=== PATIENT | female | born 1960 | race Caucasian/White ===

== ENCOUNTER 2020-01-25 16:28 | Outpatient (CLI) | payer BC, SELFPAY ==
--- NOTE | 2020-01-25 | XR_ITS ---
WS: [id number] LEFT ANKLE: 3 VIEW(S) TECHNIQUE: AP, oblique(s) and lateral. HISTORY: ACUTE LEFT ANKLE PAIN COMPARISON: None available. Normal anatomic alignment with no fracture or dislocation. Diffuse osteopenia. Hypertrophic osteophytes from the distal fibula. Mild narrowing of the ankle join t. No soft tissue abnormality. XR/XR ankle LT min 3V* 53800 IMPRESSION: 1. Osteopenia with mild degenerative changes at the ankle joint. 2. No fracture.
== END 2020-01-25 16:29 | disposition home or self-care (01) ==
LOC: RADOUTREAD 01-27 11:19
PROVIDERS: Family Provider Family Medicine; Visit Provider Nurse Practitioner Family
DX: Z01.89 Encounter for other specified special examinations (principal)

== ENCOUNTER 2020-02-04 14:01 | Outpatient (CLI) | payer BC, SELFPAY ==
--- NOTE | 2020-02-04 14:16 | CT_ITS ---
WS: [id number] CT CHEST TECHNIQUE: Noncontrast CT of the chest with coronal and sagittal reformatted images. CLINICAL INFORMATION: PULMONARY NODULE COMPARISON: CTA chest January 19, 2019 DLP: 602.[address] scans at [facility] use at least one of these dose optimization techniques: automat ed exposure control; mA and/or kV adjustment per patient size (includes targeted exams where dose is matched to clinical indication); or iterative reconstruction. FINDINGS: Moderate chronic emphysematous changes. No acute pulmonary infiltrates. No focal pneumonia. No consol idation or pleural fluid. A few calcified granulomas. Again seen are centrilobular nodularity and tree-in-bud configuration more prominent in the upper lob es. This is not significantly changed since the prior examination. A few tiny calcified granulomas. N o new pulmonary opacities. Hazy groundglass opacities in right lower lobe likely inflammatory. Slight atelectasis in the lingula. Aortic calcification. Coronary calcification. No mediastinal or hilar lymphadenopathy. Adrenal glands are normal. Chronic left rib fractures with callus formation. Chronic compression with anterior wedging at T8. Sl ight retropulsion of the posterior superior cortex. Loss of approximately 40% vertebral body height c entrally. This is new since 2019 but has a chronic appearance. CT/CT chest wo con 36090 IMPRESSION: 1. Moderate chronic emphysematous changes. No acute pulmonary infiltrates. 2. Again seen are tree-in-bud nodularity more prominent in the upper lobes not significantly changed since 2019. This can be seen with respiratory bronchioli tis, hypersensitivity pneumonitis, and MAC 3. A few calcified granulomas are unchanged. 4. No mediastinal or hilar lymphadenopathy. 5. Compression fracture involving the T8 vertebral body with anterior wedging and loss of approximately 40% vertebral body height centrally. This is new sinc e 2019 but has a chronic appearance.
== END 2020-02-04 14:02 | disposition home or self-care (01) ==
LOC: RADWPI 14:04
PROVIDERS: Family Provider Family Medicine; PCP Family Medicine; Visit Provider Family Medicine
DX: J43.9 Emphysema, unspecified (principal); J84.10 Pulmonary fibrosis, unspecified; R91.1 Solitary pulmonary nodule; M48.54XA Collapsed vertebra, not elsewhere classified, thoracic region, initial encounter for fracture
CPT/HCPCS: 71250

== ENCOUNTER 2020-02-05 13:07 | Emergency (ER) | payer BC, SELFPAY ==
[2020-02-05 13:09] VITALS: BP 143/75; PULSE 88; RESP 16; TEMP 36.6; O2SAT 97; BMI 27.0
--- NOTE | 2020-02-05 13:21 | ED_ITS ---
Entered by Haley Waller, acting as scribe for Anne Marie Pabon MD HPI - Back Pain/Injury General: Chief Complaint: Back Pain/Injury Stated Complaint: BACK PAIN Time Seen by Provider: 02/05/20 13:20 Source: patient, RN notes reviewed and old records reviewed Mode of arrival: ambulatory Limitations: no limitations History of Present Illness: HPI Narrative: 59 yo female presents to ED with complaints of back pain. She said the pain began yesterday and she had difficulty getting up this morning. She said the pain is in her lower back. She states Monday morning (about 0400) she was changing her spouses bed and she injured her back with pushing/pulling on the sheets over the top of the bed. She has tried Aleve and Icy Hot patches with no relief. She said a little over a week ago, she had a sudden sharp pain in her L ankle that began on the inside of her ankle and radiated across the front of her ankle. MD elicited complaint: back pain and back injury (lower) Severity: severe Quality: sharp Location: lumbar spine Radiation: none Exacerbating factors: movement Relieving factors: none Context: turning/twisting and other (pushing/pulling) Associated symptoms: Reports no associated symptoms; Deny abdominal pain, chills, change in bowel habits, fever(s), nausea or vomiting Treatments prior to arrival: heat therapy and NSAIDS Work related injury: No Review of Systems General: Reports: 10 or more systems reviewed and unremarkable except in HPI and below Const: Denies: fever or chills Eyes: Denies: change in vision ENMT: Denies: throat pain Card: Denies: chest pain Resp: Denies: shortness of breath GI: Denies: abdominal pain, nausea, vomiting or change in bowel habits : Denies: difficulty urinating Musc: Reports: back pain Skin/Breast: Denies: rash Neuro: Denies: headache Psych: Denies: hopelessness or suicidal ideation Endo: Denies: excessive urination Ming/Lymph: Denies: easy bruising or easy bleeding All/Imm: Denies: hives PFSH ED PFSH: Social History Smoking and tobacco status: current every day smoker Physical Exam Const: COMMON NORMALS: no apparent distress, oriented x3, alert and well nourished Eye: COMMON NORMALS: EOMs intact bilaterally and conjunctivae normal CONJUNCTIVA: Yes conjunctivae normal Neck/C-Spine: COMMON NORMALS: full ROM CERVICAL SPINE: Yes cervical ROM normal Resp: COMMON NORMALS: normal respiratory effort, no retractions, no use of accessory muscles and clear to auscultation bilaterally EFFORT & INSPECTION: Yes able to speak in complete sentences AUSCULTATION: clear to auscultation bilaterally Cardio: COMMON NORMALS: regular rate and regular rhythm RATE: regular rate RHYTHM: regular rhythm Back/Pelvis: LUMBAR SPINE/LOWER BACK: Yes normal to inspection (no step-offs, no rash, no palpable spasm) and Yes pain with ROM OTHER: Normal range of motion Extremity: GENERAL: Yes normal exam except as noted Neuro: COMMON NORMALS: oriented x3 and CN's II-XII intact bilaterally SENSORIUM/ORIENTATION: Yes alert SPEECH: speech normal Psych: COMMON NORMALS: mental status grossly normal Skin: COMMON NORMALS: no rashes or lesions noted GENERAL SKIN EXAM: no rashes or lesions noted Course Vital Signs: Vital signs: Vital Signs Temperature 98 F 02/05/20 13:09 Pulse Rate 72 02/05/20 14:56 Respiratory Rate 16 02/05/20 14:56 Blood Pressure 133/87 02/05/20 14:56 Pulse Oximetry 97 02/05/20 14:56 MDM - Back Pain/Injury MDM Narrative: Medical decision making narrative: 59-year-old female with low back pain that is bilateral and paraspinal. Pain developed after she was pulling to try to move Ray who is on hospice. She does not have any symptoms or signs of cauda equina. No change in bowel or bladder no dysuria. She knew she had a compression fracture of T8 and this is not in the area where she hurts. This is an old fracture on a CT that was performed for a pulmonary nodule that I reviewed from yesterday as an outpatient. 1412 pain slightly improved with meds here Discharge Plan Discharge Patient Disposition: Home, Self-Care Condition: Stable Prescriptions: New Valium 5 mg tablet 5 mg PO BID PRN (Reason: spasm) Qty: 7 RF: 0 [place] 5-325 mg tablet 1 tab PO BID PRN (Reason: pain) Qty: 7 RF: 0 Referrals: Sid Harris MD [Primary Care Provider] - Patient Instructions: Low Back Strain (ED) Activity Restrictions/Additional Instructions: call your doctor for follow up. If you feel that you have any emergent problems or need to be seen in the ER then return to the ER where we will re evaluate you to ensure you do not have any life or limb threatening conditions. Discharge Date/Time: 02/05/20 14:57 Coding Level of Care Code ED Title Clerk for Chg Fwd Exam Comprehensive The documentation recorded by the Sridhar choudhury Valerie R, accurately reflects the service I personally performed and the decisions made by me, Anne Marie Pabon MD Feb 05, 2020 13:07
[2020-02-05 13:37] VITALS: O2SAT 97
[2020-02-05] MEDS: HYDROcodone-acetaminophen 5-325 mg Tablet 1 TAB PO (13:41)
[2020-02-05] MEDS: diazePAM 5 mg Tablet PO (13:42)
[2020-02-05 14:56] VITALS: BP 133/87; PULSE 72; RESP 16; O2SAT 97
== END 2020-02-05 14:57 | disposition home or self-care (01) ==
PROVIDERS: Emergency Provider Emergency Medicine; Family Provider Family Medicine; PCP Family Medicine
DX: S39.92XA Unspecified injury of lower back, initial encounter (principal); M54.5 Low back pain; F17.200 Nicotine dependence, unspecified, uncomplicated; X50.0XXA Overexertion from strenuous movement or load, initial encounter
CPT/HCPCS: 12345; 99281; 99283

== ENCOUNTER 2020-02-07 12:14 | Outpatient (CLI) | payer BC, SELFPAY ==
--- NOTE | 2020-02-07 | XR_ITS ---
WS: [id number] XR lumbar spine min 4V 00099 REASON FOR EXAM: BACK PAIN ACUTE FINDINGS: Scoliosis convex to the left side. Compression deformity T12 vertebra. Increased lordosis in the lumbar spine. Lamina pedicles spinous processes normal. XR/XR lumbar spine min 4V 95955 IMPRESSION: Compression fracture T12.
== END 2020-02-07 12:15 | disposition home or self-care (01) ==
LOC: RADOUTREAD 02-10 11:09
PROVIDERS: Family Provider Family Medicine; PCP Family Medicine; Visit Provider Family Medicine
DX: Z01.89 Encounter for other specified special examinations (principal)

== ENCOUNTER 2020-05-28 09:16 | Inpatient (IN) | payer BC, SELFPAY ==
[2020-05-28] VITALS (7 sets, daily range): BP systolic 144–169; BP diastolic 73–86; PULSE 69–111; RESP 16–20; TEMP 36.8–37.9; O2SAT 93–97; BMI 24.2
--- NOTE | 2020-05-28 09:30 | XRR_ITS ---
PROCEDURE INFORMATION: Exam: XR Chest, 1 View Exam date and time: 05/28/2020 9:47 AM Age: 60 years old Clinical indication: Dyspnea and other: Dizziness, weakness; Patient HX: C/O shortness of breath/weakness in legs x 1 week. Dizziness; Additional info: Chest pain TECHNIQUE: Imaging protocol: XR of the chest Views: 1 view. COMPARISON: CR XR chest 2V* [id number] 02/24/2020 10:37 AM FINDINGS: Lungs: No pneumonia or pulmonary edema. Calcified bilateral pulmonary granulomas present. Minimal scarring in the left lung base. Pleural space: No pleural effusion or pneumothorax. Heart/Mediastinum: The cardiac silhouette is not enlarged. The mediastinal contours are normal. Bones/joints: The previously demonstrated compression injuries in the thoracic spine are not well visualized on this frontal portable chest radiograph. XR/XR chest 1V portable [id number] IMPRESSION: No acute abnormality.
--- NOTE | 2020-05-28 09:57 | ECG_ITS ---
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 Measurements Intervals [place] Rate: 65 P: 65 ME: 138 QRS: -6 QRSD: 93 T: 48 QT: 437 QTc: 457 Interpretive Statements SINUS RHYTHM Compared to ECG 07/29/2019 16:10:25 Sinus tachycardia no longer present T-wave abnormality no longer present Electronically Signed On 05-28-2020 20:48:29 CDT by Anay Orellana M.D. [email or web address], [id number] f
--- NOTE | 2020-05-28 09:58 | W.ED.GENADLT ---
HPI - General Adult General: Chief complaint: Shortness of Breath/Dyspnea Stated complaint: SOB/DIZZY/WEAKNESS Time Seen by Provider: 05/28/20 09:28 Source: patient Mode of arrival: ambulatory Limitations: no limitations History of Present Illness: HPI narrative: Patient is a 60-year-old female with a history of HTN, hyperlipidemia, and COPD here for complaints of generalized weakness more so to her bilateral lower extremities, some slight dizziness, and shortness of breath. Symptoms have been present over the past week. She is also complaining of some pain across to her back and chest pain. She reports a productive cough although states that is not completely abnormal for her given her COPD. She states she had a fever of 101.6 yesterday. Patient does not seem to be in any acute distress during my examination. Her vitals upon triage are completely stable. She is an every day smoker. Patient does not require oxygen for her COPD. PCP is Dr. Sid Harris. Associated symptoms: Reports chest pain and dyspnea; Deny confusion, headache(s), nausea, rash, palpitations, syncope or vomiting Review of Systems Const: Reports: fever(s); Denies: chills, body aches, change in appetite, change in weight or fatigue Eyes: Denies: change in vision, blurry vision, photophobia, floaters or seeing flashes Card: Reports: chest pain and lightheadedness; Denies: palpitations, irregular heart rhythm, edema, swelling of feet/ankles, syncope, pre-syncope, dyspnea on exertion, orthopnea or leg pain with exertion Resp: Reports: dyspnea, productive cough and chest congestion; Denies: wheezing or hemoptysis GI: Denies: abdominal pain, nausea, vomiting or diarrhea : Denies: flank pain, difficulty voiding, dysuria, urinary frequency, urinary urgency or urinary hesitancy Musc: Reports: back pain (across mid back); Denies: neck pain, extremity pain, extremity swelling or joint pain Skin/Breast: Denies: rash Neuro: Reports: weakness in extremities and dizziness; Denies: headache(s), numbness in extremities, sensory changes, confusion or Slurred speech present PFS ED PFSH: Social History Smoking and tobacco status: current every day smoker Physical Exam Const: COMMON NORMALS: no acute distress, average body habitus, patient oriented x3, no limitations, healthy appearing, alert and well nourished ORIENTATION/CONSCIOUSNESS: Yes oriented to person, Yes oriented to place and Yes oriented to time HENMT: COMMON NORMALS: normocephalic, atraumatic, hearing grossly normal bilaterally, EAC's normal and TM's normal bilaterally HEAD & SCALP: normal to inspection, normocephalic and atraumatic FACE & SINUS: normal facial exam and sinuses nontender EXTERNAL AUDITORY CANAL: EAC's normal TYMPANIC MEMBRANE: TM's normal bilaterally Eye: COMMON NORMALS: Equal, round and reactive pupils present, EOMs intact bilaterally, conjunctivae normal and no scleral icterus GENERAL EYE: appearance normal, both eyes and all related structures CONJUNCTIVA: Yes conjunctivae normal PUPIL: Yes Equal, round and reactive pupils present Neck/C-Spine: COMMON NORMALS: full ROM, no lymphadenopathy and no meningeal signs Chest: COMMONS NORMALS: normal inspection of the chest OTHER: mild tenderness with palpation of L chest Resp: COMMON NORMALS: normal respiratory effort and clear to auscultation bilaterally AUSCULTATION: clear to auscultation bilaterally Cardio: COMMON NORMALS: regular rate and regular rhythm RATE: regular rate RHYTHM: regular rhythm GI: COMMON NORMALS: Normal to inspection, nondistended, normoactive bowel sounds present, Soft to palpation, non-tender, No hepatosplenomegaly present and no masses PALPATION: Yes Soft to palpation and Yes No hepatosplenomegaly present Extremity: COMMON NORMALS: normal to inspection, full ROM, capillary refill normal, no joint enlargement, no clubbing, cyanosis or edema, no calf tenderness and no pedal edema GENERAL: Yes normal exam except as noted Neuro: [place] COMA SCALE: document GCS findings [place] coma scale eye opening: Spontaneous [place] coma scale verbal response: Orientated [place] coma scale motor response: Obey commands [place] coma scale total score: 15 COMMON NORMALS: patient oriented x3, CN's II-XII intact bilaterally, moves all extremities, no focal motor deficits and no sensory deficits noted SENSORIUM/ORIENTATION: Yes alert, Yes oriented to person, Yes oriented to place and Yes oriented to time MENINGEAL SIGNS: Yes no meningeal signs Skin: COMMON NORMALS: no rashes or lesions noted GENERAL SKIN EXAM: no rashes or lesions noted Course Consultations: Consultation #1: Dr. Olmstead spoke to Dr. Mcguire for hospital admission. He was fine with placing patient on Zosyn for her UTI and recommended NS at 75 mL/hr. Vital Signs: Vital signs: Vital Signs Temperature 98.3 F 05/28/20 09:26 Pulse Rate 111 H 05/28/20 13:25 Respiratory Rate 16 05/28/20 13:25 Blood Pressure 144/76 05/28/20 13:25 Pulse Oximetry 93 05/28/20 13:25 MDM - General Adult MDM Narrative: Medical decision making narrative: pt is septic from UTI and has a sodium of 115, potassium of 2.8, and cloride of 70; she will need to come into hospital for IV abx and electrolyte correction; spoke to Dr. Olmstead who will speak to hospitalist and place admit orders Lab Data: Labs: Lab Results 05/28/20 05/28/20 05/28/20 Range/Units 09:57 09:57 09:57 WBC 9.5 (4.0-10.0) 10^3/ uL RBC 4.45 (4.1-5.3) 10^6/u L Hgb 12.8 (11.5-15.3) g/dL Hct 35.8 L (37.0-47.0) % MCV 80.4 L (81-99) fL MCH 28.8 (28.0-34.0) pg MCHC 35.8 (30.0-36.0) g/dL RDW 12.4 (12.1-15.1) % Plt Count 142 (130-400) 10^3/c mm MPV 9.8 (7.4-10.4) fL Neut % (Auto) 79.0 % Lymph % (Auto) 10.4 % [place] % (Auto) 8.0 % Eos % (Auto) 1.9 % Baso % (Auto) 0.1 % Neut # (Auto) 7.5 (1.8-7.7) 10^3/u L Lymph # (Auto) 1.0 (0.8-4.8) 10^3/u L [place] # (Auto) 0.8 (0.2-0.9) 10^3/u L Eos # (Auto) 0.2 (0.0-0.8) 10^3/u L Baso # (Auto) 0.0 (0.0-0.1) 10^3/u L Nucleated RBC % (a uto) 0 % Nucleated RBCs # 0.0 /100WBC Sodium 115 L* (136-145) mmol/L Potassium 2.8 L* (3.5-5.1) mmol/L Chloride 70 L (98-107) mmol/L Carbon Dioxide 26 (22-29) mmol/L Anion Gap 21.8 H (5-19) BUN 4 L (8-23) mg/dL Creatinine 0.5 (0.5-0.9) mg/dL GFR Calculation 125.4 (90-130) mL/min Glucose 115 (65-115) mg/dL Calculated Osmolal ity 237 L (285-295) mOsm/k g Lactate 3.9 H (0.5-2.2) mmol/L Calcium 8.5 (8.5-10.5) mg/dL Magnesium (1.7-2.3) mg/dL Total Bilirubin 0.8 (0.15-1.2) mg/dL AST 38 H (0-32) U/L ALT 26 (0-33) U/L Alkaline Phosphata se 164 H (35-105) IU/L Troponin T Baselin e (0-10) ng/L Troponin T 120 Min [place] (0-10) ng/L Delta Troponin T (0-10) ABS# Total Protein 6.3 L (6.6-8.7) g/dL Albumin 3.9 (3.5-5.2) g/dL Globulin 2.4 (1.3-4.6) g/dL Urine Color (Yellow) Urine Appearance (CLEAR) Urine pH (5-7) Ur Specific Gravit y (1.005-1.030) Urine Protein (Negative) Urine Glucose (UA) (Normal) Urine Ketones (Negative) Urine Blood (Negative) Urine Nitrate (Negative) Urine Bilirubin (NEGATIVE) Urine Urobilinogen (Negative) mg/dL Ur Leukocyte Deyanira ase (Negative) Urine RBC (0-2) /hpf Urine WBC (0-5) /hpf Ur Squamous Epith Cells (0-5) Amorphous Sediment Urine Bacteria (NONE) 05/28/20 05/28/20 05/28/20 Range/Units 09:57 09:57 11:45 WBC (4.0-10.0) 10^3/ uL RBC (4.1-5.3) 10^6/u L Hgb (11.5-15.3) g/dL Hct (37.0-47.0) % MCV (81-99) fL MCH (28.0-34.0) pg MCHC (30.0-36.0) g/dL RDW (12.1-15.1) % Plt Count (130-400) 10^3/c mm MPV (7.4-10.4) fL Neut % (Auto) % Lymph % (Auto) % [place] % (Auto) % Eos % (Auto) % Baso % (Auto) % Neut # (Auto) (1.8-7.7) 10^3/u L Lymph # (Auto) (0.8-4.8) 10^3/u L [place] # (Auto) (0.2-0.9) 10^3/u L Eos # (Auto) (0.0-0.8) 10^3/u L Baso # (Auto) (0.0-0.1) 10^3/u L Nucleated RBC % (a uto) % Nucleated RBCs # /100WBC Sodium (136-145) mmol/L Potassium (3.5-5.1) mmol/L Chloride (98-107) mmol/L Carbon Dioxide (22-29) mmol/L Anion Gap (5-19) BUN (8-23) mg/dL Creatinine (0.5-0.9) mg/dL GFR Calculation (90-130) mL/min Glucose (65-115) mg/dL Calculated Osmolal ity (285-295) mOsm/k g Lactate (0.5-2.2) mmol/L Calcium (8.5-10.5) mg/dL Magnesium 1.6 L (1.7-2.3) mg/dL Total Bilirubin (0.15-1.2) mg/dL AST (0-32) U/L ALT (0-33) U/L Alkaline Phosphata se (35-105) IU/L Troponin T Baselin e 12 H (0-10) ng/L Troponin T 120 Min [place] (0-10) ng/L Delta Troponin T (0-10) ABS# Total Protein (6.6-8.7) g/dL Albumin (3.5-5.2) g/dL Globulin (1.3-4.6) g/dL Urine Color Yellow (Yellow) Urine Appearance Cloudy (CLEAR) Urine pH 5 (5-7) Ur Specific Gravit y 1.015 (1.005-1.030) Urine Protein Neg (Negative) Urine Glucose (UA) Norm (Normal) Urine Ketones Negative (Negative) Urine Blood 2+ H (Negative) Urine Nitrate Negative (Negative) Urine Bilirubin Neg (NEGATIVE) Urine Urobilinogen Norm (Negative) mg/dL Ur Leukocyte Deyanira ase 2+ H (Negative) Urine RBC 15-25 H (0-2) /hpf Urine WBC 80-100 H (0-5) /hpf Ur Squamous Epith Cells 55-80 H (0-5) Amorphous Sediment Not Reportable Urine Bacteria 4+ H (NONE) 05/28/20 Range/Units 12:10 WBC (4.0-10.0) 10^3/ uL RBC (4.1-5.3) 10^6/u L Hgb (11.5-15.3) g/dL Hct (37.0-47.0) % MCV (81-99) fL MCH (28.0-34.0) pg MCHC (30.0-36.0) g/dL RDW (12.1-15.1) % Plt Count (130-400) 10^3/c mm MPV (7.4-10.4) fL Neut % (Auto) % Lymph % (Auto) % [place] % (Auto) % Eos % (Auto) % Baso % (Auto) % Neut # (Auto) (1.8-7.7) 10^3/u L Lymph # (Auto) (0.8-4.8) 10^3/u L [place] # (Auto) (0.2-0.9) 10^3/u L Eos # (Auto) (0.0-0.8) 10^3/u L Baso # (Auto) (0.0-0.1) 10^3/u L Nucleated RBC % (a uto) % Nucleated RBCs # /100WBC Sodium (136-145) mmol/L Potassium (3.5-5.1) mmol/L Chloride (98-107) mmol/L Carbon Dioxide (22-29) mmol/L Anion Gap (5-19) BUN (8-23) mg/dL Creatinine (0.5-0.9) mg/dL GFR Calculation (90-130) mL/min Glucose (65-115) mg/dL Calculated Osmolal ity (285-295) mOsm/k g Lactate (0.5-2.2) mmol/L Calcium (8.5-10.5) mg/dL Magnesium (1.7-2.3) mg/dL Total Bilirubin (0.15-1.2) mg/dL AST (0-32) U/L ALT (0-33) U/L Alkaline Phosphata se (35-105) IU/L Troponin T Baselin e (0-10) ng/L Troponin T 120 Min [place] 13.22 H (0-10) ng/L Delta Troponin T 1.22 (0-10) ABS# Total Protein (6.6-8.7) g/dL Albumin (3.5-5.2) g/dL Globulin (1.3-4.6) g/dL Urine Color (Yellow) Urine Appearance (CLEAR) Urine pH (5-7) Ur Specific Gravit y (1.005-1.030) Urine Protein (Negative) Urine Glucose (UA) (Normal) Urine Ketones (Negative) Urine Blood (Negative) Urine Nitrate (Negative) Urine Bilirubin (NEGATIVE) Urine Urobilinogen (Negative) mg/dL Ur Leukocyte Deyanira ase (Negative) Urine RBC (0-2) /hpf Urine WBC (0-5) /hpf Ur Squamous Epith Cells (0-5) Amorphous Sediment Urine Bacteria (NONE) Imaging Data^: CXR: Radiologist's impression: [address] [address] XRay Report Signed Patient: Serene Alcaraz Unit #: [id number] : 1960 Age/Sex: 60 / F ADM Date: 05/28/20 Loc: ER Room/Bed: Attending Dr: Ordering Provider/Ordering MD: Joanne John Date of Service: 05/28/20 Procedure(s): XR chest 1V portable [id number] Accession Number(s): [id number] Report Number: [id number] PROCEDURE INFORMATION: Exam: XR Chest, 1 View Exam date and time: 05/28/2020 9:47 AM Age: 60 years old Clinical indication: Dyspnea and other: Dizziness, weakness; Patient HX: C/O shortness of breath/weakness in legs x 1 week. Dizziness; Additional info: Chest pain TECHNIQUE: Imaging protocol: XR of the chest Views: 1 view. COMPARISON: CR XR chest 2V* [id number] 02/24/2020 10:37 AM FINDINGS: Lungs: No pneumonia or pulmonary edema. Calcified bilateral pulmonary granulomas present. Minimal scarring in the left lung base. Pleural space: No pleural effusion or pneumothorax. Heart/Mediastinum: The cardiac silhouette is not enlarged. The mediastinal contours are normal. Bones/joints: The previously demonstrated compression injuries in the thoracic spine are not well visualized on this frontal portable chest radiograph. XR/XR chest 1V portable [id number] IMPRESSION: No acute abnormality. Dictated By: Ector Montana Signed By: Ector Montana Signed Date/Time: 05/28/20 104 DD/ 1048 Discharge Plan Discharge Patient Disposition: Admitted As Inpatient Admit Provider: Maksim Mcguire Clinical Impression: Acute hyponatremia, Acute hypokalemia, Acute cystitis with hematuria Sepsis Qualifiers: Sepsis type: sepsis due to unspecified organism Sepsis acute organ dysfunction status: without acute organ dysfunction Qualified Code(s): A41.9 - Sepsis, unspecified organism Condition: Stable Referrals: Sid Harris MD [Primary Care Provider] - Coding Level of Care Code ED Mash Grinder for [facility] Fwd Exam Comprehensive
[2020-05-28 10:08] LABS: Basophils % 0.1 %; Eosinophils # 0.2 10^3/uL (0.0-0.8); Eosinophils % 1.9 %; Hematocrit 35.8 % (37.0-47.0); Hemoglobin 12.8 g/dL (11.5-15.3); Lymphocytes % 10.4 %; Mean Corpuscular HGB Conc 35.8 g/dL (30.0-36.0); Mean Corpuscular Hemoglobin 28.8 pg (28.0-34.0); Mean Corpuscular Volume 80.4 fL (81-99); Mean Platelet Volume 9.8 fL (7.4-10.4); Monocytes # 0.8 10^3/uL (0.2-0.9); Neutrophils # 7.5 10^3/uL (1.8-7.7); Nucleated Red Blood Cells % 0 %; Platelet Count 142 10^3/cmm (130-400); Red Blood Count 4.45 10^6/uL (4.1-5.3); Red Cell Distribution Width 12.4 % (12.1-15.1); White Blood Count 9.5 10^3/uL (4.0-10.0)
[2020-05-28 10:23] LABS: Lactate (Lactic Acid level) 3.9 mmol/L (0.5-2.2)
[2020-05-28 10:26] LABS: Troponin(5th) Baseline 12 ng/L (0-10)
[2020-05-28 10:34] LABS: Alanine Aminotransferase 26 U/L (0-33); Albumin Level 3.9 g/dL (3.5-5.2); Alkaline Phosphatase 164 IU/L (35-105); Anion Gap 21.8 (5-19); Aspartate Amino Transferase 38 U/L (0-32); Blood Urea Nitrogen 4 mg/dL (8-23); Calcium 8.5 mg/dL (8.5-10.5); Carbon Dioxide 26 mmol/L (22-29); Chloride 70 mmol/L (98-107); Globulin 2.4 g/dL (1.3-4.6); Glomerular Filtration Rate 125.4 mL/min (90-130); Glucose 115 mg/dL (65-115); Osmolality Calculated 237 mOsm/kg (285-295); Total Bilirubin 0.8 mg/dL (0.15-1.2); Total Protein 6.3 g/dL (6.6-8.7)
[2020-05-28 10:52] LABS: Potassium 2.8 mmol/L (3.5-5.1); Sodium 115 mmol/L (136-145)
[2020-05-28 11:47] LABS: Magnesium 1.6 mg/dL (1.7-2.3)
--- NOTE | 2020-05-28 11:57 | ECG_ITS ---
[facility] Test Date: 2020-05-28 Pat Name: Serene Alcaraz Department: Room: Gender: Female Scientific Associate: : 1960 Requested By: Joanne John Order Number: [id number] Aj MD: Anay Orellana M.D. Measurements Intervals [place] Rate: 68 P: 64 MO: 149 QRS: 29 QRSD: 82 T: 43 QT: 427 QTc: 455 Interpretive Statements SINUS RHYTHM POSSIBLE LEFT ATRIAL ENLARGEMENT [-0.1mV P WAVE IN V1/V2] Compared to ECG 07/29/2019 16:10:25 Sinus tachycardia no longer present T-wave abnormality no longer present Electronically Signed On 05-28-2020 20:55:54 CDT by Anay Orellana M.D. [email or web address]/[id number]
[2020-05-28 12:00] LABS: Add Urine Microscopic? YES; Bilirubin Urine Neg (NEGATIVE); Blood Urine 2+ (Negative); Glucose Urine UA Norm (Normal); Ketones Urine Negative (Negative); Leukocyte Esterase Urine 2+ (Negative); Nitrate Urine Negative (Negative); Protein Urine Neg (Negative); Specific Gravity, Urine 1.015 (1.005-1.030); Urine Appearance Cloudy (CLEAR); Urine Color Yellow (Yellow); Urobilinogen Urine Norm (Negative); pH Urine 5 (5-7)
--- NOTE | 2020-05-28 12:10 | PC.NURSE ---
EKG done at 1200 and shown to ER doctor
[2020-05-28 12:17] LABS: RBC Urine 15-25 /hpf (0-2)
[2020-05-28 12:18] LABS: Add Urine Culture? No; Bacteria Urine 4+; Squamous Epithelial Cell Urine 55-80 (0-5); WBC Urine 80-100 /hpf (0-5)
[2020-05-28] MEDS: potassium chloride premix 40 MEQ/100 ML PREMIX 25 MEQ IV (12:20)
[2020-05-28] MEDS: sodium chloride 0.9% 1,000 ML 500 ML IV (12:21)
--- NOTE | 2020-05-28 12:24 | CTR_ITS ---
PROCEDURE INFORMATION: Exam: CT Chest Without Contrast Exam date and time: 05/28/2020 12:46 PM Age: 60 years old Clinical indication: Shortness of breath; Dyspnea TECHNIQUE: Imaging protocol: Computed tomography of the chest without contrast. Radiation optimization: All CT scans at this facility use at least one of these dose optimization techniques: automated exposure control; mA and/or kV adjustment per patient size (includes targeted exams where dose is matched to clinical indication); or iterative reconstruction. COMPARISON: 1. CT CHEST 02/04/2020 2:22 PM 2. XR CHEST 05/28/2020 9:36 AM RADIATION DOSE METRICS: Total DLP (mGy-cm): 292.85 FINDINGS: Lungs: Bilateral calcified pulmonary granulomas. Stable bilateral ?tree in bud appearance redemonstrated. Partially calcified stable right apical pleural parenchymal scarring. Stable 6 mm noncalcified nodular opacity in the posterior segment right upper lobe. New scattered bilateral subpleural ground-glass opacities which could be due to an inflammatory or infectious process. Pleural space: No pleural effusion or pneumothorax. Heart: The heart is not enlarged. No pericardial effusion. There is coronary artery disease. Aorta: The thoracic aorta is atherosclerotic. No thoracic aortic aneurysm or dissection. Great vessels off aortic arch: There is a left aortic arch with an aberrant right subclavian artery. Lymph nodes: Calcified mediastinal and hilar lymph nodes present from prior granulomatous disease. Pancreas: Multiple calcifications in the pancreas compatible with chronic calcific pancreatitis. Bones/joints: Prior bilateral rib fractures. Stable T8 vertebral body compression injury. Interval compression injury of the superior T12 vertebral body, though not appearing acute. Soft tissues: No acute soft tissue abnormality. CT/CT chest [facility] [id number] IMPRESSION: New bilateral subpleural ground-glass opacities which may be due to an inflammatory or infectious process. Radiation Dose CTDIVOL = (mGy): DLP = 292.85 (mGy-cm)
[2020-05-28 12:42] LABS: Troponin 5 2HR 13.22 ng/L (0-10); Troponin 5 2HR Delta 1.22 ABS# (0-10)
[2020-05-28] MEDS: piperacillin-tazobactam 3.375 GM in sodium chloride 0.9% (plus) 50 ML IV (13:50)
--- NOTE | 2020-05-28 15:07 | P.HP_ITS ---
Providers/Chief Complaint Admitting Physician: Maksim Mcguire MD Primary Care Provider: Sid Harris MD Chief Complaint: SOB/DIZZY/WEAKNESS History of Present Illness Serene Alcaraz is a 60 year old female with past medical history of hypertension, OPD, arrhythmia, depression, history of alcoholism with pancreatitis, chronic smoker who presented to the ER today decreased oral intake for last 1 week appreciated with nausea and few episodes of vomiting. Vomitus contains of food particle. She states she has been having some dizziness, headache for last 2 to 3 days. Denies of having any seizure-like activity. Patient has been having on and off dysuria symptoms. Also complains of having occasional diarrhea for last 1 to 2 days with last episode yesterday night. She states she does not have any flulike symptoms does not think has any fever, states her cough and expector ation seems to be at baseline. States she is not more short of breath than usual. Denies having any COVID-19 exposure. Blood work in the ER showed a hemoglobin of 12.8, white count of 9.5 without any left shift, sodium of 115, potassium of 2.8, chloride of 70, creatinine of 0.5, lactate of 3.9, magnesium of 1.6, alkaline phosphatase of 164, baseline troponin of 12 with a delta of 1.3 in 2 hours, urine studies suggestive of positive for leuk esterase, white count 8200 in the urine with 4+ bacteria. Review of Systems Const: Reports: fatigue; Denies: fever(s), chills, body aches, change in appetite, malaise, night sweats, diaphoresis, change in sleep pattern, daytime sleepiness or snoring Eyes: Denies: change in vision, blurry vision, photophobia, eye discomfort or eye discharge ENMT: Denies: throat pain, enlarged tonsils, hoarseness, mouth pain, oral sores, dry mouth, tinnitus, nasal congestion or post nasal drip Card: Denies: chest pain, palpitations, irregular heart rhythm, edema, swellin g of feet/ankles, lightheadedness, syncope, pre-syncope, dyspnea on exertion, orthopnea, leg pain with exertion or acrocyanosis Resp: Reports: dyspnea and productive cough; Denies: non-productive cough, wheezing, stridor, pain on inspiration, change in phlegm color, hemoptysis or chest congestion GI: Denies: abdominal pain, nausea, vomiting, hematemesis, coffee ground emesis, dysphagia, heartburn, diarrhea, constipation, bloating, GI cramping, change in bowel habits, pain on defecation, hematochezia or melena : Denies: flank pain, dysuria, urinary frequency, urinary urgency, urinary hesitancy, nocturia or hematuria Musc: Denies: neck pain, back pain, extremity pain, joint pain, joint swelling, joint redness, joint stiffness or limited range of motion Neuro: Reports: headache(s), weakness in extremities and dizziness; Denies: numbness in extremities, sensory changes, lack of coordination, difficulty walking, frequent falls, vertigo, confusion, Slurred speech present, difficulty communicating thoughts or seizure-like activity Psych: Denies: anxiety, depression, mood swings, panic attacks, hopelessness o r irritability Endo: Denies: polyuria, polydipsia, tired all the time, cold intolerance, excessive sweating, flushing or heat intolerance Ming/Lymph: Denies: easy bruising or easy bleeding All/Imm: Denies: tongue swelling, facial swelling or acute wheezing Medications/Allergies Home Medications Medication Instructions Recorded Confirmed Last Taken Type amlodipine 5 mg PO BID 05/28/20 05/28/20 05/28/20 History aspirin 81 mg PO DAILY 05/28/20 05/28/20 05/27/20 History atorvastatin 80 mg PO DAILY 05/28/20 05/28/20 05/27/20 History labetalol 100 mg PO BID 05/28/20 05/28/20 05/28/20 History Allergies Allergy/AdvReac Type Severity Reaction Status Date / Time No Known Allergies Allergy Verified 02/05/20 13:15 PFSH Acute PFSH: Medical History COPD (chronic obstructive pulmonary disease) Hypertension Osteoporosis Surgical History H/O: hysterectomy Social History (Updated 05/28/20 @ 15:12 by Maksim Mcguire MD) Smoking and tobacco status: current every day smoker Alcohol intake: former Lives independently: Yes Household members: family Vitals/I&O/Wt Last Vital Signs Temp 98.3 F 05/28/20 09:26 Pulse 70 05/28/20 14:47 Resp 20 H 05/28/20 14:47 BP 162/80 05/28/20 14:47 Pulse Ox 97 05/28/20 14:47 05/28/20 05/28/20 05/28/20 06:59 14:59 22:59 Intake Total 50 / 50 Balance 50 / 50 Weight last 48 hrs Weight 54.431 kg Physical Exam Narrative: EXAM NARRATIVE: General: No acute distress, AO x3, drowsy, maintaining airway, dehydrated HEENT: PERRLA, pupils bilaterally equal and reactive Chest: Normal vesicular breath sounds, no added sounds, equal good air entry bilaterally CVS: S1-S2 regular, no murmurs, no tachycardia, no gallops, no rubs Abdomen: Soft, nontender, no organomegaly, bowel sounds present Neuro: No focal deficits, no facial deformity, AO x3, power 3 /5 in all limbs Data : 05/28/20 09:57 05/28/20 09:57 Micro: Microbiology 05/28/20 13:08 Blood Culture - Preliminary Blood SPECIMEN COLLECTED 05/28/20 09:57 Blood Culture - Preliminary Blood SPECIMEN COLLECTED A&P Assessment and plan (1) Acute hyponatremia: Status: Acute (2) Acute cystitis with hematuria: Status: Acute (3) Sepsis: Status: Acute Qualifiers: Sepsis acute organ dysfunction status: without acute organ dysfunction Sepsis type: sepsis due to unspecified organism Qualified Code(s): A41.9 - Sepsis, unspecified organism (4) Acute hypokalemia: Status: Acute (5) Hypertension: Status: Acute (6) COPD (chronic obstructive pulmonary disease): Status: Acute Additional A&P Information Acute hyponatremia: Baseline sodium seems to be around 1 36-1 37. Currently 115. Most likely because of decreased oral intake. Urine lites, plasma and urine osmolality stat Normal saline at 75 cc/h. Check BMP every 4 hours to avoid overcorrection. Target correction of 8 to 12 mEq in the next 24 hours. Sepsis secondary to most likely UTI. Sepsis confirmed by positive lactate, tachycardia on admission. Continue with normal sensitivities per hour. Last urine culture on 2014 shows an E. coli which was resistant to ceftriaxone but was sensitive to levofloxacin. GFR- 125. Start on levoflox 750 mg PO QD Acute hypokalemia: Given 40 mg in the ER. We will give 40 mg oral more. Rechecking BMP every 4 hour replete accordingly. Hypertension: Continue home dose of amlodipine, labetalol. Continue home dose of aspirin and atorvastatin. COPD: CT chest done consistent with emphysema. Questionable groundglass bilateral subpleural opacity. Patient is afebrile, no white count, saturating fine on room air. DuoNebs, budesonide twice daily. Saturation to be kept over 92%. Will supplement oxygen accordingly. Check lipid panel, HbA1c, TSH, iron panel. Full code. Regular diet. Attestations Medical Necessity Statement*: More than 2 midnights for acute hyponatremia, sepsis Time Spent in Patient Care: Greater than 35 minutes (>than 50% of time spent in counselling and/or direct pt care on unit) . 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
--- NOTE | 2020-05-28 15:57 | ECG_ITS ---
[facility] Test Date: 2020-05-28 Pat Name: Serene Alcaraz Department: Room: 273 Gender: Female Greensman: : 1960 Requested By: Joanne John Order Number: [id number] Aj MD: Anay Orellana M.D. Measurements Intervals [place] Rate: 68 P: 72 MI: 141 QRS: 37 QRSD: 81 T: 56 QT: 416 QTc: 445 Interpretive Statements SINUS RHYTHM Compared to ECG 05/28/2020 12:10:29 No significant changes Electronically Signed On 05-28-2020 20:53:36 CDT by Anay Orellana M.D. [email or web address]
[2020-05-28 16:20] LABS: D Dimer 1.34 ug/mIFEU (0-0.59)
[2020-05-28 16:55] LABS: NT Pro B Type Natriuretic Pept 242 pg/mL (0-125); Procalcitonin 0.04 ng/mL (0-0.5)
[2020-05-28 17:05] LABS: Anion Gap 19.2 (5-19); Blood Urea Nitrogen 3 mg/dL (8-23); Calcium 8.7 mg/dL (8.5-10.5); Carbon Dioxide 29 mmol/L (22-29); Chloride 74 mmol/L (98-107); Glomerular Filtration Rate 125.4 mL/min (90-130); Glucose 95 mg/dL (65-115); Osmolality Calculated 243 mOsm/kg (285-295); Potassium 3.2 mmol/L (3.5-5.1); Thyroid Stimulating Hormone 2.66 uIU/mL (0.27-4.20)
[2020-05-28 17:08] LABS: Sodium 119 mmol/L (136-145)
--- NOTE | 2020-05-28 17:11 | PC.NURSE ---
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
[2020-05-28 17:17] LABS: Iron 43 ug/dL (37-145); Percent Saturation 21.2 % (20-50); Total Iron Binding Capacity 202 mcg/dl; Unsaturated Iron Binding 159 ug/dL (112-347)
[2020-05-28 19:21] LABS: Anion Gap 16.5 (5-19); Blood Urea Nitrogen 3 mg/dL (8-23); Calcium 9.1 mg/dL (8.5-10.5); Carbon Dioxide 28 mmol/L (22-29); Chloride 78 mmol/L (98-107); Glomerular Filtration Rate 101.6 mL/min (90-130); Glucose 111 mg/dL (65-115); Osmolality Calculated 244 mOsm/kg (285-295); Potassium 3.5 mmol/L (3.5-5.1)
[2020-05-28 19:22] LABS: Lactic Sepsis W/Reflex 1.9 mmol/L (0.5-2.2)
[2020-05-28 19:25] LABS: Sodium 119 mmol/L (136-145)
[2020-05-28] MEDS: labetalol 200 mg Tablet 100 MG PO (20:13)
[2020-05-28] MEDS: amlodipine 5 mg Tablet PO (20:13)
[2020-05-28] MEDS: potassium chloride ER 10 mEq Tablet 40 MEQ PO (20:14)
[2020-05-28] MEDS: acetaminophen 325 mg Tablet 650 MG PO (20:15)
[2020-05-28] MEDS: enoxaparin 40 mg/0.4 mL Syringe SUBCUT (20:17)
[2020-05-28] MEDS: ipratropium-albuterol 3 mL Neb INHALATION (21:17)
[2020-05-28] MEDS: budesonide 0.5 mg/2 mL Neb INHALATION (21:17)
[2020-05-28 23:50] LABS: Troponin 5 6HR 14.98 ng/L (0-10); Troponin 5 6HR Delta 2.98 ng/L (0-12)
[2020-05-28 23:57] LABS: Blood Urea Nitrogen 3 mg/dL (8-23); Calcium 8.9 mg/dL (8.5-10.5); Carbon Dioxide 27 mmol/L (22-29); Chloride 85 mmol/L (98-107); Glomerular Filtration Rate 125.4 mL/min (90-130); Glucose 105 mg/dL (65-115); Osmolality Calculated 254 mOsm/kg (285-295); Sodium 124 mmol/L (136-145)
[2020-05-29] VITALS (11 sets, daily range): BP systolic 118–143; BP diastolic 62–81; PULSE 58–79; RESP 16–24; TEMP 36.5–37.2; O2SAT 92–96
[2020-05-29] MEDS: ipratropium-albuterol 3 mL Neb INHALATION ×3 (02:22→21:31)
[2020-05-29 04:58] LABS: Potassium, Radom Urine 18 mmol/L; Urine Random Chloride 23 mmol/L; Urine Random Sodium 43 mmol/L
[2020-05-29 05:14] LABS: Amphetamines Screen Urine Negative (Negative); Barbiturates Screen Urine Negative (Negative); Benzodiazepines Screen Urine Negative (Negative); Cocaine Screen Urine Negative (Negative); Opiate Screen Urine Negative (Negative); PCP Screen Urine Negative (Negative); THC Screen Urine Negative (Negative)
[2020-05-29] MEDS: sodium chloride 0.9% 1,000 ML 75 ML IV ×2 (05:16→17:08)
[2020-05-29 05:44] LABS: Basophils % 0.1 %; Hematocrit 33.7 % (37.0-47.0); Hemoglobin 11.8 g/dL (11.5-15.3); Lymphocytes # 0.9 10^3/uL (0.8-4.8); Lymphocytes % 13.7 %; Mean Corpuscular Hemoglobin 28.9 pg (28.0-34.0); Mean Corpuscular Volume 82.4 fL (81-99); Mean Platelet Volume 10.4 fL (7.4-10.4); Monocytes # 0.7 10^3/uL (0.2-0.9); Monocytes % 10.8 %; Neutrophils # 5.2 10^3/uL (1.8-7.7); Neutrophils % 75.1 %; Nucleated Red Blood Cells % 0 %; Platelet Count 131 10^3/cmm (130-400); Red Blood Count 4.09 10^6/uL (4.1-5.3); Red Cell Distribution Width 12.8 % (12.1-15.1); White Blood Count 6.9 10^3/uL (4.0-10.0)
[2020-05-29] MEDS: levoFLOXacin 750 mg Tablet PO (05:48)
[2020-05-29 06:03] LABS: Alanine Aminotransferase 27 U/L (0-33); Albumin Level 3.4 g/dL (3.5-5.2); Alkaline Phosphatase 177 IU/L (35-105); Anion Gap 14.9 (5-19); Aspartate Amino Transferase 53 U/L (0-32); Blood Urea Nitrogen 4 mg/dL (8-23); Calcium 8.3 mg/dL (8.5-10.5); Carbon Dioxide 27 mmol/L (22-29); Chloride 91 mmol/L (98-107); Globulin 2.6 g/dL (1.3-4.6); Glomerular Filtration Rate 125.4 mL/min (90-130); Glucose 109 mg/dL (65-115); Osmolality Calculated 264 mOsm/kg (285-295); Potassium 3.9 mmol/L (3.5-5.1); Sodium 129 mmol/L (136-145); Total Bilirubin 0.9 mg/dL (0.15-1.2)
[2020-05-29 06:07] LABS: Estmated Average Glucose 111; Hemoglobin A1C 5.5 % (4.0-6.0)
[2020-05-29 06:11] LABS: Chol HDL Ratio 1.39 mg/dL (0.0-4.40); Cholesterol 117 mg/dL (0-200); HDL Cholesterol 84 mg/dL (60-100); LDL Cholesterol Calculated 25 mg/dL (50-129); Triglycerides 39 mg/dL (0-150); VLDL Cholestrol Calculation 8 mg/dL (0-30)
[2020-05-29] MEDS: labetalol 200 mg Tablet 100 MG PO ×2 (08:32→17:08)
[2020-05-29] MEDS: atorvastatin 40 mg Tablet 80 MG PO (08:33)
[2020-05-29] MEDS: amlodipine 5 mg Tablet PO ×2 (08:33→17:08)
[2020-05-29] MEDS: aspirin 81 mg Chew Tablet PO (08:33)
--- NOTE | 2020-05-29 10:14 | PC.CHAP ---
Pastoral Care Encounter/Spiritual Assessment Type of Contact [] Declined route cdl driver visit [] Patient/Family/Request visit [] Outpatient visit [] Follow-up visit [] Physician referral [] Code/Alert [x] Routine visit [] Staff referral [] Actively dying [x] Patient sleeping [] Family support [] [] Out of room [] Palliative care [] [] Receiving care in room [] Pre-surgical visit [] Trauma [] Long length of stay [] ICU visit [] Other: Relational/Emotional Strength [] Patient feels connected with others/family/visitors/staff [] Distress [] Loneliness/isolation [] Abandonment Spirituality of Patient [] Person of [place] [] Attends Buddhist of their [place] [] Believes in Prayer [] Reads Bible or Worship materials [] There are Spiritual issues to be addressed [employer] Interventions [] Prayer [] Active listening [] Non-anxious presence [] Spiritual/emotional support [] Crisis/trauma care [] Spiritual counseling [] Bereavement support [] Provided bereavement packet [] Provided Bible/devotional materials [] Provided toy/stuffed animal, coloring book to patient or family member [] Provided Communion [] Anointing/[place] [] Salvation [x] Completed spiritual assessment [] Other: Impact on Illness or Injury [] Angry [] Fearful [] Anxious [] Often cries [] Exhaustion [] Unable to work [] Unable to attend latter day [] Unable to walk/stand [] Unable to read [] Unable to drive [] Unable to eat/drink [] Unable to sleep [] Unable to be with family [] Patient intubated [] Other: Summary Patient resting... i prayed outside room with permission. Time spent with patient
[2020-05-29] MEDS: alum-mag-hydroxide-sime 30 mL UDC PO (11:58)
[2020-05-29] MEDS: budesonide 0.5 mg/2 mL Neb INHALATION ×2 (14:41→21:31)
--- NOTE | 2020-05-29 15:44 | PM.PN ---
Subjective Subjective: Interval history: No acute events overnight. Labs noted. Today morning patient is stating she is feeling little better but feeling very weak. She has had 3 episodes of diarrhea since last night. Denies of any abdominal pain. States her dizziness, headache has improved quite a lot. Patient has remained afebrile, vitals have remained stable. Vitals/I&O/Wt Last Vital Signs Temp 98.3 F 05/29/20 12:00 Pulse 59 L 05/29/20 14:48 Resp 16 05/29/20 14:44 BP 118/62 05/29/20 12:00 Pulse Ox 94 05/29/20 14:44 05/29/20 05/29/20 05/29/20 06:59 14:59 22:59 Intake Total 620 / 1070 300 / 300 Output Total 650 / 1550 400 / 400 Balance -30 / -480 -100 / -100 Weight last 48 hrs Weight 67.755 kg Weight 54.431 kg Physical Exam Narrative: EXAM NARRATIVE: General: No acute distress, AO x3, mildly dehydrated HEENT: PERRLA, pupils bilaterally equal and reactive Chest: Normal vesicular breath sounds, occasional rhonchi present, equal good air entry bilaterally CVS: S1-S2 regular, no murmurs, no tachycardia, no gallops, no rubs Abdomen: Soft, nontender, no organomegaly, bowel sounds present Neuro: No focal deficits, no facial deformity, AO x3, power 3 /5 in all limbs Data : 05/29/20 05:00 05/29/20 05:00 Micro: Microbiology 05/28/20 13:08 Blood Culture - Preliminary Blood NEGATIVE TO DATE 05/29/20 05:50 MRSA Culture - Final Nose 05/28/20 09:57 Blood Culture - Preliminary Blood NEGATIVE TO DATE 05/29/20 04:00 Legionella Urinary Antigen - Final Urine Kidney A&P Assessment and plan (1) Acute hyponatremia: Status: Acute (2) Acute cystitis with hematuria: Status: Acute (3) Sepsis: Status: Acute Qualifiers: Sepsis acute organ dysfunction status: without acute organ dysfunction Sepsis type: sepsis due to unspecified organism Qualified Code(s): A41.9 - Sepsis, unspecified organism (4) Acute hypokalemia: Status: Acute (5) Hypertension: Status: Acute (6) COPD (chronic obstructive pulmonary disease): Status: Acute Additional A&P Information Acute hyponatremia: Baseline sodium seems to be around 1 30-1 32. Currently 129. Most likely because of decreased oral intake. Urine studies appreciated. Sodium improving appropriately. Continue normal saline 50 cc/h. For now we will check BMP every 12 hourly. Sepsis secondary to most likely UTI. Sepsis confirmed by positive lactate, tachycardia on admission. Continue with normal sensitivities per hour. Last urine culture on 2014 shows an E. coli which was resistant to ceftriaxone but was sensitive to levofloxacin. GFR- 125. Start on levoflox 750 mg PO QD. Patient has remained afebrile. Will continue levofloxacin for now. Will change antibiotics as per the culture results if needed. Acute hypokalemia: Resolved. Diarrhea: Check stool studies. For now we will continue IV hydration. Hold off on any further Imodium before C. difficile is back. Hypertension: Continue home dose of amlodipine, labetalol. Continue home dose of aspirin and atorvastatin. COPD: CT chest done consistent with emphysema. Questionable groundglass bilateral subpleural opacity. Patient is afebrile, no white count, saturating fine on room air. DuoNebs, budesonide twice daily. Saturation to be kept over 92%. Will supplement oxygen accordingly. Results of iron panel, HbA1c, TSH, lipid panel appreciated. All within normal limits. Full code. Regular diet. 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
[2020-05-29 17:50] LABS: Anion Gap 15.5 (5-19); Blood Urea Nitrogen 9 mg/dL (8-23); Calcium 8.4 mg/dL (8.5-10.5); Carbon Dioxide 22 mmol/L (22-29); Chloride 91 mmol/L (98-107); Glomerular Filtration Rate 101.6 mL/min (90-130); Glucose 109 mg/dL (65-115); Osmolality Calculated 257 mOsm/kg (285-295); Potassium 3.5 mmol/L (3.5-5.1); Sodium 125 mmol/L (136-145)
--- NOTE | 2020-05-29 18:53 | CTR_ITS ---
PROCEDURE INFORMATION: Exam: CT Abdomen And Pelvis Without Contrast Exam date and time: 05/29/2020 6:57 PM Age: 60 years old Clinical indication: Nausea and vomiting; Prior surgery; Surgery date: 6+ months; Surgery type: Hyst; Patient HX: N/v/d; Additional info: Diarrhea, n/v TECHNIQUE: Imaging protocol: Computed tomography of the abdomen and pelvis without contrast. Radiation optimization: All CT scans at this facility use at least one of these dose optimization techniques: automated exposure control; mA and/or kV adjustment per patient size (includes targeted exams where dose is matched to clinical indication); or iterative reconstruction. COMPARISON: US gall bladder [id number] 06/24/2014 6:29 AM RADIATION DOSE METRICS: Total DLP (mGy-cm): 531.19 FINDINGS: Lungs: There is subpleural atelectasis of the dependent portions of the lungs. Calcified granulomas are noted in the lungs. Pleural space: There is trace left pleural effusion versus pleural thickening. Liver: Unremarkable.No mass. Gallbladder and bile ducts: Normal. No calcified stones. No ductal dilation. Pancreas: There are calcifications in the pancreas compatible with probable sequela of chronic pancreatitis. Spleen: Normal. No splenomegaly. Adrenals: There is mild bilateral adrenal thickening compatible with mild hyperplasia. Kidneys and ureters: There is no evidence of hydronephrosis. There is no evidence of renal calcifications. Stomach and bowel: There is no evidence of intestinal perforation or obstruction. There is no evidence of colitis/diverticulitis. Appendix: The appendix is not definitively identified. However, there is no CT evidence of a right lower quadrant inflammatory process. Intraperitoneal space: Unremarkable. No free air. No significant fluid collection. Vasculature: The aorta demonstrates moderate atherosclerotic calcification. There are numerous benign phleboliths in the pelvis. Lymph nodes: Unremarkable.No enlarged lymph nodes. Bladder: There is mild nonspecific bladder wall thickening. This may be related to incomplete distention. Reproductive: There has been a hysterectomy. Bones/joints: There is a chronic appearing anterior wedging fracture of T12. No acute bony abnormality. Soft tissues: Unremarkable. CT/CT abdomen pelvis wo con [id number] IMPRESSION: No acute abnormality. No bowel thickening or inflammatory changes. No hydronephrosis or obstructing calculi. Chronic findings are noted as above. Radiation Dose CTDIVOL = (mGy): DLP = 531.19 (mGy-cm)
[2020-05-29] MEDS: enoxaparin 40 mg/0.4 mL Syringe SUBCUT (20:52)
[2020-05-29] MEDS: acetaminophen 325 mg Tablet 650 MG PO (21:09)
[2020-05-30] VITALS: BP 128/72; PULSE 67; PULSE 68; RESP 16; TEMP 36.8; O2SAT 96
[2020-05-30 04:00] VITALS: BP 126/72; PULSE 68; RESP 17; TEMP 36.6; O2SAT 98
[2020-05-30] MEDS: levoFLOXacin 750 mg Tablet PO (06:01)
[2020-05-30 06:47] LABS: Basophils % 0.2 %; Eosinophils # 0.1 10^3/uL (0.0-0.8); Eosinophils % 1.2 %; Hematocrit 31.8 % (37.0-47.0); Hemoglobin 10.6 g/dL (11.5-15.3); Lymphocytes # 1.3 10^3/uL (0.8-4.8); Lymphocytes % 26.8 %; Mean Corpuscular HGB Conc 33.3 g/dL (30.0-36.0); Mean Corpuscular Hemoglobin 28.3 pg (28.0-34.0); Mean Platelet Volume 10.3 fL (7.4-10.4); Monocytes # 0.5 10^3/uL (0.2-0.9); Monocytes % 10.9 %; Neutrophils # 2.9 10^3/uL (1.8-7.7); Neutrophils % 60.5 %; Nucleated Red Blood Cells % 0 %; Platelet Count 141 10^3/cmm (130-400); Red Blood Count 3.74 10^6/uL (4.1-5.3); Red Cell Distribution Width 13.4 % (12.1-15.1); White Blood Count 4.9 10^3/uL (4.0-10.0)
[2020-05-30 07:04] LABS: Alanine Aminotransferase 21 U/L (0-33); Albumin Level 3.1 g/dL (3.5-5.2); Alkaline Phosphatase 148 IU/L (35-105); Anion Gap 14.1 (5-19); Aspartate Amino Transferase 29 U/L (0-32); Blood Urea Nitrogen 6 mg/dL (8-23); Calcium 8.5 mg/dL (8.5-10.5); Carbon Dioxide 22 mmol/L (22-29); Chloride 96 mmol/L (98-107); Globulin 2.6 g/dL (1.3-4.6); Glomerular Filtration Rate 125.4 mL/min (90-130); Glucose 115 mg/dL (65-115); Osmolality Calculated 265 mOsm/kg (285-295); Potassium 3.1 mmol/L (3.5-5.1); Sodium 129 mmol/L (136-145); Total Bilirubin 0.5 mg/dL (0.15-1.2); Total Protein 5.7 g/dL (6.6-8.7)
[2020-05-30 07:57] VITALS: BP 134/70; PULSE 62; RESP 18; TEMP 36.5; O2SAT 95
[2020-05-30] MEDS: atorvastatin 40 mg Tablet 80 MG PO (08:27)
[2020-05-30] MEDS: amlodipine 5 mg Tablet PO (08:27)
[2020-05-30] MEDS: labetalol 200 mg Tablet 100 MG PO (08:27)
[2020-05-30] MEDS: aspirin 81 mg Chew Tablet PO (08:27)
[2020-05-30 11:52] VITALS: BP 134/70; PULSE 62; RESP 18; TEMP 36.5
[2020-05-30 12:00] VITALS: BP 123/64; PULSE 66; RESP 18; TEMP 36.8; O2SAT 92
--- NOTE | 2020-05-30 13:38 | P.DS_ITS ---
Discharge Providers Date of Admission: 05/28/20 12:26 Date of Discharge: May 30, 2020 Attending Provider at Admission: Maksim Mcguire MD Attending Provider at Discharge: Maksim Mcguire MD Primary Care Provider: Sid Harris MD Diagnoses at Discharge Discharge Diagnosis (1) Acute hyponatremia: Status: Acute (2) Acute cystitis with hematuria: Status: Acute (3) Sepsis: Status: Acute Qualifiers: Sepsis acute organ dysfunction status: without acute organ dysfunction Sepsis type: sepsis due to unspecified organism Qualified Code(s): A41.9 - Sepsis, unspecified organism (4) Acute hypokalemia: Status: Acute (5) Hypertension: Status: Acute (6) COPD (chronic obstructive pulmonary disease): Status: Acute (7) Chronic pancreatitis: Status: Acute Reason for Visit Reason for Visit: SOB/DIZZY/WEAKNESS Hospital Course Discharge Summary: Serene Alcaraz is a 60 year old female with past medical history of hypertension, OPD, arrhythmia, depression, history of alcoholism with pancreatitis, chronic smoker who presented to the ER today decreased oral intake for last 1 week appreciated with nausea and few episodes of vomiting. Vomitus contains of food particle. She states she has been having some dizziness, headache for last 2 to 3 days. Denies of having any seizure-like activity. Patient has been having on and off dysuria symptoms. Also complains of having occasional diarrhea for last 1 to 2 days with last episode yesterday night. She states she does not have any flulike symptoms does not think has any fever, states her cough and expectoration seems to be at baseline. States she is not more short of breath than usual. Denies having any COVID-19 exposure. Blood work in the ER showed a hemoglobin of 12.8, white count of 9.5 without any left shift, sodium of 115, potassium of 2.8, chloride of 70, creatinine of 0.5, lactate of 3.9, magnesium of 1.6, alkaline phosphatase of 164, baseline troponin of 12 with a delta of 1.3 in 2 hours, urine studies suggestive of positive for leuk esterase, white count 8200 in the urine with 4+ bacteria. She was admitted to the floor with acute hyponatremia for which she was treated with IV fluids. Sodium levels came up appropriately. Hyponatremia is most likely because of decreased oral intake along with nausea and vomiting. Urine studies were positive for possible UTI for which she was started on levofloxacin and her dysuria improved. Urine cultures for now have remained negative. She supposed to finish levofloxacin course of 5 days. For diarrhea stool studies were done which was negative for C. difficile. CT abdomen was done which is consistent with calcification consistent with chronic pancreatitis. It is most likely the cause of her chronic diarrhea. Zenpep was added to her medication list. Patient is been discharged hemodynamically stable condition with advised to take Zenpep 2 tablets 30 minutes before each meal. She is also advised to take Gatorade 1 bottle every 2 to 3 days to maintain her sodium levels. She is advised to follow-up with her primary care provider within next 7 to 10 days with a CMP. Physical Exam Narrative: EXAM NARRATIVE: General: No acute distress, AO x3, mildly dehydrated HEENT: PERRLA, pupils bilaterally equal and reactive Chest: Normal vesicular breath sounds, occasional rhonchi present, equal good air entry bilaterally CVS: S1-S2 regular, no murmurs, no tachycardia, no gallops, no rubs Abdomen: Soft, nontender, no organomegaly, bowel sounds present Neuro: No focal deficits, no facial deformity, AO x3, power 3 /5 in all limbs Discharge Data Data Completed and Pending: Completed Studies During Hospitalization Category Date Time Status CT abdomen pelvis wo con [id number] Rout ine Cat Scan 05/29/20 18:[address] chest wo con 7 [id number] Urgent Cat Scan 05/28/20 12:24 Completed XR chest 1V honey ble [id number] Urgent Exams 05/28/20 09:30 Completed Pending at discharge Category Date Time Status Blood Culture Sta t Lab 05/28/20 13:08 Results Osmolality Serum Urgent Lab 05/28/20 12:05 Received Osmolality Urine Urgent Lab 05/28/20 14:00 Received Rota Virus AG Sto ol Routine Lab 05/29/20 14:40 Received Urine Culture Sta t Lab 05/29/20 04:00 Results Labs from last 24 hours 05/30/20 05/30/20 05/29/20 04:40 04:40 17:30 WBC 4.9 RBC 3.74 L Hgb 10.6 L Hct 31.8 L MCV 85.0 MCH 28.3 MCHC 33.3 RDW 13.4 Plt Count 141 MPV 10.3 Neut % (Auto) 60.5 Lymph % (Auto) 26.8 [place] % (Auto) 10.9 Eos % (Auto) 1.2 Baso % (Auto) 0.2 Neut # (Auto) 2.9 Lymph # (Auto) 1.3 [place] # (Auto) 0.5 Eos # (Auto) 0.1 Baso # (Auto) 0.0 Nucleated RBC % (a uto) 0 Nucleated RBCs # 0.0 Sodium 129 L 125 L Potassium 3.1 L 3.5 Chloride 96 L 91 L Carbon Dioxide 22 22 Anion Gap 14.1 15.5 BUN 6 L 9 Creatinine 0.5 0.6 GFR Calculation 125.4 101.6 Glucose 115 109 Calculated Osmolal ity 265 L 257 L Calcium 8.5 8.4 L Total Bilirubin 0.5 AST 29 ALT 21 Alkaline Phosphata se 148 H Total Protein 5.7 L Albumin 3.1 L Globulin 2.6 Addt'l Data from Hospital Stay: CT abdomen pelvis/ FINDINGS: Lungs: There is subpleural atelectasis of the dependent portions of the lungs. Calcified granulomas are noted in the lungs. Pleural space: There is trace left pleural effusion versus pleural thickening. Liver: Unremarkable.No mass. Gallbladder and bile ducts: Normal. No calcified stones. No ductal dilation. Pancreas: There are calcifications in the pancreas compatible with probable sequela of chronic pancreatitis. Spleen: Normal. No splenomegaly. Adrenals: There is mild bilateral adrenal thickening compatible with mild hyperplasia. Kidneys and ureters: There is no evidence of hydronephrosis. There is no evidence of renal calcifications. Stomach and bowel: There is no evidence of intestinal perforation or obstruction. There is no evidence of colitis/diverticulitis. Appendix: The appendix is not definitively identified. However, there is no CT evidence of a right lower quadrant inflammatory process. Intraperitoneal space: Unremarkable. No free air. No significant fluid collection. Vasculature: The aorta demonstrates moderate atherosclerotic calcification. There are numerous benign phleboliths in the pelvis. Lymph nodes: Unremarkable.No enlarged lymph nodes. Bladder: There is mild nonspecific bladder wall thickening. This may be related to incomplete distention. Reproductive: There has been a hysterectomy. Bones/joints: There is a chronic appearing anterior wedging fracture of T12. No acute bony abnormality. Soft tissues: Unremarkable. CT/CT abdomen pelvis wo con [id number] IMPRESSION: No acute abnormality. No bowel thickening or inflammatory changes. No hydronephrosis or obstructing calculi. Chronic findings are noted as above. Vitals: Last Vital Signs Temp 98.2 F 05/30/20 12:00 Pulse 66 05/30/20 12:00 Resp 18 05/30/20 12:00 BP 123/64 05/30/20 12:00 Pulse Ox 92 05/30/20 12:00 Discharge Plan Discharge Patient Disposition: Home, Self-Care Condition: Stable Prescriptions: New levofloxacin 750 mg Tablet 750 mg PO DAILY@0600 Qty: 2 RF: 0 Zenpep 5,000-17,000- 24,000 unit Capsule,Delayed Release(Dr/Ec) 2 ea PO TIDWM Qty: 90 RF: 0 loperamide [Imodium A-D] 2 mg capsule 2 mg PO DAILY PRN (Reason: loose stool) Qty: 10 RF: 0 Continued atorvastatin 80 mg Tablet 80 mg PO DAILY RF: 0 amlodipine 5 mg Tablet 5 mg PO BID RF: 0 aspirin 81 mg Tablet,Chewable 81 mg PO DAILY RF: 0 labetalol 100 mg Tablet 100 mg PO BID RF: 0 Discharge Orders: Discharge Order (Routine); Ordered 05/30/20 Ordered By: Maksim Mcguire Referrals: Sid Harris MD [Primary Care Provider] - 7-10 days Discharge Diet: Low Fat Discharge Activity: Resume usual activity Activity Restrictions/Additional Instructions: As discussed you can have a bottle of Gatorade every 2 to 3 days. Zenpep has been added as a new medication to be taken 30 minutes before meals for chronic diarrhea because of chronic pancreatitis. Follow-up primary care provider within 7 to 10 days with a CMP. Discharge Attestations Time Spent in Discharge Care*: greater than 30 min Specific Discharge Activities: Specific discharge activities: educating patient, discussing with pcp/other providers, discussing with correctional counselor/case manager/social workers/dc planners, documenting/other paperwork and evaluating patient/reviewing data Status at Discharge: Cognitive status at discharge: cognitively intact , Behavioral status at discharge: cooperative , Functional status at discharge: independent ambulation Overall status at discharge: patient is back to baseline Quality Metrics Clinical Quality Measures During this hospital stay, did patient experience: None Coding Level of Care Code Acute Prescription Eyeglass Maker for [facility] Diagnoses Acute hyponatremia E87.1 Acute cystitis with hematuria N30.01 Sepsis A41.9 Sepsis acute organ dysfunction status: without acute organ dysfunction Sepsis type: sepsis due to unspecified organism Acute hypokalemia E87.6 Hypertension I10 COPD (chronic obstructive pulmonary disease) J44.9 Chronic pancreatitis K86.1
[2020-05-30 14:18] VITALS: BP 123/64; PULSE 66; RESP 18; TEMP 36.8; O2SAT 92
[2020-06-01 12:07] LABS: Osmolality Urine 155 mOsm/kg (50-1200)
--- NOTE | 2020-06-01 15:26 | PC.RESP ---
Smoking Cessation and Pulmonary Rehab information with a schedule of classes sent to patient.
== END 2020-05-30 14:43 | disposition home or self-care (01) | DRG 872 ==
LOC: ER 12:33 → MEDSURG 13:26
PROVIDERS: Physician Assistant; Admitting Provider Student in an Organized Health Care Education/Training Program; Family Provider Family Medicine; PCP Family Medicine; Visit Provider Student in an Organized Health Care Education/Training Program
DX: A41.9 Sepsis, unspecified organism (principal); E87.1 Hypo-osmolality and hyponatremia; N30.01 Acute cystitis with hematuria; K86.1 Other chronic pancreatitis; E87.6 Hypokalemia; I10 Essential (primary) hypertension; J44.9 Chronic obstructive pulmonary disease, unspecified; F32.9 Major depressive disorder, single episode, unspecified; F17.210 Nicotine dependence, cigarettes, uncomplicated; F10.21 Alcohol dependence, in remission; Z79.82 Long term (current) use of aspirin; R19.7 Diarrhea, unspecified; M81.0 Age-related osteoporosis without current pathological fracture
CPT/HCPCS: 12345; 36415; 71045; 71250; 74176; 80048; 80053; 80061; 80306; 81001; 81003; 82436; 83036; 83540; 83550; 83605; 83630; 83735; 83880; 83930; 83935; 84133; 84145; 84300; 84443; 84484; 85025; 85378; 87040; 87086; 87425; 87449; 87493; 87506; 87641; 93005; 94640; 96372; 99283; J1650; J2543; J3480; J7030; J7626

== ENCOUNTER 2020-07-27 08:44 | Emergency (ER) | payer BC, SELFPAY ==
[2020-07-27 08:46] VITALS: BP 142/75; PULSE 88; RESP 20; TEMP 36.9; O2SAT 96; BMI 23.8
--- NOTE | 2020-07-27 09:02 | XRR_ITS ---
PROCEDURE INFORMATION: Exam: XR Chest, 1 View Exam date and time: 07/27/2020 9:25 AM Age: 60 years old Clinical indication: Patient HX: Back pain, dizzy, nausea TECHNIQUE: Imaging protocol: XR of the chest Views: 1 view. COMPARISON: [facility] [id number] 05/28/2020 12:44 PM FINDINGS: Lungs: Small calcified granuloma left lung. Lungs are well aerated without a focal area of consolidation. Pleural space: Unremarkable. No pleural effusion. No pneumothorax. Heart/Mediastinum: Unremarkable. No cardiomegaly. Bones/joints: Unremarkable. XR/XR chest 1V portable [id number] IMPRESSION: Lungs are well aerated without a focal area of consolidation.
--- NOTE | 2020-07-27 09:02 | ECG_ITS ---
[facility] Test Date: 2020-07-27 Pat Name: Serene Alcaraz Department: Room: Gender: Female Research And Development Director: : 1960 Requested By: Jonn Rodriguez Order Number: [id number] Jean Marie MD: Jorje Zendejas M.D. Measurements Intervals [place] Rate: 75 P: 37 CT: 146 QRS: -12 QRSD: 80 T: 19 QT: 372 QTc: 418 Interpretive Statements SINUS RHYTHM MODERATE VOLTAGE CRITERIA FOR LVH, CONSIDER NORMAL VARIANT [MEETS CRITERIA IN ONE OF: R(aVL), S(V1), R(V5), R(V5/V6)+S(V1)] Compared to ECG 05/28/2020 16:36:41 No significant changes Electronically Signed On 07-27-2020 23:32:41 CDT by Jorje Zendejas M.D. [id number]
--- NOTE | 2020-07-27 09:25 | W.ED.DIZZY ---
HPI - Dizziness General: Chief Complaint: Dizziness Stated Complaint: BODY ACHES Time Seen by Provider: 07/27/20 09:02 History of Present Illness: HPI Narrative: She presents here with a history of dizziness the last few days. She said she had a migraine that lasted 4 days last week. Says she has had a sore throat also. Said the dizziness seems going on the whole time not taking fluids well says she just feels sick has a history of hypo-natremia also. elicited complaint: dizziness Onset (ago): day(s) Timing: gradual onset Severity: moderate Description: sense of movement Associated symptoms: Reports other (Sore throat); Denies chest pain, chills, headache(s), nausea, nasal congestion or vomiting Review of Systems Const: Denies: fever(s), chills or body aches Eyes: Denies: change in vision or blurry vision ENMT: Reports: throat pain; Denies: nasal congestion Card: Denies: chest pain or dyspnea on exertion Resp: Denies: dyspnea, productive cough or non-productive cough GI: Denies: abdominal pain, nausea or vomiting : Reports: urinary frequency and oliguria Musc: Denies: extremity pain Skin/Breast: Denies: rash Neuro: Reports: dizziness; Denies: headache(s) Psych: Denies: anxiety or depression Ming/Lymph: Denies: easy bruising PFSH ED PFSH: Medical History (Updated 05/30/20 @ 13:44 by Maksim Mcguire MD) Chronic pancreatitis COPD (chronic obstructive pulmonary disease) Hypertension Osteoporosis Surgical History H/O: hysterectomy Social History (Updated 05/28/20 @ 15:12 by Maksim Mcguire MD) Smoking and tobacco status: current every day smoker Alcohol intake: former Lives independently: Yes Household members: family Physical Exam Const: COMMON NORMALS: no acute distress, average body habitus and patient oriented x3 HENMT: COMMON NORMALS: normocephalic HEAD & SCALP: normal to inspection and normocephalic FACE & SINUS: normal facial exam Eye: COMMON NORMALS: conjunctivae normal GENERAL EYE: appearance normal, both eyes and all related structures CONJUNCTIVA: Yes conjunctivae normal Neck/C-Spine: COMMON NORMALS: no JVD Chest: COMMONS NORMALS: normal inspection of the chest Resp: COMMON NORMALS: normal respiratory effort and clear to auscultation bilaterally AUSCULTATION: clear to auscultation bilaterally Cardio: COMMON NORMALS: no JVD, regular rate and regular rhythm RATE: regular rate RHYTHM: regular rhythm GI: COMMON NORMALS: Normal to inspection, nondistended, normoactive bowel sounds present Extremity: COMMON NORMALS: normal to inspection and full ROM Neuro: COMMON NORMALS: patient oriented x3 Course Vital Signs: Vital signs: Vital Signs Temperature 98.4 F 07/27/20 08:46 Pulse Rate 88 07/27/20 08:46 Respiratory Rate 20 H 07/27/20 08:46 Blood Pressure 142/75 07/27/20 08:46 Pulse Oximetry 96 07/27/20 08:46 MDM - Dizziness Lab Data: Labs: Lab Results 07/27/20 Range/Units 09:08 Urine Color Yellow (Yellow) Urine Appearance Cloudy (CLEAR) Urine pH 7 (5-7) Ur Specific Gravit y 1.005 (1.005-1.030) Urine Protein 1+ H (Negative) Urine Glucose (UA) Norm (Normal) Urine Ketones Negative (Negative) Urine Blood 3+ H (Negative) Urine Nitrate Positive H (Negative) Urine Bilirubin Neg (NEGATIVE) Urine Urobilinogen Norm (Negative) mg/dL Ur Leukocyte Deyanira ase 2+ H (Negative) Amorphous Sediment Not Reportable Discharge Plan Discharge Prescriptions: No Action atorvastatin 80 mg Tablet 80 mg PO DAILY RF: 0 amlodipine 5 mg Tablet 5 mg PO BID RF: 0 aspirin 81 mg Tablet,Chewable 81 mg PO DAILY RF: 0 labetalol 100 mg Tablet 100 mg PO BID RF: 0 levofloxacin 750 mg Tablet 750 mg PO DAILY@0600 Qty: 2 RF: 0 Zenpep 5,000-17,000- 24,000 unit Capsule,Delayed Release(Dr/Ec) 2 ea PO TIDWM Qty: 90 RF: 0 Imodium A-D 2 mg capsule 2 mg PO DAILY PRN (Reason: loose stool) Qty: 10 RF: 0 Coding Level of Care Code ED Nurses Supervisor for g Fwd Exam Comprehensive
[2020-07-27 09:43] LABS: Add Urine Microscopic? YES; Bilirubin Urine Neg (NEGATIVE); Blood Urine 3+ (Negative); Glucose Urine UA Norm (Normal); Ketones Urine Negative (Negative); Leukocyte Esterase Urine 2+ (Negative); Nitrate Urine Positive (Negative); Protein Urine 1+ (Negative); Specific Gravity, Urine 1.005 (1.005-1.030); Urine Appearance Cloudy (CLEAR); Urine Color Yellow (Yellow); Urobilinogen Urine Norm (Negative); pH Urine 7 (5-7)
[2020-07-27 09:47] LABS: Bacteria Urine 3+; RBC Urine 15-25 /hpf (0-2); Squamous Epithelial Cell Urine 0-4 (0-5); WBC Urine TOO NUMEROUS TO CNT /hpf (0-5)
[2020-07-27 09:48] LABS: Add Urine Culture? Yes; Transitional Epi Cells Urine 0-4 /hpf
[2020-07-27 10:04] LABS: Basophils % 0.2 %; Eosinophils % 0.2 %; Hematocrit 36.2 % (37.0-47.0); Hemoglobin 12.7 g/dL (11.5-15.3); Lymphocytes % 8.7 %; Mean Corpuscular HGB Conc 35.1 g/dL (30.0-36.0); Mean Corpuscular Hemoglobin 29.4 pg (28.0-34.0); Mean Corpuscular Volume 83.8 fL (81-99); Mean Platelet Volume 9.5 fL (7.4-10.4); Monocytes # 0.4 10^3/uL (0.2-0.9); Monocytes % 3.7 %; Neutrophils % 86.4 %; Nucleated Red Blood Cells % 0 %; Platelet Count 145 10^3/cmm (130-400); Red Blood Count 4.32 10^6/uL (4.1-5.3); Red Cell Distribution Width 13.1 % (12.1-15.1); White Blood Count 11.8 10^3/uL (4.0-10.0)
[2020-07-27] MEDS: meclizine 25 mg tablet PO (10:14)
[2020-07-27] MEDS: sodium chloride 0.9% 1,000 ML 999 ML IV (10:14)
[2020-07-27] MEDS: cefTRIAXone 1,000 MG in sodium chloride 0.9% (plus) 50 ML 100 MG IV (10:14)
[2020-07-27] MEDS: ondansetron 2 mg/ML SDV 2 mL 4 MG IVP (10:14)
[2020-07-27 10:18] VITALS: BP 125/67; PULSE 75; RESP 20; O2SAT 95
[2020-07-27 10:21] LABS: Lactate (Lactic Acid level) 1.2 mmol/L (0.5-2.2)
[2020-07-27 10:22] LABS: Alanine Aminotransferase 22 U/L (0-33); Albumin Level 3.9 g/dL (3.5-5.2); Alkaline Phosphatase 120 IU/L (35-105); Anion Gap 16.1 (5-19); Aspartate Amino Transferase 21 U/L (0-32); Blood Urea Nitrogen 6 mg/dL (8-23); Calcium 8.5 mg/dL (8.5-10.5); Carbon Dioxide 22 mmol/L (22-29); Chloride 88 mmol/L (98-107); Globulin 2.7 g/dL (1.3-4.6); Glomerular Filtration Rate 125.4 mL/min (90-130); Glucose 133 mg/dL (65-115); Osmolality Calculated 254 mOsm/kg (285-295); Potassium 3.1 mmol/L (3.5-5.1); Sodium 123 mmol/L (136-145); Total Bilirubin 1.2 mg/dL (0.15-1.2); Total Protein 6.6 g/dL (6.6-8.7)
[2020-07-27] MEDS: potassium chloride ER 10 mEq Tablet 40 MEQ PO (10:32)
[2020-07-27 11:33] VITALS: BP 145/98; PULSE 88; RESP 18; O2SAT 98
== END 2020-07-27 11:39 | disposition home or self-care (01) ==
PROVIDERS: Emergency Provider Nurse Practitioner Family; PCP Family Medicine
DX: R42 Dizziness and giddiness (principal); Z79.82 Long term (current) use of aspirin; J44.9 Chronic obstructive pulmonary disease, unspecified; I10 Essential (primary) hypertension; F17.210 Nicotine dependence, cigarettes, uncomplicated
CPT/HCPCS: 12345; 36415; 71045; 80053; 81001; 83605; 85025; 87077; 87086; 87186; 93005; 96365; 96375; 99283; 99284; J0696; J2405; J7030; J8597

== ENCOUNTER 2020-09-10 11:01 | Emergency (ER) | payer SELFPAY ==
[2020-09-10 11:06] VITALS: BP 157/76; PULSE 85; RESP 16; TEMP 36.9; O2SAT 98; BMI 23.8
--- NOTE | 2020-09-10 11:20 | XR_ITS ---
WS: [id number] Portable AP upright chest, 09/10/2020 Clinical Data: weakness Comparison: Portable chest, 07/27/2020. Findings: No nodules, masses or effusions are seen. The heart is normal. The pulmonary vascularity is not increased. No pneumonia or pneumothorax is seen. The aortic arch and descending aorta are minima lly tortuous XR/XR chest 1V portable [id number] Impression: Atherosclerosis.
--- NOTE | 2020-09-10 11:21 | ECG_ITS ---
[facility] Test Date: 2020-09-10 Pat Name: Serene Alcaraz Department: Room: Gender: Female Electronics Test Engineer: : 1960 Requested By: Jonn Rodriguez Order Number: [id number] Jean Marie MD: Angel Alegre M.D. Measurements Intervals [place] Rate: 76 P: 68 [place]: 149 QRS: 9 QRSD: 77 T: 45 QT: 398 QTc: 450 Interpretive Statements SINUS RHYTHM LOW QRS VOLTAGE IN PRECORDIAL LEADS [QRS DEFLECTION < 1.0 mV IN CHEST LEADS] Compared to ECG 07/27/2020 09:29:35 Low QRS voltage now present Electronically Signed On 09-10-2020 18:39:06 CDT by Angel Alegre M.D. [id number]
--- NOTE | 2020-09-10 11:24 | ED_ITS ---
HPI - General Adult General: Chief complaint: General Medical Stated complaint: throwing up, unable to eat Time Seen by Provider: 09/10/20 11:20 History of Present Illness: HPI narrative: Patient with a history of nausea and vomiting intermittent over the last couple weeks. History UTIs. Patient denies fever diarrhea. Has chronic shortness of breath is a heavy smoker. MD complaint: Nausea and vomiting intermittent Onset (ago): week(s) (2) Severity: moderate Relieving factors: none Associated symptoms: Reports no associated symptoms, nausea and vomiting; Deny chest pain, dyspnea, headache(s) or rash Treatments prior to arrival: none Review of Systems Const: Denies: fever(s), chills or body aches Eyes: Denies: change in vision or blurry vision ENMT: Denies: throat pain or nasal congestion Card: Denies: chest pain or dyspnea on exertion Resp: Denies: dyspnea, productive cough or non-productive cough GI: Reports: nausea and vomiting; Denies: abdominal pain Musc: Denies: extremity pain Skin/Breast: Denies: rash Neuro: Denies: headache(s) Psych: Denies: anxiety or depression Ming/Lymph: Denies: easy bruising PFSH ED PFSH: Medical History (Updated 09/10/20 @ 12:17 by GARY Wilcox) Chronic pancreatitis COPD (chronic obstructive pulmonary disease) Hypertension Osteoporosis Surgical History H/O: hysterectomy Social History (Updated 05/28/20 @ 15:12 by Maksim Mcguire MD) Smoking and tobacco status: current every day smoker Alcohol intake: former Lives independently: Yes Household members: family Physical Exam Const: COMMON NORMALS: no acute distress, average body habitus and patient oriented x3 HENMT: COMMON NORMALS: normocephalic HEAD & SCALP: normal to inspection and normocephalic FACE & SINUS: normal facial exam Eye: COMMON NORMALS: conjunctivae normal GENERAL EYE: appearance normal, both eyes and all related structures CONJUNCTIVA: Yes conjunctivae normal Neck/C-Spine: COMMON NORMALS: no JVD Chest: COMMONS NORMALS: normal inspection of the chest Resp: COMMON NORMALS: normal respiratory effort AUSCULTATION: diminished lung sounds Cardio: COMMON NORMALS: no JVD, regular rate and regular rhythm RATE: regular rate RHYTHM: regular rhythm GI: COMMON NORMALS: Normal to inspection, nondistended, normoactive bowel sounds present Extremity: COMMON NORMALS: normal to inspection and full ROM Neuro: COMMON NORMALS: patient oriented x3 Course Vital Signs: Vital signs: Vital Signs Temperature 98.4 F 09/10/20 11:06 Pulse Rate 85 09/10/20 11:06 Respiratory Rate 16 09/10/20 11:06 Blood Pressure 157/76 09/10/20 11:06 Pulse Oximetry 98 09/10/20 11:06 MDM - General Adult MDM Narrative: Medical decision making narrative: Discussed case with Dr. Linda Lab Data: Labs: Lab Results 09/10/20 09/10/20 09/10/20 Range/Units 11:28 11:28 11:50 WBC 8.1 (4.0-10.0) 10^3/ uL RBC 4.62 (4.1-5.3) 10^6/u L Hgb 13.9 (11.5-15.3) g/dL Hct 39.8 (37.0-47.0) % MCV 86.1 (81-99) fL MCH 30.1 (28.0-34.0) pg MCHC 34.9 (30.0-36.0) g/dL RDW 14.2 (12.1-15.1) % Plt Count 327 (130-400) 10^3/c mm MPV 8.7 (7.4-10.4) fL Neut % (Auto) 69.3 % Lymph % (Auto) 23.4 % [place] % (Auto) 6.9 % Eos % (Auto) 0.2 % Baso % (Auto) 0.1 % Neut # (Auto) 5.58 (1.8-7.7) 10^3/u L Lymph # (Auto) 1.9 (0.8-4.8) 10^3/u L [place] # (Auto) 0.6 (0.2-0.9) 10^3/u L Eos # (Auto) 0.0 (0.0-0.8) 10^3/u L Baso # (Auto) 0.0 (0.0-0.1) 10^3/u L Nucleated RBC % (a uto) 0 % Nucleated RBCs # 0.0 /100WBC Sodium 126 L (136-145) mmol/L Potassium 3.4 L (3.5-5.1) mmol/L Chloride 88 L (98-107) mmol/L Carbon Dioxide 22 (22-29) mmol/L Anion Gap 19.4 H (5-19) BUN 3 L (8-23) mg/dL Creatinine 0.6 (0.5-0.9) mg/dL GFR Calculation 101.6 (90-130) mL/min Glucose 103 (65-115) mg/dL Calculated Osmolal ity 259 L (285-295) mOsm/k g Calcium 9.5 (8.5-10.5) mg/dL Total Bilirubin 0.3 (0.15-1.2) mg/dL AST 36 H (0-32) U/L ALT 23 (0-33) U/L Alkaline Phosphata se 114 H (35-105) IU/L Total Protein 6.7 (6.6-8.7) g/dL Albumin 4.3 (3.5-5.2) g/dL Globulin 2.4 (1.3-4.6) g/dL Lipase 18 (13-60) U/L Urine Color Yellow (Yellow) Urine Appearance Cloudy (CLEAR) Urine pH 6 (5-7) Ur Specific Gravit y 1.005 (1.005-1.030) Urine Protein Neg (Negative) Urine Glucose (UA) Norm (Normal) Urine Ketones Negative (Negative) Urine Blood 2+ H (Negative) Urine Nitrate Positive H (Negative) Urine Bilirubin Neg (Negative) Urine Urobilinogen Norm (Negative) mg/dL Ur Leukocyte Deyanira ase 2+ H (Negative) Urine RBC 10-15 H (0-2) /hpf Urine WBC Too numerous to c nt H (0-5) /hpf Ur Squamous Epith Cells 15-25 H (0-5) /hpf Amorphous Sediment Not Reportable Urine Bacteria 4+ H (NONE) /hpf Discharge Plan Discharge Patient Disposition: Home Clinical Impression: Acute UTI (urinary tract infection) Condition: Stable Prescriptions: New Macrobid 100 mg capsule 100 mg PO BID 7 Days Qty: 14 RF: 0 Zofran 4 mg tablet 4 mg PO Q8H PRN (Reason: nausea and vomiting) 3 Days Qty: 10 RF: 0 No Action meclizine 25 mg tablet 25 mg PO TID PRN (Reason: dizziness) Qty: 14 RF: 0 atorvastatin 80 mg Tablet 80 mg PO DAILY RF: 0 amlodipine 5 mg Tablet 5 mg PO BID RF: 0 aspirin 81 mg Tablet,Chewable 81 mg PO DAILY RF: 0 labetalol 100 mg Tablet 100 mg PO BID RF: 0 Zenpep 5,000-17,000- 24,000 unit Capsule,Delayed Release(Dr/Ec) 2 ea PO TIDWM Qty: 90 RF: 0 loperamide [Imodium A-D] 2 mg capsule 2 mg PO DAILY PRN (Reason: loose stool) Qty: 10 RF: 0 Referrals: Sid Harris MD [Primary Care Provider] - Discharge Diet: Usual diet Discharge Activity: Resume usual activity Patient Instructions: Urinary Tract Infection in Men (ED) Activity Restrictions/Additional Instructions: Follow-up with medical provider as directed. Take medications as prescribed. Return to the ER or your medical provider if condition worsens. Please read and understand discharge instructions. If any questions ask please. Repeat urine test in 1 week. Coding Level of Care Code ED Campaign Advisor for [place] Fwd Exam Comprehensive
[2020-09-10 11:35] LABS: Basophils % 0.1 %; Eosinophils % 0.2 %; Hematocrit 39.8 % (37.0-47.0); Hemoglobin 13.9 g/dL (11.5-15.3); Lymphocytes # 1.9 10^3/uL (0.8-4.8); Lymphocytes % 23.4 %; Mean Corpuscular HGB Conc 34.9 g/dL (30.0-36.0); Mean Corpuscular Hemoglobin 30.1 pg (28.0-34.0); Mean Corpuscular Volume 86.1 fL (81-99); Mean Platelet Volume 8.7 fL (7.4-10.4); Monocytes # 0.6 10^3/uL (0.2-0.9); Monocytes % 6.9 %; Neutrophils # 5.58 10^3/uL (1.8-7.7); Neutrophils % 69.3 %; Nucleated Red Blood Cells % 0 %; Platelet Count 327 10^3/cmm (130-400); Red Blood Count 4.62 10^6/uL (4.1-5.3); Red Cell Distribution Width 14.2 % (12.1-15.1); White Blood Count 8.1 10^3/uL (4.0-10.0)
[2020-09-10] MEDS: ondansetron 2 mg/ML SDV 2 mL 4 MG IVP (11:44)
[2020-09-10] MEDS: sodium chloride 0.9% 1,000 ML 999 ML IV (11:44)
[2020-09-10 12:00] LABS: Alanine Aminotransferase 23 U/L (0-33); Albumin Level 4.3 g/dL (3.5-5.2); Alkaline Phosphatase 114 IU/L (35-105); Anion Gap 19.4 (5-19); Aspartate Amino Transferase 36 U/L (0-32); Blood Urea Nitrogen 3 mg/dL (8-23); Calcium 9.5 mg/dL (8.5-10.5); Carbon Dioxide 22 mmol/L (22-29); Chloride 88 mmol/L (98-107); Creatinine Clr Calc Pharmacy 83.1976; Globulin 2.4 g/dL (1.3-4.6); Glomerular Filtration Rate 101.6 mL/min (90-130); Glucose 103 mg/dL (65-115); Lipase 18 U/L (13-60); Osmolality Calculated 259 mOsm/kg (285-295); Potassium 3.4 mmol/L (3.5-5.1); Sodium 126 mmol/L (136-145); Total Bilirubin 0.3 mg/dL (0.15-1.2); Total Protein 6.7 g/dL (6.6-8.7)
[2020-09-10 12:02] LABS: Add Urine Microscopic? YES; Bilirubin Urine Neg (Negative); Blood Urine 2+ (Negative); Glucose Urine UA Norm (Normal); Ketones Urine Negative (Negative); Leukocyte Esterase Urine 2+ (Negative); Nitrate Urine Positive (Negative); Protein Urine Neg (Negative); Specific Gravity, Urine 1.005 (1.005-1.030); Urine Appearance Cloudy (CLEAR); Urine Color Yellow (Yellow); Urobilinogen Urine Norm (Negative); pH Urine 6 (5-7)
[2020-09-10 12:11] LABS: Add Urine Culture? No; Bacteria Urine 4+ /hpf; Squamous Epithelial Cell Urine 15-25 /hpf (0-5); WBC Urine TOO NUMEROUS TO CNT /hpf (0-5)
[2020-09-10] MEDS: potassium chloride ER 10 mEq Tablet 20 MEQ PO (12:18)
[2020-09-10] MEDS: cefTRIAXone 2,000 MG in sodium chloride 0.9% (plus) 50 ML 100 MG IV (12:19)
[2020-09-10 12:23] LABS: Lactate (Lactic Acid level) 2.3 mmol/L (0.5-2.2)
[2020-09-10 13:16] VITALS: BP 145/81; PULSE 92; RESP 18; O2SAT 96
== END 2020-09-10 13:17 | disposition home or self-care (01) ==
PROVIDERS: Emergency Provider Nurse Practitioner Family; PCP Family Medicine
DX: N39.0 Urinary tract infection, site not specified (principal); Z79.82 Long term (current) use of aspirin; J44.9 Chronic obstructive pulmonary disease, unspecified; I10 Essential (primary) hypertension; F17.210 Nicotine dependence, cigarettes, uncomplicated
CPT/HCPCS: 12345; 36415; 71045; 80053; 81001; 83605; 83690; 85025; 93005; 96365; 96375; 99283; 99284; J0696; J2405; J7030

== ENCOUNTER 2020-10-28 18:33 | Emergency (ER) | payer BC, SELFPAY ==
[2020-10-28 18:39] VITALS: BP 201/106; PULSE 104; RESP 16; TEMP 36.5; O2SAT 96; BMI 21.8
--- NOTE | 2020-10-28 18:42 | ECG_ITS ---
[facility] Test Date: 2020-10-28 Pat Name: Serene Alcaraz Department: Room: Gender: Female Protection Agent: : 1960 Requested By: Nimisha Lin Order Number: [id number] Aj MD: Anay Orellana M.D. Measurements Intervals [place] Rate: 89 P: 43 [place]: 150 QRS: -22 QRSD: 84 T: 17 QT: 356 QTc: 435 Interpretive Statements SINUS RHYTHM VOLTAGE CRITERIA FOR LVH POSSIBLE ANTERIOR MYOCARDIAL INFARCTION , PROBABLY OLD Compared to ECG 09/10/2020 12:08:07 Left ventricular hypertrophy now present Myocardial infarct finding now present Electronically Signed On 10-28-2020 20:24:38 AGRICULTURE SALES ACCOUNT MANAGER by Anay Orellana M.D. [id number]
--- NOTE | 2020-10-28 19:17 | ED_ITS ---
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 Patient denies a says she has 2 mixed drinks a night that the daughter turned her in because she will give her daughter any money. She said she has been having 2 mixed drinks for years does not drink during the day at all she is lost some weight since she is [facility] she said she works every day without any problems. complaint: other (96) Context: recent alcohol abuse (She denies alcohol abuse) Associated symptoms: Deny depression Treatments prior to arrival: placed on mental health hold Review of Systems Narrative: Family member signed affidavit said that she is alcoholic and has drink herself to . Patient adamantly denies this. Const: Denies: fever(s), chills or body aches Eyes: Denies: change in vision or blurry vision ENMT: Denies: throat pain or nasal congestion Card: Denies: chest pain or dyspnea on exertion Resp: Denies: dyspnea, productive cough or non-productive cough GI: Reports: diarrhea (For many weeks); Denies: abdominal pain, nausea or vomiting Musc: Denies: extremity pain Skin/Breast: Denies: rash Neuro: Denies: headache(s) Psych: Denies: anxiety or depression Ming/Lymph: Denies: easy bruising PFSH ED PFSH: Medical History (Updated 09/18/20 @ 00:04 by ) Chronic pancreatitis COPD (chronic obstructive pulmonary disease) Hypertension Osteoporosis Surgical History H/O: hysterectomy Social History (Updated 05/28/20 @ 15:12 by Maksim Mcguire MD) Smoking and tobacco status: current every day smoker Alcohol intake: former Lives independently: Yes Household members: family Physical Exam Const: COMMON NORMALS: no acute distress, average body habitus, patient oriented x3 and alert ORIENTATION/CONSCIOUSNESS: Yes oriented to person, Yes oriented to place and Yes oriented to time HENMT: COMMON NORMALS: normocephalic HEAD & SCALP: normal to inspection and normocephalic FACE & SINUS: normal facial exam Eye: COMMON NORMALS: conjunctivae normal GENERAL EYE: appearance normal, both eyes and all related structures CONJUNCTIVA: Yes conjunctivae normal Neck/C-Spine: COMMON NORMALS: no JVD Chest: COMMONS NORMALS: normal inspection of the chest Resp: COMMON NORMALS: normal respiratory effort and clear to auscultation bilaterally AUSCULTATION: clear to auscultation bilaterally Cardio: COMMON NORMALS: no JVD, regular rate and regular rhythm RATE: regular rate RHYTHM: regular rhythm GI: COMMON NORMALS: Normal to inspection, nondistended, normoactive bowel sounds present Extremity: COMMON NORMALS: normal to inspection and full ROM Neuro: COMMON NORMALS: patient oriented x3 SENSORIUM/ORIENTATION: Yes alert, Yes oriented to person, Yes oriented to place and Yes oriented to time Psych: COMMON NORMALS: mental status grossly normal, Normal thought process present, cooperative, normal affect, speech normal, activity/motor behavior normal, denies homicidal ideation and denies suicidal ideation ATTITUDE: Yes calm and Yes engaged SPEECH: Yes normal speech THOUGHT PROCESS: Normal thought process present THOUGHT CONTENT: Yes Normal thought content present INSIGHT: Good insight present (Psych) JUDGEMENT: Good judgement present (Psych) MDM - Psych MDM Narrative: Medical decision making narrative: Dr. Lanza saw the robin ent. Discussed case with Dr. Linda. Recommend the patient be taken off 96-hour hold. Patient is only lost 4 pounds since she was seen here for admission a few months ago. Patient is going to follow-up with her family doctor and get checked for C. difficile. Unable to give us stool sample here. We will treat her for urinary tract infection. Lab Data: Labs: Lab Results 10/28/20 10/28/20 10/28/20 Range/Units 19:23 19:23 19:23 WBC 5.5 (4.0-10.0) 10^3/ uL RBC 4.29 (4.1-5.3) 10^6/u L Hgb 12.9 (11.5-15.3) g/dL Hct 36.9 L (37.0-47.0) % MCV 86.0 (81-99) fL MCH 30.1 (28.0-34.0) pg MCHC 35.0 (30.0-36.0) g/dL RDW 13.7 (12.1-15.1) % Plt Count 405 H (130-400) 10^3/c mm MPV 8.9 (7.4-10.4) fL Neut % (Auto) 57.1 % Lymph % (Auto) 30.5 % [place] % (Auto) 10.8 % Eos % (Auto) 0.5 % Baso % (Auto) 0.9 % Neut # (Auto) 3.13 (1.8-7.7) 10^3/u L Lymph # (Auto) 1.7 (0.8-4.8) 10^3/u L [place] # (Auto) 0.6 (0.2-0.9) 10^3/u L Eos # (Auto) 0.0 (0.0-0.8) 10^3/u L Baso # (Auto) 0.1 (0.0-0.1) 10^3/u L Nucleated RBC % (a uto) 0 % Nucleated RBCs # 0.0 /100WBC PT 12.30 (12.1-14.9) SECO NDS INR 0.89 (0.8-1.2) Carbon Dioxide 25 (22-29) mmol/L Anion Gap 15.0 (5-19) Creatinine 0.7 (0.5-0.9) mg/dL Glucose 114 (65-115) mg/dL Calcium 9.9 (8.5-10.5) mg/dL Total Bilirubin 0.2 (0.15-1.2) mg/dL AST 31 (0-32) U/L ALT 18 (0-33) U/L Total Protein 6.6 (6.6-8.7) g/dL Albumin 4.1 (3.5-5.2) g/dL Globulin 2.5 (1.3-4.6) g/dL Urine Color (Yellow) Urine Appearance (CLEAR) Urine pH (5-7) Ur Specific Gravit y (1.005-1.030) Urine Protein (Negative) Urine Glucose (UA) (Normal) Urine Ketones (Negative) Urine Blood (Negative) Urine Nitrate (Negative) Urine Bilirubin (Negative) Urine Urobilinogen (Negative) mg/dL Ur Leukocyte Deyanira ase (Negative) Urine RBC (0-2) /hpf Urine WBC (0-5) /hpf Ur Squamous Epith Cells (0-5) /hpf Amorphous Sediment Urine Bacteria (NONE) /hpf Urine Opiates Scre en (Negative) ng/mL Ur Barbiturates Sc reen (Negative) ng/mL Ur Phencyclidine S crn (Negative) ng/mL Ur Amphetamines Sc reen (Negative) ng/mL U Benzodiazepines Scrn (Negative) ng/mL Urine Cocaine Scre en (Negative) ng/mL U Marijuana (THC) Screen (Negative) ng/mL 10/28/20 10/28/20 Range/Units 19:33 19:33 WBC (4.0-10.0) 10^3/ uL RBC (4.1-5.3) 10^6/u L Hgb (11.5-15.3) g/dL Hct (37.0-47.0) % MCV (81-99) fL MCH (28.0-34.0) pg MCHC (30.0-36.0) g/dL RDW (12.1-15.1) % Plt Count (130-400) 10^3/c mm MPV (7.4-10.4) fL Neut % (Auto) % Lymph % (Auto) % [place] % (Auto) % Eos % (Auto) % Baso % (Auto) % Neut # (Auto) (1.8-7.7) 10^3/u L Lymph # (Auto) (0.8-4.8) 10^3/u L [place] # (Auto) (0.2-0.9) 10^3/u L Eos # (Auto) (0.0-0.8) 10^3/u L Baso # (Auto) (0.0-0.1) 10^3/u L Nucleated RBC % (a uto) % Nucleated RBCs # /100WBC PT (12.1-14.9) SECO NDS INR (0.8-1.2) Carbon Dioxide (22-29) mmol/L Anion Gap (5-19) Creatinine (0.5-0.9) mg/dL Glucose (65-115) mg/dL Calcium (8.5-10.5) mg/dL Total Bilirubin (0.15-1.2) mg/dL AST (0-32) U/L ALT (0-33) U/L Total Protein (6.6-8.7) g/dL Albumin (3.5-5.2) g/dL Globulin (1.3-4.6) g/dL Urine Color Yellow (Yellow) Urine Appearance Cloudy (CLEAR) Urine pH 7 (5-7) Ur Specific Gravit y 1.005 (1.005-1.030) Urine Protein Neg (Negative) Urine Glucose (UA) Norm (Normal) Urine Ketones Negative (Negative) Urine Blood 2+ H (Negative) Urine Nitrate Positive H (Negative) Urine Bilirubin Neg (Negative) Urine Urobilinogen Norm (Negative) mg/dL Ur Leukocyte Deyanira ase 2+ H (Negative) Urine RBC 0-4 H (0-2) /hpf Urine WBC Too numerous to c nt H (0-5) /hpf Ur Squamous Epith Cells 0-4 H (0-5) /hpf Amorphous Sediment Not Reportable Urine Bacteria 4+ H (NONE) /hpf Urine Opiates Scre en Negative (Negative) ng/mL Ur Barbiturates Sc reen Negative (Negative) ng/mL Ur Phencyclidine S crn Negative (Negative) ng/mL Ur Amphetamines Sc reen Negative (Negative) ng/mL U Benzodiazepines Scrn Negative (Negative) ng/mL Urine Cocaine Scre en Negative (Negative) ng/mL U Marijuana (THC) Screen Negative (Negative) ng/mL Discharge Plan Discharge Prescriptions: No Action meclizine 25 mg tablet 25 mg PO TID PRN (Reason: dizziness) Qty: 14 RF: 0 atorvastatin 80 mg Tablet 80 mg PO DAILY RF: 0 amlodipine 5 mg Tablet 5 mg PO BID RF: 0 aspirin 81 mg Tablet,Chewable 81 mg PO DAILY RF: 0 labetalol 100 mg Tablet 100 mg PO BID RF: 0 loperamide [Imodium A-D] 2 mg capsule 2 mg PO DAILY PRN (Reason: loose stool) Qty: 10 RF: 0 aspirin 325 mg Tablet 325 mg PO DAILY RF: 0 albuterol sulfate 90 mcg/actuation Hfa Aerosol Inhaler See Rx Instructions .ROUTE .COMPLEX RF: 0 Multi Vitamin 1 tab PO DAILY RF: 0 Coding Level of Care Code ED Smoking Tobacco Packer Hand for Chg Fwd Exam Comprehensive
[2020-10-28 19:36] VITALS: BP 189/102; PULSE 88; RESP 16; O2SAT 96
[2020-10-28 19:50] LABS: Glucose Urine UA Norm (Normal); Protein Urine Neg (Negative); Specific Gravity, Urine 1.005 (1.005-1.030); Urine Appearance Cloudy (CLEAR); Urine Color Yellow (Yellow); pH Urine 7 (5-7)
[2020-10-28 19:51] LABS: Add Urine Microscopic? YES; Bilirubin Urine Neg (Negative); Blood Urine 2+ (Negative); Ketones Urine Negative (Negative); Leukocyte Esterase Urine 2+ (Negative); Nitrate Urine Positive (Negative); Urobilinogen Urine Norm (Negative)
[2020-10-28 19:55] LABS: Basophils # 0.1 10^3/uL (0.0-0.1); Basophils % 0.9 %; Eosinophils % 0.5 %; Hematocrit 36.9 % (37.0-47.0); Hemoglobin 12.9 g/dL (11.5-15.3); Lymphocytes # 1.7 10^3/uL (0.8-4.8); Lymphocytes % 30.5 %; Mean Corpuscular Hemoglobin 30.1 pg (28.0-34.0); Mean Platelet Volume 8.9 fL (7.4-10.4); Monocytes # 0.6 10^3/uL (0.2-0.9); Monocytes % 10.8 %; Neutrophils # 3.13 10^3/uL (1.8-7.7); Neutrophils % 57.1 %; Nucleated Red Blood Cells % 0 %; Platelet Count 405 10^3/cmm (130-400); Red Blood Count 4.29 10^6/uL (4.1-5.3); Red Cell Distribution Width 13.7 % (12.1-15.1); White Blood Count 5.5 10^3/uL (4.0-10.0)
[2020-10-28 19:56] LABS: RBC Urine 0-4 /hpf (0-2)
[2020-10-28 19:57] LABS: Add Urine Culture? Yes; Bacteria Urine 4+ /hpf; Squamous Epithelial Cell Urine 0-4 /hpf (0-5); WBC Urine TOO NUMEROUS TO CNT /hpf (0-5)
[2020-10-28 19:59] LABS: Amphetamines Screen Urine Negative (Negative); Barbiturates Screen Urine Negative (Negative); Benzodiazepines Screen Urine Negative (Negative); Cocaine Screen Urine Negative (Negative); Opiate Screen Urine Negative (Negative); PCP Screen Urine Negative (Negative); THC Screen Urine Negative (Negative)
[2020-10-28 20:00] VITALS: BP 196/91; PULSE 108; RESP 18; O2SAT 96
[2020-10-28 20:07] LABS: INR 0.89 (0.8-1.2)
--- NOTE | 2020-10-28 20:25 | PM.PSYCN ---
Providers/Reason for Consult Consulting Physican/Specialty*: Chidi Lanza MD. Psychiatry. Reason for Consult*: Evaluation of a 96-hour hold for discharge. 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 Patient denies a says she has 2 mixed drinks a night that the daughter turned her in because she will give her daughter any money. She said she has been having 2 mixed drinks for years does not drink during the day at all she is lost some weight since she is been exposed to C. difficile in the [place] she said she works every day without any problems. MD complaint: other (96) Context: recent alcohol abuse (She denies alcohol abuse) Associated symptoms: Deny depression Treatments prior to arrival: placed on mental health hold. Serene presents today reporting that she is unaware of why her kids filed a 96-hour hold. She suspects this because she has been less giving of money recently. She reports that she works 6 days a week and does have a couple drinks at night. But she denies having an alcohol use problem that has led to her being dysfunctional or having great difficulties. She reports that she has been working at her current job for some time without any breaks. The other section of the 96-hour hold with that she has been doing so poorly that she lost significant amount of weight. Reports of losing 40 to 50 pounds in the last couple months or less. Evaluation of her chart shows that she is maybe 5 or 6 pounds less than she was when she had procedure several months ago. And so that assertion is also not valid. She denies any significant mental health challenges at this time. She denies any need or desire for inpatient services. She reports that she has worked in the morning and the impact of missing work with have significant harm to her finances. Psychiatric history: She denies major psychiatric treatment in the past. Substance abuse history: She endorses smoking cigarettes and having alcohol but denies any other major illicit problematic substance use. The remainder of her psychosocial history was noncontributory toward the need for inpatient hospitalization or to maintain the 92nd hold that she was brought in on. PFSH NPU PFSH: Medical History (Updated 11/05/20 @ 00:00 by ) Chronic pancreatitis COPD (chronic obstructive pulmonary disease) Hypertension Osteoporosis Surgical History H/O: hysterectomy Social History (Updated 05/28/20 @ 15:12 by Maksim Mcguire MD) Smoking and tobacco status: current every day smoker Alcohol intake: former Lives independently: Yes Household members: family Mental Status Exam MSE Comments: This is a well-nourished well-developed older appearing white female with adequate dress grooming and eye contact. No abnormal movements. Cooperative with exam acute distress. Speech was normal rate and volume mood described as a little annoyed, affect congruent. Thought process organized. Thought content: Patient denied any homicidal ideation, there were no delusions reported or noted, denied any auditory or visual hallucinations. Attention and concentration were intact and memory was reliable but none were formally tested. She is alert and oriented x3. Insight and judgment is fair. Vitals/I&O/Wt Last Vital Signs Temp 97.7 F 10/28/20 18:39 Pulse 88 10/28/20 19:36 Resp 16 10/28/20 19:36 BP 189/102 10/28/20 19:36 Pulse Ox 96 10/28/20 19:36 Weight last 48 hrs Weight 48.988 kg A&P Assessment and plan (1) Chronic pancreatitis: Status: Acute (2) Hypertension: Status: Acute (3) Alcohol use: Status: Acute Additional A&P Information This is a 60-year-old white female with a long history of alcohol use who presents on a 96-hour hold denying that her alcohol use is like it had been in the past and denying the substance of the 96-hour hold affidavits. 1. Continue current medication. 2. No signs consistent with credible lethality exist and patient is not interested in any inpatient services. The tenants of the affidavits are not borne out by the facts including her weight and her low alcohol level. 3. Agree with primary provider that discharge and discontinuation of the 96-hour hold would be appropriate. Attestations NPU Medical Necessity Statement*: N/A. Please see primary provider note for medical necessity. However agree with discontinuing the 96-hour hold and allowing her to go home. Coding Level of Care Code Acute Central Office Maintainer for Sergio Hymand Diagnoses Chronic pancreatitis K86.1 Hypertension I10 Alcohol use Z72.89
[2020-10-28 20:29] LABS: Alanine Aminotransferase 18 U/L (0-33); Albumin Level 4.1 g/dL (3.5-5.2); Alcohol Level 18 mg/dL (0-10); Alkaline Phosphatase 127 IU/L (35-105); Aspartate Amino Transferase 31 U/L (0-32); Blood Urea Nitrogen 3 mg/dL (8-23); Calcium 9.9 mg/dL (8.5-10.5); Carbon Dioxide 25 mmol/L (22-29); Chloride 90 mmol/L (98-107); Globulin 2.5 g/dL (1.3-4.6); Glomerular Filtration Rate 85.1 mL/min (90-130); Glucose 114 mg/dL (65-115); Osmolality Calculated 261 mOsm/kg (285-295); Sodium 127 mmol/L (136-145); Thyroid Stimulating Hormone 6.22 uIU/mL (0.27-4.20); Total Bilirubin 0.2 mg/dL (0.15-1.2); Total Protein 6.6 g/dL (6.6-8.7)
[2020-10-28 20:49] LABS: Acetaminophen < 5.0 ug/mL (10-30); Salicylate < 0.3 mg/dL (3-10)
[2020-10-28] MEDS: sulfamethoxazole-trimeth DS 160-800 mg Tablet 1 TAB PO (20:59)
--- NOTE | 2020-10-28 21:00 | PC.NURSE ---
Notified provider of pt's BP. PT ASX. Pt stated she has missed to evening dose of BP medication, will take it when she gets home
== END 2020-10-28 21:02 | disposition home or self-care (01) ==
PROVIDERS: Emergency Medicine; Emergency Provider Nurse Practitioner Family; PCP Family Medicine
DX: F10.129 Alcohol abuse with intoxication, unspecified (principal); J44.9 Chronic obstructive pulmonary disease, unspecified; I10 Essential (primary) hypertension; F17.210 Nicotine dependence, cigarettes, uncomplicated
CPT/HCPCS: 12345; 80053; 80306; 80307; 81001; 84443; 85025; 85610; 87077; 87086; 87186; 93005; 99284

== ENCOUNTER 2021-01-19 16:26 | Inpatient (IN) | payer OTHER, SELFPAY ==
[2021-01-19 17:15] VITALS: BP 161/90; PULSE 88; RESP 18; TEMP 37.1; O2SAT 97; BMI 22.2
[2021-01-19 17:20] VITALS: BP 162/84; PULSE 104; RESP 18; O2SAT 96
--- NOTE | 2021-01-19 17:51 | XRR_ITS ---
PROCEDURE INFORMATION: Exam: XR Abdomen, 2 Views Exam date and time: 01/19/2021 5:57 PM Age: 60 years old Clinical indication: Nausea; Abdominal pain and other: Chest; Prior surgery; Surgery type: Eptopic , hysterectomy; Additional info: Cough/abdominal pain TECHNIQUE: Imaging protocol: XR of the abdomen. Views: 2 Views. COMPARISON: No relevant prior studies available. FINDINGS: Lungs: Moderate emphysematous changes. No focal consolidation. Gastrointestinal tract: Mild gaseous distension of large bowel. Moderate fecal volume. Intraperitoneal space: Negative for pneumoperitoneum. Vasculature: Mild atherosclerosis. Bones/joints: Demineralized bones. XR/XR acute abdomen series [id number] IMPRESSION: 1. No acute pulmonary disease. 2. Nonspecific bowel gas pattern.
--- NOTE | 2021-01-19 17:55 | ED_ITS ---
HPI - Abdominal Pain General: Chief Complaint: Abdominal Pain Stated Complaint: N/V/abdominal pain Time Seen by Provider: 01/19/21 17:43 History of Present Illness: HPI narrative: 60-year-old female patient presents to the emergency department with 2-day history of worsening abdominal and back pain. She reports chronic abdominal and back pain on and off x6 months, worsening symptoms yesterday. She reports difficulty with urination, inability to produce urine x2 days. She has history of urinary tract infections. Reports temperature of 102.0 today but afebrile upon exam. She reports nausea vomiting x2 days, cough which causes nausea. History of COPD. History of alcoholism. Reports last alcohol intake last p.m., half a beer . History of chronic pancreatitis. Last bowel movement today, states small amount. Denies hematemesis or hematochezia. MD elicited complaint: abdominal pain and flank pain (rt) Pertinent past history: constipation Onset (ago): day(s) (2) Pain Consistency: constant Location: Suprapubic and Pelvis Severity: moderate Quality: cramping, aching and fullness Radiation: back Exacerbating factors: movement Relieving factors: nothing Associated Symptoms: Reports change in bowel habits, change in stool character, constipation, dysuria, fever(s), nausea and vomiting; Denies hematuria Review of Systems General: Reports: 10 or more systems reviewed and unremarkable except in HPI and below Const: Reports: fever(s) Eyes: Denies: blurry vision or eye redness ENMT: Denies: throat pain, dental pain or disequilibrium Card: Denies: chest pain, palpitations or irregular heart rhythm Resp: Reports: productive cough and chest congestion; Denies: dyspnea, non-productive cough or wheezing GI: Reports: abdominal pain, nausea, vomiting, constipation, change in bowel habits and change in stool character : Reports: difficulty voiding, dysuria, urinary frequency and pelvic pain; Denies: hematuria Musc: Reports: back pain; Denies: neck pain, joint pain, joint warmth or joint stiffness Skin/Breast: Denies: rash or pruritus Neuro: Denies: headache(s), weakness in extremities or behavioral changes Psych: Denies: anxiety or depression Ming/Lymph: Denies: easy bruising PFSH ED PFSH: Medical History Chronic pancreatitis COPD (chronic obstructive pulmonary disease) Hypertension Osteoporosis Surgical History H/O: hysterectomy Social History Smoking and tobacco status: current every day smoker Alcohol intake: former Lives independently: Yes Household members: family Physical Exam Const: COMMON NORMALS: no acute distress, patient oriented x3, alert and well nourished EXAM LIMITATIONS: no altered mental status and no physical limitations GENERAL APPEARANCE: cooperative, well kempt, well developed and well hydrated; not anxious and not ill appearing NUTRITIONAL APPEARANCE: thin ORIENTATION/CONSCIOUSNESS: Yes awake, Yes oriented to person, Yes oriented to place and Yes oriented to time HENMT: COMMON NORMALS: normocephalic, atraumatic, Normal external nose present and moist oral mucous membranes HEAD & SCALP: normal to inspection, normocephalic and atraumatic FACE & SINUS: normal facial exam and face symmetric NOSE: Normal external nose present MOUTH: Normal oral and palatal mucosa present Eye: COMMON NORMALS: Equal, round and reactive pupils present and EOMs intact bilaterally GENERAL EYE: appearance normal, both eyes and all related structures PUPIL: Yes Equal, round and reactive pupils present Neck/C-Spine: COMMON NORMALS: full ROM and no lymphadenopathy GENERAL: Yes normal visual inspection and Yes trachea midline CERVICAL SPINE: Yes cervical ROM normal Lymph: LYMPHATIC: no lymphadenopathy noted Chest: COMMONS NORMALS: normal inspection of the chest and normal palpation of entire chest wall Resp: COMMON NORMALS: normal respiratory effort, No retractions and No use of accessory muscles EFFORT & INSPECTION: Yes able to speak in complete senten angelica, No tachypneic, No labored, No Actively coughing, No retractions and No ishmael ble wheezes AUSCULTATION: no wheezes and diminished lung sounds bilateral in the lower lung silva Cardio: COMMON NORMALS: regular rate, regular rhythm, S1 normal heart sound present, S2 normal heart sound present and Peripheral pulses 2+ throughout RATE: regular rate RHYTHM: regular rhythm HEART SOUNDS: S1 normal heart sound present and S2 normal heart sound present PERIPHERAL PULSES: Peripheral pulses 2+ throughout GI: COMMON NORMALS: Normal to inspection, nondistended, normoactive bowel sounds present and Soft to palpation INSPECTION: Yes normal to inspection, No abdominal wall ecchymosis, Yes abdominal distension and No central obesity AUSCULTATION: Yes normoactive bowel sounds PALPATION: Yes Soft to palpation and Yes Tenderness to palpation present (GI) Details: other (rt cva) Back/Pelvis: GENERAL BACK: Yes CVA tenderness CVA tenderness: right THORACIC SPINE/UPPER BACK: Yes ROM limited LUMBAR SPINE/LOWER BACK: Yes ROM limited Extremity: COMMON NORMALS: normal to inspection and capillary refill normal Neuro: COMMON NORMALS: patient oriented x3 and no focal motor deficits SENSORIUM/ORIENTATION: Yes alert, Yes oriented to person, Yes oriented to place and Yes oriented to time MOTOR EXAM: 5/5 motor strength present throughout Psych: COMMON NORMALS: mental status grossly normal, Normal thought process present and cooperative APPEARANCE: Yes well kempt ACTIVITY/MOTOR BEHAVIOR: Yes appropriate eye contact THOUGHT PROCESS: Normal thought process present Skin: COMMON NORMALS: no rashes or lesions noted, no wounds, turgor normal, no petechiae and no mottling GENERAL SKIN EXAM: no rashes or lesions noted, elasticity normal and turgor normal Course Consultations: Consultation #1: Dr Jacome, hospitalist, serology findings as well as CT scan abdomen pelvis with IV contrast discussed, agrees for admission due to acute pancreatitis, advised to hold in the ED if no beds available. Time: 20:19 Vital Signs: Vital signs: Vital Signs Temperature 98.7 F 01/19/21 17:15 Pulse Rate 104 H 01/19/21 18:05 Respiratory Rate 18 01/19/21 18:56 Blood Pressure 160/83 01/19/21 18:05 Pulse Oximetry 95 01/19/21 18:05 MDM - Abdominal Pain MDM Narrative: Medical decision making narrative: 60-year-old female patient presents to the emergency department with 2-day history of worsening/exacerbation of back and abdominal pain. She has experienced abdominal and back pain x6 months. She reports intake of half a beer last night, history of chronic pancreatitis. Lipase found to be elevated, CT scan of the abdomen and pelvis revealed acute pancreatitis. Urinalysis revealed urinary tract infection, Zosyn 3.375 administered here in the ED. White count slightly elevated 15.7 thousand. Hyponatremia present which is chronic for her. 1 L of lactated Ringer was administered. Spoke with Dr. Jacome who agrees to admit due to acute pancreatitis findings. Her pain was controlled with 4 mg of morphine, nausea resolved with 4 mg of Zofran. Discussed with the patient findings and need for admission, she agrees for hospitalization and plan of care. Differential Diagnosis: Differential diagnosis abdominal pain: Likely abdominal pain, calculus of kidney, constipation and gastroenteritis Lab Data: Labs: Lab Results 01/19/21 01/19/21 01/19/21 Range/Units 17:52 18:00 18:00 WBC 15.7 H (4.0-10.0) 10^3/ uL RBC 4.61 (4.1-5.3) 10^6/u L Hgb 13.9 (11.5-15.3) g/dL Hct 39.8 (37.0-47.0) % MCV 86.3 (81-99) fL MCH 30.2 (28.0-34.0) pg MCHC 34.9 (30.0-36.0) g/dL RDW 14.6 (12.1-15.1) % Plt Count 252 (130-400) 10^3/c mm MPV 9.1 (7.4-10.4) fL Neut % (Auto) 92.7 % Lymph % (Auto) 2.7 % Price % (Auto) 3.1 % Eos % (Auto) 0.9 % Baso % (Auto) 0.3 % Neut # (Auto) 14.53 H (1.8-7.7) 10^3/u L Lymph # (Auto) 0.4 L (0.8-4.8) 10^3/u L Price # (Auto) 0.5 (0.2-0.9) 10^3/u L Eos # (Auto) 0.1 (0.0-0.8) 10^3/u L Baso # (Auto) 0.0 (0.0-0.1) 10^3/u L Nucleated RBC % (a uto) 0 % Nucleated RBCs # 0.0 /100WBC Sodium 124 L (136-145) mmol/L Potassium 4.4 (3.5-5.1) mmol/L Chloride 85 L (98-107) mmol/L Carbon Dioxide 23 (22-29) mmol/L Anion Gap 20.4 H (5-19) BUN 14 (8-23) mg/dL Creatinine 1.1 H (0.5-0.9) mg/dL GFR Calculation 50.5 L (90-130) mL/min Glucose 117 H (65-115) mg/dL Calculated Osmolal ity 260 L (285-295) mOsm/k g Calcium 9.0 (8.5-10.5) mg/dL Total Bilirubin 0.6 (0.15-1.2) mg/dL AST 46 H (0-32) U/L ALT 23 (0-33) U/L Alkaline Phosphata se 152 H (35-105) IU/L Ammonia (11-51) umol/L Total Protein 7.2 (6.6-8.7) g/dL Albumin 3.8 (3.5-5.2) g/dL Globulin 3.4 (1.3-4.6) g/dL Lipase 1536 H (13-60) U/L Urine Color Yellow (Yellow) Urine Appearance Cloudy (CLEAR) Urine pH 5 (5-7) Ur Specific Gravit y 1.020 (1.005-1.030) Urine Protein 2+ H (Negative) Urine Glucose (UA) Norm (Normal) Urine Ketones Negative (Negative) Urine Blood 2+ H (Negative) Urine Nitrate Negative (Negative) Urine Bilirubin 1+ H (Negative) Urine Urobilinogen Norm (Negative) mg/dL Ur Leukocyte Deyanira ase 2+ H (Negative) Urine RBC 0-4 H (0-2) /hpf Urine WBC Too numerous to c nt H (0-5) /hpf Ur Squamous Epith Cells 0-4 H (0-5) /hpf Amorphous Sediment Not Reportable Urine Bacteria 4+ H (NONE) /hpf Ethyl Alcohol < 10 (0-10) mg/dL 01/19/21 Range/Units 18:00 WBC (4.0-10.0) 10^3/ uL RBC (4.1-5.3) 10^6/u L Hgb (11.5-15.3) g/dL Hct (37.0-47.0) % MCV (81-99) fL MCH (28.0-34.0) pg MCHC (30.0-36.0) g/dL RDW (12.1-15.1) % Plt Count (130-400) 10^3/c mm MPV (7.4-10.4) fL Neut % (Auto) % Lymph % (Auto) % Price % (Auto) % Eos % (Auto) % Baso % (Auto) % Neut # (Auto) (1.8-7.7) 10^3/u L Lymph # (Auto) (0.8-4.8) 10^3/u L Price # (Auto) (0.2-0.9) 10^3/u L Eos # (Auto) (0.0-0.8) 10^3/u L Baso # (Auto) (0.0-0.1) 10^3/u L Nucleated RBC % (a uto) % Nucleated RBCs # /100WBC Sodium (136-145) mmol/L Potassium (3.5-5.1) mmol/L Chloride (98-107) mmol/L Carbon Dioxide (22-29) mmol/L Anion Gap (5-19) BUN (8-23) mg/dL Creatinine (0.5-0.9) mg/dL GFR Calculation (90-130) mL/min Glucose (65-115) mg/dL Calculated Osmolal ity (285-295) mOsm/k g Calcium (8.5-10.5) mg/dL Total Bilirubin (0.15-1.2) mg/dL AST (0-32) U/L ALT (0-33) U/L Alkaline Phosphata se (35-105) IU/L Ammonia 27 (11-51) umol/L Total Protein (6.6-8.7) g/dL Albumin (3.5-5.2) g/dL Globulin (1.3-4.6) g/dL Lipase (13-60) U/L Urine Color (Yellow) Urine Appearance (CLEAR) Urine pH (5-7) Ur Specific Gravit y (1.005-1.030) Urine Protein (Negative) Urine Glucose (UA) (Normal) Urine Ketones (Negative) Urine Blood (Negative) Urine Nitrate (Negative) Urine Bilirubin (Negative) Urine Urobilinogen (Negative) mg/dL Ur Leukocyte Deyanira ase (Negative) Urine RBC (0-2) /hpf Urine WBC (0-5) /hpf Ur Squamous Epith Cells (0-5) /hpf Amorphous Sediment Urine Bacteria (NONE) /hpf Ethyl Alcohol (0-10) mg/dL Imaging Data ^: Xray Ortho: Radiologist's impression: [facility] [address] [place] [id number] XRay Report Signed Patient: Serene Alcaraz Unit #: [id number] : 1960 Acc t#:[id number] Age/Sex: 60 / F ADM Date: 01/19/21 Loc: ER Room/Bed: Attending Dr: Ordering Provider/Ordering MD: Faith Coto Date of Service: 01/19/21 Procedure(s): XR acute abdomen series [id number] Accession Number(s): [id number] Report Number: [id number] PROCEDURE INFORMATION: Exam: XR Abdomen, 2 Views Exam date and time: 01/19/2021 5:57 PM Age: 60 years old Clinical indication: Nausea; Abdominal pain and other: Chest; Prior surgery; Surgery type: Eptopic , hysterectomy; Additional info: Cough/abdominal pain TECHNIQUE: Imaging protocol: XR of the abdomen. Views: 2 Views. COMPARISON: No relevant prior studies available. FINDINGS: Lungs: Moderate emphysematous changes. No focal consolidation. Gastrointestinal tract: Mild gaseous distension of large bowel. Moderate fecal volume. Intraperitoneal space: Negative for pneumoperitoneum. Vasculature: Mild atherosclerosis. Bones/joints: Demineralized bones. XR/XR acute abdomen series [id number] IMPRESSION: 1. No acute pulmonary disease. 2. Nonspecific bowel gas pattern. Dictated By: Matti Martínez Signed By: Matti Martínez Signed Date/Time: 01/19/211827 DD/ 26 CT Abd/Pel: Radiologist's impression: [facility] [address] [place] [id number] Scan Report Signed Patient: Serene Alcaraz Unit #: [id number] : 1960 Age/Sex: 60 / F ADM Date: 01/19/21 Loc: ER Room/Bed: Attending Dr: Ordering Provider/Ordering MD: Faith Coto Date of Service: 01/19/21 Procedure(s): CT abdomen pelvis w con* [id number] Accession Number(s): [id number] Report Number: [id number] PROCEDURE INFORMATION: Exam: CT Abdomen And Pelvis With Contrast Exam date and time: 01/19/2021 7:06 PM Age: 60 years old Clinical indication: Abdominal pain; Prior surgery; Additional info: Abdominal and back pain TECHNIQUE: Imaging protocol: Computed tomography of the abdomen and pelvis with contrast. Radiation optimization: All CT scans at this facility use at least one of these dose optimization techniques: automated exposure control; mA and/or kV adjustment per patient size (includes targeted exams where dose is matched to clinical indication); or iterative reconstruction. Contrast material: OMNI 300; Contrast volume: 95 ml; Contrast route: INTRAVENOUS (IV); COMPARISON: CT abdomen pelvis wo con [id number] 05/29/2020 7:11 PM RADIATION DOSE METRICS: Total DLP (mGy-cm): 247.51 FINDINGS: Pleural spaces: Trace left-sided pleural effusion. Liver: Normal. No mass. Gallbladder and bile ducts: Normal. No calcified stones. No ductal dilation. Pancreas: Peripancreatic region free fluid. No organized loculated peripancreatic fluid collection. Calcifications in the uncinate process of the pancreas. Mild ectasia of the main pancreatic duct. Spleen: Normal. No splenomegaly. Adrenal glands: Normal. No mass. Kidneys and ureters: Normal. No hydronephrosis. Stomach and bowel: No evidence of bowel obstruction or perforation. Appendix: No evidence of appendicitis. Intraperitoneal space: Small volume perihepatic free fluid. Mild diffuse edema throughout abdominal mesentery. Small volume ascites dependently in the pelvis. Vasculature: Diffuse large volume atherosclerotic wall plaque of abdominal aorta. No aneurysm. Mesenteric vasculature patent. Lymph nodes: Unremarkable. No enlarged lymph nodes. Urinary bladder: Diffuse thickening and mildly trabeculated pattern. Reproductive: Hysterectomy. Bones/joints: Diffuse osseous demineralization. Subacute partially healed left lateral rib fractures. Lumbar spinal alignment is anatomic. Moderate severity compression fracture deformity of T12 with between 25 and 50% height loss unchanged from prior. Soft tissues: Unremarkable. Other findings: No active bleeding. CT/CT abdomen pelvis w con* [id number] IMPRESSION: Abdominopelvic free fluid is present, although with the peripancreatic distribution noted in the upper abdomen, suspect sequela of acute pancreatitis. Radiation Dose CTDIVOL = (mGy): DLP = 247.51 (mGy-cm) Dictated By: Matti Martínez Signed By: Matti Martínez Signed Date/Time: 01/19/21 193 EKG Data ^: EKG 1: EKG interpretation date: 01/19/21 EKG interpretation time: 18:16 Other EKG comments: Ventricular rate 93, sinus rhythm, normal ECG Discharge Plan Discharge Patient Disposition: Admitted As Inpatient Clinical Impression: Acute on chronic pancreatitis UTI (urinary tract infection) Qualifiers: Urinary tract infection type: acute cystitis Hematuria presence: with hematuria Qualified Code(s): N30.01 - Acute cystitis with hematuria Condition: Stable Coding Level of Care Code ED Clinical Educator for Chg Fwd Exam Comprehensive
--- NOTE | 2021-01-19 18:01 | ECG_ITS ---
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
[2021-01-19 18:05] VITALS: BP 160/83; PULSE 104; RESP 18; O2SAT 95
[2021-01-19 18:06] LABS: Basophils % 0.3 %; Eosinophils # 0.1 10^3/uL (0.0-0.8); Eosinophils % 0.9 %; Hematocrit 39.8 % (37.0-47.0); Hemoglobin 13.9 g/dL (11.5-15.3); Lymphocytes # 0.4 10^3/uL (0.8-4.8); Lymphocytes % 2.7 %; Mean Corpuscular HGB Conc 34.9 g/dL (30.0-36.0); Mean Corpuscular Hemoglobin 30.2 pg (28.0-34.0); Mean Corpuscular Volume 86.3 fL (81-99); Mean Platelet Volume 9.1 fL (7.4-10.4); Monocytes # 0.5 10^3/uL (0.2-0.9); Monocytes % 3.1 %; Neutrophils # 14.53 10^3/uL (1.8-7.7); Neutrophils % 92.7 %; Nucleated Red Blood Cells % 0 %; Platelet Count 252 10^3/cmm (130-400); Red Blood Count 4.61 10^6/uL (4.1-5.3); Red Cell Distribution Width 14.6 % (12.1-15.1); White Blood Count 15.7 10^3/uL (4.0-10.0)
[2021-01-19] MEDS: ondansetron 2 mg/ML SDV 2 mL 4 MG IVP (18:07)
--- NOTE | 2021-01-19 18:22 | CTR_ITS ---
PROCEDURE INFORMATION: Exam: CT Abdomen And Pelvis With Contrast Exam date and time: 01/19/2021 7:06 PM Age: 60 years old Clinical indication: Abdominal pain; Prior surgery; Additional info: Abdominal and back pain TECHNIQUE: Imaging protocol: Computed tomography of the abdomen and pelvis with contrast. Radiation optimization: All CT scans at this facility use at least one of these dose optimization techniques: automated exposure control; mA and/or kV adjustment per patient size (includes targeted exams where dose is matched to clinical indication); or iterative reconstruction. Contrast material: OMNI 300; Contrast volume: 95 ml; Contrast route: INTRAVENOUS (IV); COMPARISON: CT abdomen pelvis wo con [id number] 05/29/2020 7:11 PM RADIATION DOSE METRICS: Total DLP (mGy-cm): 247.51 FINDINGS: Pleural spaces: Trace left-sided pleural effusion. Liver: Normal. No mass. Gallbladder and bile ducts: Normal. No calcified stones. No ductal dilation. Pancreas: Peripancreatic region free fluid. No organized loculated peripancreatic fluid collection. Calcifications in the uncinate process of the pancreas. Mild ectasia of the main pancreatic duct. Spleen: Normal. No splenomegaly. Adrenal glands: Normal. No mass. Kidneys and ureters: Normal. No hydronephrosis. Stomach and bowel: No evidence of bowel obstruction or perforation. Appendix: No evidence of appendicitis. Intraperitoneal space: Small volume perihepatic free fluid. Mild diffuse edema throughout abdominal mesentery. Small volume ascites dependently in the pelvis. Vasculature: Diffuse large volume atherosclerotic wall plaque of abdominal aorta. No aneurysm. Mesenteric vasculature patent. Lymph nodes: Unremarkable. No enlarged lymph nodes. Urinary bladder: Diffuse thickening and mildly trabeculated pattern. Reproductive: Hysterectomy. Bones/joints: Diffuse osseous demineralization. Subacute partially healed left lateral rib fractures. Lumbar spinal alignment is anatomic. Moderate severity compression fracture deformity of T12 with between 25 and 50% height loss unchanged from prior. Soft tissues: Unremarkable. Other findings: No active bleeding. CT/CT abdomen pelvis w con* [id number] IMPRESSION: Abdominopelvic free fluid is present, although with the peripancreatic distribution noted in the upper abdomen, suspect sequela of acute pancreatitis. Radiation Dose CTDIVOL = (mGy): DLP = 247.51 (mGy-cm)
[2021-01-19 18:34] LABS: Ammonia 27 umol/L (11-51)
[2021-01-19 18:38] LABS: Alanine Aminotransferase 23 U/L (0-33); Albumin Level 3.8 g/dL (3.5-5.2); Alkaline Phosphatase 152 IU/L (35-105); Anion Gap 20.4 (5-19); Aspartate Amino Transferase 46 U/L (0-32); Blood Urea Nitrogen 14 mg/dL (8-23); Carbon Dioxide 23 mmol/L (22-29); Chloride 85 mmol/L (98-107); Globulin 3.4 g/dL (1.3-4.6); Glomerular Filtration Rate 50.5 mL/min (90-130); Glucose 117 mg/dL (65-115); Osmolality Calculated 260 mOsm/kg (285-295); Potassium 4.4 mmol/L (3.5-5.1); Sodium 124 mmol/L (136-145); Total Bilirubin 0.6 mg/dL (0.15-1.2); Total Protein 7.2 g/dL (6.6-8.7)
[2021-01-19 18:50] LABS: Add Urine Culture? Yes; Add Urine Microscopic? YES; Bacteria Urine 4+ /hpf; Bilirubin Urine 1+ (Negative); Blood Urine 2+ (Negative); Glucose Urine UA Norm (Normal); Ketones Urine Negative (Negative); Leukocyte Esterase Urine 2+ (Negative); Nitrate Urine Negative (Negative); Protein Urine 2+ (Negative); RBC Urine 0-4 /hpf (0-2); Squamous Epithelial Cell Urine 0-4 /hpf (0-5); Urine Appearance Cloudy (CLEAR); Urine Color Yellow (Yellow); Urobilinogen Urine Norm (Negative); WBC Urine TOO NUMEROUS TO CNT /hpf (0-5); pH Urine 5 (5-7)
[2021-01-19 18:51] LABS: Alcohol Level < 10 mg/dL (0-10); Lipase 1536 U/L (13-60)
[2021-01-19] MEDS: lactated ringers 1,000 ML 999 ML IV (18:55)
[2021-01-19 18:56] VITALS: RESP 18
[2021-01-19] MEDS: morphine 4 mg/mL SDV 1 mL IVP (18:56)
[2021-01-19] MEDS: iohexol 300 mg/mL 100 mL Btl IV (19:18)
[2021-01-19] MEDS: piperacillin-tazobactam 3.375 GM in sodium chloride 0.9% (plus) 50 ML IV (20:06)
--- NOTE | 2021-01-19 20:16 | PM.HP ---
Providers/Chief Complaint Primary Care Provider: Sid Harris MD Chief Complaint: Fever, ABD pain, slight chest pain History of Present Illness Serene Alcaraz is a 60 year old female who has alcohol dependence presented today with chief complaint abdominal pain. Patient is stating that her symptoms started on Monday with abdominal pain which gradually got worse start experiencing intractable nausea vomiting last 48 hours, she also noticed fever 103 at home, endorsing dysuria and not been able to void. She drinks mixture of 2 alcohols vodka and peach about 2 glasses every day. She also smokes half pack a day. She denies history of diabetes. Diagnostics in the ER revealed acute pancreatitis with leukocytosis, tachycardia, hyponatremia, ANALILIA, lipase 1500, alcohol level undetectable however urinalysis positive with pyuria, CT abdomen revealed pancreatitis. In the ER she was given 1 L lactated Ringer, morphine and Zosyn Review of Systems Const: Reports: fever(s), chills, body aches and fatigue Eyes: Reports: change in vision ENMT: Denies: throat pain Card: Denies: chest pain Resp: Denies: dyspnea GI: Reports: abdominal pain, nausea, vomiting, bloating and GI cramping : Reports: difficulty voiding and urinary urgency Musc: Denies: neck pain Skin/Breast: Denies: rash Neuro: Denies: headache(s) Psych: Denies: anxiety Endo: Denies: polyuria Ming/Lymph: Denies: easy bruising All/Imm: Denies: urticaria Medications/Allergies Home Medications Medication Instructions Recorded Confirmed Last Taken Type amlodipine 5 mg PO BID@0600,1800 05/28/20 01/19/21 01/19/21 History aspirin 81 mg PO DAILY@0600 05/28/20 01/19/21 01/19/21 History atorvastatin 80 mg PO DAILY@1800 05/28/20 01/19/21 01/18/21 History labetalol 100 mg PO BID@0600,1800 05/28/20 01/19/21 01/19/21 History loperamide [Imodium A-D] 2 mg PO DAILY PRN #10 cap 05/30/20 01/19/21 Unknown Rx meclizine 25 mg PO TID PRN #14 tab 07/27/20 01/19/21 Unknown Rx Multi Vitamin 1 tab PO DAILY@0600 10/28/20 01/19/21 10/27/20 History albuterol sulfate See Rx Instructions .ROUTE .COMPLEX 10/28/20 01/19/21 01/18/21 History aspirin 325 mg PO DAILY PRN 10/28/20 01/19/21 10/28/20 History Allergies Allergy/AdvReac Type Severity Reaction Status Date / Time Latex, Natural Rubber Allergy ALGY-Hives Verified 10/28/20 18:43 microbid Allergy ADR-Nausea Uncoded 10/28/20 18:43 PFSH Acute PFSH: Medical History Chronic pancreatitis COPD (chronic obstructive pulmonary disease) Hypertension Osteoporosis Surgical History H/O: hysterectomy Social History Smoking and tobacco status: current every day smoker Alcohol intake: former Lives independently: Yes Household members: family Vitals/I&O/Wt Last Vital Signs Temp 98.7 F 01/19/21 17:15 Pulse 104 H 01/19/21 18:05 Resp 18 01/19/21 18:56 BP 160/83 01/19/21 18:05 Pulse Ox 95 01/19/21 18:05 Weight last 48 hrs Weight 49.895 kg Physical Exam Narrative: EXAM NARRATIVE: Middle-age female Looks slightly dehydrated not in any active distress Patient endorsed feeling better Mild abdominal tenderness on deep palpation in epigastric region otherwise soft no signs of peritonitis S1, S2 sinus tachycardia No acute respite distress No active rhonchi or crackles No lower extremity edema gangrene ulcer Appropriate mood and affect GCS 15, no neurological deficit no signs of stroke Data : 01/19/21 18:00 01/19/21 18:00 A&P Assessment and plan (1) Alcohol use: Status: Acute (2) Acute on chronic pancreatitis: Status: Acute (3) Chronic hyponatremia: Status: Acute (4) UTI (urinary tract infection): Status: Acute (5) Sepsis: Status: Acute Additional A&P Information Acute on chronic pancreatitis secondary to alcohol dependence Patient is not looking forward to quitting alcohol Smokes half a pack a day I do believe these are the 2 risk factors for her recurrent pancreatitis is not diabetic I would not check triglyceride level CT abdomen consistent with sequelae of pancreatitis lipase 1500 We will keep her n.p.o. start D5 LR and advance diet as tolerated Would use Dilaudid and Zofran for as needed use Chronic hyponatremia: No acute neurological signs or symptoms Her baseline sodium seems to be around 1 24-1 29, this seems secondary to alcohol abuse Monitor sodium trend with improvement 6 mEq in 24 hours goal Sepsis with UTI We will keep her on fluids and ceftriaxone Sepsis criteria met with tachycardia, leukocytosis Acute kidney injury secondary to dehydration Anticipate improvement with fluid resuscitation, clinically looks dry Full code N.p.o. DVT prophylaxis Heparin Attestations Medical Necessity Statement*: Anticipating stay in the hospital course more than 2 midnights for management of acute on chronic pancreatitis and sepsis due to UTI Time Spent in Patient Care: (>than 50% of time spent in counselling and/or direct pt care on unit). 45mins Coding Level of Care Code Acute Rail Transit Operator for g Fwd Diagnoses Alcohol use Z72.89 Acute on chronic pancreatitis K85.90; K86.1 Chronic hyponatremia E87.1 UTI (urinary tract infection) N39.0 Sepsis A41.9
[2021-01-19 22:00] VITALS: BP 173/81; PULSE 85; RESP 16; O2SAT 95
--- NOTE | 2021-01-19 23:41 | PC.NURSE ---
Patient told me she took 2 home medications. Labetalol 100mg tab PO Amlodopine 5mg tab PO.
[2021-01-20] VITALS (14 sets, daily range): BP systolic 109–155; BP diastolic 61–87; PULSE 61–85; RESP 16–19; TEMP 36.4–37.2; O2SAT 92–98
[2021-01-20] MEDS: heparin 5,000 unit/mL INJ 1 mL 5000 UNIT SUBCUT ×3 (00:41→15:50)
[2021-01-20] MEDS: dextrose 5%-lactated ringers 1,000 ML 75 ML IV ×2 (00:48→15:49)
[2021-01-20] MEDS: HYDROmorphone 1 mg/mL INJ 1 mL 0.5 MG IVP ×3 (00:51→16:41)
[2021-01-20 04:14] LABS: Basophils % 0.2 %; Eosinophils % 0.2 %; Hematocrit 32.8 % (37.0-47.0); Hemoglobin 11.3 g/dL (11.5-15.3); Lymphocytes # 0.7 10^3/uL (0.8-4.8); Lymphocytes % 5.1 %; Mean Corpuscular HGB Conc 34.5 g/dL (30.0-36.0); Mean Corpuscular Hemoglobin 30.5 pg (28.0-34.0); Mean Corpuscular Volume 88.6 fL (81-99); Mean Platelet Volume 9.6 fL (7.4-10.4); Monocytes # 0.5 10^3/uL (0.2-0.9); Monocytes % 3.9 %; Neutrophils # 11.59 10^3/uL (1.8-7.7); Neutrophils % 90.4 %; Nucleated Red Blood Cells % 0 %; Platelet Count 195 10^3/cmm (130-400); Red Cell Distribution Width 14.7 % (12.1-15.1); White Blood Count 12.8 10^3/uL (4.0-10.0)
[2021-01-20 04:28] LABS: Alanine Aminotransferase 16 U/L (0-33); Albumin Level 3.1 g/dL (3.5-5.2); Alkaline Phosphatase 115 IU/L (35-105); Anion Gap 10.8 (5-19); Aspartate Amino Transferase 37 U/L (0-32); Blood Urea Nitrogen 11 mg/dL (8-23); Calcium 8.5 mg/dL (8.5-10.5); Carbon Dioxide 28 mmol/L (22-29); Chloride 90 mmol/L (98-107); Creatinine Clr Calc Pharmacy 77.5567; Globulin 2.6 g/dL (1.3-4.6); Glomerular Filtration Rate 101.6 mL/min (90-130); Glucose 110 mg/dL (65-115); Osmolality Calculated 260 mOsm/kg (285-295); Potassium 3.8 mmol/L (3.5-5.1); Sodium 125 mmol/L (136-145); Total Bilirubin 0.5 mg/dL (0.15-1.2); Total Protein 5.7 g/dL (6.6-8.7)
[2021-01-20 04:36] LABS: Lipase 575 U/L (13-60)
--- NOTE | 2021-01-20 07:29 | PC.NURSE ---
0700 -Received report assumed care. No changes noted from report. Pt sitting up in the bed. Fluids infusing. Alert and oriented. Keeping pt NPO.
[2021-01-20] MEDS: cefTRIAXone 1,000 MG in sodium chloride 0.9% (plus) 50 ML 100 MG IV (08:41)
[2021-01-20] MEDS: thiamine 100 mg Tablet PO (10:55)
[2021-01-20] MEDS: folic acid 1 mg Tablet PO (10:55)
[2021-01-20 12:07] LABS: Triglycerides 35 mg/dL (0-150)
--- NOTE | 2021-01-20 14:13 | P.PN_ITS ---
Subjective Subjective: Interval history: Serene reports her belly feels better because she had a pain shot in the emergency department. She reports she wants something to eat. History and physical was reviewed. She states she has been having issues with her abdomen being painful for quite a while. She also complains of some congestion in her lungs, cough. She had a fever that was 103?F 1 to 2 days ago. She states she has had some suprapubic pain as well. Medications: Reviewed: Yes Vitals/I&O/Wt Last Vital Signs Temp 98.9 F 01/20/21 11:01 Pulse 72 01/20/21 11:01 Resp 18 01/20/21 11:01 BP 118/70 01/20/21 11:01 Pulse Ox 96 01/20/21 11:01 01/19/21 01/20/21 01/20/21 22:59 06:59 14:59 Intake Total 1050 / 1050 Output Total 1200 / 1200 Balance 1050 / 1050 -1200 / -150 Weight last 48 hrs Weight 49.895 kg Physical Exam Narrative: EXAM NARRATIVE: General exam is conversant, pleasant, no apparent distress Neck is supple no lymphadenopathy or thyromegaly Cardiovascular regular rate and rhythm without murmur Lungs clear Abdomen is soft, slight epigastric tenderness Extremities show no cyanosis clubbing or edema, cap refill brisk Data : 01/20/21 04:02 01/20/21 04:02 A&P Assessment and plan (1) Alcohol use: Abstain from alcohol Monitor for any withdrawal [facility] protocol Status: Acute (2) Acute on chronic pancreatitis: Patient reports she is rather discomfort free and wanting to eat. Initiate clear liquids. Continue pain control Check triglyceride level Lipase level in the morning Status: Acute (3) Chronic hyponatremia: Continue to monitor closely Currently on D5 LR secondary to pancreatitis and need for hydration. If sodium drops consider fluid restricting Status: Acute (4) UTI (urinary tract infection): Ceftriaxone initiated Await urine culture Status: Acute (5) Sepsis: Blood cultures were not drawn on admission. Will obtain now. Concern was she may be septic from UTI. Rocephin was initiated. We will also check rapid Covid secondary to fever, and history of cough. Chest x-ray was without infiltrate Status: Acute Additional A&P Information Hypertension. Blood pressure medicines held on admission and currently she is normotensive. Restart his blood pressure increases Tobacco dependency ANALILIA, resolved Full code Heparin for DVT prophylaxis Attestations Medical Necessity Statement*: Needs continued hospitalization for close follow-up of acute pancreatitis with reintroducing of oral intake and treatment of UTI with IV antibiotics. Coding Level of Care Code Acute Stringed Instrument Tuner for [facility] Fwd Diagnoses Alcohol use Z72.89 Acute on chronic pancreatitis K85.90; K86.1 Chronic hyponatremia E87.1 UTI (urinary tract infection) N39.0 Sepsis A41.9
[2021-01-20] MEDS: multivitamin therapeutic Tablet 1 TAB PO (15:48)
[2021-01-20 17:45] LABS: SARS Covid-2 Antigen Negative (Negative)
[2021-01-20 18:35] LABS: Anion Gap 12.3 (5-19); Blood Urea Nitrogen 8 mg/dL (8-23); Calcium 7.9 mg/dL (8.5-10.5); Carbon Dioxide 26 mmol/L (22-29); Chloride 92 mmol/L (98-107); Glomerular Filtration Rate 125.4 mL/min (90-130); Glucose 118 mg/dL (65-115); Osmolality Calculated 263 mOsm/kg (285-295); Potassium 3.3 mmol/L (3.5-5.1); Sodium 127 mmol/L (136-145)
[2021-01-20] MEDS: amlodipine 5 mg Tablet PO (21:42)
[2021-01-20] MEDS: atorvastatin 40 mg Tablet 80 MG PO (21:42)
[2021-01-20] MEDS: labetalol 200 mg Tablet 100 MG PO (21:42)
[2021-01-21] VITALS (10 sets, daily range): BP systolic 90–125; BP diastolic 56–78; PULSE 64–79; RESP 16–20; TEMP 36.6–37.2; O2SAT 90–96
[2021-01-21] MEDS: heparin 5,000 unit/mL INJ 1 mL 5000 UNIT SUBCUT ×3 (01:20→17:07)
[2021-01-21] MEDS: HYDROmorphone 1 mg/mL INJ 1 mL 0.5 MG IVP ×3 (03:29→21:56)
[2021-01-21] MEDS: sodium chloride 0.9% 1,000 ML 999 ML IV (05:34)
[2021-01-21 05:47] LABS: Basophils % 0.3 %; Eosinophils % 0.2 %; Hematocrit 30.5 % (37.0-47.0); Hemoglobin 9.7 g/dL (11.5-15.3); Lymphocytes # 0.8 10^3/uL (0.8-4.8); Lymphocytes % 7.9 %; Mean Corpuscular HGB Conc 31.8 g/dL (30.0-36.0); Mean Corpuscular Hemoglobin 29.8 pg (28.0-34.0); Mean Corpuscular Volume 93.6 fL (81-99); Mean Platelet Volume 10.2 fL (7.4-10.4); Monocytes # 0.6 10^3/uL (0.2-0.9); Monocytes % 5.4 %; Neutrophils # 8.84 10^3/uL (1.8-7.7); Neutrophils % 85.9 %; Nucleated Red Blood Cells % 0 %; Platelet Count 169 10^3/cmm (130-400); Red Blood Count 3.26 10^6/uL (4.1-5.3); Red Cell Distribution Width 14.8 % (12.1-15.1); White Blood Count 10.3 10^3/uL (4.0-10.0)
[2021-01-21 06:13] LABS: Alanine Aminotransferase 11 U/L (0-33); Albumin Level 2.5 g/dL (3.5-5.2); Alkaline Phosphatase 91 IU/L (35-105); Anion Gap 9.3 (5-19); Aspartate Amino Transferase 21 U/L (0-32); Blood Urea Nitrogen 6 mg/dL (8-23); Calcium 8.1 mg/dL (8.5-10.5); Carbon Dioxide 26 mmol/L (22-29); Chloride 92 mmol/L (98-107); Creatinine Clr Calc Pharmacy 155.1134; Globulin 2.4 g/dL (1.3-4.6); Glomerular Filtration Rate 226.2 mL/min (90-130); Glucose 103 mg/dL (65-115); Lipase 111 U/L (13-60); Magnesium 1.6 mg/dL (1.7-2.3); Osmolality Calculated 256 mOsm/kg (285-295); Potassium 3.3 mmol/L (3.5-5.1); Sodium 124 mmol/L (136-145); Total Bilirubin 0.6 mg/dL (0.15-1.2); Total Protein 4.9 g/dL (6.6-8.7)
[2021-01-21] MEDS: dextrose 5%-lactated ringers 1,000 ML 75 ML IV (06:48)
[2021-01-21] MEDS: magnesium sulfate premix 2 GM/50 ML PIGGYBACK IV (08:35)
[2021-01-21] MEDS: cefTRIAXone 1,000 MG in sodium chloride 0.9% (plus) 50 ML 100 MG IV (08:36)
[2021-01-21] MEDS: folic acid 1 mg Tablet PO (08:49)
[2021-01-21] MEDS: multivitamin therapeutic Tablet 1 TAB PO (08:49)
[2021-01-21] MEDS: potassium chloride ER 20 mEq Tablet 40 MEQ PO (08:49)
[2021-01-21] MEDS: thiamine 100 mg Tablet PO (08:49)
[2021-01-21] MEDS: labetalol 200 mg Tablet 100 MG PO ×2 (08:49→17:07)
--- NOTE | 2021-01-21 09:33 | P.PN_ITS ---
Documented by User: JOVANY Wood STDSHERLEY 01/21/21 09:57 Subjective Subjective: Interval history: Serene reports she is doing okay. Asked to advance her diet from liquids to solids. Reports slight nausea and dizziness, but no vomiting. Reports slight RUQ and LUQ pain with palpation, reports epigastric pain is better than yesterday. States she still has a cough, but the congestion is better. Medications: Reviewed: Yes Vitals/I&O/Wt Last Vital Signs Temp 99.0 F 01/21/21 07:37 Pulse 67 01/21/21 07:37 Resp 18 01/21/21 07:37 BP 116/65 01/21/21 07:37 Pulse Ox 93 01/21/21 07:37 01/20/21 01/21/21 01/21/21 22:59 06:59 14:59 Intake Total 530 / 1930 1999 3930 Balance 530 / 1930 1999 Weight last 48 hrs Weight 49.895 kg Physical Exam Narrative: EXAM NARRATIVE: General: white female in no apparent distress Cardiovascular: regular rate and rhythm, no murmur Lungs: clear, no wheezes Abdomen: soft, slight RUQ and LUQ tenderness to palpation, positive bowel sounds Lower extremities: no cyanosis or edema Data : 01/21/21 05:35 01/21/21 05:35 Micro: Microbiology 01/19/21 17:52 Urine Culture - Preliminary Urine,Clean Catch Gram Negative Rods 01/20/21 15:55 Blood Culture - Preliminary Blood SPECIMEN COLLECTED 01/20/21 15:56 Blood Culture - Preliminary Blood SPECIMEN COLLECTED A&P Assessment and plan (1) Alcohol use: Abstain from alcohol Monitor for any withdrawal [facility] protocol Status: Acute (2) Acute on chronic pancreatitis: Advanced diet from liquids to solids. Continue pain control Check triglyceride level. Normal. Lipase level in the morning. Lipase has been trending downward since hospital admission. Status: Acute (3) Chronic hyponatremia: Continue to monitor closely. Na decreased since yesterday. Status: Acute (4) UTI (urinary tract infection): Ceftriaxone initiated Urine grew Gram negative rods. Awaiting ID. Status: Acute (5) Sepsis: Blood cultures were not drawn on admission. Blood cultures collected on 01/20. Concern was she may be septic from UTI. Rocephin was initiated. We will also check rapid Covid secondary to fever, and history of cough. Rapid Covid negative. Chest x-ray was without infiltrate Status: Acute Additional A&P Information Hypertension. Blood pressure medicines held on admission and currently she is normotensive. Restart his blood pressure increases Tobacco dependency ANALILIA, resolved Full code Heparin for DVT prophylaxis Coding Level of Care Code Acute Core Extruder for [facility] Fwd Diagnoses Alcohol use Z72.89 Acute on chronic pancreatitis K85.90; K86.1 Chronic hyponatremia E87.1 UTI (urinary tract infection) N39.0 Sepsis A41.9 Documented by User: Yobany Patel MD 01/21/21 10:03 Subjective Subjective: Interval history: Agree with above. Patient interviewed by myself as well. Medications: Reviewed: Yes Physical Exam Narrative: EXAM NARRATIVE: Agree with above physical exam Data : 01/21/21 05:35 01/21/21 05:35 A&P Additional A&P Information Agree with documentation as noted above. Discussed in detail with student as plan was made. At this point there is not need for another lipase as it has decreased significantly. Secondary to hypokalemia and hypomagnesemia these will be supplemented Diet can be advanced as she knows no further significant nausea and is requesting this. Await urine culture ID and sensitivity as outlined in the student's note above Labetalol was continued from the mexican food maker hand as well as Norvasc. As blood pres sures are somewhat soft discontinue Norvasc for now. IV fluids will be discontinued secondary to slight worsening of her hyponatremia Recheck electrolytes tomorrow. Heparin is being used for DVT prophylaxis. Attestations Medical Necessity Statement*: Needs continued hospitalization for IV antibiotics for UTI, treatment of pancreatitis, close monitoring of hyponatremia Coding Level of Care Code Acute Core Extruder for [facility] Fwd Diagnoses Alcohol use Z72.89 Acute on chronic pancreatitis K85.90; K86.1 Chronic hyponatremia E87.1 UTI (urinary tract infection) N39.0 Sepsis A41.9
[2021-01-21] MEDS: lidocaine 1% 5 ML in potassium chloride premix 100 ML 25 ML IV (10:19)
--- NOTE | 2021-01-21 11:19 | PC.CHAP ---
Pastoral Care Encounter/Spiritual Assessment Type of Contact [] Declined java software visit [] Patient/Family/Request visit [] Outpatient visit [] Follow-up visit [] Physician referral [] Code/Alert [] Routine visit [] Staff referral [] Actively dying [] Patient sleeping [] Family support [] [] Out of room [] Palliative care [] [] Receiving care in room [] Pre-surgical visit [] Trauma [x] Long length of stay [] ICU visit [] Other: Relational/Emotional Strength [x] Patient feels connected with others/family/visitors/staff [] Distress [] Loneliness/isolation [] Abandonment Spirituality of Patient [] Person of [place] [] Attends Sabianism of their [place] [] Believes in Prayer [] Reads Bible or Tenriism materials [] There are Spiritual issues to be addressed Investigative Shopper Interventions [] Prayer [] Active listening [] Non-anxious presence [] Spiritual/emotional support [] Crisis/trauma care [] Spiritual counseling [] Bereavement support [] Provided bereavement packet [] Provided Bible/devotional materials [] Provided toy/stuffed animal, coloring book to patient or family member [] Provided Communion [] Anointing/[place] [] Salvation [] Completed spiritual assessment [] Other: Impact on Illness or Injury [] Angry [] Fearful [x] Anxious [] Often cries [] Exhaustion [x] Unable to work [] Unable to attend orthodox [] Unable to walk/stand [] Unable to read [] Unable to drive [] Unable to eat/drink [] Unable to sleep [] Unable to be with family [] Patient intubated [] Other: Summary has negative attitude, in pain doesn't know when will be able to go home or the recovery time Time spent with patient 10 mins
--- NOTE | 2021-01-21 15:43 | PC.RESP ---
SMOKING CESSATION INFORMATION SENT TO PATIENT.
[2021-01-22] VITALS: BP 111/61; PULSE 80; RESP 17; TEMP 37.6; O2SAT 90
[2021-01-22] MEDS: atorvastatin 40 mg Tablet 80 MG PO (00:43)
[2021-01-22 04:00] VITALS: BP 127/68; PULSE 70; RESP 18; TEMP 36.6; O2SAT 92
[2021-01-22] MEDS: acetaminophen 325 mg Tablet 650 MG PO (05:32)
[2021-01-22 05:33] LABS: Basophils % 0.2 %; Eosinophils # 0.1 10^3/uL (0.0-0.8); Eosinophils % 0.9 %; Hematocrit 31.4 % (37.0-47.0); Hemoglobin 10.4 g/dL (11.5-15.3); Lymphocytes # 0.9 10^3/uL (0.8-4.8); Lymphocytes % 7.3 %; Mean Corpuscular HGB Conc 33.1 g/dL (30.0-36.0); Mean Corpuscular Hemoglobin 30.5 pg (28.0-34.0); Mean Corpuscular Volume 92.1 fL (81-99); Mean Platelet Volume 10.7 fL (7.4-10.4); Monocytes # 0.9 10^3/uL (0.2-0.9); Monocytes % 7.3 %; Neutrophils # 10.25 10^3/uL (1.8-7.7); Neutrophils % 83.6 %; Nucleated Red Blood Cells % 0 %; Platelet Count 199 10^3/cmm (130-400); Red Blood Count 3.41 10^6/uL (4.1-5.3); Red Cell Distribution Width 14.6 % (12.1-15.1); White Blood Count 12.3 10^3/uL (4.0-10.0)
[2021-01-22 05:53] LABS: Alanine Aminotransferase 25 U/L (0-33); Albumin Level 2.9 g/dL (3.5-5.2); Alkaline Phosphatase 140 IU/L (35-105); Anion Gap 13.8 (5-19); Aspartate Amino Transferase 53 U/L (0-32); Blood Urea Nitrogen 5 mg/dL (8-23); Calcium 8.1 mg/dL (8.5-10.5); Carbon Dioxide 24 mmol/L (22-29); Chloride 88 mmol/L (98-107); Globulin 2.9 g/dL (1.3-4.6); Glomerular Filtration Rate 162.3 mL/min (90-130); Glucose 88 mg/dL (65-115); Magnesium 1.8 mg/dL (1.7-2.3); Osmolality Calculated 251 mOsm/kg (285-295); Potassium 3.8 mmol/L (3.5-5.1); Sodium 122 mmol/L (136-145); Total Bilirubin 0.8 mg/dL (0.15-1.2); Total Protein 5.8 g/dL (6.6-8.7)
[2021-01-22 07:31] VITALS: BP 118/66; PULSE 71; RESP 18; TEMP 36.9; O2SAT 91
[2021-01-22] MEDS: sodium chloride 1 gm Tablet PO (09:05)
[2021-01-22] MEDS: FUROsemide 10 mg/mL SDV 2mL 20 MG IVP (09:05)
[2021-01-22] MEDS: thiamine 100 mg Tablet PO (09:05)
[2021-01-22] MEDS: folic acid 1 mg Tablet PO (09:05)
[2021-01-22] MEDS: multivitamin therapeutic Tablet 1 TAB PO (09:05)
[2021-01-22] MEDS: labetalol 200 mg Tablet 100 MG PO (09:06)
[2021-01-22] MEDS: heparin 5,000 unit/mL INJ 1 mL 5000 UNIT SUBCUT (09:08)
[2021-01-22 09:14] LABS: Thyroid Stimulating Hormone 5.66 uIU/mL (0.27-4.20)
[2021-01-22] MEDS: cefTRIAXone 1,000 MG in sodium chloride 0.9% (plus) 50 ML 100 MG IV (10:35)
[2021-01-22 12:00] VITALS: BP 120/63; PULSE 73; RESP 18; TEMP 37; O2SAT 92
[2021-01-22 14:50] LABS: Anion Gap 12.6 (5-19); Blood Urea Nitrogen 5 mg/dL (8-23); Calcium 8.3 mg/dL (8.5-10.5); Carbon Dioxide 29 mmol/L (22-29); Chloride 87 mmol/L (98-107); Glomerular Filtration Rate 162.3 mL/min (90-130); Glucose 93 mg/dL (65-115); Osmolality Calculated 257 mOsm/kg (285-295); Potassium 3.6 mmol/L (3.5-5.1); Sodium 125 mmol/L (136-145)
--- NOTE | 2021-01-22 15:13 | P.DS_ITS ---
Discharge Providers Date of Admission: 01/19/21 22:52 Date of Discharge: January 22, 2021 Attending Provider at Admission: Naima Jacome MD Attending Provider at Discharge: Yobany Patel MD Primary Care Provider: Sid Harris MD Diagnoses at Discharge Discharge Diagnosis (1) Alcohol use: Status: Acute (2) Acute on chronic pancreatitis: Status: Acute (3) Chronic hyponatremia: Status: Acute (4) UTI (urinary tract infection): Status: Acute (5) Sepsis: Status: Acute Reason for Visit Reason for Visit: Fever, ABD pain, slight chest pain Hospital Course Hospital Course Serene is a 60-year-old white female who presented to the hospital with abdominal pain, suprapubic discomfort and sepsis. She was diagnosed with UTI, acute on chronic pancreatitis. She was placed on CIWA recall, made n.p.o., and ceftriaxone was initiated for UTI with sepsis. During her hospital course she h ad steady continued improvement with less abdominal discomfort and was able to tolerate a diet. Urine eventually returned Klebsiella, with a wide sensitivity profile. During her hospital stay it was noted that her sodium was low, and on review of labs this appears to be chronically low with a baseline sodium of around 1 24-1 28 over the last year. TSH only slightly elevated and cortisol level pending at time of discharge. Sodium was 125 at discharge. I offered alcohol rehabilitation which she refused. I suspect the chronically low sodium is secondary to alcohol. Imaging studies while done in the hospital wears a chest x-ray demonstrating no mass or infiltrate, and a CT abdomen and pelvis demonstrating some free fluid along with peripancreatic distribution consistent with pancreatitis. I discussed with her the need for follow-up, stopping alcohol, recheck of sodium. She will also need a TSH in 6 weeks. I do not think it is likely she has adrenal insufficiency as she did not have any significant hypotension or persistent abdominal pain or vomiting. She is adamant about going home and was dressed ready to leave when I entered the room. Cortisol level will be followed up on as an outpatient. Physical Exam Narrative: EXAM NARRATIVE: General exam is no apparent distress Cardiovascular regular rate and rhythm without murmur Lungs clear Abdomen is soft with positive bowel sounds Extremities no cyanosis clubbing or edema Discharge Data Data Completed and Pending: Completed Studies During Hospitalization Category Date Time Status CT abdomen pelvis w con* [id number] Urge nt Cat Scan 01/19/21 18:22 Completed XR acute abdomen series [id number] Urgen t Exams 01/19/21 17:51 Completed Pending at discharge Category Date Time Status Blood Culture Sta t Lab 01/20/21 15:55 Results Coronavirus Test [facility] Lab 01/22/21 10:30 Received Cortisol Random R outine Lab 01/22/21 14:16 Received Labs from last 24 hours 01/22/21 01/22/21 01/22/21 14:16 14:16 10:30 WBC RBC Hgb Hct MCV MCH MCHC RDW Plt Count MPV Neut % (Auto) Lymph % (Auto) [place] % (Auto) Eos % (Auto) Baso % (Auto) Neut # (Auto) Lymph # (Auto) [place] # (Auto) Eos # (Auto) Baso # (Auto) Nucleated RBC % (a uto) Nucleated RBCs # Sodium 125 L Potassium 3.6 Chloride 87 L Carbon Dioxide 29 Anion Gap 12.6 BUN 5 L Creatinine 0.4 L GFR Calculation 162.3 H Glucose 93 Calculated Osmolal ity 257 L Calcium 8.3 L Magnesium Total Bilirubin AST ALT Alkaline Phosphata se Total Protein Albumin Globulin TSH Random Cortisol Pending Nasal/Oral COVID-1 9 PCR Pending 01/22/21 01/22/21 01/22/21 04:59 04:59 04:59 WBC 12.3 H RBC 3.41 L Hgb 10.4 L Hct 31.4 L MCV 92.1 MCH 30.5 MCHC 33.1 RDW 14.6 Plt Count 199 MPV 10.7 H Neut % (Auto) 83.6 Lymph % (Auto) 7.3 [place] % (Auto) 7.3 Eos % (Auto) 0.9 Baso % (Auto) 0.2 Neut # (Auto) 10.25 H Lymph # (Auto) 0.9 [place] # (Auto) 0.9 Eos # (Auto) 0.1 Baso # (Auto) 0.0 Nucleated RBC % (a uto) 0 Nucleated RBCs # 0.0 Sodium 122 L Potassium 3.8 Chloride 88 L Carbon Dioxide 24 Anion Gap 13.8 BUN 5 L Creatinine 0.4 L GFR Calculation 162.3 H Glucose 88 Calculated Osmolal ity 251 L Calcium 8.1 L Magnesium 1.8 Total Bilirubin 0.8 AST 53 H ALT 25 Alkaline Phosphata se 140 H Total Protein 5.8 L Albumin 2.9 L Globulin 2.9 TSH 5.66 H Random Cortisol Nasal/Oral COVID-1 9 PCR Vitals: Last Vital Signs Temp 98.6 F 01/22/21 12:00 Pulse 73 01/22/21 12:00 Resp 18 01/22/21 12:00 BP 120/63 01/22/21 12:00 Pulse Ox 92 01/22/21 12:00 Discharge Plan Discharge Patient Disposition: Home Condition: Stable Prescriptions: New sodium chloride 1 gram Tablet 1 g PO BID Qty: 10 RF: 0 folic acid 1 mg Tablet 1 mg PO DAILY Qty: 30 RF: 0 Vitamin B-1 (mononitrate) 100 mg Tablet 100 mg PO DAILY Qty: 30 RF: 0 cefdinir 300 mg capsule 300 mg PO BID 7 Days Qty: 14 RF: 0 Continued meclizine 25 mg tablet 25 mg PO TID PRN (Reason: dizziness) Qty: 14 RF: 0 atorvastatin 80 mg Tablet 80 mg PO DAILY@1800 RF: 0 amlodipine 5 mg Tablet 5 mg PO BID@0600,1800 RF: 0 aspirin 81 mg Tablet,Chewable 81 mg PO DAILY@0600 RF: 0 labetalol 100 mg Tablet 100 mg PO BID@0600,1800 RF: 0 loperamide [Imodium A-D] 2 mg capsule 2 mg PO DAILY PRN (Reason: loose stool) Qty: 10 RF: 0 aspirin 325 mg Tablet 325 mg PO DAILY PRN (Reason: chest pains/headache) RF: 0 albuterol sulfate 90 mcg/actuation Hfa Aerosol Inhaler See Rx Instructions .ROUTE .COMPLEX RF: 0 Multi Vitamin 1 tab PO DAILY@0600 RF: 0 Discharge Orders: Discharge Order (Routine); Ordered 01/22/21 Ordered By: Yobany Patel Referrals: Sid Harris MD [Primary Care Provider] - 4-7 days (CMP on follow-up) Discharge Diet: Low Fat Discharge Activity: Increase activity as tolerated Patient Instructions: Thiamine (Vitamin B-1) (By mouth), Folic Acid (By mouth), Cefdinir (By mouth), Sodium Chloride (By breathing), Pancreatitis (GEN), Urinary Tract Infection in Women (GEN), Sepsis (GEN) Activity Restrictions/Additional Instructions: Avoid all alcohol Take medicine as prescribed Follow-up with primary care provider next week Discharge Attestations Time Spent in Discharge Care*: greater than 30 min Status at Discharge: Cognitive status at discharge: cognitively intact , Behavioral status at discharge: cooperative , Quality Metrics Clinical Quality Measures During this hospital stay, did patient experience: None Coding Level of Care Code 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
[2021-01-22 15:19] LABS: Cortisol Random 18.92 ug/dL (2.47-19.5)
[2021-01-22 15:54] VITALS: BP 120/63; PULSE 73; RESP 18; TEMP 37; O2SAT 92
[2021-01-24 15:59] LABS: Coronavirus Test Green County Not Detected
== END 2021-01-22 15:50 | disposition home or self-care (01) | DRG 871 ==
LOC: ER 21:54 → ER IP 22:54 → MEDSURG 01-20 09:36
PROVIDERS: Admitting Provider Internal Medicine; Emergency Provider Nurse Practitioner Family; PCP Family Medicine; Visit Provider Internal Medicine
DX: A41.9 Sepsis, unspecified organism (principal); K85.20 Alcohol induced acute pancreatitis without necrosis or infection; K86.0 Alcohol-induced chronic pancreatitis; E87.1 Hypo-osmolality and hyponatremia; N17.9 Acute kidney failure, unspecified; N39.0 Urinary tract infection, site not specified; F10.20 Alcohol dependence, uncomplicated; F17.210 Nicotine dependence, cigarettes, uncomplicated; J44.9 Chronic obstructive pulmonary disease, unspecified; I10 Essential (primary) hypertension; M81.0 Age-related osteoporosis without current pathological fracture; E86.0 Dehydration; Z79.82 Long term (current) use of aspirin
CPT/HCPCS: 12345; 36415; 74022; 74177; 80048; 80053; 80307; 81001; 82140; 82533; 83690; 83735; 84443; 84478; 85025; 87040; 87077; 87086; 87186; 87426; 87635; 93005; 96365; 96372; 96375; 99285; J0696; J1170; J1644; J1940; J2270; J2405; J2543; J3411; J3475; J3480; J7030; Q9967

== ENCOUNTER 2021-02-11 10:11 | Outpatient (CLI) | payer OTHER, SELFPAY ==
--- NOTE | 2021-02-11 10:20 | CT_ITS ---
WS: [id number] LDCT LUNG CANCER SCREENING TECHNIQUE: Noncontrast CT of the chest with coronal and sagittal reformatted images. CLINICAL INFORMATION: NICOTINE DEPENDENCE,CIGARETTES COMPARISON: CT chest May 28, 2020 DLP: 54.58 mGy.cm DIvol: 1.[address] scans at [facility] use at least one of these dose optimization techniques: automat ed exposure control; mA and/or kV adjustment per patient size (includes targeted exams where dose is matched to clinical indication); or iterative reconstruction. FINDINGS: Noncalcified 6 mm nodule right upper lobe appears increased in size since 02/04/2020 and 05/28. Recommend 3 month follow-up. Moderate chronic emphysematous changes. A few calcified granulomas. No mediastinal or hilar lymphaden opathy. Chronic T8 and T12 compression fractures with anterior wedging. Tree-in-bud opacities in the bilateral upper lobes unchanged from previous. Vascular calcification. C oronary calcification. Adrenal glands are normal. CT/CT lung screening [id number] IMPRESSION: LUNG-RADS: 4A-Probably Suspicious FOLLOW UP: 3 Month LDCT
== END 2021-02-11 10:12 | disposition home or self-care (01) ==
LOC: RAD 10:13
PROVIDERS: PCP Family Medicine; Visit Provider Family Medicine
DX: Z12.2 Encounter for screening for malignant neoplasm of respiratory organs (principal); F17.210 Nicotine dependence, cigarettes, uncomplicated; J84.10 Pulmonary fibrosis, unspecified; S22.060A Wedge compression fracture of T7-T8 vertebra, initial encounter for closed fracture; S22.080A Wedge compression fracture of T11-T12 vertebra, initial encounter for closed fracture; X58.XXXA Exposure to other specified factors, initial encounter
CPT/HCPCS: 71271

== ENCOUNTER → 2021-03-09 10:36 | Outpatient (BNVA) | payer OTHER, SELFPAY | PROVIDERS: PCP Family Medicine; Visit Provider Obstetrics & Gynecology | DX: R87.622 Low grade squamous intraepithelial lesion on cytologic smear of vagina (LGSIL) (principal) | CPT/HCPCS: 88305 ==

== ENCOUNTER 2021-03-23 08:45 | Outpatient (CLI) | payer OTHER, SELFPAY ==
--- NOTE | 2021-03-23 08:49 | MM_ITS ---
WS: [id number] Exam: [id number] Date/Time of Exam: 03/23/2021 8:49 AM Reason For Exam: SCREENING VIEWS: MLO and CC views both breasts. Comparison made with prior exam of 01/08/2015, 05/09/2016 and 06/01/2017.. Findings: There was no sign of mass, architectural distortion or suspicious calcification in either breast. Sc attered fibroglandular densities MM/[id number] Impression: BI-RADS: 2-Benign FOLLOW-UP: 1 Year Follow-up This mammogram was also analyzed by the Computer Aided Detection System [employer]2 [employer].
== END 2021-03-23 08:46 | disposition home or self-care (01) ==
LOC: RADSHAW 08:46
PROVIDERS: PCP Family Medicine; Visit Provider Physician Assistant
DX: Z12.31 Encounter for screening mammogram for malignant neoplasm of breast (principal)
CPT/HCPCS: 77067

== ENCOUNTER 2021-05-11 10:01 | Outpatient (CLI) | payer OTHER, SELFPAY ==
--- NOTE | 2021-05-11 10:08 | CT_ITS ---
WS: [id number] CT CHEST WITHOUT INTRAVENOUS CONTRAST HISTORY: PULMONARY NODULE TECHNIQUE: Contiguous 5 mm axial imaging performed on the thorax. Coronal and sagittal reformats are submitted. All CT scans at [facility] use at least one of these dose optimization techniq ues: automated exposure control; mA and/or kV adjustment per patient size (includes targeted exams wh ere dose is matched to clinical indication); or iterative reconstruction. CONTRAST: None DLP: 461.9 mGycm COMPARISON: 02/11/2021 and 05/28/2020 Lungs and central airway: Marked pulmonary hyperinflation with changes of emphysema. 6 mm nodule whic h is not calcified in the RIGHT upper lobe is not changed since the prior study. There is diffuse int erstitial thickening and a mild tree-in-bud distribution particularly within the upper lung silva bi laterally. Similar to the prior study. Benign granuloma LEFT lung base. Bilateral upper lobe pulmonar y nodules. Micronodule, image 24 of series 3 in the RIGHT lung. Pleura: Normal. No pleural effusion. Heart and pericardium: Mildly enlarged heart. Coronary artery calcifications. Mediastinum and brandi: Subcentimeter mediastinal and hilar lymph nodes. No adenopathy. Vessels: Moderate atherosclerosis aorta. Normal size pulmonary artery. Chest wall and lower neck: No soft tissue masses. Upper abdomen: Calcifications at the pancreatic head probably from prior pancreatitis. No change in t he distribution of the calcifications. Extensive calcifications in the splenic artery. Osseous structures: Compression fractures at T8 and T12. Mild anterior wedging of T4, T5 and T6. Frac tures are stable. CT/CT chest wo con [id number] IMPRESSION: 1. No change in the 6 mm noncalcified nodule in the RIGHT upper lobe. Recommen d follow-up chest CT in 6-12 months. 2. Marked emphysema. 3. L3 and body airspace disease in the upper lung silva. Consider endobronchi al infection or hypersensitivity pneumonia. 4. Stable compression fractures at T8 and T12 mild anterior wedging of T4, T5 and T6. 5. Coronary artery atherosclerosis and mildly enlarged heart.
== END 2021-05-11 10:02 | disposition home or self-care (01) ==
PROVIDERS: PCP Family Medicine; Visit Provider Physician Assistant
DX: R91.1 Solitary pulmonary nodule (principal); I25.10 Atherosclerotic heart disease of native coronary artery without angina pectoris; S22.060A Wedge compression fracture of T7-T8 vertebra, initial encounter for closed fracture; S22.080A Wedge compression fracture of T11-T12 vertebra, initial encounter for closed fracture; I51.7 Cardiomegaly; J43.9 Emphysema, unspecified
CPT/HCPCS: 71250

== ENCOUNTER 2021-05-20 08:14 | Outpatient (CLI) | payer OTHER, SELFPAY ==
--- NOTE | 2021-05-20 08:21 | CT_ITS ---
WS: [id number] LDCT LUNG CANCER SCREENING HISTORY: NICOTINE DEPENDENCE, CIGARETTES TECHNIQUE: Axial imaging performed from the apices to 1 cm below the costophrenic angles. Coronal and sagittal reformats are submitted with axial MIP series. All CT scans at [facility] use at least one of these dose optimization techniques: automated exposure control; mA and/or kV adjustment per patient size (includes targeted exams where dose is matched to clinical indication); or iterativ e reconstruction. DLP: 55.77 mGy.cm DIvol: 1.58 mGy COMPARISON: 05/11/2020 and 02/11/2021 Diagnostic quality: Satisfactory Lung Nodules: Lobulated 6 mm noncalcified nodule in the posterior RIGHT upper lobe with pleural taggi ng on image 53 of series 3 is unchanged. No new or enlarging nodules. There are a few scattered granu lomata. There is interstitial thickening in the upper lung silva in a tree-in-bud distribution which is unchanged. Lungs: Moderate pulmonary hyperinflation from emphysema. RIGHT apical pleural thickening and scarring . Heart: Normal size heart. Moderate coronary artery atherosclerosis. No effusion. Other findings: Mild atherosclerosis thoracic aorta. Aberrant RIGHT subclavian artery. Pancreatic trevon cifications. No adrenal mass. Numerous osteoporotic compression fractures involve T4, T5, T6, T8, T11 and T12. Slight retropulsion of the posterior superior endplate of T12. No change since the prior . CT/CT lung screening [id number] IMPRESSION: LUNG-RADS: 3-Probably Benign FOLLOW UP: 6 Month LDCT OTHER FINDINGS (S MODIFIER): None.
== END 2021-05-20 08:15 | disposition home or self-care (01) ==
PROVIDERS: PCP Family Medicine; Visit Provider Family Medicine
DX: Z12.2 Encounter for screening for malignant neoplasm of respiratory organs (principal); F17.210 Nicotine dependence, cigarettes, uncomplicated
CPT/HCPCS: 71271

== ENCOUNTER → 2021-06-07 09:59 | Outpatient (BNVA) | payer OTHER, SELFPAY | PROVIDERS: PCP Family Medicine; Visit Provider Internal Medicine Critical Care Medicine | DX: Z01.818 Encounter for other preprocedural examination (principal); Z20.822 Contact with and (suspected) exposure to COVID-19 | CPT/HCPCS: 87635 ==

== ENCOUNTER 2021-06-10 08:49 | Outpatient (CLI) | payer OTHER, SELFPAY ==
--- NOTE | 2021-06-10 09:43 | PFTS_ITS ---
Date of Study:06/10/21 Date of Dictation: MECHANICS: Forced vital capacity (FVC) is reduced. Forced expiratory volume in one second (FEV1) is normal. FEV1/FVC is normal. FLOW VOLUME LOOP: Scooping present. LUNG VOLUMES: Total lung capacity (TLC) is normal. Residual volume (RV) is increased. DIFFUSING CAPACITY FOR CARBON MONOXIDE: Normal. INTERPRETATION: The prebronchodilator spirometry is suggestive of moderate obstruction. The postbronchodilator spirometry reveals mild restriction. There is no significant postbronchodilator response. The flow volume loop is suggestive of obstructive lung disease. Lung volumes are consistent with air trapping. The patient likely has combined obstructive and restrictive ventilatory defects. Gas exchange (DLCO) is normal. MTDD
--- NOTE | 2021-06-10 14:26 | PFTS_ITS ---
Date of Study:06/10/21 Date of Dictation: MECHANICS: Forced vital capacity (FVC) is reduced. Forced expiratory volume in one second (FEV1) is reduced. FEV1/FVC is normal. FLOW VOLUME LOOP: Mild scooping. LUNG VOLUMES: Total lung capacity (TLC) is reduced. Residual volume (RV) is reduced. DIFFUSING CAPACITY FOR CARBON MONOXIDE: Mildly reduced. INTERPRETATION: The postbronchodilator spirometry is consistent with mild restriction. There is no significant postbronchodilator response. The lung volumes are consistent with severe restriction. The patient most likely has a combination of obstructive and restrictive ventilatory defect. Gas exchange (DLCO) is mildly reduced. MTDD
== END 2021-06-10 08:50 | disposition home or self-care (01) ==
LOC: RT 08:51
PROVIDERS: PCP Family Medicine; Visit Provider Internal Medicine Critical Care Medicine
DX: J44.9 Chronic obstructive pulmonary disease, unspecified (principal)
CPT/HCPCS: 94060; 94726; 94729; J7611

== ENCOUNTER 2021-06-11 16:23 | Emergency (ER) | payer OTHER, SELFPAY ==
[2021-06-11 16:41] VITALS: BP 177/83; PULSE 73; RESP 15; TEMP 37.1; O2SAT 97; BMI 3093.2
--- NOTE | 2021-06-11 16:46 | XRR_ITS ---
PROCEDURE INFORMATION: Exam: XR Left Foot Exam date and time: 06/11/2021 4:46 PM Age: 61 years old Clinical indication: Pain; Foot; Left TECHNIQUE: Imaging protocol: XR Left foot. Views: 3 or more views. COMPARISON: No relevant prior studies available. FINDINGS: Bones/joints: Normal. Soft tissues: Normal. XR/XR foot LT min 3V* [id number] IMPRESSION: No acute findings.
[2021-06-11 18:09] VITALS: RESP 15; TEMP 37.1; O2SAT 97
--- NOTE | 2021-06-11 20:41 | W.ED.EXTPRO ---
HPI - Extremity Problem General: Chief complaint: Extremity Injury, Lower Stated complaint: left foot injury Time Seen by Provider: 06/11/21 17:55 History of Present Illness: HPI Narrative: Patient complains about left foot pain after pushing on brake hard today. Complaint: extremity pain Onset (ago): hour(s) Pain Consistency: constant Location: left and lower extremity Severity scale (1-10): 3 Quality: aching Radiation: none Relieving factors: immobilization Exacerbating factors: weight bearing Associated symptoms: Reports no associated symptoms; Deny fever(s) Review of Systems Const: Denies: fever(s) or chills Musc: Reports: extremity pain (Left foot hurting since today) Psych: Denies: anxiety or depression PFSH ED PFSH: Medical History Chronic pancreatitis COPD (chronic obstructive pulmonary disease) Hypertension Osteoporosis Surgical History H/O: hysterectomy Family History Mother Anesthesia complication CAD (coronary artery disease) Diabetes Hyperlipidemia Hypertension Family history of thyroid problem Grandfather Cancer maternal-lung cancer Sister Diabetes Hypertension Son Diabetes Grandmother Diabetes paternal Denies family history of Ovarian cyst Clotting disorder Chronic kidney disease (CKD) Bleeding disorder Social History Smoking and tobacco status: current every day smoker cigarettes Packs smoked per day: 1 Years cigarettes smoked: 40 Smoking risk assessment/counseling performed?: Yes Alcohol intake: former Counseling given: No Counseling given: No Lives independently: Yes Household members: family Marital status: Single Current occupational status: employed Current occupation: [employer] Current occupational exposures/hazards: Yes History of recent travel: No Current gender identity: Female Physical Exam Const: COMMON NORMALS: no acute distress Extremity: LEFT LOWER EXTREMITY: Yes foot & digits (Tenderness underside of foot and the forefoot no swelling noted no) Psych: COMMON NORMALS: mental status grossly normal Course Vital Signs: Vital signs: Vital Signs Temperature 98.7 F 06/11/21 18:09 Pulse Rate 73 06/11/21 16:41 Respiratory Rate 15 06/11/21 18:09 Blood Pressure 177/83 06/11/21 16:41 Pulse Oximetry 97 06/11/21 18:09 MDM - Extremity (Nontraumatic) MDM Narrative: Medical decision making narrative: Radiology studies negative patient encouraged to follow-up with family medical provider Discharge Plan Discharge Patient Disposition: Home Clinical Impression: Foot sprain Qualifiers: Encounter type: initial encounter Laterality: left Qualified Code(s): S93.602A - Unspecified sprain of left foot, initial encounter Condition: Stable Prescriptions: No Action clobetasol 0.05 % cream 1 applic topical DAILY PRNRF: 0 triamcinolone acetonide 0.1 % cream 1 applic topical DAILY PRNRF: 0 cetirizine [Zyrtec] 10 mg tablet 10 mg PO DAILY RF: 0 Advanced Eye Relief 1-0.3 % drops 1 drp ophthalmic (eye) DAILY PRNRF: 0 acetaminophen [Tylenol 8 Hour] 650 mg tablet extended release 650 mg PO Q12H RF: 0 Anoro Ellipta 62.5-25 mcg/actuation blister with device 1 inh inhalation DAILY 30 Days Qty: 60 RF: 3 fluticasone propionate [Flonase Allergy Relief] 50 mcg/actuation spray,suspension 1 spray intranasal Q12H 30 Days Qty: 16 RF: 3 atorvastatin 80 mg Tablet 80 mg PO DAILY@1800 RF: 0 amlodipine 5 mg Tablet 5 mg PO BID@0600,1800 RF: 0 aspirin 81 mg Tablet,Chewable 81 mg PO DAILY@0600 RF: 0 labetalol 100 mg Tablet 100 mg PO BID@0600,1800 RF: 0 albuterol sulfate 90 mcg/actuation Hfa Aerosol Inhaler See Rx Instructions .ROUTE .COMPLEX RF: 0 sodium chloride 1 gram Tablet 1 g PO BID Qty: 10 RF: 0 folic acid 1 mg Tablet 1 mg PO DAILY Qty: 30 RF: 0 Vitamin B-1 (mononitrate) 100 mg Tablet 100 mg PO DAILY Qty: 30 RF: 0 Discharge Orders: Discharge ED (Routine); Ordered 06/11/21 Ordered By: Jonn Rodriguez Referrals: Sdi Harris MD [Primary Care Provider] - Discharge Diet: Usual diet Discharge Activity: Increase activity as tolerated Patient Instructions: Foot Sprain (ED) Activity Restrictions/Additional Instructions: Can do Tylenol or ibuprofen for discomfort. Can apply ice area as needed. Follow-up your family medical provider if no significant provement. Coding Level of Care Code ED Button Cutting Machine Operator for Sergio Chow
== END 2021-06-11 18:09 | disposition home or self-care (01) ==
PROVIDERS: Emergency Provider Nurse Practitioner Family; PCP Family Medicine
DX: S93.602A Unspecified sprain of left foot, initial encounter (principal); Z79.82 Long term (current) use of aspirin; J44.9 Chronic obstructive pulmonary disease, unspecified; I10 Essential (primary) hypertension; F17.210 Nicotine dependence, cigarettes, uncomplicated; X58.XXXA Exposure to other specified factors, initial encounter
CPT/HCPCS: 73630; 99282

== ENCOUNTER 2021-07-27 15:34 | Emergency (ER) | payer OTHER, SELFPAY ==
[2021-07-27 15:38] VITALS: BP 151/78; PULSE 84; RESP 16; TEMP 36.7; O2SAT 97; BMI 22.0
--- NOTE | 2021-07-27 15:44 | W.ED.SOB ---
HPI - SOB/Dyspnea General: Chief Complaint: Shortness of Breath/Dyspnea Stated Complaint: SOB Time Seen by Provider: 07/27/21 15:39 History of Present Illness: HPI Narrative: Ms. Alcaraz is a 61-year-old lady with history of COPD and tobaccoism, hypertension, hyperlipidemia who presents to the emergency department due to generalized malaise. Symptom onset was gradual approximately 1 month ago. She notes increased shortness of breath and cough. She has chills and generalized malaise. She has poor p.o. intake due to nausea but no vomiting. She feels achy. Overall the course of symptoms has been worsening. The intensity is moderate to severe. She reports she was getting some improvement from her inhalers however no longer is. She is not currently on antibiotics. Additionally she endorses some chest pain from the middle of her chest that radiates to her back and is sharp. She denies frequent episodes of similar in the past. No other specific exacerbating relieving factors that the patient identifies. Review of Systems General: Reports: 10 or more systems reviewed and unremarkable except in HPI and below Narrative: CONSTITUTIONAL: See HPI EYES - denies pain, denies loss of vision EARS - denies ear issues. NOSE - denies congestion or rhinorrhea. THROAT - denies sore throat or difficulty swallowing. CARDIOVASCULAR -see HPI RESPIRATORY -see HPI GASTROINTESTINAL - denies abdominal pain, no nausea vomiting, no changes in bowel habits GENITOURINARY - denies dysuria or urinary frequency MUSCULOSKELETAL- denies deformity or pain SKIN - denies rashes or new changed skin lesions NEUROLOGIC - denies focal weakness or sensory changes HEMATOLOGIC/LYMPHATIC - denies easy bruising or lymphadenopathy. [facility] ED PFSH: Medical History Chronic pancreatitis COPD (chronic obstructive pulmonary disease) Hypertension Osteoporosis Surgical History H/O: hysterectomy Family History Mother Anesthesia complication CAD (coronary artery disease) Diabetes Hyperlipidemia Hypertension Family history of thyroid problem Grandfather Cancer maternal-lung cancer Sister Diabetes Hypertension Son Diabetes Grandmother Diabetes paternal Denies family history of Ovarian cyst Clotting disorder Chronic kidney disease (CKD) Bleeding disorder Social History Smoking and tobacco status: current every day smoker cigarettes Packs smoked per day: 1 Years cigarettes smoked: 40 Smoking risk assessment/counseling performed?: Yes Alcohol intake: former Counseling given: No Counseling given: No Lives independently: Yes Household members: family Marital status: Single Current occupational status: employed Current occupation: [employer] Current occupational exposures/hazards: Yes History of recent travel: No Current gender identity: Female Physical Exam Narrative: EXAM NARRATIVE: GENERAL/CONSTITUTIONAL -mildly ill-appearing. No acute distress. Eyes - PERRL, no conjunctival injection ENMT - Atraumatic external nose and ears. Moist mucous membranes NECK - supple. trachea midline CARDIOVASCULAR - regular rate and rhythm. Peripheral pulses 2+ and equal RESPIRATORY -coarse and somewhat diminished to auscultation bilaterally. No retractions or accessory muscle use. ABDOMEN/GI - Nontender/Nondistended. No tenderness to percussion or evidence of peritonitis MSK - Extremities without obvious deformity or tenderness to palpation SKIN - Warm, Dry NEURO - alert and appropriately oriented. strength and sensation intact. Moves all extremities equally. PSYCH - Appropriate mood and affect Course ED course: - Patient was seen and evaluated by me at bedside - Patient placed on cardiac monitors, IV access obtained - Initial evaluation notable for - Labs notable for no significant hematologic abnormality. Metabolic panel somewhat similar to prior, IV fluids given. Potassium replenishment given. Delta troponin negative. - Imaging notable for no lobar consolidation - Upon serial reexamination after treatment the patient was improved - Based on patient history, evaluation, labs, and imaging as interpreted the most likely cause of the patient's condition is unclear, may be related to COPD exacerbation. Other possible etiologies were discussed with the patient. - The results of ED evaluation were discussed with the patient including prescriptions and/or symptomatic cares (if applicable) including appropriate and responsible use, followup plan, and return precautions. The patient verbalized understanding and felt safe for discharge. - Patient discharged in satisfactory condition. Vital Signs: Vital signs: Vital Signs Temperature 98.1 F 07/27/21 15:38 Pulse Rate 78 07/27/21 19:24 Respiratory Rate 16 07/27/21 19:24 Blood Pressure 146/88 07/27/21 19:24 Pulse Oximetry 98 07/27/21 19:24 MDM - SOB/Dyspnea Medical Records: Attestation: I reviewed the patient's medical records. Lab Data: Attestation: I reviewed the patient's lab results. Labs: Lab Results 07/27/21 07/27/21 07/27/21 Range/Units 16:01 16:01 16:01 WBC 5.2 (4.0-10.0) 10^3/ uL RBC 4.60 (4.1-5.3) 10^6/u L Hgb 13.0 (11.5-15.3) g/dL Hct 37.9 (37.0-47.0) % MCV 82.4 (81-99) fl MCH 28.3 (28.0-34.0) pg MCHC 34.3 (30.0-36.0) g/dL RDW 14.3 (12.1-15.1) % Plt Count 284 (130-400) 10^3/c mm MPV 8.6 (7.4-10.4) fL Neut % (Auto) 47.9 % Lymph % (Auto) 40.8 % Duchesne % (Auto) 9.4 % Eos % (Auto) 1.3 % Baso % (Auto) 0.4 % Neut # (Auto) 2.49 (1.8-7.7) 10^3/u L Lymph # (Auto) 2.1 (0.8-4.8) 10^3/u L Duchesne # (Auto) 0.5 (0.2-0.9) 10^3/u L Eos # (Auto) 0.1 (0.0-0.8) 10^3/u L Baso # (Auto) 0.0 (0.0-0.1) 10^3/u L Nucleated RBC % (a uto) 0 % Nucleated RBCs # 0.0 /100WBC Sodium 123 L (136-145) mmol/L Potassium 3.2 L (3.5-5.1) mmol/L Chloride 85 L (98-107) mmol/L Carbon Dioxide 20 L (22-29) mmol/L Anion Gap 21.2 H (5-19) BUN 2 L (8-23) mg/dL Creatinine 0.4 L (0.5-0.9) mg/dL GFR Calculation 161.7 H (90-130) mL/min Glucose 80 (65-115) mg/dL Calculated Osmolal ity 251 L (285-295) mOsm/k g Lactic Acid 2.2 (0.5-2.2) mmol/L Calcium 9.0 (8.5-10.5) mg/dL Total Bilirubin 0.4 (0.15-1.2) mg/dL AST 18 (0-32) U/L ALT 8 (0-33) U/L Alkaline Phosphata se 142 H (35-105) IU/L Troponin T Baselin e (0-10) ng/L Troponin T 120 Min [place] (0-10) ng/L Delta Troponin T (0-10) ABS# Total Protein 6.4 L (6.6-8.7) g/dL Albumin 4.1 (3.5-5.2) g/dL Globulin 2.3 (1.3-4.6) g/dL Procalcitonin 0.09 (0-0.5) ng/mL Urine Color (Yellow) Urine Appearance (CLEAR) Urine pH (5-7) Ur Specific Gravit y (1.005-1.030) Urine Protein (Negative) Urine Glucose (UA) (Normal) Urine Ketones (Negative) Urine Blood (Negative) Urine Nitrate (Negative) Urine Bilirubin (Negative) Urine Urobilinogen (Negative) mg/dL Ur Leukocyte Deyanira ase (Negative) Urine RBC (0-2) /hpf Urine WBC (0-5) /hpf Ur Squamous Epith Cells (0-5) /hpf Amorphous Sediment Urine Bacteria (NONE) /hpf Urine Mucus /hpf 07/27/21 07/27/21 07/27/21 Range/Units 16:01 16:47 18:10 WBC (4.0-10.0) 10^3/ uL RBC (4.1-5.3) 10^6/u L Hgb (11.5-15.3) g/dL Hct (37.0-47.0) % MCV (81-99) fl MCH (28.0-34.0) pg MCHC (30.0-36.0) g/dL RDW (12.1-15.1) % Plt Count (130-400) 10^3/c mm MPV (7.4-10.4) fL Neut % (Auto) % Lymph % (Auto) % Duchesne % (Auto) % Eos % (Auto) % Baso % (Auto) % Neut # (Auto) (1.8-7.7) 10^3/u L Lymph # (Auto) (0.8-4.8) 10^3/u L Duc[place]ne # (Auto) (0.2-0.9) 10^3/u L Eos # (Auto) (0.0-0.8) 10^3/u L Baso # (Auto) (0.0-0.1) 10^3/u L Nucleated RBC % (a uto) % Nucleated RBCs # /100WBC Sodium (136-145) mmol/L Potassium (3.5-5.1) mmol/L Chloride (98-107) mmol/L Carbon Dioxide (22-29) mmol/L Anion Gap (5-19) BUN (8-23) mg/dL Creatinine (0.5-0.9) mg/dL GFR Calculation (90-130) mL/min Glucose (65-115) mg/dL Calculated Osmolal ity (285-295) mOsm/k g Lactic Acid (0.5-2.2) mmol/L Calcium (8.5-10.5) mg/dL Total Bilirubin (0.15-1.2) mg/dL AST (0-32) U/L ALT (0-33) U/L Alkaline Phosphata se (35-105) IU/L Troponin T Baselin e 12 H (0-10) ng/L Troponin T 120 Min [place] 11.48 H (0-10) ng/L Delta Troponin T -0.52 L (0-10) ABS# Total Protein (6.6-8.7) g/dL Albumin (3.5-5.2) g/dL Globulin (1.3-4.6) g/dL Procalcitonin (0-0.5) ng/mL Urine Color Straw (Yellow) Urine Appearance Hazy A (CLEAR) Urine pH 7 (5-7) Ur Specific Gravit y 1.005 (1.005-1.030) Urine Protein Neg (Negative) Urine Glucose (UA) Norm (Normal) Urine Ketones Negative (Negative) Urine Blood Neg (Negative) Urine Nitrate Positive H (Negative) Urine Bilirubin Neg (Negative) Urine Urobilinogen Norm (Negative) mg/dL Ur Leukocyte Deyanira ase 1+ H (Negative) Urine RBC 0-4 H (0-2) /hpf Urine WBC 10-15 H (0-5) /hpf Ur Squamous Epith Cells 5-10 H (0-5) /hpf Amorphous Sediment Not Reportable Urine Bacteria 4+ H (NONE) /hpf Urine Mucus 1+ /hpf EKG Data^: EKG 1: Attestation: I personally reviewed and interpreted this EKG as follows: EKG Interpretation Date: 07/27/21 EKG interpretation time: 19:00 Prior EKG tracings: available for review Interpretation: Twelve-lead EKG shows a regular sinus rhythm at a rate of 69. MN interval 152, QRS duration 74, QTc 414. Left axis deviation. Interpretation: Sinus rhythm. Discharge Plan Discharge Patient Disposition: Home Clinical Impression: COPD (chronic obstructive pulmonary disease), Dehydration Condition: Stable Prescriptions: New prednisone 50 mg tablet 50 mg PO DAILY 5 Days RF: 0 doxycycline hyclate 100 mg tablet 100 mg PO BID 10 Days Qty: 20 RF: 0 No Action triamcinolone acetonide 0.1 % cream 1 applic topical DAILY RF: 0 cetirizine [Zyrtec] 10 mg tablet 10 mg PO DAILY RF: 0 Advanced Eye Relief 1-0.3 % drops 1 drp ophthalmic (eye) DAILY RF: 0 acetaminophen [Tylenol 8 Hour] 650 mg tablet extended release 650 mg PO Q12H PRN (Reason: Pain) RF: 0 Anoro Ellipta 62.5-25 mcg/actuation blister with device 1 inh inhalation DAILY 30 Days Qty: 60 RF: 3 fluticasone propionate [Flonase Allergy Relief] 50 mcg/actuation spray,suspension 1 spray intranasal Q12H 30 Days Qty: 16 RF: 3 sodium chloride 1 gram tablet 1 g PO DAILY RF: 0 Benadryl 25 mg Capsule 25 mg PO BID RF: 0 atorvastatin 80 mg Tablet 80 mg PO DAILY@1800 RF: 0 amlodipine 5 mg Tablet 5 mg PO BID@0600,1800 RF: 0 aspirin 81 mg Tablet,Chewable 81 mg PO DAILY@0600 RF: 0 labetalol 100 mg Tablet 100 mg PO BID@0600,1800 RF: 0 albuterol sulfate 90 mcg/actuation Hfa Aerosol Inhaler See Rx Instructions .ROUTE .COMPLEX RF: 0 folic acid 1 mg Tablet 1 mg PO DAILY Qty: 30 RF: 0 thiamine mononitrate (vit B1) [Vitamin B-1 (mononitrate)] 100 mg Tablet 100 mg PO DAILY Qty: 30 RF: 0 Discharge Orders: Discharge ED (Routine); Ordered 07/27/21 Ordered By: Go Thorpe Referrals: Sid Harris MD [Primary Care Provider] - Discharge Diet: Usual diet Discharge Activity: Resume usual activity Patient Instructions: Dehydration (ED), Hypokalemia (ED), Chronic Obstructive Pulmonary Disease (ED) Activity Restrictions/Additional Instructions: Thank you for visiting the emergency department. You were seen and evaluated for generalized illness. The exact cause of your symptoms is somewhat unclear though may be related to exacerbation of your underlying COPD. You will be given prescriptions for treatment of this. Please follow-up with your pulmonology team. Please follow-up with your primary care provider. Please return to the emergency department for anything that you are concerned about and feel needs emergency department evaluation. Coding Level of Care Code ED Meat Pumper for Sergio Chow
[2021-07-27 15:48] VITALS: BP 151/78; PULSE 76; O2SAT 96
--- NOTE | 2021-07-27 16:19 | XRR_ITS ---
PROCEDURE INFORMATION: Exam: XR Chest Exam date and time: 07/27/2021 4:19 PM Age: 61 years old Clinical indication: Cough and shortness of breath; Patient HX: SOB, cough x 1month, (pt claims she has tree bud) TECHNIQUE: Imaging protocol: XR of the chest. Views: 1 view. COMPARISON: CT chest con [id number] 05/11/2021 10:42 AM FINDINGS: Lungs: No consolidation. Calcified granulomas in both lungs. Pleural spaces: Unremarkable. No pleural effusion. No pneumothorax. Heart/Mediastinum: Unremarkable. No cardiomegaly. Bones/joints: Unremarkable. XR/XR chest 1V portable [id number] IMPRESSION: No consolidation.
[2021-07-27] MEDS: ipratropium-albuterol 3 mL Neb INHALATION (16:34)
[2021-07-27 16:36] VITALS: PULSE 80; RESP 17; O2SAT 98
[2021-07-27 16:41] LABS: Basophils % 0.4 %; Eosinophils # 0.1 10^3/uL (0.0-0.8); Eosinophils % 1.3 %; Hematocrit 37.9 % (37.0-47.0); Lymphocytes # 2.1 10^3/uL (0.8-4.8); Lymphocytes % 40.8 %; Mean Corpuscular HGB Conc 34.3 g/dL (30.0-36.0); Mean Corpuscular Hemoglobin 28.3 pg (28.0-34.0); Mean Corpuscular Volume 82.4 fl (81-99); Mean Platelet Volume 8.6 fL (7.4-10.4); Monocytes # 0.5 10^3/uL (0.2-0.9); Monocytes % 9.4 %; Neutrophils # 2.49 10^3/uL (1.8-7.7); Neutrophils % 47.9 %; Nucleated Red Blood Cells % 0 %; Platelet Count 284 10^3/cmm (130-400); Red Cell Distribution Width 14.3 % (12.1-15.1); White Blood Count 5.2 10^3/uL (4.0-10.0)
[2021-07-27] MEDS: sodium chloride 0.9% 500 ML 999 ML IV (17:04)
[2021-07-27 17:06] VITALS: BP 152/74; PULSE 75; O2SAT 97
[2021-07-27 17:07] LABS: Troponin(5th) Baseline 12 ng/L (0-10)
[2021-07-27 17:09] LABS: Alanine Aminotransferase 8 U/L (0-33); Albumin Level 4.1 g/dL (3.5-5.2); Alkaline Phosphatase 142 IU/L (35-105); Anion Gap 21.2 (5-19); Aspartate Amino Transferase 18 U/L (0-32); Blood Urea Nitrogen 2 mg/dL (8-23); Carbon Dioxide 20 mmol/L (22-29); Chloride 85 mmol/L (98-107); Globulin 2.3 g/dL (1.3-4.6); Glomerular Filtration Rate 161.7 mL/min (90-130); Glucose 80 mg/dL (65-115); Osmolality Calculated 251 mOsm/kg (285-295); Potassium 3.2 mmol/L (3.5-5.1); Sodium 123 mmol/L (136-145); Total Bilirubin 0.4 mg/dL (0.15-1.2); Total Protein 6.4 g/dL (6.6-8.7)
[2021-07-27 17:10] LABS: Lactic Sepsis W/Reflex 2.2 mmol/L (0.5-2.2)
[2021-07-27 17:16] LABS: Bilirubin Urine Neg (Negative); Blood Urine Neg (Negative); Glucose Urine UA Norm (Normal); Ketones Urine Negative (Negative); Leukocyte Esterase Urine 1+ (Negative); Nitrate Urine Positive (Negative); Protein Urine Neg (Negative); Specific Gravity, Urine 1.005 (1.005-1.030); Urine Appearance Hazy (CLEAR); Urine Color Straw (Yellow); Urobilinogen Urine Norm (Negative); pH Urine 7 (5-7)
[2021-07-27 17:16] LABS: Procalcitonin 0.09 ng/mL (0-0.5)
[2021-07-27 17:17] LABS: Add Urine Culture? Yes; Add Urine Microscopic? YES; Bacteria Urine 4+ /hpf; Mucus Urine 1+ /hpf; RBC Urine 0-4 /hpf (0-2)
[2021-07-27] MEDS: potassium chloride oral liq 20 mEq/15 mL UDC 40 MEQ PO (17:39)
[2021-07-27] MEDS: lactated ringers 1,000 ML 999 ML IV (17:40)
--- NOTE | 2021-07-27 18:19 | ECG_ITS ---
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
[2021-07-27 18:26] LABS: Reflex Lactate Order REFLEX LACTIC ORDERD
[2021-07-27 18:29] VITALS: BP 135/64; PULSE 79; O2SAT 96
[2021-07-27 18:48] LABS: Troponin 5 2HR 11.48 ng/L (0-10)
[2021-07-27 18:49] LABS: Troponin 5 2HR Delta -0.52 ABS# (0-10)
[2021-07-27 19:24] VITALS: BP 146/88; PULSE 78; RESP 16; O2SAT 98
== END 2021-07-27 19:25 | disposition home or self-care (01) ==
PROVIDERS: Emergency Provider Emergency Medicine; PCP Family Medicine
DX: J44.9 Chronic obstructive pulmonary disease, unspecified (principal); E86.0 Dehydration; I10 Essential (primary) hypertension; E78.5 Hyperlipidemia, unspecified; F17.210 Nicotine dependence, cigarettes, uncomplicated
CPT/HCPCS: 71045; 80053; 81001; 83605; 84145; 84484; 85025; 87077; 87086; 87186; 93005; 94640; 96360; 99284; J7040

== ENCOUNTER 2021-08-23 14:47 | Outpatient (CLI) | payer OTHER, SELFPAY | END 2021-08-23 14:48 | disposition home or self-care (01) | PROVIDERS: PCP Family Medicine; Visit Provider Internal Medicine Critical Care Medicine | DX: J21.9 Acute bronchiolitis, unspecified (principal) | CPT/HCPCS: 87070; 87205 ==

== ENCOUNTER 2021-12-06 06:19 | Outpatient (CLI) | payer OTHER, SELFPAY ==
--- NOTE | 2021-12-06 | USCV_ITS ---
Serene Alcaraz Age: 61 Gender: F : 1960 Exam Date: 12/06/2021 07:23 Ordering Phys: Nandini Meraz MD Technologist: ROSSY Exam Location: [facility] [place] Indication: COPD SOB BP: 128 / 72 HR: 65 Rhythm: Sinus Technical Quality: Adequate MEASUREMENTS (Male / Female) Normal Values 2D ECHO LV Diastolic Diameter PLAX 3.4 cm 4.2 - 5.9 / 3.9 - 5.3 cm LV Systolic Diameter PLAX 2.9 cm LV Chamber Size 2.9 cm IVS Diastolic Thickness 0.9 cm 0.6 - 1.0 / 0.6 - 0.9 cm IVS Systolic Thickness 1.2 cm LVPW Diastolic Thickness 1.3 cm 0.6 - 1.0 / 0.6 - 0.9 cm LVPW Systolic Thickness 1.1 cm RV Chamber Size 2.5 cm LVOT Diameter 2.0 cm LV Ejection Fraction 2D Teich 31.9 % LV Ejection Fraction MOD 2C 35.4 % LV Ejection Fraction 2C AL 33.8 % LA Diameter 3.1 cm LA Width 2.6 cm LA Height 3.2 cm RA Width 3.3 cm RA Height 3.2 cm Aorta at Sinotubular Diameter 2.5 cm M-MODE Aortic Annulus Diameter 3.0 cm LA Ao Ratio MM 1.3 MV E Point Septal Separation 0.1 cm DOPPLER AV Peak Velocity 182.0 cm/s LVOT Peak Velocity 108.0 cm/s AV Area Cont Eq vti 2.2 cm squared AV Area Cont Eq pk 1.9 cm squared MV Area PHT 3.4 cm squared Mitral E to A Ratio 1.3 MV E' Velocity 59.5 cm/s Mitral E to MV E' Ratio 10.6 Mitral E to LV E' Lateral Ratio 9.5 Mitral E to LV E' Septal Ratio 12.2 TR Peak Velocity 279.1 cm/s TR Peak Gradient 31.1 mmHg TR Mean Velocity 253.9 cm/s TR Mean Gradient 26.3 mmHg TR Velocity Time Integral 102.6 cm TV Peak E Velocity 77.0 cm/s Right Atrial Pressure 3.0 mmHg Pulmonary Artery Systolic Pressu 34.1 mmHg PV Peak Velocity 79.7 cm/s RV Acceleration Time 0.1 s RV Ejection Time 0.4 s RV AcT/ET 0.3 FINDINGS Left Ventricle Normal left ventricular size. LV systolic function is normal with EF of 60-65%.No regional wall motion abnormalities. Normal diastolic filling pattern. Right Ventricle The right ventricle is normal in size and function. Right Atrium The right atrium is normal in size. Left Atrium The left atrium is normal in size. Mitral Valve Structurally normal mitral valve without significant stenosis or prolapse. There is no mitral regurgitation. Aortic Valve Structurally normal aortic valve without significant sclerosis or stenosis. There is no aortic regurgitation. Tricuspid Valve Structurally normal tricuspid valve without significant stenosis or regurgitation. Insufficient TR jet to calculate RVSP Pulmonic Valve Structurally normal pulmonic valve without significant stenosis. There is no pulmonic regurgitation. Pericardium Normal pericardium without effusion. Aorta Normal ascending aorta dimension. CONCLUSIONS LV systolic function is normal with EF of 60-65% Diastolic function is normal No significant valvular heart disease Compared to prior echocardiogram from 01/20/2019, no signficant changes are seen Angel Alegre MD (Electronically Signed) Final Date: 06 December 2021 09:52 S
--- NOTE | 2021-12-06 06:29 | US_ITS ---
WS: [id number] ULTRASOUND ABDOMEN CLINICAL INFORMATION: Bilateral peripheral edema COMPARISON: None. FINDINGS: Liver Size: Normal. Craniocaudal length: 14.5 cm. Echogenicity: Normal. Surface nodularity: None. Mass (size and location): None. Bile ducts Intrahepatic ducts: Normal. Common bile duct diameter: 0.7 cm. Gallbladder Normal. Gallstones: None. Gallbladder sludge: None. Gallbladder wall thickening: None. Pericholecystic fluid: None. Sonographic Dee sign: Absent. Pancreas Pancreatic calcifications. Dilated pancreatic duct. Spleen Splenomegaly: None. Craniocaudal length: 7.7 cm. Right kidney: Normal. Hydronephrosis: None. Size: 9.3 cm x 4.3 cm x 4.2 cm Left kidney: Normal. Hydronephrosis: None. Size: 9.9 cm x 5.7 cm x 5.0 cm. Abdominal aorta and IVC Visualized portions are normal. Ascites: None. US/US abdomen complete* [id number] IMPRESSION: 1. Normal liver. No intrahepatic biliary duct dilatation. 2. Normal gallbladder. Common bile duct slightly dilated measuring 7.2 mm. 3. No hydronephrosis in either kidney. 4. Normal spleen. 5. Pancreatic calcifications compatible with history of pancreatitis. Dilated pancreatic duct.
== END 2021-12-06 06:20 | disposition home or self-care (01) ==
LOC: RAD 06:22
PROVIDERS: PCP Family Medicine; Visit Provider Internal Medicine Critical Care Medicine
DX: R60.9 Edema, unspecified (principal); K86.1 Other chronic pancreatitis; J44.9 Chronic obstructive pulmonary disease, unspecified; R06.02 Shortness of breath
CPT/HCPCS: 76700; 93306

== ENCOUNTER 2022-01-22 16:42 | Inpatient (IN) | payer OTHER, SELFPAY ==
[2022-01-22] VITALS (11 sets, daily range): BP systolic 129–154; BP diastolic 68–83; PULSE 66–76; RESP 16–20; TEMP 36.4–37.1; O2SAT 92–96; BMI 20.2; BMI 22.0
--- NOTE | 2022-01-22 16:44 | XRR_ITS ---
PROCEDURE INFORMATION: Exam: XR Right Hip Exam date and time: 01/22/2022 4:44 PM Age: 61 years old Clinical indication: Injury or trauma; Fall; Blunt trauma (contusions or hematomas); Right; Hip TECHNIQUE: Imaging protocol: XR Right hip. Views: 2 or 3 views hip with pelvis when performed. COMPARISON: CT abdomen pelvis w con* [id number] 01/19/2021 7:30 PM FINDINGS: Bones/joints: Acute intertrochanteric fracture of the right hip. Fracture fragments are in varus alignment. No dislocation of the right hip joint. The right acetabulum appears intact. The pelvic bones appear intact. Soft tissues: The soft tissues appear unremarkable. XR/XR hip RT 2-3V wo/w pel* [id number] IMPRESSION: Acute intertrochanteric fracture of the right hip.
--- NOTE | 2022-01-22 16:52 | W.ED.GENADLT ---
HPI - General Adult General: Chief complaint: Fall Stated complaint: RIGHT HIP PAIN S/P FALL Time Seen by Provider: 01/22/22 16:43 History of Present Illness: Patient is a 61-year-old female with history of chronic pancreatitis, COPD who presents emergency room after an episode of mechanical fall. Patient was turning around in her kitchen when she is fell. Since then, patient complaining of right hip pain. Patient has not been able to ambulate the right hip. Patient denies any anticoagulation use. No associated chest pain, short of breath, palpitation, lightheadedness prior to the episode fall. Patient cannot remember if she hit her head. Patient reports drinking alcohol earlier today this morning. Onset:3 hrs ago Duration:3 hrs Location:home Severity:moderate Associated symptoms: Deny chest pain, dyspnea, nausea, rash, palpitations or vomiting Review of Systems Const: Denies: fever(s) or chills Eyes: Denies: change in vision ENMT: Denies: mouth pain Card: Denies: chest pain or palpitations Resp: Denies: dyspnea or non-productive cough GI: Denies: abdominal pain, nausea, vomiting or diarrhea : Denies: dysuria Musc: Reports: extremity pain (+R hip pain) Skin/Breast: Denies: rash or new lesions Neuro: Denies: weakness in extremities Psych: Reports: other (Normal mood) Ming/Lymph: Denies: easy bruising PFSH ED PFSH: Medical History Chronic pancreatitis COPD (chronic obstructive pulmonary disease) Hypertension Osteoporosis Surgical History H/O: hysterectomy Family History Mother Anesthesia complication CAD (coronary artery disease) Diabetes Hyperlipidemia Hypertension Family history of thyroid problem Grandfather Cancer maternal-lung cancer Sister Diabetes Hypertension Son Diabetes Grandmother Diabetes paternal Denies family history of Ovarian cyst Clotting disorder Chronic kidney disease (CKD) Bleeding disorder Social History Smoking and tobacco status: current every day smoker cigarettes Packs smoked per day: 1 Years cigarettes smoked: 40 Smoking risk assessment/counseling performed?: Yes Alcohol intake: current Alcohol intake frequency: few times a week Counseling given: No Counseling given: No Lives independently: Yes Household members: family Marital status: Single Current occupational status: employed Current occupation: [employer] Current occupational exposures/hazards: Yes History of recent travel: No Current gender identity: Female Physical Exam Const: COMMON NORMALS: alert HENMT: COMMON NORMALS: atraumatic HEAD & SCALP: atraumatic MOUTH: moist mucous membranes not abnormal Eye: COMMON NORMALS: EOMs intact bilaterally and conjunctivae normal CONJUNCTIVA: Yes conjunctivae normal Neck/C-Spine: COMMON NORMALS: full ROM and supple Resp: COMMON NORMALS: normal respiratory effort and clear to auscultation bilaterally AUSCULTATION: clear to auscultation bilaterally Cardio: COMMON NORMALS: regular rate RATE: regular rate GI: COMMON NORMALS: Soft to palpation and non-tender PALPATION: Yes Soft to palpation Extremity: NARRATIVE EXTREMITY EXAM: +decreased ROM of the R hip due to pain +Active and passive ROM full at knee, ankle. No overlying erythema or warmth of leg. All LE compartments soft and non-tender. Neurovascular exam of the R leg intact Neuro: SENSORIUM/ORIENTATION: Yes alert MOTOR EXAM: No Abnormal motor strength present and Other motor observations present (no focal motor deficits) Psych: COMMON NORMALS: speech normal SPEECH: Yes normal speech MOOD & AFFECT: Yes euthymic mood Course Vital Signs: Vital signs: Vital Signs Temperature 97.5 F L 01/22/22 16:52 Pulse Rate 66 01/22/22 16:52 Respiratory Rate 17 01/22/22 17:53 Blood Pressure 154/83 01/22/22 16:52 Pulse Oximetry 96 01/22/22 16:[address] [facility] - General Adult Medical Decision Making 61-year-old female with history of COPD, pancreatitis presenting to the emergency room after an episode of fall. Blood alcohol. On exam, patient is decreased patient with right knee due to pain. Rest of the right lower extremity exam intact. Given the fact the patient has had mild intoxication, will evaluate for brain injuries. Workup: XR hip R, CT head Intervention: Tylenol and observation Patient has a right hip fracture. Preop labs left order. Pain controlled. Case was discussed with Dr. Garcia who recommend admission to the hospitalist team Disposition: Admission Lab Data : 01/22/22 17:15 01/22/22 17:15 Radiology Impressions Hip/Pelvis X-Ray 01/22/22 16:44 IMPRESSION: Acute intertrochanteric fracture of the right hip. Head CT 01/22/22 16:51 IMPRESSION: 1. No acute intracranial abnormality demonstrated. 2. There is no interval change from the prior examination. Chest X-Ray 01/22/22 17:01 IMPRESSION: 1. No acute abnormality demonstrated. 2. There is no interval change from the prior examination. Laboratory Results WBC 3.7 10^3/uL (4.0-10.0) L 01/22/22 17:15 RBC 4.62 10^6/uL (4.1-5.3) 01/22/22 17:15 Hgb 13.6 g/dL (11.5-15.3) 01/22/22 17:15 Hct 41.1 % (37.0-47.0) 01/22/22 17:15 MCV 89.0 fl (81-99) 01/22/22 17:15 MCH 29.4 pg (28.0-34.0) 01/22/22 17:15 MCHC 33.1 g/dL (30.0-36.0) 01/22/22 17:15 RDW 13.9 % (12.1-15.1) 01/22/22 17:15 Plt Count 293 10^3/cmm (130-400) 01/22/22 17:15 MPV 9.1 fL (7.4-10.4) 01/22/22 17:15 Neut % (Auto) 62.0 % 01/22/22 17:15 Lymph % (Auto) 29.7 % 01/22/22 17:15 [place] % (Auto) 5.9 % 01/22/22 17:15 Eos % (Auto) 1.6 % 01/22/22 17:15 Baso % (Auto) 0.5 % 01/22/22 17:15 Neut # (Auto) 2.32 10^3/uL (1.8-7.7) 01/22/22 17:15 Lymph # (Auto) 1.1 10^3/uL (0.8-4.8) 01/22/22 17:15 [place] # (Auto) 0.2 10^3/uL (0.2-0.9) 01/22/22 17:15 Eos # (Auto) 0.1 10^3/uL (0.0-0.8) 01/22/22 17:15 Baso # (Auto) 0.0 10^3/uL (0.0-0.1) 01/22/22 17:15 Nucleated RBC % (auto) 0 % 01/22/22 17:15 Nucleated RBCs # 0.0 /100WBC 01/22/22 17:15 PT 12.40 SECONDS (12.1-14.9) 01/22/22 17:45 INR 0.90 (0.8-1.2) 01/22/22 17:45 APTT 31.3 SECONDS (23.9-36.7) 01/22/22 17:45 Sodium 127 mmol/L (136-145) L 01/22/22 17:15 Potassium 3.1 mmol/L (3.5-5.1) L 01/22/22 17:15 Chloride 94 mmol/L (98-107) L 01/22/22 17:15 Carbon Dioxide 21 mmol/L (22-29) L 01/22/22 17:15 Anion Gap 15.1 (5-19) 01/22/22 17:15 BUN 7 mg/dL (8-23) L 01/22/22 17:15 Creatinine 0.5 mg/dL (0.5-0.9) 01/22/22 17:15 GFR Calculation 125.0 mL/min (90-130) 01/22/22 17:15 Glucose 113 mg/dL (65-115) 01/22/22 17:15 Calculated Osmolality 263 mOsm/kg (285-295) L 01/22/22 17:15 Calcium 9.1 mg/dL (8.5-10.5) 01/22/22 17:15 Imaging Data Other Imaging: Radiologist's impression: [address] [address] XRay Report Signed Patient: Serene Alcaraz Unit #: [id number] : 1960 Age/Sex: 61 / F ADM Date: 01/22/22 Loc: ER Room/Bed: Attending Dr: Ordering Provider/Ordering MD: Mae Loaiza MD Date of Service: 01/22/22 Procedure(s): XR chest 1V portable [id number] Accession Number(s): [id number] Report Number: [id number] PROCEDURE INFORMATION: Exam: XR Chest Exam date and time: 01/22/2022 5:01 PM Age: 61 years old Clinical indication: Injury or trauma; Fall; Blunt trauma (contusions or hematomas); Additional info: Pre op TECHNIQUE: Imaging protocol: XR of the chest. Views: 1 view. COMPARISON: CR XR chest 1V portable [id number] 07/27/2021 4:18 PM FINDINGS: Lungs: Bilateral 5 mm calcified granulomas. No consolidative pulmonary infiltrates are noted. Pleural spaces: No pleural effusion. No pneumothorax. Heart/Mediastinum: No cardiomegaly. Vasculature: The aorta is atherosclerotic. No aortic aneurysm. Bones/joints: Diffuse osteopenia noted. No fracture or other acute osseous abnormality. XR/XR chest 1V portable [id number] IMPRESSION: 1. No acute abnormality demonstrated. 2. There is no interval change from the prior examination. ? Dictated By: Emir Hodges MD Signed By: Emir Hodges MD Signed Date/Time: 01/22/22 175 DD/ [address] [place] [address] CT Scan Report Signed Patient: Serene Alcaraz Unit #: [id number] : 1960 Age/Sex: 61 / F ADM Date: 01/22/22 Loc: ER Room/Bed: Attending Dr: Ordering Provider/Ordering MD: Mae Loaiza MD Date of Service: 01/22/22 Procedure(s): CT head wo con* [id number] Accession Number(s): [id number] Report Number: [id number] PROCEDURE INFORMATION: Exam: CT Head Without Contrast Exam date and time: 01/22/2022 4:51 PM Age: 61 years old Clinical indication: Injury or trauma; Fall; Blunt trauma (contusions or hematomas); Additional info: Fall, alcohol TECHNIQUE: Imaging protocol: Computed tomography of the head without contrast. Radiation optimization: All CT scans at this facility use at least one of these dose optimization techniques: automated exposure control; mA and/or kV adjustment per patient size (includes targeted exams where dose is matched to clinical indication); or iterative reconstruction. COMPARISON: CT head wo con* [id number] 07/29/2019 4:27 PM RADIATION DOSE METRICS: Total DLP (mGy-cm): 662.85 FINDINGS: Brain: Age related parenchymal volume loss noted. There is decreased attenuation of the periventricular white matter, consistent with chronic microangiopathic white matter disease. 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 No parenchymal edema identified. No intracranial hemorrhage noted. Cerebral ventricles: No ventriculomegaly. Paranasal sinuses: Visualized sinuses are unremarkable. No fluid levels. Mastoid air cells:? Right mastoidectomy. No left mastoid effusion. Bones/joints: Unremarkable. No acute fracture. Soft tissues: Unremarkable. CT/CT head wo con* [id number] IMPRESSION: 1. No acute intracranial abnormality demonstrated. 2. There is no interval change from the prior examination. ? Dictated By: Emir Hodges MD Signed By: Emir Hodges MD Signed Date/Time: 01/22/22 175 DD/ [address] [address] XRay Report Signed Patient: Serene Alcaraz Unit #: [id number] : 1960 Age/Sex: 61 / F ADM Date: 01/22/22 Loc: ER Room/Bed: Attending Dr: Ordering Provider/Ordering MD: Mae Loaiza MD Date of Service: 01/22/22 Procedure(s): XR hip RT 2-3V wo/w pel* [id number] Accession Number(s): [id number] Report Number: [id number] PROCEDURE INFORMATION: Exam: XR Right Hip Exam date and time: 01/22/2022 4:44 PM Age: 61 years old Clinical indication: Injury or trauma; Fall; Blunt trauma (contusions or hematomas); Right; Hip TECHNIQUE: Imaging protocol: XR Right hip. Views: 2 or 3 views hip with pelvis when performed. COMPARISON: CT abdomen pelvis w con* [id number] 01/19/2021 7:30 PM FINDINGS: Bones/joints: Acute intertrochanteric fracture of the right hip. Fracture fragments are in varus alignment. No dislocation of the right hip joint. The right acetabulum appears intact. The pelvic bones appear intact. Soft tissues: The soft tissues appear unremarkable. XR/XR hip RT 2-3V wo/w pel* [id number] IMPRESSION: Acute intertrochanteric fracture of the right hip. ? Dictated By: Emir Hodges MD Signed By: Emir Hodges MD Signed Date/Time: 01/22/22 1752 DD/ 1644 Discharge Plan Discharge Patient Disposition: Admitted As Inpatient Clinical Impression: Acute hip pain, Fall Condition: Stable Coding Level of Care Code ED Drafter Topographical for Chg Fwd Exam Comprehensive
--- NOTE | 2022-01-22 17:01 | XRR_ITS ---
PROCEDURE INFORMATION: Exam: XR Chest Exam date and time: 01/22/2022 5:01 PM Age: 61 years old Clinical indication: Injury or trauma; Fall; Blunt trauma (contusions or hematomas); Additional info: Pre op TECHNIQUE: Imaging protocol: XR of the chest. Views: 1 view. COMPARISON: CR XR chest 1V portable [id number] 07/27/2021 4:18 PM FINDINGS: Lungs: Bilateral 5 mm calcified granulomas. No consolidative pulmonary infiltrates are noted. Pleural spaces: No pleural effusion. No pneumothorax. Heart/Mediastinum: No cardiomegaly. Vasculature: The aorta is atherosclerotic. No aortic aneurysm. Bones/joints: Diffuse osteopenia noted. No fracture or other acute osseous abnormality. XR/XR chest 1V portable [id number] IMPRESSION: 1. No acute abnormality demonstrated. 2. There is no interval change from the prior examination.
[2022-01-22] MEDS: acetaminophen 500 mg Tablet PO (17:17)
[2022-01-22 17:19] LABS: Basophils % 0.5 %; Eosinophils # 0.1 10^3/uL (0.0-0.8); Eosinophils % 1.6 %; Hematocrit 41.1 % (37.0-47.0); Hemoglobin 13.6 g/dL (11.5-15.3); Lymphocytes # 1.1 10^3/uL (0.8-4.8); Lymphocytes % 29.7 %; Mean Corpuscular HGB Conc 33.1 g/dL (30.0-36.0); Mean Corpuscular Hemoglobin 29.4 pg (28.0-34.0); Mean Platelet Volume 9.1 fL (7.4-10.4); Monocytes # 0.2 10^3/uL (0.2-0.9); Monocytes % 5.9 %; Neutrophils # 2.32 10^3/uL (1.8-7.7); Nucleated Red Blood Cells % 0 %; Platelet Count 293 10^3/cmm (130-400); Red Blood Count 4.62 10^6/uL (4.1-5.3); Red Cell Distribution Width 13.9 % (12.1-15.1); White Blood Count 3.7 10^3/uL (4.0-10.0)
[2022-01-22 17:51] LABS: Anion Gap 15.1 (5-19); Blood Urea Nitrogen 7 mg/dL (8-23); Calcium 9.1 mg/dL (8.5-10.5); Carbon Dioxide 21 mmol/L (22-29); Chloride 94 mmol/L (98-107); Glucose 113 mg/dL (65-115); Osmolality Calculated 263 mOsm/kg (285-295); Potassium 3.1 mmol/L (3.5-5.1); Sodium 127 mmol/L (136-145)
[2022-01-22] MEDS: morphine 4 mg/mL SDV 1 mL 2 MG IVP ×2 (17:53→21:41)
--- NOTE | 2022-01-22 17:59 | P.HP_ITS ---
Providers/Chief Complaint Primary Care Provider: Sid Harris MD Chief Complaint: RIGHT HIP PAIN S/P FALL History of Present Illness Serene Alcaraz is a 61 year old female with past medical history of hypertension , COPD , smoking, chronic pancreatitis , likely alcohol-related chronic hyponatremia with baseline serum sodium around 125-130 , Came in with chief complaint of hip pain after experiencing a mechanical fall at home,Patient was turning around in her kitchen when she is fell. Preceding to that episode patient denies any chest pain shortness of breath nausea dizziness palpitation lightheadedness. Last alcohol drink this morning. In the ER she was worked up for above-mentioned complaint: Imaging studies:; CT head without contrast: No acute intracranial pathology X-ray right hip: Acute intertrochanteric fracture of the right hip. X-ray chest: No infiltrates no effusion no pneumothorax Pertinent labs: WBC 3.7 H&H: 13.6 / 41.1 PLT : 293 , serum sodium 127 serum potassium 3.1, BUN and serum creatinine : 15/7 , Urinalysis pending. Patient was given a dose of morphine in the ER. Orthopedic surgeon was consulted by the ER physician, plans to take him to the OR in the morning. Review of Systems General: Reports: 10 or more systems reviewed and unremarkable except in HPI and below Const: Denies: fever(s), chills, body aches, change in appetite or diaphoresis Card: Denies: palpitations, edema, swelling of feet/ankles, dyspnea on exertion, orthopnea or leg pain with exertion Resp: Denies: dyspnea, productive cough, wheezing or pain on inspiration GI: Denies: abdominal pain, nausea, vomiting, diarrhea or constipation : Denies: flank pain Neuro: Denies: headache(s), difficulty walking or confusion Medications/Allergies Home Medications Medication Instructions Recorded Confirmed Last Taken Type amlodipine 5 mg tablet 5 mg PO BID@0600,1800 05/28/20 01/22/22 01/22/22 History aspirin 81 mg chewable tablet 81 mg PO DAILY@0600 05/28/20 01/22/22 01/22/22 History atorvastatin 80 mg tablet 80 mg PO DAILY@1800 05/28/20 01/22/22 01/21/22 History labetalol 100 mg tablet 100 mg PO BID@0600,1800 05/28/20 01/22/22 01/22/22 History albuterol sulfate 90 mcg/actuation 1 puff INHALATION Q6H PRN 10/28/20 01/22/22 01/18/21 History aerosol inhaler thiamine mononitrate (vit B1) 100 100 mg PO DAILY #30 tab 01/22/21 01/22/22 01/22/22 Rx mg tablet (Vitamin B-1 (mononitrate)) triamcinolone acetonide 0.1 % 1 applic TOPICAL DAILY 02/23/21 01/22/22 Unknown History topical cream acetaminophen 650 mg 650 mg PO Q12H PRN 05/25/21 01/22/22 Unknown History tablet,extended release (Tylenol 8 Hour) cetirizine 10 mg tablet (Zyrtec) 10 mg PO DAILY PRN 05/25/21 01/22/22 07/26/21 History propylene glycol 1 %-glycerin 0.3 1 drp OPHTHALMIC (EYE) DAILY 05/25/21 01/22/22 07/27/21 History % eye drops (Advanced Eye Relief) diphenhydramine HCl 25 mg capsule 25 mg PO BID PRN 07/27/21 01/22/22 07/27/21 History (Benadryl) sodium chloride 1 gram tablet 1 g PO BID 07/27/21 01/22/22 01/22/22 History fluticasone propionate 50 1 spray INTRANASAL Q12H 30 Days 12/10/21 01/22/22 Unknown Rx mcg/actuation nasal #16 g spray,suspension (Flonase Allergy Relief) tiotropium bromide 2.5 2 puff INHALATION DAILY #4 g 12/10/21 01/22/22 01/22/22 Rx mcg/actuation mist for inhalation (Spiriva Respimat) Allergies Allergy/AdvReac Type Severity Reaction Status Date / Time hydrochlorothiazide Allergy unknown Verified 12/09/21 10:33 Latex, Natural Rubber Allergy ALGY-Hives Verified 12/09/21 10:33 microbid Allergy ADR-Nausea Uncoded 12/09/21 10:33 PFSH Acute PFSH: Medical History Chronic pancreatitis COPD (chronic obstructive pulmonary disease) Hypertension Osteoporosis Surgical History H/O: hysterectomy Family History Mother Anesthesia complication CAD (coronary artery disease) Diabetes Hyperlipidemia Hypertension Family history of thyroid problem Grandfather Cancer maternal-lung cancer Sister Diabetes Hypertension Son Diabetes Grandmother Diabetes paternal Denies family history of Ovarian cyst Clotting disorder Chronic kidney disease (CKD) Bleeding disorder Social History Smoking and tobacco status: current every day smoker cigarettes Packs smoked per day: 1 Years cigarettes smoked: 40 Smoking risk assessment/counseling performed?: Yes Alcohol intake: current Alcohol intake frequency: few times a week Counseling given: No Counseling given: No Lives independently: Yes Household members: family Marital status: Single Current occupational status: employed Current occupation: [employer] Current occupational exposures/hazards: Yes History of recent travel: No Current gender identity: Female Vitals/I&O/Wt Last Vital Signs Temp 97.5 F L 01/22/22 16:52 Pulse 66 01/22/22 16:52 Resp 17 01/22/22 17:53 BP 154/83 01/22/22 16:52 Pulse Ox 96 01/22/22 16:52 Weight last 48 hrs Weight 45.359 kg Physical Exam Const: COMMON NORMALS: patient oriented x3 HENMT: COMMON NORMALS: normocephalic and atraumatic HEAD & SCALP: normocephalic and atraumatic EXTERNAL EAR: Yes external ears normal Eye: COMMON NORMALS: no scleral icterus Chest: COMMONS NORMALS: normal inspection of the chest and normal palpation of entire chest wall CHEST: Yes Symmetrical chest wall rise Resp: COMMON NORMALS: normal respiratory effort, No retractions, No use of accessory muscles and clear to auscultation bilaterally EFFORT & INSPECTION: Yes symmetric chest movement AUSCULTATION: clear to auscultation bilaterally Cardio: COMMON NORMALS: regular rate, regular rhythm, S1 normal heart sound present, S2 normal heart sound present, No gallops present (Cardio), No murmurs present (Cardio), No rub (Cardio) and Peripheral pulses 2+ throughout RATE: regular rate RHYTHM: regular rhythm HEART SOUNDS: S1 normal heart sound present and S2 normal heart sound present PERIPHERAL PULSES: Peripheral pulses 2+ throughout GI: COMMON NORMALS: Normal to inspection, nondistended, normoactive bowel sounds present, Soft to palpation, non-tender, No hepatosplenomegaly present and no masses AUSCULTATION: Yes normoactive bowel sounds PALPATION: Yes Soft to palpation and Yes No hepatosplenomegaly present RECTAL EXAM: deferred Extremity: COMMON NORMALS: no clubbing, cyanosis or edema and no pedal edema NARRATIVE EXTREMITY EXAM: rt hip pain. Neuro: COMMON NORMALS: patient oriented x3 Data : 01/23/22 02:26 01/23/22 02:26 A&P Assessment and plan (1) Chronic hyponatremia: Status: Acute (2) Alcohol use: Status: Acute (3) Chronic pancreatitis: Status: Acute (4) Hypertension: Status: Acute (5) COPD (chronic obstructive pulmonary disease): Status: Acute (6) Acute hypokalemia: Status: Acute (7) Intertrochanteric fracture of right hip: Status: Acute Plan 61 year old female with past medical history of hypertension , COPD , smoking, chronic pancreatitis , likely alcohol-related chronic hyponatremia with baseline serum sodium around 125-130 , Came in with chief complaint of hip pain after experiencing a mechanical fall at home. Assessment #Acute intertrochanteric fracture of the right hip: N.p.o. after midnight Pain control Laxatives Orthopedic surgery consulted by ER #Chronic hyponatremia: Likely alcohol related Currently serum sodium at its baseline Continue to monitor BMP Continue salt tablets Continue gentle IV hydration with normal saline 50 cc an hour A.m OR random. cortisol Random urine sodium Urinalysis TSH Serum and urine osmolality. #Hypokalemia: Monitor and replace potassium #History of COPD: PFT consistent with both obstructive and restrictive lung disease. Continue home inhalers Duo nebs Supplemental oxygen as needed #History of chronic alcohol abuse: Currently on CIWA protocol Continue thiamine folic acid multivitamins #History of chronic pancreatitis: #Hypertension: Continue amlodipine and labetalol #Chronic smoking: Continue nicotine patch #DVT prophylaxis: On Lovenox #CODE STATUS: Full code Disposition: Patient will need SNF placement. Attestations Medical Necessity Statement*: Patient needs to be in hospital for management of hip fracture.Anticipated length of stay greater than 2 midnights. Time Spent in Patient Care: Greater than 35 minutes (>than 50% of time spent in counselling and/or direct pt care on unit) . Coding Level of Care Code Acute Cyber Security Administrator for g Fwd Exam Comprehensive Diagnoses Chronic hyponatremia E87.1 Alcohol use Z72.89 Chronic pancreatitis K86.1 Hypertension I10 COPD (chronic obstructive pulmonary disease) J44.9 Acute hypokalemia E87.6 Intertrochanteric fracture of right hip S72.141A
[2022-01-22 18:17] LABS: Partial Thromboplastin Time 31.3 SECONDS (23.9-36.7)
--- NOTE | 2022-01-22 18:27 | ECG_ITS ---
[facility] Test Date: 2022-01-22 Pat Name: Serene Alcaraz Department: Room: 262 Gender: Female Home Coordinator: : 1960 Requested By: Salomon Nguyen Order Number: [id number] Jean Marie MD: Jorje Zendejas M.D. Measurements Intervals [place] Rate: 68 P: 53 ME: 145 QRS: -7 QRSD: 78 T: 49 QT: 416 QTc: 443 Interpretive Statements SINUS RHYTHM Compared to ECG 07/27/2021 18:53:31 No significant changes Electronically Signed On 01-24-2022 17:10:06 WALL TO WALL CARPET INSTALLER by Jorje Zendejas M.D. [id number]
[2022-01-22] MEDS: sodium chloride 1 gm Tablet PO (19:01)
[2022-01-22] MEDS: enoxaparin 40 mg/0.4 mL Syringe SUBCUT (19:01)
[2022-01-22] MEDS: lidocaine 1% 5 ML in potassium chloride premix 100 ML 25 ML IV (19:01)
[2022-01-22] MEDS: sodium chloride 0.9% 1,000 ML 50 ML IV (19:02)
[2022-01-22] MEDS: oxyCODONE-APAP 5-325 mg Tablet 1 TAB PO ×2 (20:08→23:49)
[2022-01-23] VITALS (25 sets, daily range): BP systolic 94–181; BP diastolic 62–84; PULSE 68–97; RESP 16–19; TEMP 36.2–37.3; O2SAT 90–100
--- NOTE | 2022-01-23 | XR_ITS ---
WS: [id number] INTRAOPERATIVE TECHNIQUE: 4 Spot fluoroscopic images for intraoperative purposes. FLUOROSCOPY TIME: 46.8 seconds CLINICAL INFORMATION: [facility] COMPARISON: None. FINDINGS: Intramedullary marlene and screw fixation RIGHT hip fracture. Normal anatomic alignment. Hardware appears in good position. Intramedullary marlene into the distal femur. XR/XR hip RT 1V wo/w pel [id number] IMPRESSION: Images obtained for intraoperative purposes.
--- NOTE | 2022-01-23 | SCC_ITS ---
Procedure done: Open reduction internal fixation right intertrochanteric hip fracture with intramedullary device 46.8 seconds of fluoroscopic guidance, for a cumulative dose of 2.22 mGy, was provided to Dr. Garcia by the radiology department. C-arm images of the RIGHT hip were saved for the patient's permanent record. [facility]
[2022-01-23] MEDS: morphine 4 mg/mL SDV 1 mL 2 MG IVP ×3 (01:34→12:22)
[2022-01-23 02:05] LABS: Add Urine Microscopic? YES; Bilirubin Urine 1+ (Negative); Blood Urine 2+ (Negative); Glucose Urine UA Norm (Normal); Ketones Urine 1+ (Negative); Leukocyte Esterase Urine Trace (Negative); Nitrate Urine Positive (Negative); Protein Urine 1+ (Negative); Specific Gravity, Urine 1.005 (1.005-1.030); Urine Color Orange (Yellow); Urobilinogen Urine 1 mg/dL (Negative); pH Urine 5 (5-7)
[2022-01-23 02:06] LABS: Squamous Epithelial Cell Urine 25-40 /hpf (0-5)
[2022-01-23 02:07] LABS: Add Urine Culture? No; Bacteria Urine 4+ /hpf
[2022-01-23 02:09] LABS: Urine Creatinine 31 mg/dL (28-217); Urine Random Sodium 41 mmol/L
[2022-01-23 03:34] LABS: Basophils % 0.3 %; Eosinophils % 0.3 %; Hematocrit 39.5 % (37.0-47.0); Lymphocytes # 0.9 10^3/uL (0.8-4.8); Lymphocytes % 7.8 %; Mean Corpuscular HGB Conc 32.9 g/dL (30.0-36.0); Mean Corpuscular Hemoglobin 29.3 pg (28.0-34.0); Mean Platelet Volume 9.8 fL (7.4-10.4); Monocytes # 0.7 10^3/uL (0.2-0.9); Monocytes % 6.4 %; Neutrophils # 9.72 10^3/uL (1.8-7.7); Neutrophils % 84.7 %; Nucleated Red Blood Cells % 0 %; Platelet Count 307 10^3/cmm (130-400); Red Blood Count 4.44 10^6/uL (4.1-5.3); Red Cell Distribution Width 14.1 % (12.1-15.1); White Blood Count 11.5 10^3/uL (4.0-10.0)
[2022-01-23] MEDS: ondansetron 2 mg/ML SDV 2 mL 4 MG IVP (03:42)
[2022-01-23 03:44] LABS: INR 0.93 (0.8-1.2)
[2022-01-23] MEDS: oxyCODONE-APAP 5-325 mg Tablet 1 TAB PO ×4 (03:51→22:52)
[2022-01-23 04:06] LABS: Alanine Aminotransferase 13 U/L (0-33); Albumin Level 4.2 g/dL (3.5-5.2); Alkaline Phosphatase 124 IU/L (35-105); Anion Gap 16.6 (5-19); Aspartate Amino Transferase 16 U/L (0-32); Blood Urea Nitrogen 5 mg/dL (8-23); Calcium 9.1 mg/dL (8.5-10.5); Carbon Dioxide 21 mmol/L (22-29); Chloride 98 mmol/L (98-107); Globulin 2.8 g/dL (1.3-4.6); Glomerular Filtration Rate 161.7 mL/min (90-130); Glucose 101 mg/dL (65-115); Osmolality Calculated 271 mOsm/kg (285-295); Potassium 3.6 mmol/L (3.5-5.1); Sodium 132 mmol/L (136-145); Thyroid Stimulating Hormone 3.62 uIU/mL (0.27-4.20); Total Bilirubin 0.3 mg/dL (0.15-1.2)
[2022-01-23 05:17] LABS: Cortisol Random 39.02 ug/dL (2.47-19.5)
[2022-01-23] MEDS: aspirin 81 mg Chew Tablet PO (06:17)
--- NOTE | 2022-01-23 07:41 | PM.PN ---
Subjective Subjective: Patient was seen and examined this morning, complaining of right hip pain, she is also saying that she is extremely hungry. Serum sodium has improved, urinalysis is dirty. Medications: Medication Review Details: Generic Name Dose Route Start Last Admin Trade Name Freq PRN Reason Stop Dose Admin Amlodipine Besylat e 10 mg 01/23/22 09:40 01/23/22 09:52 Amlodipine 10 Mg Tablet PO 10 mg DAILY JANUARY Administration Artificial Tears 1 drop 01/23/22 09:00 01/23/22 09:53 Artificial Tears Op Soln 15 Ml Btl EYE-BOTH Not Given DAILY JANUARY Aspirin 81 mg 01/23/22 06:00 01/23/22 06:17 Aspirin 81 Mg Ch ew Tablet PO 81 mg DAILY@0600 [facility] Administration Docusate Sodium 100 mg 01/23/22 08:00 01/23/22 08:37 Docusate Sodium 100 Mg Capsule PO 100 mg BID JANUARY Administration Enoxaparin Sodium 40 mg 01/22/22 18:00 01/22/22 19:01 Enoxaparin 40 Mg /0.4 Ml Syringe SUBCUT 40 mg Q24H JANUARY Administration Folic Acid 1 mg 01/23/22 09:00 01/23/22 08:37 Folic Acid 1 Mg Tablet PO 1 mg DAILY JANUARY Administration Ceftriaxone Sodium 1,000 mg/ 50 mls @ 100 mls/ hr 01/23/22 08:00 01/23/22 10:07 Sodium Chloride IV Infused Q24H [facility] Infusion Protocol Morphine Sulfate 2 mg 01/22/22 17:49 01/23/22 12:22 Morphine 4 Mg/Ml Sdv 1 Ml IVP 2 mg Q2H PRN Administration SEVERE PAIN Multivitamins Ther apeutic 1 tab 01/23/22 09:00 01/23/22 08:37 Multivitamin The rapeutic Tablet PO 1 tab DAILY JANUARY Administration Ondansetron HCl 4 mg 01/22/22 17:49 01/23/22 03:42 Ondansetron 2 Mg /Ml Sdv 2 Ml IVP 4 mg Q8H PRN Administration vomiting, or N/V if npo Oxycodone/Acetamin ophen 1 tab 01/22/22 17:49 01/23/22 09:52 Oxycodone-Apap 5 -325 Mg Tablet PO 1 tab Q4H PRN Administration SEVERE PAIN Sodium Chloride 1 gm 01/22/22 18:00 01/23/22 08:37 Sodium Chloride 1 Gm Tablet PO 1 gm BID JANUARY Administration Thiamine Mononitra te 100 mg 01/23/22 09:00 01/23/22 08:37 Thiamine 100 Mg Tablet PO 100 mg DAILY JANUARY Administration Thiamine Mononitra te 100 mg 01/23/22 09:00 01/23/22 08:37 Thiamine 100 Mg Tablet PO 100 mg DAILY JAUNARY Administration Tiotropium [place] 18 mcg 01/23/22 08:00 01/23/22 08:09 Tiotropium 18 Mc g Mdi INHALATION 1 puff DAILY.RESPIRATORY JANUARY Administration Vitals/I&O/Wt Last Vital Signs Temp 98.8 F 01/23/22 07:39 Pulse 86 01/23/22 07:39 Resp 18 01/23/22 07:39 BP 157/84 01/23/22 07:39 Pulse Ox 91 01/23/22 07:39 01/22/22 01/23/22 01/23/22 22:59 06:59 14:59 Intake Total 240 / 240 105 / 345 Output Total 1375 / 1375 Balance 240 / 240 -1270 / -1030 Weight last 48 hrs Weight 49.442 kg Weight 45.359 kg Physical Exam Const: COMMON NORMALS: patient oriented x3 HENMT: COMMON NORMALS: normocephalic, atraumatic and external ears normal HEAD & SCALP: normocephalic and atraumatic EXTERNAL EAR: Yes external ears normal Eye: COMMON NORMALS: no scleral icterus Chest: COMMONS NORMALS: normal inspection of the chest and normal palpation of entire chest wall CHEST: Yes Symmetrical chest wall rise Resp: COMMON NORMALS: normal respiratory effort, No retractions, No use of accessory muscles and clear to auscultation bilaterally EFFORT & INSPECTION: Yes symmetric chest movement AUSCULTATION: clear to auscultation bilaterally Cardio: COMMON NORMALS: regular rate, regular rhythm, S1 normal heart sound present, S2 normal heart sound present, No gallops present (Cardio), No murmurs present (Cardio), No rub (Cardio) and Peripheral pulses 2+ throughout RATE: regular rate RHYTHM: regular rhythm HEART SOUNDS: S1 normal heart sound present and S2 normal heart sound present PERIPHERAL PULSES: Peripheral pulses 2+ throughout GI: COMMON NORMALS: Normal to inspection, nondistended, normoactive bowel sounds present, Soft to palpation, non-tender, No hepatosplenomegaly present and no masses AUSCULTATION: Yes normoactive bowel sounds PALPATION: Yes Soft to palpation and Yes No hepatosplenomegaly present RECTAL EXAM: deferred Extremity: COMMON NORMALS: no clubbing, cyanosis or edema and no pedal edema NARRATIVE EXTREMITY EXAM: rt hip pain. Neuro: COMMON NORMALS: patient oriented x3 Urinary Catheter Management: Tan: Cath Placed During This Visit: yes Reason for Continuing Indwelling Catheter: Acute Urinary Retention or Obstruction Urinary Catheter Date of Insertion: 01/23/22 Urinary Catheter Time of Insertion: 01:00 Data : 01/23/22 02:26 01/23/22 02:26 A&P Assessment and plan (1) Chronic hyponatremia: Status: Acute (2) Alcohol use: Status: Acute (3) Chronic pancreatitis: Status: Acute (4) Hypertension: Status: Acute (5) COPD (chronic obstructive pulmonary disease): Status: Acute (6) Acute hypokalemia: Status: Acute (7) Intertrochanteric fracture of right hip: Status: Acute Plan 61 year old female with past medical history of hypertension , COPD , smoking, chronic pancreatitis , likely alcohol-related chronic hyponatremia with baseline serum sodium around 125-130 , Came in with chief complaint of hip pain after experiencing a mechanical fall at home. Assessment #Acute intertrochanteric fracture of the right hip: N.p.o. after midnight Pain control Laxatives Orthopedic surgery consulted by ER #Chronic hyponatremia: Likely alcohol related, Currently serum sodium at its baseline Continue to monitor BMP Continue salt tablets Continue gentle IV hydration with normal saline 50 cc an hour A.m cortisol: 39.2 Random urine sodium:41 Urine specific gravity: 1.005 TSH: 3.62 Serum and urine osmolality. #Hypokalemia: Monitor and replace potassium #History of COPD: PFT consistent with both obstructive and restrictive lung disease. Continue home inhalers Duo nebs Supplemental oxygen as needed #History of chronic alcohol abuse: Currently on CIWA protocol Continue thiamine folic acid multivitamins #UTI : Follow Urine Culture On [place] #History of chronic pancreatitis: #Hypertension: Continue amlodipine and labetalol #Chronic smoking: Continue nicotine patch #DVT prophylaxis: On Lovenox #CODE STATUS: Full code Disposition: Patient will need SNF placement. Attestations Medical Necessity Statement*: Patient needs to be in hospital for management of hip fracture.Anticipated length of stay greater than 2 midnights. Coding Level of Care Code Acute Supervisor Electronic Testing for Chg Fwd Exam Comprehensive Diagnoses Chronic hyponatremia E87.1 Alcohol use Z72.89 Chronic pancreatitis K86.1 Hypertension I10 COPD (chronic obstructive pulmonary disease) J44.9 Acute hypokalemia E87.6 Intertrochanteric fracture of right hip S72.141A
[2022-01-23] MEDS: cefTRIAXone 1,000 MG in sodium chloride 0.9% (plus) 50 ML 100 MG IV (08:33)
[2022-01-23] MEDS: folic acid 1 mg Tablet PO (08:37)
[2022-01-23] MEDS: sodium chloride 1 gm Tablet PO ×2 (08:37→18:12)
[2022-01-23] MEDS: docusate sodium 100 mg Capsule PO ×2 (08:37→18:12)
[2022-01-23] MEDS: thiamine 100 mg Tablet PO ×2 (08:37)
[2022-01-23] MEDS: multivitamin therapeutic Tablet 1 TAB PO (08:37)
[2022-01-23] MEDS: amlodipine 10 mg Tablet PO (09:52)
--- NOTE | 2022-01-23 14:17 | ANES.PREANE2 ---
Pre-Anesthetic Assessment Height/Weight: Height 1.5 m Weight 49.442 kg Temp Pulse Resp BP Pulse Ox 98.6 F 83 18 174/83 92 01/23/22 11:12 01/23/22 11:12 01/23/22 12:22 01/23/22 11:12 01/23/22 11:12 Preop Diagnosis: Right intertrochanteric hip fracture Trochanteric femoral nail Familial anesthetic complications: None Was Beta Jesus taken within 24 hours: Yes Was Clonidine taken within 24 hours: N/A Last intake: Intake Last Liquid Date 01/22/22 Last Liquid Time 08:00 Last Solid Date 01/22/22 Last Solid Time 08:00 Social Tobacco and No alcohol hx ETOH Exam alert, oriented x 3, clear to auscultation bilaterally and regular rate & rhythm Airway Mallampati: Class II Dentition: false Pulmonary Chronic Obstructive Pulmonary Disease CV/HEM Hypertension Metabolic Hyperlipidemia and Thyroid Disease Neuropsych Cerebrovascular Accident Anesthetic Plan ASA status: 3 Anesthesia: General Risk of > 500 ml blood loss (7ml/kg in children): No Medications/Allergies Home Medications Medication Instructions Recorded Confirmed Last Taken Type amlodipine 5 mg tablet 5 mg PO BID@0600,1800 05/28/20 01/22/22 01/22/22 History aspirin 81 mg chewable tablet 81 mg PO DAILY@0600 05/28/20 01/22/22 01/22/22 History atorvastatin 80 mg tablet 80 mg PO DAILY@1800 05/28/20 01/22/22 01/21/22 History labetalol 100 mg tablet 100 mg PO BID@0600,1800 05/28/20 01/22/22 01/22/22 History albuterol sulfate 90 mcg/actuation 1 puff INHALATION Q6H PRN 10/28/20 01/22/22 01/18/21 History aerosol inhaler thiamine mononitrate (vit B1) 100 100 mg PO DAILY #30 tab 01/22/21 01/22/22 01/22/22 Rx mg tablet (Vitamin B-1 (mononitrate)) triamcinolone acetonide 0.1 % 1 applic TOPICAL DAILY 02/23/21 01/22/22 Unknown History topical cream acetaminophen 650 mg 650 mg PO Q12H PRN 05/25/21 01/22/22 Unknown History tablet,extended release (Tylenol 8 Hour) cetirizine 10 mg tablet (Zyrtec) 10 mg PO DAILY PRN 05/25/21 01/22/22 07/26/21 History propylene glycol 1 %-glycerin 0.3 1 drp OPHTHALMIC (EYE) DAILY 05/25/21 01/22/22 07/27/21 History % eye drops (Advanced Eye Relief) diphenhydramine HCl 25 mg capsule 25 mg PO BID PRN 07/27/21 01/22/22 07/27/21 History (Benadryl) sodium chloride 1 gram tablet 1 g PO BID 07/27/21 01/22/22 01/22/22 History fluticasone propionate 50 1 spray INTRANASAL Q12H 30 Days 12/10/21 01/22/22 Unknown Rx mcg/actuation nasal #16 g spray,suspension (Flonase Allergy Relief) tiotropium bromide 2.5 2 puff INHALATION DAILY #4 g 12/10/21 01/22/22 01/22/22 Rx mcg/actuation mist for inhalation (Spiriva Respimat) Allergies Allergy/AdvReac Type Severity Reaction Status Date / Time hydrochlorothiazide Allergy unknown Verified 12/09/21 10:33 Latex, Natural Rubber Allergy ALGY-Hives Verified 12/09/21 10:33 microbid Allergy ADR-Nausea Uncoded 12/09/21 10:33 Current Medications Generic Name Dose Route Start Last Admin Trade Name Freq PRN Reason Stop Dose Admin Amlodipine Besylate 10 mg 01/23/22 09:40 01/23/22 09:52 Amlodipine 10 Mg Tablet PO 10 mg DAILY JANUARY Administration Artificial Tears 1 drop 01/23/22 09:00 01/23/22 09:53 Artificial Tears Op Soln 15 Ml Btl EYE-BOTH Not Given DAILY [facility] Aspirin 81 mg 01/23/22 06:00 01/23/22 06:17 Aspirin 81 Mg Chew Tablet PO 81 mg DAILY@0600 JANUARY Administration Docusate Sodium 100 mg 01/23/22 08:00 01/23/22 08:37 Docusate Sodium 100 Mg Capsule PO 100 mg BID JANUARY Administration Enoxaparin Sodium 40 mg 01/22/22 18:00 01/22/22 19:01 Enoxaparin 40 Mg/0.4 Ml Syringe SUBCUT 40 mg Q24H JANUARY Administration Folic Acid 1 mg 01/23/22 09:00 01/23/22 08:37 Folic Acid 1 Mg Tablet PO 1 mg DAILY JANUARY Administration Ceftriaxone Sodium 1,000 mg/ 50 mls @ 100 mls/hr 01/23/22 08:00 01/23/22 10:07 Sodium Chloride IV Infused Q24H JANUARY Infusion Protocol Morphine Sulfate 2 mg 01/22/22 17:49 01/23/22 12:22 Morphine 4 Mg/Ml Sdv 1 Ml IVP 2 mg Q2H PRN Administration SEVERE PAIN Multivitamins Therapeutic 1 tab 01/23/22 09:00 01/23/22 08:37 Multivitamin Therapeutic Tablet PO 1 tab DAILY JANUARY Administration Ondansetron HCl 4 mg 01/22/22 17:49 01/23/22 03:42 Ondansetron 2 Mg/Ml Sdv 2 Ml IVP 4 mg Q8H PRN Administration vomiting, or N/V if npo Oxycodone/Acetaminophen 1 tab 01/22/22 17:49 01/23/22 09:52 Oxycodone-Apap 5-325 Mg Tablet PO 1 tab Q4H PRN Administration SEVERE PAIN Sodium Chloride 1 gm 01/22/22 18:00 01/23/22 08:37 Sodium Chloride 1 Gm Tablet PO 1 gm BID JANUARY Administration Thiamine Mononitrate 100 mg 01/23/22 09:00 01/23/22 08:37 Thiamine 100 Mg Tablet PO 100 mg DAILY JANUARY Administration Thiamine Mononitrate 100 mg 01/23/22 09:00 01/23/22 08:37 Thiamine 100 Mg Tablet PO 100 mg DAILY JANUARY Administration Tiotropium [place] 18 mcg 01/23/22 08:00 01/23/22 08:09 Tiotropium 18 Mcg Mdi INHALATION 1 puff DAILY.RESPIRATORY JANUARY Administration PFSH Anesthesia Medical History Chronic pancreatitis COPD (chronic obstructive pulmonary disease) Hypertension Osteoporosis Surgical History H/O: hysterectomy Family History Mother Anesthesia complication CAD (coronary artery disease) Diabetes Hyperlipidemia Hypertension Family history of thyroid problem Grandfather Cancer maternal-lung cancer Sister Diabetes Hypertension Son Diabetes Grandmother Diabetes paternal Denies family history of Ovarian cyst Clotting disorder Chronic kidney disease (CKD) Bleeding disorder Social History Smoking and tobacco status: current every day smoker cigarettes Packs smoked per day: 1 Years cigarettes smoked: 40 Smoking risk assessment/counseling performed?: Yes Alcohol intake: current Alcohol intake frequency: few times a week Counseling given: No Counseling given: No Lives independently: Yes Household members: family Marital status: Single Current occupational status: employed Current occupation: [employer] Current occupational exposures/hazards: Yes History of recent travel: No Current gender identity: Female Data Anesthesia : 01/23/22 02:26 01/23/22 02:26 Short CBC 01/22/22 01/23/22 Range/Units 17:15 02:26 WBC 3.7 L 11.5 H (4.0-10.0) 10^3/uL Hgb 13.6 13.0 (11.5-15.3) g/dL Hct 41.1 39.5 (37.0-47.0) % MCV 89.0 89.0 (81-99) fl Plt Count 293 307 (130-400) 10^3/cmm Neut % (Auto) 62.0 84.7 % Neut # (Auto) 2.32 9.72 H (1.8-7.7) 10^3/uL BMP 01/22/22 01/23/22 17:15 02:26 Sodium 127 L 132 L Potassium 3.1 L 3.6 Chloride 94 L 98 Carbon Dioxide 21 L 21 L BUN 7 L 5 L Creatinine 0.5 0.4 L Glucose 113 101 Calcium 9.1 9.1 Liver Function 01/23/22 Range/Units 02:26 Total Bilirubin 0.3 (0.15-1.2) mg/dL AST 16 (0-32) U/L ALT 13 (0-33) U/L Alkaline Phosphatase 124 H (35-105) IU/L Albumin 4.2 (3.5-5.2) g/dL Urine 01/23/22 Range/Units 01:30 Urine Color [place] (Yellow) Urine Appearance Sl cloudy A (CLEAR) Urine pH 5 (5-7) Ur Specific [place] 1.005 (1.005-1.030) Urine Protein 1+ H (Negative) Urine Glucose (UA) Norm (Normal) Urine Ketones 1+ H (Negative) Urine Nitrate Positive H (Negative) Urine Bilirubin 1+ H (Negative) Ur Leukocyte Esterase Trace H (Negative) Urine RBC 5-10 H (0-2) /hpf Urine WBC 5-10 H (0-5) /hpf Coags 01/22/22 01/23/22 17:45 02:26 PT 12.40 12.70 INR 0.90 0.93 APTT 31.3 Cardiac Studies: Echocardiogram 12/06/21
--- NOTE | 2022-01-23 16:04 | PM.CONSULT ---
Providers/Reason For Consult Consulting Physician/Specialty*: Chandrakant Garcia MD; orthopedic surgery Reason for Consult*: Right intertrochanteric hip fracture Attending Physician: Salomon Nguyen MD Primary Care Provider: Sid Harris MD History of Present Illness History of Present Illness Serene Alcaraz is a 61 year old female who sustained a mechanical fall at home when she twisted and fell with immediate pain. She was transferred to our emergency room radiographs revealed a right intratrochanteric hip fracture. She is admitted to medicine has been cleared for surgery. Orthopedics is consulted for management of the hip fracture Medications/Allergies Home Medications Medication Instructions Recorded Confirmed Last Taken Type amlodipine 5 mg tablet 5 mg PO BID@0600,1800 05/28/20 01/22/22 01/22/22 History aspirin 81 mg chewable tablet 81 mg PO DAILY@0600 05/28/20 01/22/22 01/22/22 History atorvastatin 80 mg tablet 80 mg PO DAILY@1800 05/28/20 01/22/22 01/21/22 History labetalol 100 mg tablet 100 mg PO BID@0600,1800 05/28/20 01/22/22 01/22/22 History albuterol sulfate 90 mcg/actuation 1 puff INHALATION Q6H PRN 10/28/20 01/22/22 01/18/21 History aerosol inhaler thiamine mononitrate (vit B1) 100 100 mg PO DAILY #30 tab 01/22/21 01/22/22 01/22/22 Rx mg tablet (Vitamin B-1 (mononitrate)) triamcinolone acetonide 0.1 % 1 applic TOPICAL DAILY 02/23/21 01/22/22 Unknown History topical cream acetaminophen 650 mg 650 mg PO Q12H PRN 05/25/21 01/22/22 Unknown History tablet,extended release (Tylenol 8 Hour) cetirizine 10 mg tablet (Zyrtec) 10 mg PO DAILY PRN 05/25/21 01/22/22 07/26/21 History propylene glycol 1 %-glycerin 0.3 1 drp OPHTHALMIC (EYE) DAILY 05/25/21 01/22/22 07/27/21 History % eye drops (Advanced Eye Relief) diphenhydramine HCl 25 mg capsule 25 mg PO BID PRN 07/27/21 01/22/22 07/27/21 History (Benadryl) sodium chloride 1 gram tablet 1 g PO BID 07/27/21 01/22/22 01/22/22 History fluticasone propionate 50 1 spray INTRANASAL Q12H 30 Days 12/10/21 01/22/22 Unknown Rx mcg/actuation nasal #16 g spray,suspension (Flonase Allergy Relief) tiotropium bromide 2.5 2 puff INHALATION DAILY #4 g 12/10/21 01/22/22 01/22/22 Rx mcg/actuation mist for inhalation (Spiriva Respimat) Allergies Allergy/AdvReac Type Severity Reaction Status Date / Time hydrochlorothiazide Allergy unknown Verified 12/09/21 10:33 Latex, Natural Rubber Allergy ALGY-Hives Verified 12/09/21 10:33 microbid Allergy ADR-Nausea Uncoded 12/09/21 10:33 Current Medications Generic Name Dose Route Start Last Admin Trade Name Freq PRN Reason Stop Dose Admin Amlodipine Besylate 10 mg 01/23/22 09:40 01/23/22 09:52 Amlodipine 10 Mg Tablet PO 10 mg DAILY JANUARY Administration Artificial Tears 1 drop 01/23/22 09:00 01/23/22 09:53 Artificial Tears Op Soln 15 Ml Btl EYE-BOTH Not Given DAILY JANUARY Aspirin 81 mg 01/23/22 06:00 01/23/22 06:17 Aspirin 81 Mg Chew Tablet PO 81 mg DAILY@0600 JANUARY Administration Docusate Sodium 100 mg 01/23/22 08:00 01/23/22 08:37 Docusate Sodium 100 Mg Capsule PO 100 mg BID JANUARY Administration Enoxaparin Sodium 40 mg 01/22/22 18:00 01/22/22 19:01 Enoxaparin 40 Mg/0.4 Ml Syringe SUBCUT 40 mg Q24H JANUARY Administration Folic Acid 1 mg 01/23/22 09:00 01/23/22 08:37 Folic Acid 1 Mg Tablet PO 1 mg DAILY JANUARY Administration Ceftriaxone Sodium 1,000 mg/ 50 mls @ 100 mls/hr 01/23/22 08:00 01/23/22 10:07 Sodium Chloride IV Infused Q24H [facility] Infusion Protocol Morphine Sulfate 2 mg 01/22/22 17:49 01/23/22 12:22 Morphine 4 Mg/Ml Sdv 1 Ml IVP 2 mg Q2H PRN Administration SEVERE PAIN Multivitamins Therapeutic 1 tab 02/27/22 09:00 01/23/22 08:37 Multivitamin Therapeutic Tablet PO 1 tab DAILY AJNUARY Administration Ondansetron HCl 4 mg 01/22/22 17:49 01/23/22 03:42 Ondansetron 2 Mg/Ml Sdv 2 Ml IVP 4 mg Q8H PRN Administration vomiting, or N/V if npo Oxycodone/Acetaminophen 1 tab 01/22/22 17:49 01/23/22 09:52 Oxycodone-Apap 5-325 Mg Tablet PO 1 tab Q4H PRN Administration SEVERE PAIN Sodium Chloride 1 gm 01/22/22 18:00 01/23/22 08:37 Sodium Chloride 1 Gm Tablet PO 1 gm BID JANUARY Administration Thiamine Mononitrate 100 mg 01/23/22 09:00 01/23/22 08:37 Thiamine 100 Mg Tablet PO 100 mg DAILY JANUARY Administration Thiamine Mononitrate 100 mg 01/23/22 09:00 01/23/22 08:37 Thiamine 100 Mg Tablet PO 100 mg DAILY JANUARY Administration Tiotropium [place] 18 mcg 01/23/22 08:00 01/23/22 08:09 Tiotropium 18 Mcg Mdi INHALATION 1 puff DAILY.RESPIRATORY JANUARY Administration PFSH Acute PFSH: Medical History Chronic pancreatitis COPD (chronic obstructive pulmonary disease) Hypertension Osteoporosis Surgical History H/O: hysterectomy Family History Mother Anesthesia complication CAD (coronary artery disease) Diabetes Hyperlipidemia Hypertension Family history of thyroid problem Grandfather Cancer maternal-lung cancer Sister Diabetes Hypertension Son Diabetes Grandmother Diabetes paternal Denies family history of Ovarian cyst Clotting disorder Chronic kidney disease (CKD) Bleeding disorder Social History Smoking and tobacco status: current every day smoker cigarettes Packs smoked per day: 1 Years cigarettes smoked: 40 Smoking risk assessment/counseling performed?: Yes Alcohol intake: current Alcohol intake frequency: few times a week Counseling given: No Counseling given: No Lives independently: Yes Household members: family Marital status: Single Current occupational status: employed Current occupation: [employer] Current occupational exposures/hazards: Yes History of recent travel: No Current gender identity: Female Vitals/I&O/Wt Last Vital Signs Temp 97.2 F L 01/23/22 14:15 Pulse 72 01/23/22 15:11 Resp 16 01/23/22 15:11 BP 132/68 01/23/22 15:11 Pulse Ox 91 01/23/22 15:11 01/23/22 01/23/22 01/23/22 06:59 14:59 22:59 Intake Total 105 / 345 50 / 50 Output Total 1375 / 1375 Balance -1270 / -1030 50 / 50 Weight last 48 hrs Weight 109 lb Weight 100 lb Physical Exam Narrative: The patient has shortening and external rotation of the right hip. There is exquisite pain with motion of the right hip. She has a palpable right dorsalis pedis pulse. We will flex and extend her toes and her ankle without any motor deficits. Her sensation is intact to light touch. Urinary Catheter Management: Tan: Cath Placed During This Visit: yes Reason for Continuing Indwelling Catheter: Acute Urinary Retention or Obstruction Urinary Catheter Date of Insertion: 01/23/22 Urinary Catheter Time of Insertion: 01:00 Data : 01/23/22 02:26 01/23/22 02:26 Xray Ortho: My impression: Radiographs consisting of an AP of the pelvis and 2 views of the right hip are personally interpreted dated 01/22/2022. The patient has a displaced right intertrochanteric hip fracture consisting of at least 2 parts. There is a varus deformity of the neck A&P Assessment and plan (1) Intertrochanteric fracture of right hip: I discussed options with the patient.. I told the patient we could treat this nonoperatively but certainly they would be at risk for medical problems without surgery. Theywould have problems with pain that would require narcotics for pain control. 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 I discussed surgical intervention with the patient. I told them with open reduction internal fixation they should be able to be mobilized and resume ambulatory status. We can eliminate the problems associated with prolonged bed rest and would have better control of pain. Certainly there would be inherent risk with surgery. These would would include the risk of cardiac complications, stroke, infection, and even . I discussed risk of any orthopedic implant including nonunion, malunion, a component failure. I discussed the possible need for component removal. I discussed risk of deep venous thromboses and pulmonary emboli that are present with any treatment and the importance of DVT prophylaxis. The patient expressed good understanding of alternative treatments, seem to comprehend, and agrees to surgical intervention. Status: Acute Coding Level of Care Code Acute Sanitor for Sergio Chow Diagnoses Intertrochanteric fracture of right hip S72.141A
--- NOTE | 2022-01-23 17:16 | PM.OP ---
Operative Report Date of procedure: January 23, 2022 Pre-op diagnosis: Preop Diagnosis Right intertrochanteric hip fracture Post-op diagnosis: same Procedure done: Open reduction internal fixation right intertrochanteric hip fracture with intramedullary device Pathology: none sent Surgeon: Chandrakant Garcia Anesthesia: General Estimated blood loss (mL): 100 Findings: The patient had a angulated 2 part right intertrochanteric hip fracture Procedure: The patient was taken to the operating room. They were given 1 g of Ancef. They were positioned on the fracture table with the right lower extremity in gentle traction. A timeout was performed. A 2 cm long incision was made proximal to the greater trochanter scalpel blade. Dissection was carried down to tip the greater trochanter. A guidepin was passed manually from the tip of the trochanter down the shaft. The proximal reamer was utilized to open up the proximal canal. An 11 mm by 340 mmStryker gamma nail was passed down the canal without difficulty. Under visualization of fluoroscopy a guidepin was driven up into the head and neck at 125? angle. It was measured at 80 mm in length and a lag screw similar length was then placed and locked into place with the proximal locking screw. Intraoperative imaging was obtained verifying satisfactory position of the hardware and reduction of the fracture. Deep tissues were closed with 0 Vicryl as were subcutaneous tissues. The skin was closed with skin reji. Sterile dressings were applied. The patient was extubated and taken to recovery room in stable condition.
[2022-01-23] MEDS: atorvastatin 40 mg Tablet 80 MG PO (18:12)
[2022-01-23] MEDS: labetalol 200 mg Tablet 100 MG PO (18:12)
[2022-01-23] MEDS: enoxaparin 40 mg/0.4 mL Syringe SUBCUT (18:16)
[2022-01-24] VITALS (16 sets, daily range): BP systolic 106–134; BP diastolic 63–83; PULSE 71–94; RESP 16–18; TEMP 36.4–37.3; O2SAT 90–99
[2022-01-24] MEDS: oxyCODONE-APAP 5-325 mg Tablet 1 TAB PO ×5 (03:25→22:52)
[2022-01-24 04:35] LABS: Basophils % 0.4 %; Eosinophils % 0.5 %; Hematocrit 32.7 % (37.0-47.0); Hemoglobin 10.4 g/dL (11.5-15.3); Lymphocytes % 25.2 %; Mean Corpuscular HGB Conc 31.8 g/dL (30.0-36.0); Mean Corpuscular Hemoglobin 29.2 pg (28.0-34.0); Mean Corpuscular Volume 91.9 fl (81-99); Mean Platelet Volume 10.1 fL (7.4-10.4); Monocytes # 1.2 10^3/uL (0.2-0.9); Monocytes % 14.9 %; Neutrophils # 4.66 10^3/uL (1.8-7.7); Neutrophils % 58.6 %; Nucleated Red Blood Cells % 0 %; Platelet Count 241 10^3/cmm (130-400); Red Blood Count 3.56 10^6/uL (4.1-5.3); Red Cell Distribution Width 14.3 % (12.1-15.1); White Blood Count 7.9 10^3/uL (4.0-10.0)
[2022-01-24] MEDS: aspirin 81 mg Chew Tablet PO (05:00)
[2022-01-24 05:01] LABS: Alanine Aminotransferase 9 U/L (0-33); Albumin Level 3.2 g/dL (3.5-5.2); Alkaline Phosphatase 103 IU/L (35-105); Aspartate Amino Transferase 17 U/L (0-32); Blood Urea Nitrogen 12 mg/dL (8-23); Calcium 8.8 mg/dL (8.5-10.5); Carbon Dioxide 23 mmol/L (22-29); Chloride 93 mmol/L (98-107); Globulin 2.7 g/dL (1.3-4.6); Glomerular Filtration Rate 101.3 mL/min (90-130); Glucose 102 mg/dL (65-115); Osmolality Calculated 268 mOsm/kg (285-295); Sodium 129 mmol/L (136-145); Total Bilirubin 0.5 mg/dL (0.15-1.2); Total Protein 5.9 g/dL (6.6-8.7)
[2022-01-24 05:06] LABS: Anion Gap 16.7 (5-19); Potassium 3.7 mmol/L (3.5-5.1)
[2022-01-24] MEDS: cefTRIAXone 1,000 MG in sodium chloride 0.9% (plus) 50 ML 100 MG IV (08:05)
[2022-01-24] MEDS: sodium chloride 1 gm Tablet PO ×2 (08:12→17:10)
[2022-01-24] MEDS: amlodipine 10 mg Tablet PO (08:12)
[2022-01-24] MEDS: multivitamin therapeutic Tablet 1 TAB PO (08:12)
[2022-01-24] MEDS: docusate sodium 100 mg Capsule PO ×2 (08:12→17:10)
[2022-01-24] MEDS: folic acid 1 mg Tablet PO (08:12)
[2022-01-24] MEDS: thiamine 100 mg Tablet PO ×2 (08:12→08:15)
--- NOTE | 2022-01-24 11:04 | P.PN_ITS ---
Subjective Subjective: Patient was seen and examined this morning, she was seen sitting in the chair, pain is better controlled with Current pain medications, currently not enjoying hospital food. Medications: Medication Review Details: Generic Name Dose Route Start Last Admin Trade Name Freq PRN Reason Stop Dose Admin Amlodipine Besylat e 10 mg 01/23/22 09:40 01/23/22 09:52 Amlodipine 10 Mg Tablet PO 10 mg DAILY JANUARY Administration Artificial Tears 1 drop 01/23/22 09:00 01/23/22 09:53 Artificial Tears Op Soln 15 Ml Btl EYE-BOTH Not Given DAILY JANUARY Aspirin 81 mg 01/23/22 06:00 01/23/22 06:17 Aspirin 81 Mg Ch ew Tablet PO 81 mg DAILY@0600 JANUARY Administration Docusate Sodium 100 mg 01/23/22 08:00 01/23/22 08:37 Docusate Sodium 100 Mg Capsule PO 100 mg BID JANUARY Administration Enoxaparin Sodium 40 mg 01/22/22 18:00 01/22/22 19:01 Enoxaparin 40 Mg /0.4 Ml Syringe SUBCUT 40 mg Q24H JANUARY Administration Folic Acid 1 mg 01/23/22 09:00 01/23/22 08:37 Folic Acid 1 Mg Tablet PO 1 mg DAILY JANUARY Administration Ceftriaxone Sodium 1,000 mg/ 50 mls @ 100 mls/ hr 01/23/22 08:00 01/23/22 10:07 Sodium Chloride IV Infused Q24H [facility] Infusion Protocol Morphine Sulfate 2 mg 01/22/22 17:49 01/23/22 12:22 Morphine 4 Mg/Ml Sdv 1 Ml IVP 2 mg Q2H PRN Administration SEVERE PAIN Multivitamins Ther apeutic 1 tab 01/23/22 09:00 01/23/22 08:37 Multivitamin The rapeutic Tablet PO 1 tab DAILY JANUARY Administration Ondansetron HCl 4 mg 01/22/22 17:49 01/23/22 03:42 Ondansetron 2 Mg /Ml Sdv 2 Ml IVP 4 mg Q8H PRN Administration vomiting, or N/V if npo Oxycodone/Acetamin ophen 1 tab 01/22/22 17:49 01/23/22 09:52 Oxycodone-Apap 5 -325 Mg Tablet PO 1 tab Q4H PRN Administration SEVERE PAIN Sodium Chloride 1 gm 01/22/22 18:00 01/23/22 08:37 Sodium Chloride 1 Gm Tablet PO 1 gm BID JANUARY Administration Thiamine Mononitra te 100 mg 01/23/22 09:00 01/23/22 08:37 Thiamine 100 Mg Tablet PO 100 mg DAILY JANUARY Administration Thiamine Mononitra te 100 mg 01/23/22 09:00 01/23/22 08:37 Thiamine 100 Mg Tablet PO 100 mg DAILY JANUARY Administration Tiotropium [place] 18 mcg 01/23/22 08:00 01/23/22 08:09 Tiotropium 18 Mc g Mdi INHALATION 1 puff DAILY.RESPIRATORY JANUARY Administration Vitals/I&O/Wt Last Vital Signs Temp 98.3 F 01/24/22 07:33 Pulse 71 01/24/22 07:33 Resp 18 01/24/22 08:12 BP 134/83 01/24/22 07:33 Pulse Ox 94 01/24/22 08:12 01/23/22 01/24/22 01/24/22 22:59 06:59 14:59 Intake Total 800 / 850 360 / 360 Output Total 150 / 150 225 / 375 Balance 650 / 700 -225 / 475 360 / 360 Weight last 48 hrs Weight 49.442 kg Weight 45.359 kg Physical Exam Const: COMMON NORMALS: patient oriented x3 HENMT: COMMON NORMALS: normocephalic, atraumatic and external ears normal HEAD & SCALP: normocephalic and atraumatic EXTERNAL EAR: Yes external ears normal Eye: COMMON NORMALS: no scleral icterus Chest: COMMONS NORMALS: normal inspection of the chest and normal palpation of entire chest wall CHEST: Yes Symmetrical chest wall rise Resp: COMMON NORMALS: normal respiratory effort, No retractions, No use of accessory muscles and clear to auscultation bilaterally EFFORT & INSPECTION: Yes symmetric chest movement AUSCULTATION: clear to auscultation bilaterally Cardio: COMMON NORMALS: regular rate, regular rhythm, S1 normal heart sound present, S2 normal heart sound present, No gallops present (Cardio), No murmurs present (Cardio), No rub (Cardio) and Peripheral pulses 2+ throughout RATE: regular rate RHYTHM: regular rhythm HEART SOUNDS: S1 normal heart sound present and S2 normal heart sound present PERIPHERAL PULSES: Peripheral pulses 2+ throughout GI: COMMON NORMALS: Normal to inspection, nondistended, normoactive bowel sounds present, Soft to palpation, non-tender, No hepatosplenomegaly present and no masses AUSCULTATION: Yes normoactive bowel sounds PALPATION: Yes Soft to palpation and Yes No hepatosplenomegaly present RECTAL EXAM: deferred Extremity: COMMON NORMALS: no clubbing, cyanosis or edema and no pedal edema NARRATIVE EXTREMITY EXAM: rt hip pain. Neuro: COMMON NORMALS: patient oriented x3 Urinary Catheter Management: Tan: Cath Placed During This Visit: yes, but has since been removed by the nurse Reason for Continuing Indwelling Catheter: Other Urinary Catheter Date of Insertion: 01/23/22 Urinary Catheter Time of Insertion: 01:00 Date Urinary Catheter Removed: 01/24/22 Time Urinary Catheter Discontinued: 06:06 Data : 01/24/22 03:14 01/24/22 03:14 A&P Assessment and plan (1) Chronic hyponatremia: Status: Acute (2) Alcohol use: Status: Acute (3) Chronic pancreatitis: Status: Acute (4) Hypertension: Status: Acute (5) COPD (chronic obstructive pulmonary disease): Status: Acute (6) Acute hypokalemia: Status: Acute (7) Intertrochanteric fracture of right hip: Status: Acute Plan 61 year old female with past medical history of hypertension , COPD , smoking, chronic pancreatitis , likely alcohol-related chronic hyponatremia with baseline serum sodium around 125-130 , Came in with chief complaint of hip pain after experiencing a mechanical fall at home. Assessment #Acute intertrochanteric fracture of the right hip: N.p.o. after midnight Pain control Laxatives Orthopedic surgery consulted by ER #Chronic hyponatremia: Likely alcohol related, Currently serum sodium at its baseline Continue to monitor BMP Continue salt tablets Continue gentle IV hydration with normal saline 50 cc an hour A.m cortisol: 39.2 Random urine sodium:41 Urine specific gravity: 1.005 TSH: 3.62 Serum and urine osmolality. #Hypokalemia: Monitor and replace potassium #History of COPD: PFT consistent with both obstructive and restrictive lung disease. Continue home inhalers Duo nebs Supplemental oxygen as needed #History of chronic alcohol abuse: Currently on CIWA protocol Continue thiamine folic acid multivitamins #UTI : Follow up Urine Culture: E. coli Sensitive to Rochepin. Will discharge on p.o. levofloxacin to complete 5-day course of antibiotic. #History of chronic pancreatitis: #Hypertension: Continue amlodipine and labetalol #Chronic smoking: Continue nicotine patch #DVT prophylaxis: On Lovenox #CODE STATUS: Full code Disposition: Patient will be ready for discharge to home, by tomorrow. Attestations Medical Necessity Statement*: Patient is still in hospital for management of intertrochanteric fracture, postop. care Coding Level of Care Code Acute Unit Leader for [facility] Fwd Exam Comprehensive Diagnoses Chronic hyponatremia E87.1 Alcohol use Z72.89 Chronic pancreatitis K86.1 Hypertension I10 COPD (chronic obstructive pulmonary disease) J44.9 Acute hypokalemia E87.6 Intertrochanteric fracture of right hip S72.141A
[2022-01-24] MEDS: artificial tears Op Soln 15 mL Btl 1 DROP EYE-BOTH (13:23)
--- NOTE | 2022-01-24 13:26 | PC.NURSE ---
eye drops late due to pharmacy sending medication up.
--- NOTE | 2022-01-24 15:29 | PC.NURSE ---
Bladder scan showed 213. Patient voided 50 ml. Tan removed this am. Dr. Nguyen notified.
--- NOTE | 2022-01-24 17:08 | PC.NURSE ---
Patient right hip swelled and bruised. Applied ice off and on all day.
[2022-01-24] MEDS: atorvastatin 40 mg Tablet 80 MG PO (17:10)
[2022-01-24] MEDS: enoxaparin 40 mg/0.4 mL Syringe SUBCUT (17:10)
--- NOTE | 2022-01-24 18:01 | PM.PN ---
Subjective Subjective: Pain better this evening. Able to transfer to chair this morning. Slow to regain ambulation Vitals/I&O/Wt Last Vital Signs Temp 98.4 F 01/24/22 15:39 Pulse 88 01/24/22 15:39 Resp 18 01/24/22 17:41 BP 131/74 01/24/22 15:39 Pulse Ox 96 01/24/22 17:41 01/24/22 01/24/22 01/24/22 06:59 14:59 22:59 Intake Total 840 / 840 Output Total 225 / 375 50 / 50 50 / 100 Balance -225 / 475 790 / 790 -50 / 740 Weight last 48 hrs Weight 109 lb Physical Exam Narrative: Right hip dressings clean and dry. Expected swelling right thigh. Urinary Catheter Management: Tan: Cath Placed During This Visit: yes, but has since been removed by the nurse Reason for Continuing Indwelling Catheter: Other Urinary Catheter Date of Insertion: 01/23/22 Urinary Catheter Time of Insertion: 01:00 Date Urinary Catheter Removed: 01/24/22 Time Urinary Catheter Discontinued: 06:06 Data : 01/24/22 03:14 01/24/22 03:14 A&P Assessment and plan (1) Intertrochanteric fracture of right hip: Status: Acute (2) Status post open reduction with internal fixation of fracture: So far progress has been slow with therapy. She has a daughter at home and would like to be discharged home if at all possible. We will see how things go tomorrow. She may need nursing home. Status: Acute Attestations Medical Necessity Statement*: As per medicine Coding Level of Care Code Acute Patient Service Specialist for [facility] Diagnoses Intertrochanteric fracture of right hip S72.141A Status post open reduction with internal fixation of fracture Z98.890; Z87.81
[2022-01-24 18:02] LABS: Osmolality Urine 275 mOsm/kg (50-1200)
[2022-01-25] VITALS (15 sets, daily range): BP systolic 123–151; BP diastolic 60–76; PULSE 85–110; RESP 15–22; TEMP 36.8–37.2; O2SAT 90–95
[2022-01-25 02:42] LABS: Basophils % 0.2 %; Eosinophils # 0.1 10^3/uL (0.0-0.8); Eosinophils % 1.1 %; Hematocrit 24.4 % (37.0-47.0); Hemoglobin 7.8 g/dL (11.5-15.3); Lymphocytes # 1.3 10^3/uL (0.8-4.8); Lymphocytes % 15.8 %; Mean Corpuscular Hemoglobin 29.4 pg (28.0-34.0); Mean Corpuscular Volume 92.1 fl (81-99); Mean Platelet Volume 10.2 fL (7.4-10.4); Monocytes # 1.3 10^3/uL (0.2-0.9); Monocytes % 15.5 %; Neutrophils # 5.54 10^3/uL (1.8-7.7); Neutrophils % 67.2 %; Nucleated Red Blood Cells % 0 %; Platelet Count 204 10^3/cmm (130-400); Red Blood Count 2.65 10^6/uL (4.1-5.3); Red Cell Distribution Width 14.2 % (12.1-15.1); White Blood Count 8.3 10^3/uL (4.0-10.0)
[2022-01-25 03:07] LABS: Alanine Aminotransferase 7 U/L (0-33); Alkaline Phosphatase 86 IU/L (35-105); Anion Gap 12.7 (5-19); Aspartate Amino Transferase 13 U/L (0-32); Blood Urea Nitrogen 12 mg/dL (8-23); Calcium 8.9 mg/dL (8.5-10.5); Carbon Dioxide 24 mmol/L (22-29); Chloride 96 mmol/L (98-107); Globulin 2.9 g/dL (1.3-4.6); Glomerular Filtration Rate 161.7 mL/min (90-130); Glucose 137 mg/dL (65-115); Osmolality Calculated 270 mOsm/kg (285-295); Potassium 3.7 mmol/L (3.5-5.1); Sodium 129 mmol/L (136-145); Total Bilirubin 0.4 mg/dL (0.15-1.2); Total Protein 5.9 g/dL (6.6-8.7)
[2022-01-25] MEDS: oxyCODONE-APAP 5-325 mg Tablet 1 TAB PO ×5 (04:06→21:48)
[2022-01-25] MEDS: aspirin 81 mg Chew Tablet PO (04:59)
[2022-01-25] MEDS: sodium chloride 1 gm Tablet PO ×2 (08:20→17:34)
[2022-01-25] MEDS: folic acid 1 mg Tablet PO (08:20)
[2022-01-25] MEDS: multivitamin therapeutic Tablet 1 TAB PO (08:21)
[2022-01-25] MEDS: amlodipine 10 mg Tablet PO (08:21)
[2022-01-25] MEDS: docusate sodium 100 mg Capsule PO ×2 (08:21→17:34)
[2022-01-25] MEDS: cefTRIAXone 1,000 MG in sodium chloride 0.9% (plus) 50 ML 50 MG IV (08:22)
[2022-01-25] MEDS: artificial tears Op Soln 15 mL Btl 1 DROP EYE-BOTH (08:26)
--- NOTE | 2022-01-25 10:51 | PC.CHAP ---
Pastoral Care Encounter/Spiritual Assessment Type of Contact [] Declined 5th grade teacher visit [] Patient/Family/Request visit [] Outpatient visit [] Follow-up visit [] Physician referral [] Code/Alert [x] Routine visit [] Staff referral [] Actively dying [] Patient sleeping [] Family support [] [] Out of room [] Palliative care [] [] Receiving care in room [] Pre-surgical visit [] Trauma [] Long length of stay [] ICU visit [] Other: Relational/Emotional Strength [x] Patient feels connected with others/family/visitors/staff [] Distress [] Loneliness/isolation [] Abandonment Spirituality of Patient [x] Person of [place] [] Attends Rastafari of their [place] [x] Believes in Prayer [] Reads Bible or Adventism materials [] There are Spiritual issues to be addressed 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 Interventions [x] Prayer [x] Active listening [x] Non-anxious presence [x] Spiritual/emotional support [] Crisis/trauma care [] Spiritual counseling [] Bereavement support [] Provided bereavement packet [] Provided Bible/devotional materials [] Provided toy/stuffed animal, coloring book to patient or family member [] Provided Communion [] Anointing/[place] [] Salvation [x] Completed spiritual assessment [] Other: Impact on Illness or Injury [] Angry [] Fearful [] Anxious [] Often cries [] Exhaustion [] Unable to work [] Unable to attend synagogue [] Unable to walk/stand [] Unable to read [] Unable to drive [] Unable to eat/drink [] Unable to sleep [] Unable to be with family [] Patient intubated [] Other: Summary Pt has had surgery and is recovering but did complain of pain returning prior to time for more pain meds. 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 Time spent with patient 10m
--- NOTE | 2022-01-25 14:09 | P.PN_ITS ---
Subjective Subjective: Patient was seen and examined this morning, has significant swelling and redness in the thigh region She has difficulty with ambulation, has significant pain. Hemoglobin has also dropped to 7.8 today. Her other vitals and labs have been reviewed. Medications: Medication Review Details: Generic Name Dose Route Start Last Admin Trade Name Freq PRN Reason Stop Dose Admin Amlodipine Besylat e 10 mg 01/23/22 09:40 01/23/22 09:52 Amlodipine 10 Mg Tablet PO 10 mg DAILY JANUARY Administration Artificial Tears 1 drop 01/23/22 09:00 01/23/22 09:53 Artificial Tears Op Soln 15 Ml Btl EYE-BOTH Not Given DAILY JANUARY Aspirin 81 mg 01/23/22 06:00 01/23/22 06:17 Aspirin 81 Mg Ch ew Tablet PO 81 mg DAILY@0600 JANUARY Administration Docusate Sodium 100 mg 01/23/22 08:00 01/23/22 08:37 Docusate Sodium 100 Mg Capsule PO 100 mg BID JANUARY Administration Enoxaparin Sodium 40 mg 01/22/22 18:00 01/22/22 19:01 Enoxaparin 40 Mg /0.4 Ml Syringe SUBCUT 40 mg Q24H JANUARY Administration Folic Acid 1 mg 01/23/22 09:00 01/23/22 08:37 Folic Acid 1 Mg Tablet PO 1 mg DAILY JANUARY Administration Ceftriaxone Sodium 1,000 mg/ 50 mls @ 100 mls/ hr 01/23/22 08:00 01/23/22 10:07 Sodium Chloride IV Infused Q24H [facility] Infusion Protocol Morphine Sulfate 2 mg 01/22/22 17:49 01/23/22 12:22 Morphine 4 Mg/Ml Sdv 1 Ml IVP 2 mg Q2H PRN Administration SEVERE PAIN Multivitamins Ther apeutic 1 tab 01/23/22 09:00 01/23/22 08:37 Multivitamin The rapeutic Tablet PO 1 tab DAILY JANUARY Administration Ondansetron HCl 4 mg 01/22/22 17:49 01/23/22 03:42 Ondansetron 2 Mg /Ml Sdv 2 Ml IVP 4 mg Q8H PRN Administration vomiting, or N/V if npo Oxycodone/Acetamin ophen 1 tab 01/22/22 17:49 01/23/22 09:52 Oxycodone-Apap 5 -325 Mg Tablet PO 1 tab Q4H PRN Administration SEVERE PAIN Sodium Chloride 1 gm 01/22/22 18:00 01/23/22 08:37 Sodium Chloride 1 Gm Tablet PO 1 gm BID JANUARY Administration Thiamine Mononitra te 100 mg 01/23/22 09:00 01/23/22 08:37 Thiamine 100 Mg Tablet PO 100 mg DAILY JANUARY Administration Thiamine Mononitra te 100 mg 01/23/22 09:00 01/23/22 08:37 Thiamine 100 Mg Tablet PO 100 mg DAILY JANUARY Administration Tiotropium [place] 18 mcg 01/23/22 08:00 01/23/22 08:09 Tiotropium 18 Mc g Mdi INHALATION 1 puff DAILY.RESPIRATORY JANUARY Administration Vitals/I&O/Wt Last Vital Signs Temp 98.2 F 01/25/22 11:33 Pulse 85 01/25/22 11:33 Resp 18 01/25/22 13:05 BP 129/72 01/25/22 11:33 Pulse Ox 95 01/25/22 11:33 01/24/22 01/25/22 01/25/22 22:59 06:59 14:59 Intake Total 410 / 1250 770 / 770 Output Total 200 / 250 Balance 210 / 1000 770 / 770 Physical Exam Const: COMMON NORMALS: patient oriented x3 HENMT: COMMON NORMALS: normocephalic, atraumatic and external ears normal HEAD & SCALP: normocephalic and atraumatic EXTERNAL EAR: Yes external ears normal Eye: COMMON NORMALS: no scleral icterus Chest: COMMONS NORMALS: normal inspection of the chest and normal palpation of entire chest wall CHEST: Yes Symmetrical chest wall rise Resp: COMMON NORMALS: normal respiratory effort, No retractions, No use of accessory muscles and clear to auscultation bilaterally EFFORT & INSPECTION: Yes symmetric chest movement AUSCULTATION: clear to auscultation bilaterally Cardio: COMMON NORMALS: regular rate, regular rhythm, S1 normal heart sound present, S2 normal heart sound present, No gallops present (Cardio), No murmurs present (Cardio), No rub (Cardio) and Peripheral pulses 2+ throughout RATE: regular rate RHYTHM: regular rhythm HEART SOUNDS: S1 normal heart sound present and S2 normal heart sound present PERIPHERAL PULSES: Peripheral pulses 2+ throughout GI: COMMON NORMALS: Normal to inspection, nondistended, normoactive bowel sounds present, Soft to palpation, non-tender, No hepatosplenomegaly present and no masses AUSCULTATION: Yes normoactive bowel sounds PALPATION: Yes Soft to palpation and Yes No hepatosplenomegaly present RECTAL EXAM: deferred Extremity: COMMON NORMALS: no clubbing, cyanosis or edema and no pedal edema NARRATIVE EXTREMITY EXAM: rt hip pain. Neuro: COMMON NORMALS: patient oriented x3 Urinary Catheter Management: Tan: Cath Placed During This Visit: yes, but has since been removed by the nurse Reason for Continuing Indwelling Catheter: Other Urinary Catheter Date of Insertion: 01/23/22 Urinary Catheter Time of Insertion: 01:00 Date Urinary Catheter Removed: 01/24/22 Time Urinary Catheter Discontinued: 06:06 Data : 01/25/22 02:18 01/25/22 02:18 A&P Assessment and plan (1) Chronic hyponatremia: Status: Acute (2) Alcohol use: Status: Acute (3) Chronic pancreatitis: Status: Acute (4) Hypertension: Status: Acute (5) COPD (chronic obstructive pulmonary disease): Status: Acute (6) Acute hypokalemia: Status: Acute (7) Intertrochanteric fracture of right hip: Status: Acute Plan 61 year old female with past medical history of hypertension , COPD , smoking, chronic pancreatitis , likely alcohol-related chronic hyponatremia with baseline serum sodium around 125-130 , Came in with chief complaint of hip pain after experiencing a mechanical fall at home. Assessment #Acute intertrochanteric fracture of the right hip: N.p.o. after midnight Pain control Laxatives Orthopedic surgery consulted by ER #Chronic hyponatremia: Likely alcohol related, Currently serum sodium at its baseline Continue to monitor BMP Continue salt tablets Continue gentle IV hydration with normal saline 50 cc an hour A.m cortisol: 39.2 Random urine sodium:41 Urine specific gravity: 1.005 TSH: 3.62 Serum and urine osmolality. #Anemia: Acute blood loss anemia post surgery: Hemoglobin has down trended to 7.8, compared to 10.4 yesterday We will continue to monitor CBC Transfuse to maintain hemoglobin greater than 7 #Hypokalemia: Monitor and replace potassium #History of COPD: PFT consistent with both obstructive and restrictive lung disease. Continue home inhalers Duo nebs Supplemental oxygen as needed #History of chronic alcohol abuse: Currently on CIKY protocol Continue thiamine folic acid multivitamins #UTI : Follow up Urine Culture: E. coli Sensitive to Rochepin. Will discharge on p.o. levofloxacin to complete 5-day course of antibiotic. #History of chronic pancreatitis: #Hypertension: Continue amlodipine and labetalol #Chronic smoking: Continue nicotine patch #DVT prophylaxis: On Lovenox #CODE STATUS: Full code Disposition: Due to significant difficulty with ambulation, and in absence of proper home support. Patient will benefit from SNF placement. Attestations Medical Necessity Statement*: Patient is still in hospital for management of?? intertrochanteric fracture, postop. care, anemia monitoring, need for SNF Placement. 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
[2022-01-25] MEDS: atorvastatin 40 mg Tablet 80 MG PO (17:34)
[2022-01-25] MEDS: enoxaparin 40 mg/0.4 mL Syringe SUBCUT (17:34)
--- NOTE | 2022-01-25 17:54 | P.PN_ITS ---
Subjective Subjective: Complains of pain. Slow prgress with therapy. Vitals/I&O/Wt Last Vital Signs Temp 98.2 F 01/25/22 15:20 Pulse 110 H 01/25/22 15:20 Resp 18 01/25/22 17:34 BP 123/68 01/25/22 15:20 Pulse Ox 93 01/25/22 15:20 01/25/22 01/25/22 01/25/22 06:59 14:59 22:59 Intake Total 770 / 770 Balance 770 / 770 Physical Exam Narrative: Right hip incisions/dressings clean. Expected swelling right thigh Urinary Catheter Management: Tan: Cath Placed During This Visit: yes, but has since been removed by the nurse Reason for Continuing Indwelling Catheter: Other Urinary Catheter Date of Insertion: 01/23/22 Urinary Catheter Time of Insertion: 01:00 Date Urinary Catheter Removed: 01/24/22 Time Urinary Catheter Discontinued: 06:06 Data : 01/25/22 02:18 01/25/22 02:18 A&P Assessment and plan (1) Intertrochanteric fracture of right hip: Status: Acute (2) Status post open reduction with internal fixation of fracture: Slow progress with therapy. Awaiting SNF. No acute ortho issues. 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
[2022-01-26] VITALS (11 sets, daily range): BP systolic 115–131; BP diastolic 57–70; PULSE 79–91; RESP 14–18; TEMP 36.6–37.9; O2SAT 92–96
[2022-01-26] MEDS: aspirin 81 mg Chew Tablet PO (05:26)
[2022-01-26] MEDS: oxyCODONE-APAP 5-325 mg Tablet 1 TAB PO ×3 (05:42→16:57)
[2022-01-26] MEDS: cefTRIAXone 1,000 MG in sodium chloride 0.9% (plus) 50 ML 50 MG IV (08:24)
[2022-01-26] MEDS: thiamine 100 mg Tablet PO (08:25)
[2022-01-26] MEDS: docusate sodium 100 mg Capsule PO ×2 (08:25→16:57)
[2022-01-26] MEDS: artificial tears Op Soln 15 mL Btl 1 DROP EYE-BOTH (08:25)
[2022-01-26] MEDS: multivitamin therapeutic Tablet 1 TAB PO (08:25)
[2022-01-26] MEDS: folic acid 1 mg Tablet PO (08:25)
[2022-01-26] MEDS: sodium chloride 1 gm Tablet PO ×2 (08:25→16:57)
[2022-01-26] MEDS: amlodipine 10 mg Tablet PO (08:25)
--- NOTE | 2022-01-26 10:43 | P.PN_ITS ---
Subjective Subjective: Patient was seen and examined this morning, still has significant difficulty with ambulation. Medications: Medication Review Details: Generic Name Dose Route Start Last Admin Trade Name Freq PRN Reason Stop Dose Admin Amlodipine Besylat e 10 mg 01/23/22 09:40 01/23/22 09:52 Amlodipine 10 Mg Tablet PO 10 mg DAILY JANUARY Administration Artificial Tears 1 drop 01/23/22 09:00 01/23/22 09:53 Artificial Tears Op Soln 15 Ml Btl EYE-BOTH Not Given DAILY [facility] Aspirin 81 mg 01/23/22 06:00 01/23/22 06:17 Aspirin 81 Mg Ch ew Tablet PO 81 mg DAILY@0600 JANUARY Administration Docusate Sodium 100 mg 01/23/22 08:00 01/23/22 08:37 Docusate Sodium 100 Mg Capsule PO 100 mg BID [facility] Administration Enoxaparin Sodium 40 mg 01/22/22 18:00 01/22/22 19:01 Enoxaparin 40 Mg /0.4 Ml Syringe SUBCUT 40 mg Q24H [facility] Administration Folic Acid 1 mg 01/23/22 09:00 01/23/22 08:37 Folic Acid 1 Mg Tablet PO 1 mg DAILY [facility] Administration Ceftriaxone Sodium 1,000 mg/ 50 mls @ 100 mls/ hr 01/23/22 08:00 01/23/22 10:07 Sodium Chloride IV Infused Q24H [facility] Infusion Protocol Morphine Sulfate 2 mg 01/22/22 17:49 01/23/22 12:22 Morphine 4 Mg/Ml Sdv 1 Ml IVP 2 mg Q2H PRN Administration SEVERE PAIN Multivitamins Ther apeutic 1 tab 01/23/22 09:00 01/23/22 08:37 Multivitamin The rapeutic Tablet PO 1 tab DAILY JANUARY Administration Ondansetron HCl 4 mg 01/22/22 17:49 01/23/22 03:42 Ondansetron 2 Mg /Ml Sdv 2 Ml IVP 4 mg Q8H PRN Administration vomiting, or N/V if npo Oxycodone/Acetamin ophen 1 tab 01/22/22 17:49 01/23/22 09:52 Oxycodone-Apap 5 -325 Mg Tablet PO 1 tab Q4H PRN Administration SEVERE PAIN Sodium Chloride 1 gm 01/22/22 18:00 01/23/22 08:37 Sodium Chloride 1 Gm Tablet PO 1 gm BID JANUARY Administration Thiamine Mononitra te 100 mg 01/23/22 09:00 01/23/22 08:37 Thiamine 100 Mg Tablet PO 100 mg DAILY JANUARY Administration Thiamine Mononitra te 100 mg 01/23/22 09:00 01/23/22 08:37 Thiamine 100 Mg Tablet PO 100 mg DAILY JANUARY Administration Tiotropium [place] 18 mcg 01/23/22 08:00 01/23/22 08:09 Tiotropium 18 Mc g Mdi INHALATION 1 puff DAILY.RESPIRATORY JANUARY Administration Vitals/I&O/Wt Last Vital Signs Temp 97.8 F 01/26/22 07:34 Pulse 80 01/26/22 08:47 Resp 18 01/26/22 10:23 BP 116/64 01/26/22 07:34 Pulse Ox 96 01/26/22 08:47 01/25/22 01/26/22 01/26/22 22:59 06:59 14:59 Intake Total 680 / 1450 500 / 1950 290 / 290 Output Total 650 / 650 670 / 1320 Balance 30 / 800 -170 / 630 290 / 290 Physical Exam Const: COMMON NORMALS: patient oriented x3 HENMT: COMMON NORMALS: normocephalic, atraumatic and external ears normal HEAD & SCALP: normocephalic and atraumatic EXTERNAL EAR: Yes external ears normal Eye: COMMON NORMALS: no scleral icterus Chest: COMMONS NORMALS: normal inspection of the chest and normal palpation of entire chest wall CHEST: Yes Symmetrical chest wall rise Resp: COMMON NORMALS: normal respiratory effort, No retractions, No use of accessory muscles and clear to auscultation bilaterally EFFORT & INSPECTION: Yes symmetric chest movement AUSCULTATION: clear to auscultation bilaterally Cardio: COMMON NORMALS: regular rate, regular rhythm, S1 normal heart sound present, S2 normal heart sound present, No gallops present (Cardio), No murmurs present (Cardio), No rub (Cardio) and Peripheral pulses 2+ throughout RATE: regular rate RHYTHM: regular rhythm HEART SOUNDS: S1 normal heart sound present and S2 normal heart sound present PERIPHERAL PULSES: Peripheral pulses 2+ throughout GI: COMMON NORMALS: Normal to inspection, nondistended, normoactive bowel sounds present, Soft to palpation, non-tender, No hepatosplenomegaly present and no masses AUSCULTATION: Yes normoactive bowel sounds PALPATION: Yes Soft to palpation and Yes No hepatosplenomegaly present RECTAL EXAM: deferred Extremity: COMMON NORMALS: no clubbing, cyanosis or edema and no pedal edema NARRATIVE EXTREMITY EXAM: rt hip pain. Right hip redness and swelling present. Neuro: COMMON NORMALS: patient oriented x3 Urinary Catheter Management: Tan: Cath Placed During This Visit: yes, but has since been removed by the nurse Reason for Continuing Indwelling Catheter: Other Urinary Catheter Date of Insertion: 01/23/22 Urinary Catheter Time of Insertion: 01:00 Date Urinary Catheter Removed: 01/24/22 Time Urinary Catheter Discontinued: 06:06 Data : 01/25/22 02:18 01/25/22 02:18 A&P Assessment and plan (1) Chronic hyponatremia: Status: Acute (2) Alcohol use: Status: Acute (3) Chronic pancreatitis: Status: Acute (4) Hypertension: Status: Acute (5) COPD (chronic obstructive pulmonary disease): Status: Acute (6) Acute hypokalemia: Status: Acute (7) Intertrochanteric fracture of right hip: Status: Acute Plan 61 year old female with past medical history of hypertension , COPD , smoking, chronic pancreatitis , likely alcohol-related chronic hyponatremia with baseline serum sodium around 125-130 , Came in with chief complaint of hip pain after experiencing a mechanical fall at home. Assessment #Acute intertrochanteric fracture of the right hip: N.p.o. after midnight Pain control Laxatives Orthopedic surgery consulted by ER #Chronic hyponatremia: Likely alcohol related, Currently serum sodium at its baseline Continue to monitor BMP Continue salt tablets Continue gentle IV hydration with normal saline 50 cc an hour A.m cortisol: 39.2 Random urine sodium:41 Urine specific gravity: 1.005 TSH: 3.62 Serum and urine osmolality. #Anemia: Acute blood loss anemia post surgery: Hemoglobin has down trended to 7.8, compared to 10.4 yesterday We will continue to monitor CBC Transfuse to maintain hemoglobin greater than 7 #Hypokalemia: Monitor and replace potassium #History of COPD: PFT consistent with both obstructive and restrictive lung disease. Continue home inhalers Duo nebs Supplemental oxygen as needed #History of chronic alcohol abuse: Currently on CIWA protocol Continue thiamine folic acid multivitamins #UTI : Follow up Urine Culture: E. coli Sensitive to Rochepin. Will discharge on p.o. levofloxacin to complete 5-day course of antibiotic. #History of chronic pancreatitis: #Hypertension: Continue amlodipine and labetalol #Chronic smoking: Continue nicotine patch #DVT prophylaxis: On Lovenox #CODE STATUS: Full code Disposition: Due to significant difficulty with ambulation, and in absence of proper home support. Patient will benefit from SNF placement. Attestations Medical Necessity Statement*: Patient is still in hospital for management of?? intertrochanteric fracture, postop. care, anemia monitoring, need for SNF Placement. Coding Level of Care Code Acute Supervisor Blood Donor Recruiters for g Fwd Exam Comprehensive Diagnoses Chronic hyponatremia E87.1 Alcohol use Z72.89 Chronic pancreatitis K86.1 Hypertension I10 COPD (chronic obstructive pulmonary disease) J44.9 Acute hypokalemia E87.6 Intertrochanteric fracture of right hip S72.141A
--- NOTE | 2022-01-26 14:16 | PM.PN ---
Subjective Subjective: Serene continues with right hip pain. Able to move to end of bed not much further Vitals/I&O/Wt Last Vital Signs Temp 98.2 F 01/26/22 11:35 Pulse 81 01/26/22 11:35 Resp 18 01/26/22 11:35 BP 121/57 01/26/22 11:35 Pulse Ox 94 01/26/22 11:35 01/25/22 01/26/22 01/26/22 22:59 06:59 14:59 Intake Total 680 / 1450 500 / 1950 650 / 650 Output Total 650 / 650 670 / 1320 Balance 30 / 800 -170 / 630 650 / 650 Physical Exam Narrative: Hip dressings clean and dry Urinary Catheter Management: Tan: Cath Placed During This Visit: yes, but has since been removed by the nurse Reason for Continuing Indwelling Catheter: Other Urinary Catheter Date of Insertion: 01/23/22 Urinary Catheter Time of Insertion: 01:00 Date Urinary Catheter Removed: 01/24/22 Time Urinary Catheter Discontinued: 06:06 Data : 01/25/22 02:18 01/25/22 02:18 A&P Assessment and plan (1) Status post open reduction with internal fixation of fracture: Continue to mobilize with physical therapy. Will need residential/care home transfer Status: Acute Attestations Medical Necessity Statement*: Okay for discharge to residential/care home per Ortho Coding Level of Care Code Acute Customs Collector for Sergio Chow Diagnoses Status post open reduction with internal fixation of fracture Z98.890; Z87.81
[2022-01-26 16:47] LABS: Basophils % 0.2 %; Eosinophils # 0.2 10^3/uL (0.0-0.8); Eosinophils % 2.2 %; Hematocrit 21.9 % (37.0-47.0); Hemoglobin 7.1 g/dL (11.5-15.3); Lymphocytes # 1.4 10^3/uL (0.8-4.8); Lymphocytes % 17.3 %; Mean Corpuscular HGB Conc 32.4 g/dL (30.0-36.0); Mean Corpuscular Volume 92.4 fl (81-99); Mean Platelet Volume 9.5 fL (7.4-10.4); Monocytes # 1.4 10^3/uL (0.2-0.9); Monocytes % 17.2 %; Neutrophils # 5.13 10^3/uL (1.8-7.7); Neutrophils % 62.6 %; Nucleated Red Blood Cells % 0 %; Platelet Count 292 10^3/cmm (130-400); Red Blood Count 2.37 10^6/uL (4.1-5.3); Red Cell Distribution Width 14.1 % (12.1-15.1); White Blood Count 8.2 10^3/uL (4.0-10.0)
[2022-01-26] MEDS: enoxaparin 40 mg/0.4 mL Syringe SUBCUT (16:56)
[2022-01-26] MEDS: atorvastatin 40 mg Tablet 80 MG PO (16:56)
[2022-01-26] MEDS: HYDROcodone-acetaminophen 5-325 mg Tablet 1 TAB PO (21:19)
[2022-01-27] VITALS (18 sets, daily range): BP systolic 117–160; BP diastolic 63–79; PULSE 77–87; RESP 16–20; TEMP 36.4–37.7; O2SAT 90–99
[2022-01-27] MEDS: HYDROcodone-acetaminophen 5-325 mg Tablet 1 TAB PO ×4 (02:42→18:35)
[2022-01-27 03:05] LABS: Basophils % 0.4 %; Eosinophils # 0.3 10^3/uL (0.0-0.8); Eosinophils % 3.6 %; Hematocrit 20.9 % (37.0-47.0); Hemoglobin 6.7 g/dL (11.5-15.3); Lymphocytes # 1.5 10^3/uL (0.8-4.8); Lymphocytes % 18.7 %; Mean Corpuscular HGB Conc 32.1 g/dL (30.0-36.0); Mean Corpuscular Hemoglobin 29.1 pg (28.0-34.0); Mean Corpuscular Volume 90.9 fl (81-99); Mean Platelet Volume 9.8 fL (7.4-10.4); Monocytes # 1.4 10^3/uL (0.2-0.9); Monocytes % 17.6 %; Neutrophils % 59.2 %; Nucleated Red Blood Cells % 0 %; Platelet Count 319 10^3/cmm (130-400); Red Cell Distribution Width 14.1 % (12.1-15.1)
[2022-01-27 03:31] LABS: Anion Gap 12.7 (5-19); Blood Urea Nitrogen 7 mg/dL (8-23); Calcium 8.2 mg/dL (8.5-10.5); Carbon Dioxide 26 mmol/L (22-29); Chloride 95 mmol/L (98-107); Glomerular Filtration Rate 161.7 mL/min (90-130); Glucose 125 mg/dL (65-115); Osmolality Calculated 269 mOsm/kg (285-295); Potassium 3.7 mmol/L (3.5-5.1); Sodium 130 mmol/L (136-145)
[2022-01-27] MEDS: aspirin 81 mg Chew Tablet PO (05:35)
[2022-01-27] MEDS: cefTRIAXone 1,000 MG in sodium chloride 0.9% (plus) 50 ML 100 MG IV (07:49)
[2022-01-27] MEDS: docusate sodium 100 mg Capsule PO ×2 (07:55→18:35)
[2022-01-27] MEDS: sodium chloride 1 gm Tablet PO ×2 (07:55→18:35)
[2022-01-27] MEDS: thiamine 100 mg Tablet PO (07:55)
[2022-01-27] MEDS: multivitamin therapeutic Tablet 1 TAB PO (07:55)
[2022-01-27] MEDS: amlodipine 10 mg Tablet PO (07:55)
[2022-01-27] MEDS: folic acid 1 mg Tablet PO (07:56)
--- NOTE | 2022-01-27 15:22 | PM.PN ---
Subjective Subjective: Patient was seen and examined this morning, still not participating a lot with ambulation, Hemoglobin is dropped to 6.7 today, current plan is to transfuse her 1 unit PRBC. Medications: Medication Review Details: Generic Name Dose Route Start Last Admin Trade Name Freq PRN Reason Stop Dose Admin Amlodipine Besylat e 10 mg 01/23/22 09:40 01/23/22 09:52 Amlodipine 10 Mg Tablet PO 10 mg DAILY JANUARY Administration Artificial Tears 1 drop 01/23/22 09:00 01/23/22 09:53 Artificial Tears Op Soln 15 Ml Btl EYE-BOTH Not Given DAILY [facility]ARY Aspirin 81 mg 01/23/22 06:00 01/23/22 06:17 Aspirin 81 Mg Ch ew Tablet PO 81 mg DAILY@0600 JANUARY Administration Docusate Sodium 100 mg 01/23/22 08:00 01/23/22 08:37 Docusate Sodium 100 Mg Capsule PO 100 mg BID JANUARY Administration Enoxaparin Sodium 40 mg 01/22/22 18:00 01/22/22 19:01 Enoxaparin 40 Mg /0.4 Ml Syringe SUBCUT 40 mg Q24H JANUARY Administration Folic Acid 1 mg 01/23/22 09:00 01/23/22 08:37 Folic Acid 1 Mg Tablet PO 1 mg DAILY JANUARY Administration Ceftriaxone Sodium 1,000 mg/ 50 mls @ 100 mls/ hr 01/23/22 08:00 01/23/22 10:07 Sodium Chloride IV Infused Q24H [facility] Infusion Protocol Morphine Sulfate 2 mg 01/22/22 17:49 01/23/22 12:22 Morphine 4 Mg/Ml Sdv 1 Ml IVP 2 mg Q2H PRN Administration SEVERE PAIN Multivitamins Ther apeutic 1 tab 01/23/22 09:00 01/23/22 08:37 Multivitamin The rapeutic Tablet PO 1 tab DAILY JANUARY Administration Ondansetron HCl 4 mg 01/22/22 17:49 01/23/22 03:42 Ondansetron 2 Mg /Ml Sdv 2 Ml IVP 4 mg Q8H PRN Administration vomiting, or N/V if npo Oxycodone/Acetamin ophen 1 tab 01/22/22 17:49 01/23/22 09:52 Oxycodone-Apap 5 -325 Mg Tablet PO 1 tab Q4H PRN Administration SEVERE PAIN Sodium Chloride 1 gm 01/22/22 18:00 01/23/22 08:37 Sodium Chloride 1 Gm Tablet PO 1 gm BID JANUARY Administration Thiamine Mononitra te 100 mg 01/23/22 09:00 01/23/22 08:37 Thiamine 100 Mg Tablet PO 100 mg DAILY JANUARY Administration Thiamine Mononitra te 100 mg 01/23/22 09:00 01/23/22 08:37 Thiamine 100 Mg Tablet PO 100 mg DAILY JANUARY Administration Tiotropium [place] 18 mcg 01/23/22 08:00 01/23/22 08:09 Tiotropium 18 Mc g Mdi INHALATION 1 puff DAILY.RESPIRATORY JANUARY Administration Vitals/I&O/Wt Last Vital Signs Temp 98.5 F 01/27/22 15:04 Pulse 82 01/27/22 15:04 Resp 16 01/27/22 15:04 BP 142/72 01/27/22 15:04 Pulse Ox 95 01/27/22 15:04 01/27/22 01/27/22 01/27/22 06:59 14:59 22:59 Intake Total 240 / 1130 1770 / 1770 Output Total 1150 / 1150 Balance -910 / -20 1770 / 1770 Physical Exam Const: COMMON NORMALS: patient oriented x3 HENMT: COMMON NORMALS: normocephalic, atraumatic and external ears normal HEAD & SCALP: normocephalic and atraumatic EXTERNAL EAR: Yes external ears normal Eye: COMMON NORMALS: no scleral icterus Chest: COMMONS NORMALS: normal inspection of the chest and normal palpation of entire chest wall CHEST: Yes Symmetrical chest wall rise Resp: COMMON NORMALS: normal respiratory effort, No retractions, No use of accessory muscles and clear to auscultation bilaterally EFFORT & INSPECTION: Yes symmetric chest movement AUSCULTATION: clear to auscultation bilaterally Cardio: COMMON NORMALS: regular rate, regular rhythm, S1 normal heart sound present, S2 normal heart sound present, No gallops present (Cardio), No murmurs present (Cardio), No rub (Cardio) and Peripheral pulses 2+ throughout RATE: regular rate RHYTHM: regular rhythm HEART SOUNDS: S1 normal heart sound present and S2 normal heart sound present PERIPHERAL PULSES: Peripheral pulses 2+ throughout GI: COMMON NORMALS: Normal to inspection, nondistended, normoactive bowel sounds present, Soft to palpation, non-tender, No hepatosplenomegaly present and no masses AUSCULTATION: Yes normoactive bowel sounds PALPATION: Yes Soft to palpation and Yes No hepatosplenomegaly present RECTAL EXAM: deferred Extremity: COMMON NORMALS: no clubbing, cyanosis or edema and no pedal edema NARRATIVE EXTREMITY EXAM: rt hip pain. Right hip redness and swelling present. Neuro: COMMON NORMALS: patient oriented x3 Urinary Catheter Management: Tan: Cath Placed During This Visit: yes, but has since been removed by the nurse Reason for Continuing Indwelling Catheter: Other Urinary Catheter Date of Insertion: 01/23/22 Urinary Catheter Time of Insertion: 01:00 Date Urinary Catheter Removed: 01/24/22 Time Urinary Catheter Discontinued: 06:06 Data : 01/27/22 02:20 01/27/22 02:20 A&P Assessment and plan (1) Chronic hyponatremia: Status: Acute (2) Alcohol use: Status: Acute (3) Chronic pancreatitis: Status: Acute (4) Hypertension: Status: Acute (5) COPD (chronic obstructive pulmonary disease): Status: Acute (6) Acute hypokalemia: Status: Acute (7) Intertrochanteric fracture of right hip: Status: Acute Plan 61 year old female with past medical history of hypertension , COPD , smoking, chronic pancreatitis , likely alcohol-related chronic hyponatremia with baseline serum sodium around 125-130 , Came in with chief complaint of hip pain after experiencing a mechanical fall at home. Assessment #Acute intertrochanteric fracture of the right hip: N.p.o. after midnight Pain control Laxatives Orthopedic surgery consulted by ER #Chronic hyponatremia: Likely alcohol related, Currently serum sodium at its baseline Continue to monitor BMP Continue salt tablets Continue gentle IV hydration with normal saline 50 cc an hour A.m cortisol: 39.2 Random urine sodium:41 Urine specific gravity: 1.005 TSH: 3.62 Serum and urine osmolality. #Anemia: Acute blood loss anemia post surgery: Hemoglobin has down trended further to 6.7 . Transfuse 1 unit PRBC today We will continue to monitor CBC Transfuse to maintain hemoglobin greater than 7 #Hypokalemia: Monitor and replace potassium #History of COPD: PFT consistent with both obstructive and restrictive lung disease. Continue home inhalers Duo nebs Supplemental oxygen as needed #History of chronic alcohol abuse: Currently on CIWA protocol Continue thiamine folic acid multivitamins #UTI : Follow up Urine Culture: E. coli Sensitive to Rochepin. Will discharge on p.o. levofloxacin to complete 5-day course of antibiotic. #History of chronic pancreatitis: #Hypertension: Continue amlodipine and labetalol #Chronic smoking: Continue nicotine patch #DVT prophylaxis: On Lovenox #CODE STATUS: Full code Disposition: Due to significant difficulty with ambulation, and in absence of proper home support. Patient will benefit from SNF placement. Attestations Medical Necessity Statement*: Patient is still in hospital for ma nagement of??inter trochanteric fract ure, postop. care, anemia monitoring , need for SNF [employer]. Coding Level of Care Code Acute Scientific Research Associate for Sergio Fwd Diagnoses Chronic hyponatremia E87.1 Alcohol use Z72.89 Chronic pancreatitis K86.1 Hypertension I10 COPD (chronic obstructive pulmonary disease) J44.9 Acute hypokalemia E87.6 Intertrochanteric fracture of right hip S72.141A
[2022-01-27 17:54] LABS: Hemoglobin 8.8 g/dL (11.5-15.3)
[2022-01-27] MEDS: enoxaparin 40 mg/0.4 mL Syringe SUBCUT (18:35)
[2022-01-27] MEDS: atorvastatin 40 mg Tablet 80 MG PO (18:35)
[2022-01-27] MEDS: morphine 4 mg/mL SDV 1 mL 2 MG IVP (20:44)
[2022-01-28] VITALS (7 sets, daily range): BP systolic 135–158; BP diastolic 72–77; PULSE 60–86; RESP 16–18; TEMP 36.4–37.6; O2SAT 94–98
[2022-01-28] MEDS: morphine 4 mg/mL SDV 1 mL 2 MG IVP (02:27)
[2022-01-28 03:02] LABS: Basophils % 0.4 %; Eosinophils # 0.4 10^3/uL (0.0-0.8); Hematocrit 27.8 % (37.0-47.0); Hemoglobin 9.2 g/dL (11.5-15.3); Lymphocytes # 1.4 10^3/uL (0.8-4.8); Lymphocytes % 16.5 %; Mean Corpuscular HGB Conc 33.1 g/dL (30.0-36.0); Mean Corpuscular Volume 90.6 fl (81-99); Mean Platelet Volume 9.6 fL (7.4-10.4); Monocytes # 1.3 10^3/uL (0.2-0.9); Monocytes % 15.5 %; Neutrophils % 62.2 %; Nucleated Red Blood Cells % 0 %; Platelet Count 399 10^3/cmm (130-400); Red Blood Count 3.07 10^6/uL (4.1-5.3); Red Cell Distribution Width 13.6 % (12.1-15.1); White Blood Count 8.5 10^3/uL (4.0-10.0)
[2022-01-28 03:22] LABS: Blood Urea Nitrogen 8 mg/dL (8-23); Calcium 9.6 mg/dL (8.5-10.5); Carbon Dioxide 25 mmol/L (22-29); Chloride 93 mmol/L (98-107); Glomerular Filtration Rate 161.7 mL/min (90-130); Glucose 122 mg/dL (65-115); Osmolality Calculated 270 mOsm/kg (285-295); Sodium 130 mmol/L (136-145)
[2022-01-28] MEDS: aspirin 81 mg Chew Tablet PO (05:58)
--- NOTE | 2022-01-28 07:51 | P.PN_ITS ---
Subjective Subjective: Patient up with therapy this am. So far progress slow Vitals/I&O/Wt Last Vital Signs Temp 98.0 F 01/28/22 04:00 Pulse 60 01/28/22 07:30 Resp 16 01/28/22 07:30 BP 154/72 01/28/22 04:00 Pulse Ox 96 01/28/22 07:30 01/27/22 01/28/22 01/28/22 22:59 06:59 14:59 Intake Total 350 / 2120 240 / 2360 Output Total 660 / 660 Balance 350 / 2120 -420 / 1700 Physical Exam Narrative: Dressings clean and dry Urinary Catheter Management: Tan: Cath Placed During This Visit: yes, but has since been removed by the nurse Reason for Continuing Indwelling Catheter: Other Urinary Catheter Date of Insertion: 01/23/22 Urinary Catheter Time of Insertion: 01:00 Date Urinary Catheter Removed: 01/24/22 Time Urinary Catheter Discontinued: 06:06 Data : 01/28/22 02:19 01/28/22 02:19 A&P Assessment and plan (1) Status post open reduction with internal fixation of fracture: Awaiting placement. Status: Acute (2) Intertrochanteric fracture of right hip: Status: Acute Attestations Medical Necessity Statement*: OK for discharge per ortho Coding Level of Care Code Acute Electrotyper Apprentice for Sergio Chow Diagnoses Status post open reduction with internal fixation of fracture Z98.890; Z87.81 Intertrochanteric fracture of right hip S72.141A
[2022-01-28] MEDS: cefTRIAXone 1,000 MG in sodium chloride 0.9% (plus) 50 ML 100 MG IV (09:23)
[2022-01-28] MEDS: HYDROcodone-acetaminophen 5-325 mg Tablet 1 TAB PO ×2 (09:23→17:57)
[2022-01-28] MEDS: thiamine 100 mg Tablet PO ×2 (09:23→09:24)
[2022-01-28] MEDS: docusate sodium 100 mg Capsule PO (09:23)
[2022-01-28] MEDS: sodium chloride 1 gm Tablet PO (09:23)
[2022-01-28] MEDS: multivitamin therapeutic Tablet 1 TAB PO (09:23)
[2022-01-28] MEDS: folic acid 1 mg Tablet PO (09:24)
[2022-01-28] MEDS: amlodipine 10 mg Tablet PO (09:24)
[2022-01-28] MEDS: artificial tears Op Soln 15 mL Btl 1 DROP EYE-BOTH (10:37)
--- NOTE | 2022-01-28 15:33 | P.PN_ITS ---
Subjective Subjective: Patient was seen and examined this morning, still not participating a lot with ambulation, Hemoglobin is dropped to 6.7 today, current plan is to transfuse her 1 unit PRBC. Medications: Medication Review Details: Generic Name Dose Route Start Last Admin Trade Name Freq PRN Reason Stop Dose Admin Amlodipine Besylat e 10 mg 01/23/22 09:40 01/23/22 09:52 Amlodipine 10 Mg Tablet PO 10 mg DAILY JANUARY Administration Artificial Tears 1 drop 01/23/22 09:00 01/23/22 09:53 Artificial Tears Op Soln 15 Ml Btl EYE-BOTH Not Given DAILY JANUARY Aspirin 81 mg 01/23/22 06:00 01/23/22 06:17 Aspirin 81 Mg Ch ew Tablet PO 81 mg DAILY@0600 JANUARY Administration Docusate Sodium 100 mg 01/23/22 08:00 01/23/22 08:37 Docusate Sodium 100 Mg Capsule PO 100 mg BID JANUARY Administration Enoxaparin Sodium 40 mg 01/22/22 18:00 01/22/22 19:01 Enoxaparin 40 Mg /0.4 Ml Syringe SUBCUT 40 mg Q24H JANUARY Administration Folic Acid 1 mg 01/23/22 09:00 01/23/22 08:37 Folic Acid 1 Mg Tablet PO 1 mg DAILY JANUARY Administration Ceftriaxone Sodium 1,000 mg/ 50 mls @ 100 mls/ hr 01/23/22 08:00 01/23/22 10:07 Sodium Chloride IV Infused Q24H [facility] Infusion Protocol Morphine Sulfate 2 mg 01/22/22 17:49 01/23/22 12:22 Morphine 4 Mg/Ml Sdv 1 Ml IVP 2 mg Q2H PRN Administration SEVERE PAIN Multivitamins Ther apeutic 1 tab 01/23/22 09:00 01/23/22 08:37 Multivitamin The rapeutic Tablet PO 1 tab DAILY JANUARY Administration Ondansetron HCl 4 mg 01/22/22 17:49 01/23/22 03:42 Ondansetron 2 Mg /Ml Sdv 2 Ml IVP 4 mg Q8H PRN Administration vomiting, or N/V if npo Oxycodone/Acetamin ophen 1 tab 01/22/22 17:49 01/23/22 09:52 Oxycodone-Apap 5 -325 Mg Tablet PO 1 tab Q4H PRN Administration SEVERE PAIN Sodium Chloride 1 gm 01/22/22 18:00 01/23/22 08:37 Sodium Chloride 1 Gm Tablet PO 1 gm BID JANUARY Administration Thiamine Mononitra te 100 mg 01/23/22 09:00 01/23/22 08:37 Thiamine 100 Mg Tablet PO 100 mg DAILY JANUARY Administration Thiamine Mononitra te 100 mg 01/23/22 09:00 01/23/22 08:37 Thiamine 100 Mg Tablet PO 100 mg DAILY JANUARY Administration Tiotropium [place] 18 mcg 01/23/22 08:00 01/23/22 08:09 Tiotropium 18 Mc g Mdi INHALATION 1 puff DAILY.RESPIRATORY JANUARY Administration Vitals/I&O/Wt Last Vital Signs Temp 98.1 F 01/28/22 11:26 Pulse 81 01/28/22 11:26 Resp 16 01/28/22 11:26 BP 158/77 01/28/22 11:26 Pulse Ox 94 01/28/22 11:26 01/28/22 01/28/22 01/28/22 06:59 14:59 22:59 Intake Total 240 / 2360 290 / 290 Output Total 660 / 660 Balance -420 / 1700 290 / 290 Physical Exam Const: COMMON NORMALS: patient oriented x3 HENMT: COMMON NORMALS: normocephalic, atraumatic and external ears normal HEAD & SCALP: normocephalic and atraumatic EXTERNAL EAR: Yes external ears normal Eye: COMMON NORMALS: no scleral icterus Chest: COMMONS NORMALS: normal inspection of the chest and normal palpation of entire chest wall CHEST: Yes Symmetrical chest wall rise Resp: COMMON NORMALS: normal respiratory effort, No retractions, No use of accessory muscles and clear to auscultation bilaterally EFFORT & INSPECTION: Yes symmetric chest movement AUSCULTATION: clear to auscultation bilaterally Cardio: COMMON NORMALS: regular rate, regular rhythm, S1 normal heart sound present, S2 normal heart sound present, No gallops present (Cardio), No murmurs present (Cardio), No rub (Cardio) and Peripheral pulses 2+ throughout RATE: regular rate RHYTHM: regular rhythm HEART SOUNDS: S1 normal heart sound present and S2 normal heart sound present PERIPHERAL PULSES: Peripheral pulses 2+ throughout GI: COMMON NORMALS: Normal to inspection, nondistended, normoactive bowel sounds present, Soft to palpation, non-tender, No hepatosplenomegaly present and no masses AUSCULTATION: Yes normoactive bowel sounds PALPATION: Yes Soft to palpation and Yes No hepatosplenomegaly present RECTAL EXAM: deferred Extremity: COMMON NORMALS: no clubbing, cyanosis or edema and no pedal edema NARRATIVE EXTREMITY EXAM: rt hip pain. Right hip redness and swelling present. Neuro: COMMON NORMALS: patient oriented x3 Urinary Catheter Management: Tan: Cath Placed During This Visit: yes, but has since been removed by the nurse Reason for Continuing Indwelling Catheter: Other Urinary Catheter Date of Insertion: 01/23/22 Urinary Catheter Time of Insertion: 01:00 Date Urinary Catheter Removed: 01/24/22 Time Urinary Catheter Discontinued: 06:06 Data : 01/28/22 02:19 01/28/22 02:19 A&P Assessment and plan (1) Chronic hyponatremia: Status: Acute (2) Alcohol use: Status: Acute (3) Chronic pancreatitis: Status: Acute (4) Hypertension: Status: Acute (5) COPD (chronic obstructive pulmonary disease): Status: Acute (6) Acute hypokalemia: Status: Acute (7) Intertrochanteric fracture of right hip: Status: Acute Plan 61 year old female with past medical history of hypertension , COPD , smoking, chronic pancreatitis , likely alcohol-related chronic hyponatremia with baseline serum sodium around 125-130 , Came in with chief complaint of hip pain after experiencing a mechanical fall at home. Assessment #Acute intertrochanteric fracture of the right hip: N.p.o. after midnight Pain control Laxatives Orthopedic surgery consulted by ER #Chronic hyponatremia: Likely alcohol related, Currently serum sodium at its baseline Continue to monitor BMP Continue salt tablets Continue gentle IV hydration with normal saline 50 cc an hour A.m cortisol: 39.2 Random urine sodium:41 Urine specific gravity: 1.005 TSH: 3.62 Serum and urine osmolality. #Anemia: Acute blood loss anemia post surgery: Hemoglobin has down trended further to 6.7 . Transfuse 1 unit PRBC today We will continue to monitor CBC Transfuse to maintain hemoglobin greater than 7 #Hypokalemia: Monitor and replace potassium #History of COPD: PFT consistent with both obstructive and restrictive lung disease. Continue home inhalers Duo nebs Supplemental oxygen as needed #History of chronic alcohol abuse: Currently on CIWA protocol Continue thiamine folic acid multivitamins #UTI : Follow up Urine Culture: E. coli Sensitive to Rochepin. Will discharge on p.o. levofloxacin to complete 5-day course of antibiotic. #History of chronic pancreatitis: #Hypertension: Continue amlodipine and labetalol #Chronic smoking: Continue nicotine patch #DVT prophylaxis: On Lovenox #CODE STATUS: Full code Disposition: Due to significant difficulty with ambulation, and in absence of proper home support. Patient will benefit from SNF placement. Coding Level of Care Code Acute Commercial Sales Director for Sergio Chow Diagnoses Chronic hyponatremia E87.1 Alcohol use Z72.89 Chronic pancreatitis K86.1 Hypertension I10 COPD (chronic obstructive pulmonary disease) J44.9 Acute hypokalemia E87.6 Intertrochanteric fracture of right hip S72.141A
--- NOTE | 2022-01-28 16:31 | P.DS_ITS ---
Discharge Providers Date of Admission: 01/22/22 17:19 Date of Discharge: January 28, 2022 Attending Provider at Admission: Salomon Nguyen MD Attending Provider at Discharge: Salomon Nguyen MD Primary Care Provider: Sid Harris MD Diagnoses at Discharge Discharge Diagnosis (1) Chronic hyponatremia: Status: Acute (2) Alcohol use: Status: Acute (3) Chronic pancreatitis: Status: Acute (4) Hypertension: Status: Acute (5) COPD (chronic obstructive pulmonary disease): Status: Acute (6) Acute hypokalemia: Status: Resolved (7) Intertrochanteric fracture of right hip: Status: Acute Reason for Visit Reason for Visit: RIGHT HIP PAIN S/P FALL Hospital Course Hospital Course History of Present Illness Serene Alcaraz is a 61 year old female with past medical history of hypertension , COPD , smoking, chronic pancreatitis , likely alcohol-related chronic hyponatremia with baseline serum sodium around 125-130 , Came in with chief complaint of hip pain after experiencing a mechanical fall at home,Patient was turning around in her kitchen when she is fell. Preceding to that episode patient denies any chest pain shortness of breath nausea dizziness palpitation lightheadedness. Last alcohol drink this morning. In the ER she was worked up for above-mentioned complaint: Imaging studies:; CT head without contrast: No acute intracranial pathology X-ray right hip:?Acute intertrochanteric fracture of the right hip. X-ray chest: No infiltrates no effusion no pneumothorax Pertinent labs: WBC 3.7 H&H: 13.6 / 41.1 PLT : 293 , serum sodium 127 serum potassium 3.1, BUN and serum creatinine : 15/7 , Urinalysis pending. Patient was given a dose of morphine in the ER. Orthopedic surgeon was consulted by the ER physician, plans to take him to the OR in the morning. Hospital Course : She was admitted for the management of Acute intertrochanteric fracture of the right hip: s/p ORIF. Patient did well.She was discharged home with home health. She was continued to be managed for her other comorbid condtions during the hospital. She was discharged in stable condition to home. Physical Exam Const: COMMON NORMALS: patient oriented x3 HENMT: COMMON NORMALS: normocephalic, atraumatic, hearing grossly normal bilaterally and external ears normal HEAD & SCALP: normocephalic and atraumatic EXTERNAL EAR: Yes external ears normal Eye: COMMON NORMALS: no scleral icterus GENERAL EYE: appearance normal, both eyes and all related structures Chest: COMMONS NORMALS: normal inspection of the chest and normal palpation of entire chest wall CHEST: Yes Symmetrical chest wall rise Resp: COMMON NORMALS: normal respiratory effort, No retractions, No use of accessory muscles and clear to auscultation bilaterally EFFORT & INSPECTION: Yes symmetric chest movement AUSCULTATION: clear to auscultation bilaterally Cardio: COMMON NORMALS: regular rate, regular rhythm, S1 normal heart sound present, S2 normal heart sound present, No gallops present (Cardio), No murmurs present (Cardio), No rub (Cardio) and Peripheral pulses 2+ throughout RATE: regular rate RHYTHM: regular rhythm HEART SOUNDS: S1 normal heart sound present and S2 normal heart sound present PERIPHERAL PULSES: Peripheral pulses 2+ throughout GI: COMMON NORMALS: Normal to inspection, nondistended, normoactive bowel sounds present, Soft to palpation, non-tender, No hepatosplenomegaly present and no masses AUSCULTATION: Yes normoactive bowel sounds PALPATION: Yes Soft to palpation and Yes No hepatosplenomegaly present RECTAL EXAM: deferred Extremity: COMMON NORMALS: no clubbing, cyanosis or edema and no pedal edema Neuro: COMMON NORMALS: patient oriented x3 Urinary Catheter Management: Tan: Cath Placed During This Visit: yes, but has since been removed by the nurse Reason for Continuing Indwelling Catheter: Other Urinary Catheter Date of Insertion: 01/23/22 Urinary Catheter Time of Insertion: 01:00 Date Urinary Catheter Removed: 01/24/22 Time Urinary Catheter Discontinued: 06:06 Discharge Data Studies Completed and Pending Completed Studies During Hospitalization Category Date Time Status CT head wo con* [id number] Urgent Cat Scan 01/22/22 16:51 Completed CXRP [XR chest 1V portable [id number]] Stat Exams 01/22/22 17:01 Completed XR hip RT 1V wo/w pel [id number] Routine Exams 01/23/22 Completed XR hip RT 2-3V wo/w pel* [id number] Urgent Exams 01/22/22 16:44 Completed Pending at discharge Category Date Time Status C-arm Fluoroscopy [id number] Routine Exams 01/23/22 16:41 Taken BMP [Basic Metabolic Panel] AM LABS Lab 01/29/22 04:00 Ordered CBC Auto Diff [Complete Blood Count w/Auto] AM LABS Lab 01/29/22 04:00 Ordered Radiology Impressions Hip/Pelvis X-Ray 01/22/22 16:44 IMPRESSION: Acute intertrochanteric fracture of the right hip. Head CT 01/22/22 16:51 IMPRESSION: 1. No acute intracranial abnormality demonstrated. 2. There is no interval change from the prior examination. Chest X-Ray 01/22/22 17:01 IMPRESSION: 1. No acute abnormality demonstrated. 2. There is no interval change from the prior examination. Hip X-Ray 01/23/22 00:00 IMPRESSION: Images obtained for intraoperative purposes. Laboratory Results WBC 8.5 10^3/uL (4.0-10.0) 01/28/22 02:19 RBC 3.07 10^6/uL (4.1-5.3) L 01/28/22 02:19 Hgb 9.2 g/dL (11.5-15.3) L 01/28/22 02:19 Hct 27.8 % (37.0-47.0) L 01/28/22 02:19 MCV 90.6 fl (81-99) 01/28/22 02:19 MCH 30.0 pg (28.0-34.0) 01/28/22 02:19 MCHC 33.1 g/dL (30.0-36.0) 01/28/22 02:19 RDW 13.6 % (12.1-15.1) 01/28/22 02:19 Plt Count 399 10^3/cmm (130-400) 01/28/22 02:19 MPV 9.6 fL (7.4-10.4) 01/28/22 02:19 Neut % (Auto) 62.2 % 01/28/22 02:19 Lymph % (Auto) 16.5 % 01/28/22 02:19 [place] % (Auto) 15.5 % 01/28/22 02:19 Eos % (Auto) 5.0 % 01/28/22 02:19 Baso % (Auto) 0.4 % 01/28/22 02:19 Neut # (Auto) 5.30 10^3/uL (1.8-7.7) 01/28/22 02:19 Lymph # (Auto) 1.4 10^3/uL (0.8-4.8) 01/28/22 02:19 [place] # (Auto) 1.3 10^3/uL (0.2-0.9) H 01/28/22 02:19 Eos # (Auto) 0.4 10^3/uL (0.0-0.8) 01/28/22 02:19 Baso # (Auto) 0.0 10^3/uL (0.0-0.1) 01/28/22 02:19 Nucleated RBC % (auto) 0 % 01/28/22 02:19 Nucleated RBCs # 0.0 /100WBC 01/28/22 02:19 PT 12.70 SECONDS (12.1-14.9) 01/23/22 02:26 INR 0.93 (0.8-1.2) 01/23/22 02:26 APTT 31.3 SECONDS (23.9-36.7) 01/22/22 17:45 Sodium 130 mmol/L (136-145) L 01/28/22 02:19 Potassium 4.0 mmol/L (3.5-5.1) 01/28/22 02:19 Chloride 93 mmol/L (98-107) L 01/28/22 02:19 Carbon Dioxide 25 mmol/L (22-29) 01/28/22 02:19 Anion Gap 16.0 (5-19) 01/28/22 02:19 BUN 8 mg/dL (8-23) 01/28/22 02:19 Creatinine 0.4 mg/dL (0.5-0.9) L 01/28/22 02:19 GFR Calculation 161.7 mL/min (90-130) H 01/28/22 02:19 Glucose 122 mg/dL (65-115) H 01/28/22 02:19 Calculated Osmolality 270 mOsm/kg (285-295) L 01/28/22 02:19 Calcium 9.6 mg/dL (8.5-10.5) 01/28/22 02:19 Total Bilirubin 0.4 mg/dL (0.15-1.2) 01/25/22 02:18 AST 13 U/L (0-32) 01/25/22 02:18 ALT 7 U/L (0-33) 01/25/22 02:18 Alkaline Phosphatase 86 IU/L (35-105) 01/25/22 02:18 Total Protein 5.9 g/dL (6.6-8.7) L 01/25/22 02:18 Albumin 3.0 g/dL (3.5-5.2) L 01/25/22 02:18 Globulin 2.9 g/dL (1.3-4.6) 01/25/22 02:18 TSH 3.62 uIU/mL (0.27-4.20) 01/23/22 02:26 Random Cortisol 39.02 ug/dL (2.47-19.5) H 01/23/22 02:26 Urine Color Advance (Yellow) 01/23/22 01:30 Urine Appearance Sl cloudy (CLEAR) A 01/23/22 01:30 Urine pH 5 (5-7) 01/23/22 01:30 Ur Specific [place] 1.005 (1.005-1.030) 01/23/22 01:30 Urine Protein 1+ (Negative) H 01/23/22 01:30 Urine Glucose (UA) Norm (Normal) 01/23/22 01:30 Urine Ketones 1+ (Negative) H 01/23/22 01:30 Urine Blood 2+ (Negative) H 01/23/22 01:30 Urine Nitrate Positive (Negative) H 01/23/22 01:30 Urine Bilirubin 1+ (Negative) H 01/23/22 01:30 Urine Urobilinogen 1 mg/dL (Negative) H 01/23/22 01:30 Ur Leukocyte Esterase Trace (Negative) H 01/23/22 01:30 Urine RBC 5-10 /hpf (0-2) H 01/23/22 01:30 Urine WBC 5-10 /hpf (0-5) H 01/23/22 01:30 Ur Squamous Epith Cells 25-40 /hpf (0-5) H 01/23/22 01:30 Amorphous Sediment Not Reportable 01/23/22 01:30 Urine Bacteria 4+ /hpf (NONE) H 01/23/22 01:30 Urine Yeast Trace /hpf 01/23/22 01:30 Urine Osmolality 275 mOsm/kg (50-1200) 01/23/22 01:30 Ur Random Sodium 41 mmol/L 01/23/22 01:30 Urine Creatinine 31 mg/dL (28-217) 01/23/22 01:30 Blood Type A Positive 01/27/22 08:25 Rho(D) Type Positive 01/27/22 08:25 Antibody Screen Negative 01/27/22 08:25 Crossmatch See Detail 01/27/22 08:25 Vitals Last Vital Signs Temp 97.6 F 01/28/22 15:37 Pulse 86 01/28/22 15:37 Resp 16 01/28/22 15:37 BP 135/75 01/28/22 15:37 Pulse Ox 94 01/28/22 15:37 Discharge Plan Discharge Patient Disposition: Home Condition: Stable Prescriptions: New hydrocodone-acetaminophen 5-325 mg Tablet 1 tab PO Q4H PRN (Reason: Moderate Pain) 7 Days Qty: 30 0RF enoxaparin 40 mg/0.4 mL Syringe 40 mg SUBCUT Q24H 10 Days Qty: 4 0RF Continued triamcinolone acetonide 0.1 % cream 1 applic topical DAILY 0RF cetirizine [Zyrtec] 10 mg tablet 10 mg PO DAILY PRN (Reason: Allergy Symptoms) 0RF Advanced Eye Relief 1-0.3 % drops 1 drp ophthalmic (eye) DAILY 0RF acetaminophen [Tylenol 8 Hour] 650 mg tablet extended release 650 mg PO Q12H PRN (Reason: Pain) 0RF fluticasone propionate [Flonase Allergy Relief] 50 mcg/actuation spray,suspension 1 spray intranasal Q12H 30 Days Qty: 16 4RF Rx Instructions: administer into each nostril Spiriva Respimat 2.5 mcg/actuation mist 2 puff inhalation DAILY Qty: 4 5RF sodium chloride 1 gram tablet 1 g PO BID 0RF diphenhydramine HCl [Benadryl] 25 mg Capsule 25 mg PO BID PRN (Reason: Allergy Symptoms) 0RF atorvastatin 80 mg Tablet 80 mg PO DAILY@1800 0RF amlodipine 5 mg Tablet 5 mg PO BID@0600,1800 0RF aspirin 81 mg Tablet,Chewable 81 mg PO DAILY@0600 0RF labetalol 100 mg Tablet 100 mg PO BID@0600,1800 0RF albuterol sulfate 90 mcg/actuation Hfa Aerosol Inhaler 1 puff inhalation Q6H PRN (Reason: Shortness Of Breath) 0RF thiamine mononitrate (vit B1) [Vitamin B-1 (mononitrate)] 100 mg Tablet 100 mg PO DAILY Qty: 30 0RF Discharge Orders: Discharge Order (Routine); Ordered 01/28/22 Ordered By: Chandrakant Garcia Other Ambulatory Orders: DME: Nick (Order) Location: None Selected Ordered By: Salomon Nguyen Referrals: [facility] [Outside] [facility] [Outside] Sid Harris MD [Primary Care Provider] - 02/02/22 8:45 am Chandrakant Garcia MD [Physician] - 03/01/22 10:00 am Discharge Activity: Limit activity as instructed Patient Instructions: Hydrocodone/Acetaminophen (By mouth), Enoxaparin (By injection), How to Give a Subcutaneous Injection (GEN), Fall Prevention (GEN), ORIF of Hip Fracture (GEN), Opioid Safety Activity Restrictions/Additional Instructions: May weight-bear as tolerated on right lower extremity Okay to shower May change dressing as needed for drainage or staining Discharge Attestations Time Spent in Discharge Care*: greater than 30 min Status at Discharge: Cognitive status at discharge: cognitively intact , Behavioral status at discharge: cooperative , Quality Metrics Clinical Quality Measures [ No reported AMI, CVA or VTE this stay] Coding Level of Care Code Acute Chg FW DC note Diagnoses Chronic hyponatremia E87.1 Alcohol use Z72.89 Chronic pancreatitis K86.1 Hypertension I10 COPD (chronic obstructive pulmonary disease) J44.9 Acute hypokalemia E87.6 Intertrochanteric fracture of right hip S72.141A
== END 2022-01-28 18:42 | disposition skilled nursing facility (03) | DRG 481 ==
LOC: ER 17:51 → MEDSURG 18:31
PROVIDERS: Orthopaedic Surgery; Admitting Provider Internal Medicine; Emergency Provider Emergency Medicine; PCP Family Medicine; Visit Provider Internal Medicine
PROC: 0QS606Z Reposition Right Upper Femur with Intramedullary Internal Fixation Device, Open Approach (ICD-10-PCS; CPT 27245; principal; 2022-01-23 15:35)
DX: S72.141A Displaced intertrochanteric fracture of right femur, initial encounter for closed fracture (principal); K86.0 Alcohol-induced chronic pancreatitis; E87.1 Hypo-osmolality and hyponatremia; N39.0 Urinary tract infection, site not specified; D62 Acute posthemorrhagic anemia; W01.0XXA Fall on same level from slipping, tripping and stumbling without subsequent striking against object, initial encounter; F10.129 Alcohol abuse with intoxication, unspecified; Y90.9 Presence of alcohol in blood, level not specified; J44.9 Chronic obstructive pulmonary disease, unspecified; I10 Essential (primary) hypertension; Z79.51 Long term (current) use of inhaled steroids; Z79.82 Long term (current) use of aspirin; B96.20 Unspecified Escherichia coli [E. coli] as the cause of diseases classified elsewhere
CPT/HCPCS: 36415; 36430; 51702; 70450; 71045; 73501; 73502; 76000; 80048; 80053; 81001; 82533; 82570; 83935; 84300; 84443; 85014; 85018; 85025; 85610; 85730; 86850; 86900; 86920; 93005; 94640; 96365; 96366; 96367; 96372; 97110; 97116; 97161; 97166; 97530; 97535; 99285; C1713; C1776; J0696; J1650; J2270; J2405; J2704; J3010; J3411; J3480; J7030; P9016

== ENCOUNTER → 2022-03-01 09:55 | Outpatient (BNVA) | payer OTHER, SELFPAY | PROVIDERS: PCP Family Medicine; Visit Provider Orthopaedic Surgery | DX: Z98.890 Other specified postprocedural states (principal); Z87.81 Personal history of (healed) traumatic fracture | CPT/HCPCS: 73502 ==

== ENCOUNTER 2022-09-26 20:20 | Inpatient (IN) | payer MEDICAID, SELFPAY ==
[2022-09-26] VITALS (8 sets, daily range): BP systolic 124–147; BP diastolic 74–83; PULSE 72–110; RESP 17–24; TEMP 36.7; O2SAT 87–93; BMI 26.6
--- NOTE | 2022-09-26 20:40 | XRR_ITS ---
PROCEDURE INFORMATION: Exam: XR Chest Exam date and time: 09/26/2022 8:44 PM Age: 62 years old Clinical indication: Shortness of breath; Additional info: SOB TECHNIQUE: Imaging protocol: Radiologic exam of the chest. Views: 1 view. COMPARISON: CR XR chest 1V portable [id number] 01/22/2022 4:59 PM FINDINGS: Lungs: Unremarkable. No consolidation. Pleural spaces: Unremarkable. No pleural effusion. No pneumothorax. Heart/Mediastinum: Unremarkable. No cardiomegaly. Bones/joints: Unremarkable. XR/XR chest 1V portable [id number] IMPRESSION: No acute findings.
--- NOTE | 2022-09-26 20:48 | ED_ITS ---
HPI - SOB/Dyspnea General: Chief Complaint: Shortness of Breath/Dyspnea Stated Complaint: resp distress Time Seen by Provider: 09/26/22 20:44 Source: patient Mode of arrival: EMS Limitations: no limitations History of Present Illness: HPI Narrative: This patient was transported to the emergency department by EMS from her home. She states that she cannot breathe well because of coughing and feeling short of wind. She states the symptoms of been present for several days but seemingly worse over the last 3 days. She denies any sustained chest pain but does have soreness when she coughs. She states has been drinking fluids regularly but is not been eating as regularly as normal. She states she is received the pneumonia vaccine but no flu vaccine. She has also been vaccinated against COVID. She states that she has not been knowingly exposed to any infectious disease. She does have a history of COPD and has been using her Spiriva as well as her albuterol inhaler at home. She is still a tobacco user. She denies any history of coronary artery disease or congestive heart failure. No recent travel. She is recently finished antibioticsFor a urinary tract infection. MD elicited complaint: cough Pertinent past history: COPD Severity: moderate Exacerbating factors: coughing Associated symptoms: Reports chest pain and fever(s); Deny abdominal pain, extremity pain, hemoptysis, nausea, polydipsia, polyuria, syncope or vomiting Review of Systems Const: Reports: fever(s) and body aches; Denies: chills Eyes: Denies: change in vision ENMT: Denies: throat pain, odynophagia, nasal discharge or nasal congestion Card: Reports: chest pain; Denies: irregular heart rhythm, syncope or pre-syncope Resp: Reports: productive cough and wheezing; Denies: hemoptysis GI: Reports: diarrhea; Denies: abdominal pain, nausea, vomiting or hematemesis : Denies: flank pain, difficulty voiding, dysuria or urinary frequency Musc: Denies: neck pain, back pain or extremity pain Skin/Breast: Denies: rash or pruritus Neuro: Reports: headache(s); Denies: numbness in extremities, weakness in extremities, confusion or Slurred speech present Psych: Denies: anxiety or depression Endo: Denies: polyuria or polydipsia PFS ED PFSH: Medical History Alcohol use Chronic hyponatremia Chronic pancreatitis COPD (chronic obstructive pulmonary disease) Fall Hypertension Intertrochanteric fracture of right hip Osteoporosis Surgical History H/O: hysterectomy Status post open reduction with internal fixation of fracture Family History Mother Anesthesia complication CAD (coronary artery disease) Diabetes Hyperlipidemia Hypertension Family history of thyroid problem Grandfather Cancer maternal-lung cancer Sister Diabetes Hypertension Son Diabetes Grandmother Diabetes paternal Denies family history of Ovarian cyst Clotting disorder Chronic kidney disease (CKD) Bleeding disorder Social History Smoking and tobacco status: current every day smoker cigarettes Packs smoked per day: 1 Years cigarettes smoked: 40 Smoking risk assessment/counseling performed?: Yes Alcohol intake: current Alcohol intake frequency: few times a week Counseling given: No Counseling given: No Lives independently: Yes Household members: family Marital status: Single Current occupational status: employed Current occupation: [employer] Living Current occupational exposures/hazards: Yes History of recent travel: No Current gender identity: Female Physical Exam Narrative: EXAM NARRATIVE: The patient makes good eye contact. She speaks in goal-directed sentences with no obvious audible dyspnea. Const: COMMON NORMALS: no acute distress, patient oriented x3 and alert GENERAL APPEARANCE: cooperative and comfortable NUTRITIONAL APPEARANCE: thin HENMT: COMMON NORMALS: normocephalic, atraumatic, Normal nasal mucous membranes and turbinates present, moist oral mucous membranes and oropharynx normal HEAD & SCALP: normocephalic and atraumatic NOSE: Normal nasal mucous membranes and turbinates present Eye: COMMON NORMALS: Equal, round and reactive pupils present, EOMs intact bilaterally and conjunctivae normal CONJUNCTIVA: Yes conjunctivae normal PUPIL: Yes Equal, round and reactive pupils present Neck/C-Spine: COMMON NORMALS: full ROM, no JVD, Thyroid normal and No carotid bruits THYROID: Thyroid normal Lymph: LYMPHATIC: no lymphadenopathy noted Chest: COMMONS NORMALS: normal inspection of the chest Resp: COMMON NORMALS: No retractions, No use of accessory muscles and clear to auscultation bilaterally EFFORT & INSPECTION: Yes able to speak in complete sentences AUSCULTATION: clear to auscultation bilaterally, rhonchi lower bilaterally and wheezes Cardio: COMMON NORMALS: no JVD, regular rate, regular rhythm, No murmurs present (Cardio) and Peripheral pulses 2+ throughout RATE: regular rate RHYTHM: regular rhythm PERIPHERAL PULSES: Peripheral pulses 2+ throughout GI: COMMON NORMALS: Normal to inspection, nondistended, normoactive bowel soun ds present, Soft to palpation and non-tender PALPATION: Yes Soft to palpation : COMMON NORMALS: Yes no CVA tenderness BLADDER/KIDNEY EXAM: Yes no CVA tenderness Back/Pelvis: COMMON NORMALS: no CVA tenderness, thoracic and lumbar spine n ormal to inspection and no thoracic nor lumbar tenderness Extremity: COMMON NORMALS: normal to inspection, full ROM, no calf tenderness and no pedal edema Neuro: COMMON NORMALS: patient oriented x3, moves all extremities, no focal motor deficits and no sensory deficits noted SENSORIUM/ORIENTATION: Yes alert CRANIAL NERVES: Yes CN normal except as noted Psych: COMMON NORMALS: mental status grossly normal Skin: COMMON NORMALS: no rashes or lesions noted, no wounds and turgor normal GENERAL SKIN EXAM: no rashes or lesions noted and turgor normal Course Reevaluation(s): Reevaluation #1: Patient is still experiencing some end expiratory wheezes. Her pulse oximetry is ranging between 89 and 91 on room air. I think we will probably keep her in observation status to continue her treatments. Time: 22:59 Consultations: Consultation #1: Discussed with attending hospitalist who agreed to place the patient in the hospital. Time: 23:08 Vital Signs: Vital signs: Vital Signs Temperature 98.1 F 09/26/22 20:22 Pulse Rate 72 09/26/22 22:30 Respiratory Rate 21 H 09/26/22 22:30 Blood Pressure 131/74 09/26/22 22:30 Pulse Oximetry 90 09/26/22 22:30 Oxygen Delivery Me thod 09/26/22 22:30 MDM - SOB/Dyspnea Medical Decision Making Patient who presented to our emergency department with a several day history of upper respiratory symptoms cough wheezing and feeling more fatigued has a longstanding history of COPD and states she has been using her usual prescribed inhalers. She is still tobacco dependent and still smoking every day. She does not use home oxygen. Her evaluation this evening did not reveal her to be in any severe respiratory distress but she has evidence of continued bronchospasm. Chest x-ray was reassuring and ancillary studies otherwise were reassuring and not suggestive of other etiologies of her presentation. She received beta agonist as well as IV steroids with some improvement but still not back at her baseline. He is being placed in observation for continued beta agonists, steroids and other treatments as indicated. Differential Diagnosis Likely acute exacerbation of chronic obstructive airways disease Medical Records I reviewed the patient's medical records. Lab Data I reviewed the patient's lab results. : 09/26/22 21:38 09/26/22 21:38 Labs/Radiology: Radiology Impressions Chest X-Ray 09/26/22 20:40 IMPRESSION: No acute findings. Laboratory Results WBC 7.1 10^3/uL (4.0-10.0) 09/26/22 21:38 RBC 4.57 10^6/uL (4.1-5.3) 09/26/22 21:38 Hgb 13.1 g/dL (11.5-15.3) 09/26/22 21:38 Hct 38.2 % (37.0-47.0) 09/26/22 21:38 MCV 83.6 fl (81-99) 09/26/22 21:38 MCH 28.7 pg (28.0-34.0) 09/26/22 21:38 MCHC 34.3 g/dL (30.0-36.0) 09/26/22 21:38 RDW 12.1 % (12.1-15.1) 09/26/22 21:38 Plt Count 395 10^3/cmm (130-400) 09/26/22 21:38 MPV 8.6 fL (7.4-10.4) 09/26/22 21:38 Neut % (Auto) 69.2 % 09/26/22 21:38 Lymph % (Auto) 17.6 % 09/26/22 21:38 [place] % (Auto) 9.7 % 09/26/22 21:38 Eos % (Auto) 2.7 % 09/26/22 21:38 Baso % (Auto) 0.4 % 09/26/22 21:38 Neut # (Auto) 4.92 10^3/uL (1.8-7.7) 09/26/22 21:38 Lymph # (Auto) 1.3 10^3/uL (0.8-4.8) 09/26/22 21:38 [place] # (Auto) 0.7 10^3/uL (0.2-0.9) 09/26/22 21:38 Eos # (Auto) 0.2 10^3/uL (0.0-0.8) 09/26/22 21:38 Baso # (Auto) 0.0 10^3/uL (0.0-0.1) 09/26/22 21:38 Nucleated RBC % (auto) 0 % 09/26/22 21:38 Nucleated RBCs # 0.0 /100WBC 09/26/22 21:38 PT 13.40 SECONDS (12.1-14.9) 09/26/22 21:38 INR 0.99 (0.8-1.2) 09/26/22 21:38 Carbon Dioxide 24 mmol/L (22-29) 09/26/22 21:38 Anion Gap 15.3 (5-19) 09/26/22 21:38 Glucose 106 mg/dL (65-115) 09/26/22 21:38 Calcium 9.3 mg/dL (8.5-10.5) 09/26/22 21:38 Total Bilirubin 0.3 mg/dL (0.15-1.2) 09/26/22 21:38 AST 16 U/L (0-32) 09/26/22 21:38 ALT 11 U/L (0-33) 09/26/22 21:38 Alkaline Phosphatase 102 U/L (35-105) 09/26/22 21:38 Total Protein 7.1 g/dL (6.6-8.7) 09/26/22 21:38 Albumin 3.9 g/dL (3.5-5.2) 09/26/22 21:38 Globulin 3.2 g/dL (1.3-4.6) 09/26/22 21:38 Influenza Type A Ag negative (Negative) 09/26/22 21:33 Influenza Type B Ag negative (Negative) 09/26/22 21:33 SARS-CoV-2 Ag (Rapid) negative (Negative) 09/26/22 21:33 EKG Data EKG 1: I personally reviewed and interpreted this EKG as follows: Interpretation: Resting EKG reveals a rate of 97 bpm. Chest normal intervals, normal axis. Normal QTc interval. She has evidence of left atrial enlargement. She has a lot of interference and baseline irritability which makes accurate interpretation somewhat difficult but no obvious acute ST-T wave changes. Discharge Plan Discharge Patient Disposition: Placed in Observation Clinical Impression: Acute exacerbation of chronic obstructive pulmonary disease, Tobacco dependence Condition: Stable Prescriptions: No Action triamcinolone acetonide 0.1 % cream 1 applic topical DAILY cetirizine [Zyrtec] 10 mg tablet 10 mg PO DAILY PRN (Reason: Allergy Symptoms) Advanced Eye Relief 1-0.3 % drops 1 drp ophthalmic (eye) DAILY acetaminophen [Tylenol 8 Hour] 650 mg tablet extended release 650 mg PO Q12H PRN (Reason: Pain) fluticasone propionate [Flonase Allergy Relief] 50 mcg/actuation spray,suspension 1 spray intranasal Q12H 30 Days Qty: 16 4RF Rx Instructions: administer into each nostril Spiriva Respimat 2.5 mcg/actuation mist 2 puff inhalation DAILY Qty: 4 5RF hydrocodone-acetaminophen 5-325 mg tablet 1 tab PO Q4H PRN (Reason: pain) 7 Days Qty: 30 0RF sodium chloride 1 gram tablet 1 g PO BID diphenhydramine HCl [Benadryl] 25 mg Capsule 25 mg PO BID PRN (Reason: Allergy Symptoms) atorvastatin 80 mg Tablet 80 mg PO DAILY@1800 amlodipine 5 mg Tablet 5 mg PO BID@0600,1800 aspirin 81 mg Tablet,Chewable 81 mg PO DAILY@0600 labetalol 100 mg Tablet 100 mg PO BID@0600,1800 albuterol sulfate 90 mcg/actuation Hfa Aerosol Inhaler 1 puff inhalation Q6H PRN (Reason: Shortness Of Breath) thiamine mononitrate (vit B1) [Vitamin B-1 (mononitrate)] 100 mg Tablet 100 mg PO DAILY Qty: 30 0RF Referrals: Sid Harris MD [Primary Care Provider] - Coding Level of Care Code ED Fractionating Still Operator for Chg Fwd Exam Comprehensive
--- NOTE | 2022-09-26 21:15 | ECG_ITS ---
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 Measurements Intervals [place] Rate: 97 P: 79 MD: 141 QRS: 63 QRSD: 78 T: 107 QT: 346 QTc: 440 Interpretive Statements SINUS RHYTHM WITH OCCASIONAL VENTRICULAR PREMATURE COMPLEXES MODERATE ST DEPRESSION [0.05+ mV ST DEPRESSION] Compared to ECG 01/22/2022 20:49:26 Ventricular premature complex(es) now present ST (T wave) deviation now present Electronically Signed On 09-27-2022 21:41:04 CDT by Jorje Zendejas M.D. [email or web address]
[2022-09-26] MEDS: sodium chloride 0.9% 1,000 ML 999 ML IV (21:54)
[2022-09-26] MEDS: dexamethasone 10 mg/mL INJ IVP (21:54)
[2022-09-26] MEDS: ipratropium-albuterol 3 mL Neb INHALATION ×2 (21:58→23:11)
[2022-09-26 22:03] LABS: Basophils % 0.4 %; Eosinophils # 0.2 10^3/uL (0.0-0.8); Eosinophils % 2.7 %; Hematocrit 38.2 % (37.0-47.0); Hemoglobin 13.1 g/dL (11.5-15.3); Lymphocytes # 1.3 10^3/uL (0.8-4.8); Lymphocytes % 17.6 %; Mean Corpuscular HGB Conc 34.3 g/dL (30.0-36.0); Mean Corpuscular Hemoglobin 28.7 pg (28.0-34.0); Mean Corpuscular Volume 83.6 fl (81-99); Mean Platelet Volume 8.6 fL (7.4-10.4); Monocytes # 0.7 10^3/uL (0.2-0.9); Monocytes % 9.7 %; Neutrophils # 4.92 10^3/uL (1.8-7.7); Neutrophils % 69.2 %; Nucleated Red Blood Cells % 0 %; Platelet Count 395 10^3/cmm (130-400); Red Blood Count 4.57 10^6/uL (4.1-5.3); Red Cell Distribution Width 12.1 % (12.1-15.1); White Blood Count 7.1 10^3/uL (4.0-10.0)
[2022-09-26 22:07] LABS: Influenza A by IFA negative (Negative); Influenza B by IFA negative (Negative); SARS Covid-2 Antigen negative (Negative)
[2022-09-26 22:37] LABS: Alanine Aminotransferase 11 U/L (0-33); Albumin Level 3.9 g/dL (3.5-5.2); Alkaline Phosphatase 102 U/L (35-105); Aspartate Amino Transferase 16 U/L (0-32); Blood Urea Nitrogen 3 mg/dL (8-23); Calcium 9.3 mg/dL (8.5-10.5); Carbon Dioxide 24 mmol/L (22-29); Globulin 3.2 g/dL (1.3-4.6); Glomerular Filtration Rate 224.7 mL/min (90-130); Glucose 106 mg/dL (65-115); NT Pro B Type Natriuretic Pept 258 pg/mL (0-125); Total Bilirubin 0.3 mg/dL (0.15-1.2); Total Protein 7.1 g/dL (6.6-8.7)
[2022-09-26 22:40] LABS: INR 0.99 (0.8-1.2)
[2022-09-26 23:05] LABS: Chloride 83 mmol/L (98-107); Osmolality Calculated 247 mOsm/kg (285-295); Potassium 3.3 mmol/L (3.5-5.1); Sodium 120 mmol/L (136-145)
[2022-09-26 23:08] LABS: Anion Gap 16.3 (5-19)
[2022-09-26 23:27] LABS: ABG PCO2 34.5 mmHg (35-45); ABG PH Result 7.42 (7.35-7.45); Alveolar-Arterial Oxygen Gradi 7.7 mmHg (5-10); Arterial Blood Gas Hematocrit 42.6 % (37-47); Base Excess ABG -1.5 mmol/L (-2.0-2.0); Blood Gas Allen Test Pos; Blood Gas Operator Identificat glc; Blood Gas Sample Site Radial, right; Blood Gas Sample Type Arterial; Carboxyhemoglobin 4.9 %THgb (0.4-20.1); HCO3 ABG 22.3 mmol/L (22-26); Ionized Calcium Level - ABG 1.2 mmol/L (1.1-1.4); Methemoglobin 0.8 % (0.4-1.5); Oxygen Device ROOM AIR; Oxygen Saturation ABG 85.9; PO2 ABG 47.8 mmHg (80.0-100.0); Potassium Level - ABG 3.4 mmol/L (3.5-5.0); Total Hemoglobin 13.9 g/dL (12-16)
[2022-09-27] VITALS (15 sets, daily range): BP systolic 123–183; BP diastolic 72–87; PULSE 75–114; RESP 16–22; TEMP 36.5–36.9; O2SAT 91–97
--- NOTE | 2022-09-27 00:01 | PM.HP ---
Providers/Chief Complaint Admitting Physician: Gayathri Agrawal MD Primary Care Provider: Sid Harris MD Chief Complaint: resp distress History of Present Illness Serene Alcaraz is a 62 year old female with a PMH COPD, h/o alcohol dependence, chronic pancreatitis, chronic hyponatremia of uncertain etiology presenting today with chief complaints of worsening dyspnea.This she has had a dry cough, she has had a dry cough and increased wheezing. She feels like she may be coming down with a URI. Denies any rhinorrhea at this present time. She has been using her inhalers more than usual recently without any significant change in symptoms. Denies any chest pain. She is currently requiring supplemental oxygen between 2 to 4 L/min. Review of Systems General: Reports: 10 or more systems reviewed and unremarkable except in HPI and below Const: Denies: fever(s), chills or body aches Eyes: Denies: change in vision, blurry vision or photophobia ENMT: Reports: hoarseness; Denies: throat pain, enlarged tonsils, odynophagia or nasal congestion Card: Denies: chest pain, palpitations, irregular heart rhythm, edema, swelling of feet/ankles, lightheadedness, pre-syncope, dyspnea on exertion or orthopnea Resp: Denies: dyspnea, productive cough, non-productive cough, wheezing, stridor, pain on inspiration, change in phlegm color, hemoptysis or chest congestion GI: Denies: abdominal pain, nausea, vomiting, hematemesis, coffee ground emesis, dysphagia, heartburn, diarrhea, constipation, GI cramping, change in stool character, hematochezia or melena : Denies: flank pain, difficulty voiding, dysuria, urinary frequency, urinary urgency, urinary hesitancy or hematuria Musc: Denies: neck pain, back pain, extremity pain, joint swelling, joint warmth or deformity Neuro: Denies: headache(s), numbness in extremities, weakness in extremities, sensory changes, difficulty walking, frequent falls, dizziness, vertigo, behavioral changes, Slurred speech present or seizure-like activity Psych: Denies: anxiety, depression, suicidal ideation or homicidal ideation Endo: Denies: polyuria, polydipsia, tired all the time, cold intolerance or hot flashes Ming/Lymph: Denies: easy bruising or easy bleeding Medications/Allergies Home Medications Medication Instructions Recorded Confirmed Last Taken Type amlodipine 5 mg tablet 5 mg PO BID@0600,1800 05/28/20 03/01/22 01/22/22 History aspirin 81 mg chewable tablet 81 mg PO DAILY@0600 05/28/20 03/01/22 01/22/22 History atorvastatin 80 mg tablet 80 mg PO DAILY@1800 05/28/20 03/01/22 01/21/22 History labetalol 100 mg tablet 100 mg PO BID@0600,1800 05/28/20 03/01/22 01/22/22 History albuterol sulfate 90 mcg/actuation 1 puff inhalation Q6H PRN 10/28/20 03/01/22 01/18/21 History aerosol inhaler Shortness Of Breath thiamine mononitrate (vit B1) 100 100 mg PO DAILY #30 tabs 01/22/21 03/01/22 01/22/22 Rx mg tablet (Vitamin B-1 (mononitrate)) triamcinolone acetonide 0.1 % 1 applic topical DAILY 02/23/21 03/01/22 Unknown History topical cream acetaminophen 650 mg 650 mg PO Q12H PRN Pain 05/25/21 03/01/22 Unknown History tablet,extended release (Tylenol 8 Hour) cetirizine 10 mg tablet (Zyrtec) 10 mg PO DAILY PRN Allergy Symptoms 05/25/21 03/01/22 07/26/21 History propylene glycol 1 %-glycerin 0.3 1 drp ophthalmic (eye) DAILY 05/25/21 03/01/22 07/27/21 History % eye drops (Advanced Eye Relief) diphenhydramine HCl 25 mg capsule 25 mg PO BID PRN Allergy Symptoms 07/27/21 03/01/22 07/27/21 History (Benadryl) sodium chloride 1 gram tablet 1 g PO BID 07/27/21 03/01/22 01/22/22 History fluticasone propionate 50 1 spray intranasal Q12H 30 days 12/10/21 03/01/22 Unknown Rx mcg/actuation nasal #16 grams spray,suspension (Flonase Allergy Relief) tiotropium bromide 2.5 2 puff inhalation DAILY #4 grams 12/10/21 03/01/22 01/22/22 Rx mcg/actuation mist for inhalation (Spiriva Respimat) hydrocodone 5 mg-acetaminophen 325 1 tab PO Q4H PRN pain 7 days #30 02/18/22 03/01/22 Unknown Rx mg tablet tabs Allergies Allergy/AdvReac Type Severity Reaction Status Date / Time hydrochlorothiazide Allergy unknown Verified 09/26/22 20:30 Latex, Natural Rubber Allergy ALGY-Hives Verified 09/26/22 20:30 microbid Allergy ADR-Nausea Uncoded 09/26/22 20:30 PFSH Acute PFSH: Medical History (Updated 09/27/22 @ 06:10 by Gayathri Agrawal MD) Alcohol use Chronic hyponatremia Chronic pancreatitis COPD (chronic obstructive pulmonary disease) E-coli UTI Fall Hyperlipidemia Hypertension Hypothyroid Intertrochanteric fracture of right hip Osteoporosis Vitamin B12 deficiency Surgical History H/O: hysterectomy Status post open reduction with internal fixation of fracture Family History Mother Anesthesia complication CAD (coronary artery disease) Diabetes Hyperlipidemia Hypertension Family history of thyroid problem Grandfather Cancer maternal-lung cancer Sister Diabetes Hypertension Son Diabetes Grandmother Diabetes paternal Denies family history of Ovarian cyst Clotting disorder Chronic kidney disease (CKD) Bleeding disorder Social History Smoking and tobacco status: current every day smoker cigarettes Packs smoked per day: 1 Years cigarettes smoked: 40 Smoking risk assessment/counseling performed?: Yes Alcohol intake: current Alcohol intake frequency: few times a week Counseling given: No Counseling given: No Lives independently: Yes Household members: family Marital status: Single Current occupational status: employed Current occupation: [email or web address] Current occupational exposures/hazards: Yes History of recent travel: No Current gender identity: Female Vitals/I&O/Wt Last Vital Signs Temp 98.1 F 09/26/22 20:22 Pulse 104 H 09/26/22 23:13 Resp 22 H 09/26/22 23:13 BP 131/74 09/26/22 22:30 Pulse Ox 89 L 09/26/22 23:13 O2 Del Method 09/26/22 23:13 Weight last 48 hrs Weight 59.874 kg Physical Exam Narrative: General: No acute distress, AO x3 HEENT: PERRLA, pupils bilaterally equal and reactive, pallors not present Chest: B/L diffuse wheezing infra axillary areas CVS: S1-S2 regular, no murmurs, no tachycardia, no gallops, no rubs Abdomen: Soft, nontender, no organomegaly, bowel sounds present Neuro: No focal deficits, no facial deformity, AO x3, power 5/5 in all limbs Data : 09/26/22 21:38 09/26/22 21:38 Other Labs: Radiology Impressions Chest X-Ray 09/26/22 20:40 IMPRESSION: No acute findings. Laboratory Results WBC 7.1 10^3/uL (4.0-10.0) 09/26/22 21:38 RBC 4.57 10^6/uL (4.1-5.3) 09/26/22 21:38 Hgb 13.1 g/dL (11.5-15.3) 09/26/22 21:38 Hct 38.2 % (37.0-47.0) 09/26/22 21:38 MCV 83.6 fl (81-99) 09/26/22 21:38 MCH 28.7 pg (28.0-34.0) 09/26/22 21:38 MCHC 34.3 g/dL (30.0-36.0) 09/26/22 21:38 RDW 12.1 % (12.1-15.1) 09/26/22 21:38 Plt Count 395 10^3/cmm (130-400) 09/26/22 21:38 MPV 8.6 fL (7.4-10.4) 09/26/22 21:38 Neut % (Auto) 69.2 % 09/26/22 21:38 Lymph % (Auto) 17.6 % 09/26/22 21:38 Campbell % (Auto) 9.7 % 09/26/22 21:38 Eos % (Auto) 2.7 % 09/26/22 21:38 Baso % (Auto) 0.4 % 09/26/22 21:38 Neut # (Auto) 4.92 10^3/uL (1.8-7.7) 09/26/22 21:38 Lymph # (Auto) 1.3 10^3/uL (0.8-4.8) 09/26/22 21:38 Campbell # (Auto) 0.7 10^3/uL (0.2-0.9) 09/26/22 21:38 Eos # (Auto) 0.2 10^3/uL (0.0-0.8) 09/26/22 21:38 Baso # (Auto) 0.0 10^3/uL (0.0-0.1) 09/26/22 21:38 Nucleated RBC % (auto) 0 % 09/26/22 21:38 Nucleated RBCs # 0.0 /100WBC 09/26/22 21:38 PT 13.40 SECONDS (12.1-14.9) 09/26/22 21:38 INR 0.99 (0.8-1.2) 09/26/22 21:38 D-Dimer 0.90 ug/mIFEU (0-0.59) H 09/26/22 21:38 Specimen Type Arterial 09/26/22 23:15 Sample Site Radial, right 09/26/22 23:15 ABG pH 7.42 (7.35-7.45) 09/26/22 23:15 ABG pCO2 34.5 mmHg (35-45) L 09/26/22 23:15 ABG pO2 47.8 mmHg (80.0-100.0) L 09/26/22 23:15 ABG HCO3 22.3 mmol/L (22-26) 09/26/22 23:15 ABG O2 Saturation 85.9 09/26/22 23:15 ABG Base Excess -1.5 mmol/L (-2.0-2.0) 09/26/22 23:15 Christopher Test Pos 09/26/22 23:15 A-a O2 Gradient 7.7 mmHg (5-10) 09/26/22 23:15 Hematocrit 42.6 % (37-47) 09/26/22 23:15 Hgb O2 Saturation 81.0 % (95-100) L 09/26/22 23:15 Carboxyhemoglobin 4.9 %THgb (0.4-20.1) 09/26/22 23:15 Methemoglobin 0.8 % (0.4-1.5) 09/26/22 23:15 Total Hemoglobin 13.9 g/dL (12-16) 09/26/22 23:15 Sodium 125.0 mmol/L (131-143) L 09/26/22 23:15 Potassium 3.4 mmol/L (3.5-5.0) L 09/26/22 23:15 Glucose 106.0 mg/dL (70-115) 09/26/22 23:15 Ionized Calcium 1.2 mmol/L (1.1-1.4) 09/26/22 23:15 O2 Delivery Device Room air 09/26/22 23:15 FiO2 21.0 % 09/26/22 23:15 Hot Head Machine Operator ID [email or web address] 09/26/22 23:15 Sodium 120 mmol/L (136-145) L 09/26/22 21:38 Potassium 3.3 mmol/L (3.5-5.1) L 09/26/22 21:38 Chloride 83 mmol/L (98-107) L 09/26/22 21:38 Carbon Dioxide 24 mmol/L (22-29) 09/26/22 21:38 Anion Gap 16.3 (5-19) 09/26/22 21:38 BUN 3 mg/dL (8-23) L 09/26/22 21:38 Creatinine 0.3 mg/dL (0.5-0.9) L 09/26/22 21:38 GFR Calculation 224.7 mL/min (90-130) H 09/26/22 21:38 Glucose 106 mg/dL (65-115) 09/26/22 21:38 Calculated Osmolality 247 mOsm/kg (285-295) L 09/26/22 21:38 Calcium 9.3 mg/dL (8.5-10.5) 09/26/22 21:38 Total Bilirubin 0.3 mg/dL (0.15-1.2) 09/26/22 21:38 AST 16 U/L (0-32) 09/26/22 21:38 ALT 11 U/L (0-33) 09/26/22 21:38 Alkaline Phosphatase 102 U/L (35-105) 09/26/22 21:38 NT-Pro-B Natriuret Pep 258 pg/mL (0-125) H 09/26/22 21:38 Total Protein 7.1 g/dL (6.6-8.7) 09/26/22 21:38 Albumin 3.9 g/dL (3.5-5.2) 09/26/22 21:38 Globulin 3.2 g/dL (1.3-4.6) 09/26/22 21:38 Influenza Type A Ag negative (Negative) 09/26/22 21:33 Influenza Type B Ag negative (Negative) 09/26/22 21:33 SARS-CoV-2 Ag (Rapid) negative (Negative) 09/26/22 21:33 A&P Assessment and plan (1) Acute exacerbation of chronic obstructive pulmonary disease: (2) Hyponatremia: Plan Patient with past medical history of COPD, recently with 3 to 4-day history of increasing shortness of breath, wheezing, no significant improvement with increasing her inhaler use. Symptoms may be related to an acute on chronic COPD exacerbation. She is noted to have hypoxia requiring 2 to 4 L of supplemental O2. Denies any current chest pain. Will admit to [facility] in observation. DuoNeb inhalation every 6 hours, budesonide inhalation every 12 hours Methylprednisolone 30 mg IV every 8 hours, she has received dexamethasone 10 mg IV in the ED. Also noted to be tachycardic, appears to be sinus on bedside monitor. Will obtain twelve-lead EKG. Denies any current chest pain. Obtain D-dimer, if elevated may need to evaluate further for PE. Patient has a history of hyponatremia, it appears baseline sodium in the past has ranged between 1 1 9-1 30. Most recently from January 2022 sodium was at 130. Per review of outpatient notes etiology is uncertain. She has received a liter of normal saline bolus and thereafter 150 cc of normal saline infusion. We will check sodium in the morning. For now hold off on further IV fluids. Will start on p.o. salt tablets twice daily per home dosing. Continue other home medications including labetalol 100 mg p.o. twice daily, statins Attestations Medical Necessity Statement*: Anticipate less than 2 midnight admission for acute on chronic COPD exacerbation. Coding Level of Care Code Acute [place] for Sergio Chow Diagnoses Acute exacerbation of chronic obstructive pulmonary disease J44.1 Hyponatremia E87.1
[2022-09-27] MEDS: enoxaparin 40 mg/0.4 mL Syringe SUBCUT ×2 (01:22→23:33)
[2022-09-27] MEDS: sodium chloride 0.9% 1,000 ML 150 ML IV ×2 (01:23→05:44)
[2022-09-27] MEDS: ipratropium-albuterol 3 mL Neb INHALATION ×4 (02:05→20:24)
[2022-09-27] MEDS: aspirin 81 mg Chew Tablet PO (05:39)
[2022-09-27] MEDS: amlodipine 5 mg Tablet PO ×2 (05:39→17:10)
[2022-09-27] MEDS: labetalol 200 mg Tablet 100 MG PO ×2 (05:39→17:10)
--- NOTE | 2022-09-27 06:02 | CTR_ITS ---
PROCEDURE INFORMATION: Exam: CTA Chest With Contrast Exam date and time: 09/27/2022 6:25 AM Age: 62 years old Clinical indication: Abnormal findings; Abnormal diagnostic tests; Elevated d-dimer; Shortness of breath; Patient HX: SOB with elevated d dimer; Additional info: Elevated d dimer, dyspnea TECHNIQUE: Imaging protocol: Computed tomographic angiography of the chest with contrast. 3D rendering (Not supervised by radiologist): MIP and/or 3D reconstructed images were created by the technologist. Radiation optimization: All CT scans at this facility use at least one of these dose optimization techniques: automated exposure control; mA and/or kV adjustment per patient size (includes targeted exams where dose is matched to clinical indication); or iterative reconstruction. Contrast material: OMNI 350; Contrast volume: 72 ml; Contrast route: INTRAVENOUS (IV); COMPARISON: CT angio chest PE protcl [id number] 01/19/2019 6:50 PM RADIATION DOSE METRICS: Total DLP (mGy-cm): 157.93 FINDINGS: Pulmonary arteries: No pulmonary embolus or aortic dissection. Great vessels off aortic arch: Aberrant origin of the right subclavian artery which is usually not associated with other congenital heart disease. This is essentially a normal variant. Aorta: Calcification of the thoracic aorta and/or great vessels consistent with atherosclerotic vessel disease. Lungs: Left discoid atelectasis and/or scarring. Pleural spaces: Unremarkable. No pneumothorax. No pleural effusion. Heart: Severe calcified coronary artery disease. Lymph nodes: Calcified bilateral hilar nodes and/or mediastinal nodes and/or lung granulomas consistent with old granulomatous disease. Pancreas: Severe chronic calcific pancreatitis. Chronic appearing 9 mm main pancreatic duct dilatation which may be obstructed secondary to stones in the pancreatic head. Spleen: Calcified splenic granulomas. Bones/joints: Unremarkable. No acute fracture. Soft tissues: Unremarkable. CT/CT angio chest PE protcl [id number] IMPRESSION: 1. Severe calcified coronary artery disease. 2. No pulmonary embolus or aortic dissection. 3. Severe chronic calcific pancreatitis. 4. Chronic appearing 9 mm main pancreatic duct dilatation which may be obstructed secondary to stones in the pancreatic head.
--- NOTE | 2022-09-27 06:04 | ECG_ITS ---
[facility] Test Date: 2022-09-27 Pat Name: Serene Alcaraz Department: Room: 251 Gender: Female Oxygen Tank Filler: : 1960 Requested By: Gayathri Agrawal Order Number: [id number] Jean Marie MD: Jorje Zendejas M.D. Measurements Intervals [place] Rate: 85 P: 73 WV: 152 QRS: 17 QRSD: 82 T: 50 QT: 358 QTc: 426 Interpretive Statements SINUS RHYTHM Compared to ECG 09/26/2022 21:15:47 Ventricular premature complex(es) no longer present ST (T wave) deviation no longer present Electronically Signed On 09-27-2022 21:43:23 CDT by Jorje Zendejas M.D. [email or web address] adult [email or web address] Interactive [id number]
[2022-09-27] MEDS: iohexol 350 mg/mL 500 mL Btl (per mL) IV (06:29)
--- NOTE | 2022-09-27 06:53 | PC.RESP ---
nursing taking patient to CT before EKG could be done
[2022-09-27 07:25] LABS: Hematocrit 38.6 % (37.0-47.0); Hemoglobin 12.6 g/dL (11.5-15.3); Lymphocytes # 0.3 10^3/uL (0.8-4.8); Lymphocytes % 13.6 %; Mean Corpuscular HGB Conc 32.6 g/dL (30.0-36.0); Mean Corpuscular Hemoglobin 29.2 pg (28.0-34.0); Mean Corpuscular Volume 89.6 fl (81-99); Mean Platelet Volume 9.1 fL (7.4-10.4); Monocytes # 0.1 10^3/uL (0.2-0.9); Monocytes % 2.3 %; Neutrophils # 1.78 10^3/uL (1.8-7.7); Neutrophils % 83.6 %; Nucleated Red Blood Cells % 0 %; Platelet Count 381 10^3/cmm (130-400); Red Blood Count 4.31 10^6/uL (4.1-5.3); Red Cell Distribution Width 12.2 % (12.1-15.1); White Blood Count 2.1 10^3/uL (4.0-10.0)
[2022-09-27 07:33] LABS: Alanine Aminotransferase 10 U/L (0-33); Albumin Level 3.3 g/dL (3.5-5.2); Alkaline Phosphatase 98 U/L (35-105); Aspartate Amino Transferase 15 U/L (0-32); Blood Urea Nitrogen 6 mg/dL (8-23); Carbon Dioxide 20 mmol/L (22-29); Chloride 92 mmol/L (98-107); Globulin 3.5 g/dL (1.3-4.6); Glomerular Filtration Rate 161.2 mL/min (90-130); Glucose 149 mg/dL (65-115); Osmolality Calculated 258 mOsm/kg (285-295); Sodium 124 mmol/L (136-145); Total Bilirubin 0.2 mg/dL (0.15-1.2); Total Protein 6.8 g/dL (6.6-8.7); Troponin T (5th) Once 9 ng/L (0-10)
[2022-09-27] MEDS: budesonide 0.5 mg/2 mL Neb INHALATION ×2 (08:03→20:24)
[2022-09-27] MEDS: sodium chloride 1 gm Tablet PO ×2 (08:17→17:09)
--- NOTE | 2022-09-27 08:55 | PC.PHAR ---
pt states she takes care of her own medications-pt states she takes the medications entered-[facility] unable to verify when meds last filled
--- NOTE | 2022-09-27 10:13 | PC.CHAP ---
Pastoral Care Encounter/Spiritual Assessment Type of Contact [] Declined dip guider stoves visit [] Patient/Family/Request visit [] Outpatient visit [] Follow-up visit [] Physician referral [] Code/Alert [x] Routine visit [] Staff referral [] Actively dying [] Patient sleeping [] Family support [] [] Out of room [] Palliative care [] [] Receiving care in room [] Pre-surgical visit [] Trauma [] Long length of stay [] ICU visit [] Other: Relational/Emotional Strength [x] Patient feels connected with others/family/visitors/staff [] Distress [] Loneliness/isolation [] Abandonment Spirituality of Patient [x] Person of [place] [x] Attends Rastafari of their [place] [x] Believes in Prayer [] Reads Bible or Scientology materials [] There are Spiritual issues to be addressed Laundry Equipment Operator Interventions [x] Prayer x[] Active listening [x] Non-anxious presence [] Spiritual/emotional support [] Crisis/trauma care [] Spiritual counseling [] Bereavement support [] Provided bereavement packet [] Provided Bible/devotional materials [] Provided toy/stuffed animal, coloring book to patient or family member [] Provided Communion [] Anointing/[place] [] Salvation [x] Completed spiritual assessment [] Other: Impact on Illness or Injury [] Angry [] Fearful [] Anxious [] Often cries [] Exhaustion [] Unable to work [] Unable to attend mandaen [] Unable to walk/stand [] Unable to read [] Unable to drive [] Unable to eat/drink [] Unable to sleep [] Unable to be with family [] Patient intubated [] Other: Summary Time spent with patient 10 min
--- NOTE | 2022-09-27 13:39 | PM.PN ---
Subjective Subjective: Admitted overnight. States feeling a lot better. On examination sitting up in the bed. Needs to be on supplemental oxygen but currently on room air. Saturating more than 90%. States still feeling some tightness in chest occasionally. States has been feeling this way for couple of weeks getting worse for last 1 week. States also been followed up as an outpatient by urology for recurrent UTI. Requesting a CT abdomen pelvis can be done as an inpatient which has been ordered as an outpatient and is due to be done later this week. Vitals/I&O/Wt Last Vital Signs Temp 97.9 F 09/27/22 07:25 Pulse 99 09/27/22 12:00 Resp 18 09/27/22 08:00 BP 146/83 09/27/22 12:00 Pulse Ox 95 09/27/22 12:00 O2 Del Method 09/27/22 08:00 O2 Flow Rate 3 09/27/22 08:00 09/26/22 09/27/22 09/27/22 22:59 06:59 14:59 Intake Total 652.5 / 652.5 1842.5 / 1842.5 Balance 652.5 / 652.5 1842.5 / 1842.5 Weight last 48 hrs Weight 59.874 kg Physical Exam Narrative: General: No acute distress, AO x3 HEENT: PERRLA, pupils bilaterally equal and reactive, pallors not present Chest: B/L diffuse wheezing infra axillary areas CVS: S1-S2 regular, no murmurs, no tachycardia, no gallops, no rubs Abdomen: Soft, nontender, no organomegaly, bowel sounds present Neuro: No focal deficits, no facial deformity, AO x3, power 5/5 in all limbs Data : 09/27/22 07:00 09/27/22 07:00 A&P Assessment and plan (1) Acute exacerbation of chronic obstructive pulmonary disease: Most likely secondary to COPD exacerbation from viral bronchitis. Patient does not have any pneumonic patch on CT. PE ruled out. With developing leukopenia high concerns for viral bronchitis. Continue with methylprednisolone 30 mg every 8 hourly, budesonide twice daily, DuoNebs every 6 hour. Supplementation keeping saturation over 90%. Will wean off steroids within next 24 hours. (2) Hyponatremia: Most likely secondary dehydration. Patient has a history of hyponatremia, it appears baseline sodium in the past has ranged between 1 1 9-1 30. Most recently from January 2022 sodium was at 130. Per review of outpatient notes etiology is uncertain. She has received a liter of normal saline bolus and thereafter 150 cc of normal saline infusion. Resolving. Currently 124. We will continue to monitor daily. (3) Leukopenia: (4) Tobacco dependence: (5) Acute cystitis with hematuria: Plan Check urinalysis. Will plan to do CT abdomen pelvis with and without contrast in the next 24 to 48 hours as patient had CTA done today as it has been ordered as an outpatient for evaluation for recurrent UTIs by outpatient urologist. Full code. Regular diet. Lovenox for DVT prophylaxis Famotidine for PUD prophylaxis. Attestations Medical Necessity Statement*: Serene Alcaraz is being changed to inpatient status as stay will now exceed 2 midnights. Ongoing hospital care is necessary for acute COPD exacerbation in setting of viral bronchitis as patient requires IV steroids, acute hyponatremia for IV hydration Time Spent in Patient Care: Greater than 35 minutes Coding Level of Care Code Acute Technical Intern for Sergio Chow Diagnoses Acute exacerbation of chronic obstructive pulmonary disease J44.1 Hyponatremia E87.1 Leukopenia D72.819 Tobacco dependence F17.200 Acute cystitis with hematuria N30.01
[2022-09-27] MEDS: famotidine 20 mg/2 mL INJ IVP (14:27)
[2022-09-27 14:44] LABS: NT Pro B Type Natriuretic Pept 395 pg/mL (0-125); Procalcitonin 0.04 ng/mL (0-0.5)
[2022-09-27 14:51] LABS: Thyroid Stimulating Hormone 0.91 uIU/mL (0.27-4.20); Vitamin B12 280 pg/mL (232-1245)
[2022-09-27 15:07] LABS: Folate Level > 20.0 ng/mL (4.8-37.3)
[2022-09-27] MEDS: atorvastatin 40 mg Tablet 80 MG PO (17:09)
[2022-09-27 18:15] LABS: Bilirubin Urine Neg (Negative); Blood Urine Trace (Negative); Glucose Urine UA 1+ (Normal); Ketones Urine Negative (Negative); Leukocyte Esterase Urine 1+ (Negative); Nitrate Urine Negative (Negative); Protein Urine Neg (Negative); RBC Urine 0-4 /hpf (0-2); Urine Appearance Clear (CLEAR); Urine Color Yellow (Yellow); Urobilinogen Urine Norm (Negative); pH Urine 8 (5-7)
[2022-09-27 18:16] LABS: Add Urine Culture? Yes; Bacteria Urine 4+ /hpf; Squamous Epithelial Cell Urine 0-4 /hpf (0-5); WBC Urine 40-55 /hpf (0-5)
[2022-09-27] MEDS: benzonatate 100 mg Capsule PO (19:35)
[2022-09-27] MEDS: HYDROcodone-acetaminophen 5-325 mg Tablet 1 TAB PO (19:35)
[2022-09-28] VITALS (14 sets, daily range): BP systolic 132–155; BP diastolic 73–77; PULSE 73–89; RESP 15–20; TEMP 36.4–36.8; O2SAT 92–98
[2022-09-28] MEDS: famotidine 20 mg/2 mL INJ IVP ×2 (02:25→13:42)
[2022-09-28] MEDS: ipratropium-albuterol 3 mL Neb INHALATION ×4 (02:55→20:14)
[2022-09-28] MEDS: roflumilast 500 mcg Tablet PO (05:01)
[2022-09-28] MEDS: aspirin 81 mg Chew Tablet PO (05:01)
[2022-09-28] MEDS: labetalol 200 mg Tablet 100 MG PO ×2 (05:01→17:12)
[2022-09-28] MEDS: amlodipine 5 mg Tablet PO ×2 (05:02→17:16)
[2022-09-28] MEDS: benzonatate 100 mg Capsule PO ×2 (05:02→21:36)
[2022-09-28 05:09] LABS: Basophils % 0.2 %; Eosinophils % 0.2 %; Hematocrit 35.1 % (37.0-47.0); Hemoglobin 11.8 g/dL (11.5-15.3); Lymphocytes # 0.6 10^3/uL (0.8-4.8); Lymphocytes % 9.4 %; Mean Corpuscular HGB Conc 33.6 g/dL (30.0-36.0); Mean Corpuscular Hemoglobin 28.6 pg (28.0-34.0); Mean Corpuscular Volume 85.2 fl (81-99); Mean Platelet Volume 9.2 fL (7.4-10.4); Monocytes # 0.3 10^3/uL (0.2-0.9); Monocytes % 5.4 %; Neutrophils # 5.11 10^3/uL (1.8-7.7); Neutrophils % 84.1 %; Nucleated Red Blood Cells % 0 %; Platelet Count 418 10^3/cmm (130-400); Red Blood Count 4.12 10^6/uL (4.1-5.3); Red Cell Distribution Width 12.3 % (12.1-15.1); White Blood Count 6.1 10^3/uL (4.0-10.0)
[2022-09-28 05:34] LABS: Estmated Average Glucose 120; Hemoglobin A1C 5.8 % (4.0-6.0)
[2022-09-28 06:37] LABS: Alanine Aminotransferase 10 U/L (0-33); Albumin Level 3.6 g/dL (3.5-5.2); Alkaline Phosphatase 85 U/L (35-105); Anion Gap 15.9 (5-19); Aspartate Amino Transferase 12 U/L (0-32); Blood Urea Nitrogen 8 mg/dL (8-23); Carbon Dioxide 22 mmol/L (22-29); Chloride 93 mmol/L (98-107); Globulin 2.9 g/dL (1.3-4.6); Glomerular Filtration Rate 161.2 mL/min (90-130); Glucose 222 mg/dL (65-115); Osmolality Calculated 269 mOsm/kg (285-295); Potassium 3.9 mmol/L (3.5-5.1); Sodium 127 mmol/L (136-145); Total Bilirubin 0.2 mg/dL (0.15-1.2); Total Protein 6.5 g/dL (6.6-8.7)
[2022-09-28] MEDS: budesonide 0.5 mg/2 mL Neb INHALATION ×2 (08:50→20:14)
[2022-09-28] MEDS: folic acid 1 mg Tablet PO (09:01)
[2022-09-28] MEDS: sodium chloride 1 gm Tablet PO ×2 (09:01→17:12)
--- NOTE | 2022-09-28 12:42 | PM.PN ---
Subjective Subjective: No acute events overnight. Today morning on examination patient is on 2 L oxygen supplementation. Cheerful. Sitting up in chair. States feeling better but weak. Denies any nausea, vomiting, headache. Vitals/I&O/Wt Last Vital Signs Temp 98.3 F 09/28/22 11:13 Pulse 78 09/28/22 11:13 Resp 16 09/28/22 08:50 BP 132/75 09/28/22 11:13 Pulse Ox 98 09/28/22 11:13 O2 Del Method 09/28/22 08:50 O2 Flow Rate 2 09/28/22 08:50 09/27/22 09/28/22 09/28/22 22:59 06:59 14:59 Intake Total 600 / 2442.5 400 / 400 Output Total 1650 / 1650 1400 / 3050 Balance -1050 / 792.5 -1400 / -607.5 400 / 400 Weight last 48 hrs Weight 59.874 kg Physical Exam Narrative: General: No acute distress, AO x3 HEENT: PERRLA, pupils bilaterally equal and reactive, pallors not present Chest: B/L diffuse wheezing infra axillary areas CVS: S1-S2 regular, no murmurs, no tachycardia, no gallops, no rubs Abdomen: Soft, nontender, no organomegaly, bowel sounds present Neuro: No focal deficits, no facial deformity, AO x3, power 5/5 in all limbs Data : 09/28/22 04:28 09/28/22 06:12 Micro: Microbiology 09/27/22 17:45 Bacterial Antigens - Final Urine Kidney 09/27/22 17:45 Legionella Urinary Antigen - Final Urine,Voided A&P Assessment and plan (1) Acute exacerbation of chronic obstructive pulmonary disease: Most likely secondary to COPD exacerbation from viral bronchitis. Patient does not have any pneumonic patch on CT. PE ruled out. With developing leukopenia high concerns for viral bronchitis. Wean down Solu-Medrol 40 mg twice daily. Will transition to oral in the morning. Continue with budesonide twice daily, DuoNebs every 6 hours Supplementation keeping saturation over 90%. (2) Hyponatremia: Most likely secondary dehydration. Patient has a history of hyponatremia, it appears baseline sodium in the past has ranged between 1 1 9-1 30. Most recently from January 2022 sodium was at 130. Per review of outpatient notes etiology is uncertain. She has received a liter of normal saline bolus and thereafter 150 cc of normal saline infusion. Resolving. We will continue to monitor daily. (3) Leukopenia: (4) Tobacco dependence: (5) Acute cystitis with hematuria: Plan You appreciated. Leukocyte Estrace positive, nitrate negative. Patient does not complain of having any dysuria. Will plan to do CT abdomen pelvis with and without contrast in the next 24 to 48 hours as patient had CTA done today as it has been ordered as an outpatient for evaluation for recurrent UTIs by outpatient urologist. Hyperglycemia: Not a history of type 2 diabetes mellitus. A1c 5.8. Most likely secondary to steroids. For now start on insulin sliding scale at low-dose protocol. Full code. Regular diet. Lovenox for DVT prophylaxis Famotidine for PUD prophylaxis. Attestations Medical Necessity Statement*: Requires further hospitalization for management of COPD exacerbation secondary to possible viral bronchitis Time Spent in Patient Care: Greater than 35 minutes Coding Level of Care Code Acute Seal Extrusion Operator for [facility] Diagnoses Acute exacerbation of chronic obstructive pulmonary disease J44.1 Hyponatremia E87.1 Leukopenia D72.819 Tobacco dependence F17.200 Acute cystitis with hematuria N30.01
[2022-09-28 13:14] LABS: Glucose Point of Care 200 mg/dL (70-110)
[2022-09-28] MEDS: insulin lispro 100 unit/1 mL SUBCUT ×2 (13:41→20:51)
[2022-09-28 17:11] LABS: Glucose Point of Care 126 mg/dL (70-110)
[2022-09-28] MEDS: atorvastatin 40 mg Tablet 80 MG PO (17:12)
[2022-09-28 20:45] LABS: Glucose Point of Care 249 mg/dL (70-110)
[2022-09-28] MEDS: HYDROcodone-acetaminophen 5-325 mg Tablet 1 TAB PO (21:36)
[2022-09-28] MEDS: enoxaparin 40 mg/0.4 mL Syringe SUBCUT (23:36)
[2022-09-29] VITALS (14 sets, daily range): BP systolic 126–164; BP diastolic 68–90; PULSE 66–100; RESP 16–21; TEMP 36.4–36.8; O2SAT 93–98
[2022-09-29] MEDS: famotidine 20 mg/2 mL INJ IVP ×2 (01:56→16:04)
[2022-09-29] MEDS: ipratropium-albuterol 3 mL Neb INHALATION ×4 (03:33→20:04)
[2022-09-29 05:03] LABS: Basophils % 0.1 %; Hematocrit 38.1 % (37.0-47.0); Hemoglobin 11.8 g/dL (11.5-15.3); Lymphocytes # 1.3 10^3/uL (0.8-4.8); Lymphocytes % 15.3 %; Mean Corpuscular Hemoglobin 28.6 pg (28.0-34.0); Mean Corpuscular Volume 92.3 fl (81-99); Mean Platelet Volume 9.2 fL (7.4-10.4); Monocytes # 0.7 10^3/uL (0.2-0.9); Monocytes % 8.1 %; Neutrophils # 6.36 10^3/uL (1.8-7.7); Neutrophils % 75.9 %; Nucleated Red Blood Cells % 0 %; Platelet Count 403 10^3/cmm (130-400); Red Blood Count 4.13 10^6/uL (4.1-5.3); Red Cell Distribution Width 12.7 % (12.1-15.1); White Blood Count 8.4 10^3/uL (4.0-10.0)
[2022-09-29] MEDS: aspirin 81 mg Chew Tablet PO (05:19)
[2022-09-29] MEDS: amlodipine 5 mg Tablet PO ×2 (05:20→17:22)
[2022-09-29] MEDS: roflumilast 500 mcg Tablet PO (05:20)
[2022-09-29] MEDS: labetalol 200 mg Tablet 100 MG PO ×2 (05:21→17:22)
[2022-09-29 06:18] LABS: Glucose Point of Care 120 mg/dL (70-110)
[2022-09-29 07:56] LABS: Alanine Aminotransferase 16 U/L (0-33); Albumin Level 3.9 g/dL (3.5-5.2); Alkaline Phosphatase 85 U/L (35-105); Aspartate Amino Transferase 20 U/L (0-32); Blood Urea Nitrogen 13 mg/dL (8-23); Calcium 9.2 mg/dL (8.5-10.5); Carbon Dioxide 24 mmol/L (22-29); Chloride 93 mmol/L (98-107); Globulin 2.7 g/dL (1.3-4.6); Glomerular Filtration Rate 161.2 mL/min (90-130); Glucose 104 mg/dL (65-115); Osmolality Calculated 264 mOsm/kg (285-295); Sodium 127 mmol/L (136-145); Total Bilirubin 0.2 mg/dL (0.15-1.2); Total Protein 6.6 g/dL (6.6-8.7)
[2022-09-29] MEDS: budesonide 0.5 mg/2 mL Neb INHALATION ×2 (08:48→20:04)
[2022-09-29] MEDS: HYDROcodone-acetaminophen 5-325 mg Tablet 1 TAB PO ×2 (09:31→18:12)
[2022-09-29] MEDS: folic acid 1 mg Tablet PO (09:31)
[2022-09-29] MEDS: sodium chloride 1 gm Tablet PO ×2 (09:31→17:21)
--- NOTE | 2022-09-29 09:36 | CT_ITS ---
WS: [id number] CT ABDOMEN PELVIS TECHNIQUE: Noncontrast CT of the abdomen and contrast-enhanced CT of the abdomen and pelvis with addison nal and sagittal reformatted images. CLINICAL INFORMATION: possible obstructive uropathy, reccurent uti COMPARISON: CT January 19, 2021 DLP: 736.[address] scans at [facility] use at least one of these dose optimization techniques: automated e xposure control; mA and/or kV adjustment per patient size (includes targeted exams where dose is matc hed to clinical indication); or iterative reconstruction. FINDINGS: Normal renal parenchymal enhancement. No hydronephrosis. Normal renal excretion on the delayed images with opacification of the ureters. Contrast visualized in the bladder. Distended patulous urine dist ended bladder. Recommend correlation for bladder obstruction. Small cystocele. Pelvic phleboliths. Adrenal glands are normal. Lung bases are well aerated. Mild hepatomegaly. Gallbladder is contracted. Normal portal vein and spl enic vein. Tiny gallstone in the gallbladder. Lobulated dilatation of the pancreatic duct. Pancreatic calcifications likely due to chronic pancreatitis. Normal GE junction. Dense vascular calcification. Normal caliber abdominal aorta. No aneurysm. Normal spleen. Sigmoid diverticulosis. No evidence of high-grade obstruction. Intramedullary marlene and screw fixation RIGHT hip. Chronic appearing compression fracture T12 vertebral body. Sclerosis RIGHT sacrum likely due to chronic insufficiency fractures. CT/CT abdomen pelvis wo/w [id number] IMPRESSION: 1. No obstructing renal or ureteral calculi. 2. Normal renal parenchymal enhancement. No hydronephrosis. Normal excretion o n the delayed images. 3. A few small renal cysts. 4. Urine distended bladder with lobulation and small cystocele. 5. Lobulated dilatation of the pancreatic duct with pancreatic calcifications likely due to chronic pancreatitis. This is unchanged from previous. 6. Tiny gallstone in the gallbladder. 7. Stable compression fracture T12 vertebral body.
[2022-09-29 11:15] LABS: Glucose Point of Care 158 mg/dL (70-110)
--- NOTE | 2022-09-29 12:02 | P.PN_ITS ---
Subjective Subjective: No acute events overnight. Patient on room air. States she is feeling weak today. Plan was to discharge today but patient requesting be discharged tomorrow given the weakness. Patient denies any other new complaints. Vitals/I&O/Wt Last Vital Signs Temp 97.8 F 09/29/22 12:00 Pulse 66 09/29/22 12:00 Resp 17 09/29/22 12:00 BP 129/74 09/29/22 12:00 Pulse Ox 97 09/29/22 12:00 O2 Del Method 09/29/22 12:00 O2 Flow Rate 2 09/29/22 08:00 09/28/22 09/29/22 09/29/22 22:59 06:59 14:59 Intake Total 617 / 1257 1530 / 2787 480 / 480 Output Total 1900 / 1900 Balance 617 / 1257 -370 / 887 480 / 480 Physical Exam Narrative: General: No acute distress, AO x3 HEENT: PERRLA, pupils bilaterally equal and reactive, pallors not present Chest: B/L diffuse wheezing infra axillary areas CVS: S1-S2 regular, no murmurs, no tachycardia, no gallops, no rubs Abdomen: Soft, nontender, no organomegaly, bowel sounds present Neuro: No focal deficits, no facial deformity, AO x3, power 5/5 in all limbs Data : 09/29/22 04:25 09/29/22 07:22 Micro: Microbiology 09/27/22 17:45 Urine Culture - Preliminary Urine,Clean Catch Gram Negative Rods 09/27/22 17:45 Bacterial Antigens - Final Urine Kidney A&P Assessment and plan (1) Acute exacerbation of chronic obstructive pulmonary disease: Most likely secondary to COPD exacerbation from viral bronchitis. Patient does not have any pneumonic patch on CT. PE ruled out. With developing leukopenia high concerns for viral bronchitis. Continue with Solu-Medrol 30 mg IV daily. Continue with budesonide twice daily, DuoNebs every 6 hours Supplementation keeping saturation over 90%. (2) Hyponatremia: Most likely secondary dehydration. Patient has a history of hyponatremia, it appears baseline sodium in the past has ranged between 1 1 9-1 30. Most recently from January 2022 sodium was at 130. Per review of outpatient notes etiology is uncertain. She has received a liter of normal saline bolus and thereafter 150 cc of normal saline infusion. Resolving. We will continue to monitor daily. (3) Leukopenia: (4) Tobacco dependence: (5) Acute cystitis with hematuria: Plan UA appreciated. Leukocyte Estrace positive, nitrate negative. Patient does not complain of having any dysuria. Plan for CT abdomen pelvis with and without contrast as per Dr. Mora protocol which has been ordered as an outpatient. Hyperglycemia: Not a history of type 2 diabetes mellitus. A1c 5.8. Most likely secondary to steroids. For now start on insulin sliding scale at low-dose protocol. Full code. Regular diet. Lovenox for DVT prophylaxis Famotidine for PUD prophylaxis. Attestations Medical Necessity Statement*: Requires further hospitalization for management of COPD exacerbation Time Spent in Patient Care: less than 15 minutes Coding Level of Care Code Acute [facility] Claudine Diagnoses Acute exacerbation of chronic obstructive pulmonary disease J44.1 Hyponatremia E87.1 Leukopenia D72.819 Tobacco dependence F17.200 Acute cystitis with hematuria N30.01
[2022-09-29] MEDS: insulin lispro 100 unit/1 mL SUBCUT ×3 (12:38→21:16)
[2022-09-29] MEDS: benzonatate 100 mg Capsule PO ×2 (12:38→18:12)
[2022-09-29 17:01] LABS: Glucose Point of Care 198 mg/dL (70-110)
[2022-09-29] MEDS: atorvastatin 40 mg Tablet 80 MG PO (17:21)
[2022-09-29] MEDS: magnesium hydroxide 30 mL UDC PO (18:07)
[2022-09-29 20:49] LABS: Glucose Point of Care 168 mg/dL (70-110)
[2022-09-30] VITALS (7 sets, daily range): BP systolic 144–152; BP diastolic 70–77; PULSE 68–80; RESP 16–18; TEMP 36.4–36.6; O2SAT 92–97
[2022-09-30] MEDS: enoxaparin 40 mg/0.4 mL Syringe SUBCUT (00:07)
[2022-09-30] MEDS: famotidine 20 mg/2 mL INJ IVP (01:30)
[2022-09-30] MEDS: labetalol 200 mg Tablet 100 MG PO (05:33)
[2022-09-30] MEDS: aspirin 81 mg Chew Tablet PO (05:33)
[2022-09-30] MEDS: amlodipine 5 mg Tablet PO (05:34)
[2022-09-30] MEDS: roflumilast 500 mcg Tablet PO (05:34)
[2022-09-30] MEDS: benzonatate 100 mg Capsule PO (05:35)
[2022-09-30 06:21] LABS: Glucose Point of Care 174 mg/dL (70-110)
--- NOTE | 2022-09-30 07:06 | PC.NURSE ---
[facility]
[2022-09-30] MEDS: budesonide 0.5 mg/2 mL Neb INHALATION (08:03)
[2022-09-30] MEDS: ipratropium-albuterol 3 mL Neb INHALATION (08:04)
[2022-09-30] MEDS: folic acid 1 mg Tablet PO (08:19)
[2022-09-30] MEDS: insulin lispro 100 unit/1 mL SUBCUT (08:19)
[2022-09-30] MEDS: sodium chloride 1 gm Tablet PO (08:19)
--- NOTE | 2022-09-30 11:20 | P.DS_ITS ---
Discharge Providers Date of Admission: 09/27/22 14:48 Date of Discharge: September 30, 2022 Attending Provider at Admission: Gayathri Agrawal MD Attending Provider at Discharge: Maksim Mcguire MD Primary Care Provider: Sid Harris MD Diagnoses at Discharge Discharge Diagnosis (1) Acute exacerbation of chronic obstructive pulmonary disease: Status: Acute (2) Hyponatremia: Status: Acute (3) Leukopenia: Status: Acute (4) Tobacco dependence: Status: Acute (5) Acute cystitis with hematuria: Status: Acute Reason for Visit Reason for Visit: resp distress Hospital Course Hospital Course Serene Alcaraz is a 62 year old female with a H COPD, h/o alcohol dependence, chronic pancreatitis, chronic hyponatremia of uncertain etiology presenting today with chief complaints of worsening dyspnea.This she has had a dry cough, she has had a dry cough and increased wheezing.? She feels like she may be coming down with a URI.? Denies any rhinorrhea at this present time.? She has been using her inhalers more than usual recently without any significant change in symptoms.? Denies any chest pain.? She is currently requiring supplemental oxygen between 2 to 4 L/min. Patient was admitted to hospital for evaluation and management. It is believed to be significant from viral bronchitis leading to COPD exacerbation. She was started on steroids along with inhalation treatment. She responded well to the treatment and has been off oxygen supplementation for more than 24 hours. Patient is being worked up as an outpatient for recurrent UTI and is due for a CT abdomen pelvis along with a urinalysis which were both done for her as per her request and her outpatient physician request. She is been discharged in medically stable condition on oral steroid taper with Advair and Spiriva inhalation treatment. Her hospitalization was otherwise unremarkable. Home oxygen evaluation has been done prior to discharge. Physical Exam Narrative: General: No acute distress, AO x3 HEENT: PERRLA, pupils bilaterally equal and reactive, pallors not present Chest: B/L diffuse wheezing infra axillary areas CVS: S1-S2 regular, no murmurs, no tachycardia, no gallops, no rubs Abdomen: Soft, nontender, no organomegaly, bowel sounds present Neuro: No focal deficits, no facial deformity, AO x3, power 5/5 in all limbs Discharge Data Studies Completed and Pending Completed Studies During Hospitalization Category Date Time Status CT abdomen pelvis wo/w [id number] Routine Cat Scan 09/29/22 09:36 Completed CTA PE [CT angio chest PE protcl [id number]] Routine Cat Scan 09/27/22 06:02 Completed XR chest 1V portable [id number] Stat Exams 09/26/22 20:40 Completed Pending at discharge Category Date Time Status Urine Culture Routine Lab 09/27/22 17:45 Results Radiology Impressions Chest X-Ray 09/26/22 20:40 IMPRESSION: No acute findings. Chest CTA 09/27/22 06:02 IMPRESSION: 1. Severe calcified coronary artery disease. 2. No pulmonary embolus or aortic dissection. 3. Severe chronic calcific pancreatitis. 4. Chronic appearing 9 mm main pancreatic duct dilatation which may be obstructed secondary to stones in the pancreatic head. Abdomen/Pelvis CT 09/29/22 09:36 IMPRESSION: 1. No obstructing renal or ureteral calculi. 2. Normal renal parenchymal enhancement. No hydronephrosis. Normal excretion on the delayed images. 3. A few small renal cysts. 4. Urine distended bladder with lobulation and small cystocele. 5. Lobulated dilatation of the pancreatic duct with pancreatic calcifications likely due to chronic pancreatitis. This is unchanged from previous. 6. Tiny gallstone in the gallbladder. 7. Stable compression fracture T12 vertebral body. Laboratory Results WBC 8.4 10^3/uL (4.0-10.0) 09/29/22 04:25 RBC 4.13 10^6/uL (4.1-5.3) 09/29/22 04:25 Hgb 11.8 g/dL (11.5-15.3) 09/29/22 04:25 Hct 38.1 % (37.0-47.0) 09/29/22 04:25 MCV 92.3 fl (81-99) D 09/29/22 04:25 MCH 28.6 pg (28.0-34.0) 09/29/22 04:25 MCHC 31.0 g/dL (30.0-36.0) D 09/29/22 04:25 RDW 12.7 % (12.1-15.1) 09/29/22 04:25 Plt Count 403 10^3/cmm (130-400) H 09/29/22 04:25 MPV 9.2 fL (7.4-10.4) 09/29/22 04:25 Neut % (Auto) 75.9 % 09/29/22 04:25 Lymph % (Auto) 15.3 % 09/29/22 04:25 [place] % (Auto) 8.1 % 09/29/22 04:25 Eos % (Auto) 0.0 % 09/29/22 04:25 Baso % (Auto) 0.1 % 09/29/22 04:25 Neut # (Auto) 6.36 10^3/uL (1.8-7.7) 09/29/22 04:25 Lymph # (Auto) 1.3 10^3/uL (0.8-4.8) 09/29/22 04:25 [place] # (Auto) 0.7 10^3/uL (0.2-0.9) 09/29/22 04:25 Eos # (Auto) 0.0 10^3/uL (0.0-0.8) 09/29/22 04:25 Baso # (Auto) 0.0 10^3/uL (0.0-0.1) 09/29/22 04:25 Nucleated RBC % (auto) 0 % 09/29/22 04:25 Nucleated RBCs # 0.0 /100WBC 09/29/22 04:25 PT 13.40 SECONDS (12.1-14.9) 09/26/22 21:38 INR 0.99 (0.8-1.2) 09/26/22 21:38 D-Dimer 0.90 ug/mIFEU (0-0.59) H 09/26/22 21:38 Specimen Type Arterial 09/26/22 23:15 Sample Site Radial, right 09/26/22 23:15 ABG pH 7.42 (7.35-7.45) 09/26/22 23:15 ABG pCO2 34.5 mmHg (35-45) L 09/26/22 23:15 ABG pO2 47.8 mmHg (80.0-100.0) L 09/26/22 23:15 ABG HCO3 22.3 mmol/L (22-26) 09/26/22 23:15 ABG O2 Saturation 85.9 09/26/22 23:15 ABG Base Excess -1.5 mmol/L (-2.0-2.0) 09/26/22 23:15 Christopher Test Pos 09/26/22 23:15 A-a O2 Gradient 7.7 mmHg (5-10) 09/26/22 23:15 Hematocrit 42.6 % (37-47) 09/26/22 23:15 Hgb O2 Saturation 81.0 % (95-100) L 09/26/22 23:15 Carboxyhemoglobin 4.9 %THgb (0.4-20.1) 09/26/22 23:15 Methemoglobin 0.8 % (0.4-1.5) 09/26/22 23:15 Total Hemoglobin 13.9 g/dL (12-16) 09/26/22 23:15 Sodium 125.0 mmol/L (131-143) L 09/26/22 23:15 Potassium 3.4 mmol/L (3.5-5.0) L 09/26/22 23:15 Glucose 106.0 mg/dL (70-115) 09/26/22 23:15 Ionized Calcium 1.2 mmol/L (1.1-1.4) 09/26/22 23:15 O2 Delivery Device Room air 09/26/22 23:15 FiO2 21.0 % 09/26/22 23:15 Senior Internet Sales Consultant ID [email or web address] 09/26/22 23:15 Sodium 127 mmol/L (136-145) L 09/29/22 07:22 Potassium 4.0 mmol/L (3.5-5.1) 09/29/22 07:22 Chloride 93 mmol/L (98-107) L 09/29/22 07:22 Carbon Dioxide 24 mmol/L (22-29) 09/29/22 07:22 Anion Gap 14.0 (5-19) 09/29/22 07:22 BUN 13 mg/dL (8-23) 09/29/22 07:22 Creatinine 0.4 mg/dL (0.5-0.9) L 09/29/22 07:22 GFR Calculation 161.2 mL/min (90-130) H 09/29/22 07:22 Glucose 104 mg/dL (65-115) 09/29/22 07:22 POC Glucose 174 mg/dL (70-110) H 09/30/22 06:11 Estimat Average Glucose 120 09/28/22 04:28 Hemoglobin A1c 5.8 % (4.0-6.0) 09/28/22 04:28 Calculated Osmolality 264 mOsm/kg (285-295) L 09/29/22 07:22 Calcium 9.2 mg/dL (8.5-10.5) 09/29/22 07:22 Total Bilirubin 0.2 mg/dL (0.15-1.2) 09/29/22 07: AST 20 U/L (0-32) 09/29/22 07: ALT 16 U/L (0-33) 09/29/22 07:22 Alkaline Phosphatase 85 U/L (35-105) 09/29/22 07:22 Troponin T Gen 5 ng/L 9 ng/L (0-10) 09/27/22 07:00 NT-Pro-B Natriuret Pep 395 pg/mL (0-125) H 09/27/22 07:00 Total Protein 6.6 g/dL (6.6-8.7) 09/29/22 07: Albumin 3.9 g/dL (3.5-5.2) 09/29/22 07: Globulin 2.7 g/dL (1.3-4.6) 09/29/22 07:22 Vitamin B12 280 pg/mL (232-1245) 09/27/22 07:00 Folate > 20.0 ng/mL (4.8-37.3) 09/27/22 Unknown Procalcitonin 0.04 ng/mL (0-0.5) 09/27/22 07:00 TSH 0.91 uIU/mL (0.27-4.20) 09/27/22 07:00 Urine Color Yellow (Yellow) 09/27/22 17:45 Urine Appearance Clear (CLEAR) 09/27/22 17:45 Urine pH 8 (5-7) H 09/27/22 17:45 Ur Specific [place] 1.010 (1.005-1.030) 09/27/22 17:45 Urine Protein Neg (Negative) 09/27/22 17:45 Urine Glucose (UA) 1+ (Normal) H 09/27/22 17:45 Urine Ketones Negative (Negative) 09/27/22 17:45 Urine Blood Trace (Negative) H 09/27/22 17:45 Urine Nitrate Negative (Negative) 09/27/22 17:45 Urine Bilirubin Neg (Negative) 09/27/22 17:45 Urine Urobilinogen Norm mg/dL (Negative) 09/27/22 17:45 Ur Leukocyte Esterase 1+ (Negative) H 09/27/22 17:45 Urine RBC 0-4 /hpf (0-2) H 09/27/22 17:45 Urine WBC 40-55 /hpf (0-5) H 09/27/22 17:45 Ur Squamous Epith Cells 0-4 /hpf (0-5) H 09/27/22 17:45 Amorphous Sediment Not Reportable 09/27/22 17:45 Urine Bacteria 4+ /hpf (NONE) H 09/27/22 17:45 Influenza Type A Ag negative (Negative) 09/26/22 21:33 Influenza Type B Ag negative (Negative) 09/26/22 21:33 SARS-CoV-2 Ag (Rapid) negative (Negative) 09/26/22 21:33 Vitals Last Vital Signs Temp 97.9 F 09/30/22 07:51 Pulse 71 09/30/22 08:12 Resp 16 09/30/22 08:00 BP 144/70 09/30/22 07:51 Pulse Ox 97 09/30/22 09:36 O2 Del Method 09/30/22 08:00 O2 Flow Rate 2 09/29/22 19:38 Discharge Plan Discharge Patient Disposition: Home Condition: Stable Prescriptions: New Advair Diskus 500-50 mcg/dose blister with device 1 inh inhalation Q12H Qty: 60 0RF prednisone 10 mg tablets,dose pack See Rx Instructions .ROUTE .COMPLEX Qty: 21 0RF Rx Instructions: prednisone 5 mg: take 8 tablets (40 mg) on Day 1; 7 tablets (35 mg) on Day 2; then decrease by 1 tablet every day until finished Continued cetirizine [Zyrtec] 10 mg tablet 10 mg PO DAILY PRN (Reason: Allergy Symptoms) Advanced Eye Relief 1-0.3 % drops 1 drp ophthalmic (eye) DAILY PRN (Reason: unknown) acetaminophen [Tylenol Arthritis Pain] 650 mg tablet extended release 1,300 mg PO .UP TO TWICE A DAY Spiriva Respimat 2.5 mcg/actuation mist 2 puff inhalation DAILY Qty: 4 5RF sodium chloride 1 gram tablet 1 g PO BID diphenhydramine HCl [Benadryl] 25 mg Capsule 25 mg PO BID PRN (Reason: Allergy Symptoms) atorvastatin 80 mg Tablet 80 mg PO DAILY@1800 amlodipine 5 mg Tablet 5 mg PO BID@0600,1800 aspirin 81 mg Tablet,Chewable 81 mg PO DAILY@0600 labetalol 100 mg Tablet 100 mg PO BID@0600,1800 albuterol sulfate 90 mcg/actuation Hfa Aerosol Inhaler 2 puff inhalation Q6H PRN (Reason: Shortness Of Breath) albuterol sulfate 2.5 mg /3 mL (0.083 %) Solution For Nebulization 2.5 mg INHALATION Q4H PRN (Reason: Shortness Of Breath) clobetasol 0.05 % Cream 1 applic TOPICAL BID PRN (Reason: unknown) folic acid 1 mg Tablet 1 mg PO DAILY fluticasone propionate 50 mcg/actuation [place],Suspension 1 spray INTRANASAL Q12H PRN (Reason: Allergy Symptoms) Daliresp 500 mcg Tablet 500 mcg PO QAM Gemtesa 75 mg Tablet 75 mg PO QAM Discharge Orders: Discharge Order (Routine); Ordered 09/30/22 Ordered By: Maksim Mcguire Referrals: Sid Harris MD [Primary Care Provider] - 10/03/22 11:15 am Discharge Diet: Regular Discharge Activity: Resume usual activity and Increase activity as tolerated Patient Instructions: Prednisone (By mouth), Fluticasone (By breathing), COPD (Chronic Obstructive Pulmonary Disease) (GEN), Opioid Safety Activity Restrictions/Additional Instructions: Steroid pack dose as described. Advair is the new inhaler which she should take twice daily. Follow-up with a primary care provider over the next 1 week Discharge Attestations Time Spent in Discharge Care*: greater than 30 min Specific Discharge Activities: educating patient, discussing with case man agers/social workers/dc planners, documenting/other paperwork and evaluating patient/reviewing data Status at Discharge: Cognitive status at discharge: cognitively intact , Behavioral status at discharge: cooperative , Functional status at discharge: independent ambulation , Overall status at discharge: patient is back to baseline Quality Metrics Clinical Quality Measures [ No reported AMI, CVA or VTE this stay] Coding Level of Care Code Acute Chg FW DC note Diagnoses Acute exacerbation of chronic obstructive pulmonary disease J44.1 Hyponatremia E87.1 Leukopenia D72.819 Tobacco dependence F17.200 Acute cystitis with hematuria N30.01
[2022-09-30 11:23] LABS: Glucose Point of Care 129 mg/dL (70-110)
== END 2022-09-30 12:06 | disposition home or self-care (01) | DRG 202 ==
LOC: ER 23:14 → MEDSURG 23:40
PROVIDERS: Emergency Medicine; Admitting Provider Student in an Organized Health Care Education/Training Program; Emergency Provider Emergency Medicine; PCP Family Medicine; Visit Provider Student in an Organized Health Care Education/Training Program
DX: J20.8 Acute bronchitis due to other specified organisms (principal); E87.1 Hypo-osmolality and hyponatremia; J44.0 Chronic obstructive pulmonary disease with (acute) lower respiratory infection; J44.1 Chronic obstructive pulmonary disease with (acute) exacerbation; N30.01 Acute cystitis with hematuria; K86.1 Other chronic pancreatitis; F17.210 Nicotine dependence, cigarettes, uncomplicated; E78.5 Hyperlipidemia, unspecified; I10 Essential (primary) hypertension; E03.9 Hypothyroidism, unspecified; R00.0 Tachycardia, unspecified; R73.9 Hyperglycemia, unspecified; T38.0X5A Adverse effect of glucocorticoids and synthetic analogues, initial encounter; Z87.440 Personal history of urinary (tract) infections
CPT/HCPCS: 36415; 36416; 36600; 71045; 71275; 74178; 80051; 80053; 81001; 82330; 82607; 82746; 82805; 82962; 83036; 83880; 84145; 84443; 84484; 85025; 85378; 85610; 86403; 87077; 87086; 87186; 87426; 87449; 87804; 93005; 94640; 94760; 96361; 96372; 96374; 99285; G0378; J1100; J1650; J1815; J2920; J3490; J7030; J7626; Q9967

== ENCOUNTER 2023-04-15 10:07 | Emergency (ER) | payer MEDICAID, SELFPAY ==
[2023-04-15 10:27] VITALS: BP 158/87; PULSE 81; RESP 15; TEMP 36.7; O2SAT 98
--- NOTE | 2023-04-15 10:37 | XRR_ITS ---
PROCEDURE INFORMATION: Exam: XR Chest Exam date and time: 04/15/2023 11:09 AM Age: 62 years old Clinical indication: Pain; Chest pressure; Additional info: Cp TECHNIQUE: Imaging protocol: Radiologic exam of the chest. Views: 1 view. Total images: 1 COMPARISON: CR XR chest 1V portable [id number] 09/26/2022 8:44 PM FINDINGS: Lungs: Benign granulomatous disease of the lung is noted. Pleural spaces: Unremarkable. No pleural effusion. No pneumothorax. Heart/Mediastinum: Unremarkable. No cardiomegaly. Bones/joints: Diffuse osteopenia noted. Osseous structures are unchanged from the prior exam. Chronic compression fracture at T8. XR/XR chest 1V portable [id number] IMPRESSION: No acute cardiopulmonary process.
--- NOTE | 2023-04-15 10:38 | ECG_ITS ---
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 Measurements Intervals [place] Rate: 79 P: 0 MA: 0 QRS: 31 QRSD: 81 T: 91 QT: 372 QTc: 428 Interpretive Statements ATRIAL FIBRILLATION NONSPECIFIC T-WAVE ABNORMALITY Compared to ECG 09/27/2022 07:52:17 T-wave abnormality now present Sinus rhythm no longer present Electronically Signed On 04-15-2023 14:00:42 CDT by Angel Alegre M.D. [id number]
--- NOTE | 2023-04-15 10:42 | W.ED.GENADLT ---
HPI - General Adult General: Chief complaint: General Medical Stated complaint: sob, left ear pain, migraine, bladder issues Time Seen by Provider: 04/15/23 10:13 Source: patient Mode of arrival: ambulatory Limitations: no limitations History of Present Illness: 62-year-old female is here with multiple complaints. She states she is got a headache she has had some chest tightness states she has abdominal pain vomiting diarrhea states she also feels like she may have a UTI. States she has had GI issues for months. States she feels like she has reflux. States her biggest complaint is her reflux symptoms she denies any fever she is resting comfortably here no cough no shortness of breath. She is also been having left ear pain over the last 2 days Associated symptoms: Reports chest pain, headache(s), nausea and vomiting; Deny dyspnea or rash Review of Systems Const: Denies: fever(s), chills, body aches or change in appetite ENMT: Denies: throat pain or dental pain Card: Reports: chest pain Resp: Denies: dyspnea GI: Reports: abdominal pain, nausea, vomiting and diarrhea : Reports: dysuria Musc: Denies: neck pain or back pain Skin/Breast: Denies: rash Neuro: Reports: headache(s) PFSH ED PFSH: Medical History Acute cystitis with hematuria Alcohol use Chronic hyponatremia Chronic pancreatitis COPD (chronic obstructive pulmonary disease) E-coli UTI Fall Hyperlipidemia Hypertension Hypothyroid Intertrochanteric fracture of right hip LGSIL Pap smear of vagina Nicotine addiction Osteoporosis Vitamin B12 deficiency Surgical History H/O: hysterectomy Status post open reduction with internal fixation of fracture Family History Mother Anesthesia complication CAD (coronary artery disease) Diabetes Hyperlipidemia Hypertension Family history of thyroid problem Grandfather Cancer maternal-lung cancer Sister Diabetes Hypertension Son Diabetes Grandmother Diabetes paternal Denies family history of Ovarian cyst Clotting disorder Chronic kidney disease (CKD) Bleeding disorder Social History Smoking and tobacco status: current every day smoker cigarettes Packs smoked per day: 1 Years cigarettes smoked: 40 Smoking risk assessment/counseling performed?: Yes Alcohol intake: current Alcohol intake frequency: few times a week Counseling given: No Substance/Drug Use: never Counseling given: No Lives independently: Yes Household members: family Marital status: Single Current occupational status: employed Current occupation: [employer] Current occupational exposures/hazards: Yes Do you think of yourself as: Straight/Heterosexual Current gender identity: Female Physical Exam Const: COMMON NORMALS: no acute distress, patient oriented x3 and healthy appearing HENMT: COMMON NORMALS: normocephalic and atraumatic HEAD & SCALP: normocephalic and atraumatic OTHER: Erythema to left tympanic membrane Eye: COMMON NORMALS: conjunctivae normal CONJUNCTIVA: Yes conjunctivae normal Neck/C-Spine: COMMON NORMALS: full ROM and supple Chest: COMMONS NORMALS: normal inspection of the chest and normal palpation of entire chest wall Resp: COMMON NORMALS: normal respiratory effort, No retractions, No use of accessory muscles and clear to auscultation bilaterally AUSCULTATION: clear to auscultation bilaterally Cardio: COMMON NORMALS: regular rate, regular rhythm and No murmurs present (Cardio) RATE: regular rate RHYTHM: regular rhythm GI: COMMON NORMALS: Normal to inspection, nondistended, normoactive bowel sounds present, Soft to palpation, non-tender and no masses PALPATION: Yes Soft to palpation Extremity: COMMON NORMALS: normal to inspection and full ROM Neuro: COMMON NORMALS: patient oriented x3, moves all extremities and no focal motor deficits Psych: COMMON NORMALS: mental status grossly normal, Normal thought process present and cooperative THOUGHT PROCESS: Normal thought process present Skin: COMMON NORMALS: no rashes or lesions noted and no wounds GENERAL SKIN EXAM: no rashes or lesions noted Course Vital Signs: Vital signs: Vital Signs Temperature 98.1 F 04/15/23 10:27 Pulse Rate 74 04/15/23 11:46 Respiratory Rate 15 04/15/23 10:27 Blood Pressure 138/95 04/15/23 11:46 Pulse Oximetry 99 04/15/23 11:46 Oxygen Delivery Me thod Room Air 04/15/23 10:27 MDM - General Adult Medical Decision Making Patient presents here with multiple complaints she does have a UTI along with otitis media left ear we will place her on Keflex should cover both her troponin here is at her baseline she is no signs of acute coronary syndrome she does have reflux we will start her on Protonix she is to follow-up with PCP and return if worsening she understands agrees to plan. Medical Records I reviewed the patient's medical records. Lab Data I reviewed the patient's lab results. 04/15/23 11:09 04/15/23 11:33 Radiology Impressions Chest X-Ray 04/15/23 10:37 IMPRESSION: No acute cardiopulmonary process. Laboratory Results WBC 10.1 10^3/uL (4.0-10.0) H 04/15/23 11:09 RBC 4.46 10^6/uL (4.1-5.3) 04/15/23 11:09 Hgb 13.4 g/dL (11.5-15.3) 04/15/23 11:09 Hct 39.7 % (37.0-47.0) 04/15/23 11:09 MCV 89.0 fl (81-99) 04/15/23 11:09 MCH 30.0 pg (28.0-34.0) 04/15/23 11:09 MCHC 33.8 g/dL (30.0-36.0) 04/15/23 11:09 RDW 16.6 % (12.1-15.1) H 04/15/23 11:09 Plt Count 233 10^3/cmm (130-400) 04/15/23 11:09 MPV 10.0 fL (7.4-10.4) 04/15/23 11:09 Neut % (Auto) 76.5 % 04/15/23 11:09 Lymph % (Auto) 16.6 % 04/15/23 11:09 [place] % (Auto) 5.6 % 04/15/23 11:09 Eos % (Auto) 0.7 % 04/15/23 11:09 Baso % (Auto) 0.3 % 04/15/23 11:09 Neut # (Auto) 7.73 10^3/uL (1.8-7.7) H 04/15/23 11:09 Lymph # (Auto) 1.7 10^3/uL (0.8-4.8) 04/15/23 11:09 [place] # (Auto) 0.6 10^3/uL (0.2-0.9) 04/15/23 11:09 Eos # (Auto) 0.1 10^3/uL (0.0-0.8) 04/15/23 11:09 Baso # (Auto) 0.0 10^3/uL (0.0-0.1) 04/15/23 11:09 Nucleated RBC % (auto) 0 % 04/15/23 11:09 Nucleated RBCs # 0.0 /100WBC 04/15/23 11:09 Sodium 128 mmol/L (136-145) L 04/15/23 11:33 Potassium 3.2 mmol/L (3.5-5.1) L 04/15/23 11:33 Chloride 89 mmol/L (98-107) L 04/15/23 11:33 Carbon Dioxide 26 mmol/L (22-29) 04/15/23 11:33 Anion Gap 16.2 (5-19) 04/15/23 11:33 BUN 5 mg/dL (8-23) L 04/15/23 11:33 Creatinine 0.3 mg/dL (0.5-0.9) L 04/15/23 11:33 GFR Calculation 224.7 mL/min (90-130) H 04/15/23 11:33 Glucose 92 mg/dL (65-115) 04/15/23 11:33 Calculated Osmolality 263 mOsm/kg (285-295) L 04/15/23 11:33 Calcium 8.8 mg/dL (8.5-10.5) 04/15/23 11:33 Total Bilirubin 0.5 mg/dL (0.15-1.2) 04/15/23 11:33 AST 12 U/L (0-32) 04/15/23 11:33 ALT 9 U/L (0-33) 04/15/23 11:33 Alkaline Phosphatase 126 U/L (35-105) H 04/15/23 11:33 Troponin T Baseline 11 ng/L (0-10) H 04/15/23 11:33 Total Protein 6.6 g/dL (6.6-8.7) 04/15/23 11:33 Albumin 3.7 g/dL (3.5-5.2) 04/15/23 11:33 Globulin 2.9 g/dL (1.3-4.6) 04/15/23 11:33 Lipase 27 U/L (13-60) 04/15/23 11:33 Urine Color Straw (Yellow) 04/15/23 11:30 Urine Appearance Cloudy (CLEAR) A 04/15/23 11:30 Urine pH 7 (5-7) 04/15/23 11:30 Ur Specific [place] 1.000 (1.005-1.030) L 04/15/23 11:30 Urine Protein Neg (Negative) 04/15/23 11:30 Urine Glucose (UA) Norm (Normal) 04/15/23 11:30 Urine Ketones Negative (Negative) 04/15/23 11:30 Urine Blood 2+ (Negative) H 04/15/23 11:30 Urine Nitrate Negative (Negative) 04/15/23 11:30 Urine Bilirubin Neg (Negative) 04/15/23 11:30 Urine Urobilinogen Norm mg/dL (Negative) 04/15/23 11:30 Ur Leukocyte Esterase 2+ (Negative) H 04/15/23 11:30 Urine RBC 10-15 /hpf (0-2) H 04/15/23 11:30 Urine WBC Too numerous to cnt /hpf (0-5) H 04/15/23 11:30 Ur Squamous Epith Cells 0-4 /hpf (0-5) H 04/15/23 11:30 Amorphous Sediment Not Reportable 04/15/23 11:30 Urine Bacteria 4+ /hpf (NONE) H 04/15/23 11:30 Discharge Plan Discharge Patient Disposition: Home Clinical Impression: Otitis media, Acute cystitis, Atypical chest pain Condition: Stable Prescriptions: New cephalexin 500 mg capsule 500 mg PO TID 7 Days Qty: 21 0RF Protonix 40 mg tablet,delayed release (DR/EC) 40 mg PO DAILY Qty: 60 0RF ondansetron 4 mg tablet,disintegrating 4 mg PO Q6H PRN (Reason: nausea and vomiting) Qty: 14 0RF No Action cetirizine [Zyrtec] 10 mg tablet 10 mg PO DAILY PRN (Reason: Allergy Symptoms) Advanced Eye Relief 1-0.3 % drops 1 drp ophthalmic (eye) DAILY PRN (Reason: unknown) acetaminophen [Tylenol Arthritis Pain] 650 mg tablet extended release 1,300 mg PO .UP TO TWICE A DAY Spiriva Respimat 2.5 mcg/actuation mist 2 puff inhalation DAILY Qty: 4 5RF sodium chloride 1 gram tablet 1 g PO BID diphenhydramine HCl [Benadryl] 25 mg Capsule 25 mg PO BID PRN (Reason: Allergy Symptoms) atorvastatin 80 mg Tablet 80 mg PO DAILY@1800 amlodipine 5 mg Tablet 5 mg PO BID@0600,1800 aspirin 81 mg Tablet,Chewable 81 mg PO DAILY@0600 labetalol 100 mg Tablet 100 mg PO BID@0600,1800 albuterol sulfate 90 mcg/actuation Hfa Aerosol Inhaler 2 puff inhalation Q6H PRN (Reason: Shortness Of Breath) albuterol sulfate 2.5 mg /3 mL (0.083 %) Solution For Nebulization 2.5 mg INHALATION Q4H PRN (Reason: Shortness Of Breath) clobetasol 0.05 % Cream 1 applic TOPICAL BID PRN (Reason: unknown) folic acid 1 mg Tablet 1 mg PO DAILY fluticasone propionate 50 mcg/actuation [place],Suspension 1 spray INTRANASAL Q12H PRN (Reason: Allergy Symptoms) Daliresp 500 mcg Tablet 500 mcg PO QAM Gemtesa 75 mg Tablet 75 mg PO QAM Advair Diskus 500-50 mcg/dose blister with device 1 inh inhalation Q12H Qty: 60 0RF prednisone 10 mg tablets,dose pack See Rx Instructions .ROUTE .COMPLEX Qty: 21 0RF Rx Instructions: prednisone 5 mg: take 8 tablets (40 mg) on Day 1; 7 tablets (35 mg) on Day 2; then decrease by 1 tablet every day until finished Discharge Orders: Discharge ED (Routine); Ordered 04/15/23 Ordered By: Kashif Chaney Referrals: Sid Harris MD [Primary Care Provider] - 1-3 days Discharge Diet: Advance as tolerated Discharge Activity: Resume usual activity Patient Instructions: Otitis Media - Adult, Chest Pain (ED), Urinary Tract Infection in Women (ED) Coding Level of Care Code ED Pharmaceutical Botanist for Sergio Chow
[2023-04-15] MEDS: ondansetron 2 mg/ML SDV 2 mL 4 MG IVP (11:04)
[2023-04-15] MEDS: lidocaine 2% viscous 15 ML, aluminum-mag hydrox-simethicon 30 ML, sucralfate oral liq 1 GM PO (11:04)
[2023-04-15] MEDS: sodium chloride 0.9% 1,000 ML 999 ML IV (11:05)
[2023-04-15 11:18] LABS: Basophils % 0.3 %; Eosinophils # 0.1 10^3/uL (0.0-0.8); Eosinophils % 0.7 %; Hematocrit 39.7 % (37.0-47.0); Hemoglobin 13.4 g/dL (11.5-15.3); Lymphocytes # 1.7 10^3/uL (0.8-4.8); Lymphocytes % 16.6 %; Mean Corpuscular HGB Conc 33.8 g/dL (30.0-36.0); Monocytes # 0.6 10^3/uL (0.2-0.9); Monocytes % 5.6 %; Neutrophils # 7.73 10^3/uL (1.8-7.7); Neutrophils % 76.5 %; Nucleated Red Blood Cells % 0 %; Platelet Count 233 10^3/cmm (130-400); Red Blood Count 4.46 10^6/uL (4.1-5.3); Red Cell Distribution Width 16.6 % (12.1-15.1); White Blood Count 10.1 10^3/uL (4.0-10.0)
[2023-04-15 11:46] VITALS: BP 138/95; PULSE 74; O2SAT 99
[2023-04-15 11:55] LABS: Alanine Aminotransferase 9 U/L (0-33); Albumin Level 3.7 g/dL (3.5-5.2); Alkaline Phosphatase 126 U/L (35-105); Anion Gap 16.2 (5-19); Aspartate Amino Transferase 12 U/L (0-32); Blood Urea Nitrogen 5 mg/dL (8-23); Calcium 8.8 mg/dL (8.5-10.5); Carbon Dioxide 26 mmol/L (22-29); Chloride 89 mmol/L (98-107); Globulin 2.9 g/dL (1.3-4.6); Glomerular Filtration Rate 224.7 mL/min (90-130); Glucose 92 mg/dL (65-115); Lipase 27 U/L (13-60); Osmolality Calculated 263 mOsm/kg (285-295); Potassium 3.2 mmol/L (3.5-5.1); Sodium 128 mmol/L (136-145); Total Bilirubin 0.5 mg/dL (0.15-1.2); Total Protein 6.6 g/dL (6.6-8.7)
[2023-04-15 11:57] LABS: Troponin(5th) Baseline 11 ng/L (0-10)
[2023-04-15 12:14] LABS: Protein Urine Neg (Negative); Urine Appearance Cloudy (CLEAR); Urine Color Straw (Yellow); pH Urine 7 (5-7)
[2023-04-15 12:15] LABS: Add Urine Culture? Yes; Add Urine Microscopic? YES; Bacteria Urine 4+ /hpf; Bilirubin Urine Neg (Negative); Blood Urine 2+ (Negative); Glucose Urine UA Norm (Normal); Ketones Urine Negative (Negative); Leukocyte Esterase Urine 2+ (Negative); Nitrate Urine Negative (Negative); Squamous Epithelial Cell Urine 0-4 /hpf (0-5); Urobilinogen Urine Norm (Negative); WBC Urine TOO NUMEROUS TO CNT /hpf (0-5)
[2023-04-15 12:31] VITALS: BP 145/75; PULSE 78; RESP 19; O2SAT 98
== END 2023-04-15 12:37 | disposition home or self-care (01) ==
PROVIDERS: Emergency Provider Emergency Medicine; PCP Family Medicine
DX: H66.92 Otitis media, unspecified, left ear (principal); F17.210 Nicotine dependence, cigarettes, uncomplicated; N30.00 Acute cystitis without hematuria; R07.89 Other chest pain
CPT/HCPCS: 36415; 71045; 80053; 81001; 83690; 84484; 85025; 87077; 87086; 87186; 93005; 96361; 96374; 99285; J2405; J7030

== ENCOUNTER 2023-12-19 15:19 | Emergency (ER) | payer MEDICAID, SELFPAY ==
[2023-12-19 15:21] VITALS: BP 121/76; PULSE 80; RESP 18; TEMP 36.7; O2SAT 100; BMI 22.2
--- NOTE | 2023-12-19 15:22 | XRR_ITS ---
PROCEDURE INFORMATION: Exam: XR Chest Exam date and time: 12/19/2023 3:30 PM Age: 63 years old Clinical indication: Cough and dyspnea; Additional info: Dyspnea/cough TECHNIQUE: Imaging protocol: Radiologic exam of the chest. Views: 1 view. COMPARISON: CR XR chest 1V portable [id number] 04/15/2023 11:09 AM FINDINGS: Lungs: No focal consolidation. Pleural spaces: No evidence of pneumothorax or pleural effusion. Heart/Mediastinum: Cardiomediastinal silhouette is within normal limits. Bones/joints: No evidence of acute osseous abnormality. Chronic osteoporotic fractures of the thoracic spine. XR/XR chest 1V portable [id number] IMPRESSION: 1. No acute cardiopulmonary abnormality.
[2023-12-19 15:30] LABS: Basophils % 0.6 %; Eosinophils # 0.1 10^3/uL (0.0-0.8); Hematocrit 31.8 % (36-47); Lymphocytes % 29.5 %; Mean Corpuscular HGB Conc 33.6 g/dL (30-55); Mean Corpuscular Hemoglobin 29.2 pg (27-33); Mean Corpuscular Volume 86.9 fl (85-98); Monocytes # 0.7 10^3/uL (0.2-0.9); Monocytes % 10.8 %; Neutrophils # 3.93 10^3/uL (1.8-7.7); Neutrophils % 57.5 %; Nucleated Red Blood Cells % 0 %; Platelet Count 383 10^3/cmm (157-399); Red Blood Count 3.66 10^6/uL (3.85-5.65); Red Cell Distribution Width 16.1 % (12.1-15.1); White Blood Count 6.84 10^3/uL (3.29-11.43)
--- NOTE | 2023-12-19 15:31 | W.ED.WEAKNES ---
Documented by User: Riley Stone DO 12/21/23 06:17 HPI - Weakness General: Chief complaint: Weakness Stated complaint: WEAKNESS Time Seen by Provider: 12/19/23 15:22 Source: patient Mode of arrival: EMS History of Present Illness: 63-year-old female presents to the emergency room with complaints of generalized weakness for last week progressively worsening unable to ambulate bilateral edema to lower extremities. MD Complaint: generalized weakness Associated symptoms: Denies chest pain, chills, dysuria or fever(s) Review of Systems Const: Denies: fever(s) or chills Card: Denies: chest pain Resp: Denies: dyspnea GI: Denies: abdominal pain : Denies: dysuria, urinary frequency or urinary urgency Musc: Reports: extremity swelling; Denies: neck pain or back pain Skin/Breast: Denies: rash PFSH ED PFSH: Medical History Hyperlipidemia Vitamin B12 deficiency Hypothyroid E-coli UTI Intertrochanteric fracture of right hip Fall Nicotine addiction LGSIL Pap smear of vagina Chronic hyponatremia Alcohol use Chronic pancreatitis Osteoporosis Hypertension COPD (chronic obstructive pulmonary disease) Acute cystitis with hematuria Surgical History Status post open reduction with internal fixation of fracture H/O: hysterectomy Family History Mother Anesthesia complication CAD (coronary artery disease) Diabetes Hyperlipidemia Hypertension Family history of thyroid problem Grandfather Cancer maternal-lung cancer Sister Diabetes Hypertension Son Diabetes Grandmother Diabetes paternal Denies family history of Ovarian cyst Clotting disorder Chronic kidney disease (CKD) Bleeding disorder Social History Smoking and tobacco/nicotine status: current every day tobacco/nicotine user cigarettes Packs smoked per day: 1 Years cigarettes smoked: 40 Alcohol intake: current Alcohol intake frequency: few times a week Substance/Drug Use: never Lives independently: Yes Household members: family Marital status: Single Current occupational status: employed Current occupation: [employer] Current occupational exposures/hazards: Yes Do you think of yourself as: Straight/Heterosexual Current gender identity: Female Physical Exam Const: GENERAL APPEARANCE: cooperative and comfortable ORIENTATION/CONSCIOUSNESS: Yes awake, Yes oriented to person, Yes oriented to place and Yes oriented to time HENMT: COMMON NORMALS: normocephalic, atraumatic and hearing grossly normal bilaterally HEAD & SCALP: normocephalic and atraumatic Resp: COMMON NORMALS: normal respiratory effort, No retractions, No use of accessory muscles and clear to auscultation bilaterally AUSCULTATION: clear to auscultation bilaterally Cardio: COMMON NORMALS: regular rate, regular rhythm and No murmurs present (Cardio) RATE: regular rate RHYTHM: regular rhythm GI: COMMON NORMALS: Soft to palpation and No hepatosplenomegaly present AUSCULTATION: Yes normoactive bowel sounds PALPATION: Yes Soft to palpation, No Tenderness to palpation present (GI), No Guarding due to palpation present (GI) and Yes No hepatosplenomegaly present Extremity: COMMON NORMALS: normal to inspection, capillary refill normal, no clubbing, cyanosis or edema, no calf tenderness and no pedal edema Neuro: SENSORIUM/ORIENTATION: Yes oriented to person, Yes oriented to place and Yes oriented to time Skin: COMMON NORMALS: no rashes or lesions noted GENERAL SKIN EXAM: no rashes or lesions noted Course Vital Signs: Vital signs: Vital Signs Temperature 98.0 F 12/19/23 15:21 Pulse Rate 88 12/19/23 23:40 Respiratory Rate 16 12/19/23 23:40 Blood Pressure 130/71 12/19/23 23:40 Pulse Oximetry 97 12/19/23 23:40 Oxygen Delivery Me thod Room Air 12/19/23 19:05 MDM - Weakness Medical Decision Making Care signed out to Dr. Loo at change of shift. See final notes for diagnosis and disposition. Lab work revealed patient's hypokalemic at 3.0, BNP is elevated at 633, baseline troponin was fifteen 2-hour troponin was 13.53 for insignificant delta urinary testing showed you urinary tract infection with 2+ blood and 2+ leukocyte Estrace. Patient will be given 40 of IV Lasix here, Cipro 500 mg, 40 mEq of oral potassium, patient be discharged home for an additional 5 days of Lasix, 5 days of potassium, and 10 days of ciprofloxacin, patient should follow-up with her PCP within the next 7 to 10 days for further evaluation and treatment., Lab Data 12/19/23 15:07 12/19/23 15:07 Radiology Impressions Chest X-Ray 12/19/23 15:22 IMPRESSION: 1. No acute cardiopulmonary abnormality. Laboratory Results WBC 6.84 10^3/uL (3.29-11.43) 12/19/23 15:07 RBC 3.66 10^6/uL (3.85-5.65) L 12/19/23 15:07 Hgb 10.70 g/dL (11.27-16.99) L 12/19/23 15:07 Hct 31.8 % (36-47) L 12/19/23 15:07 MCV 86.9 fl (85-98) 12/19/23 15:07 MCH 29.2 pg (27-33) 12/19/23 15:07 MCHC 33.6 g/dL (30-55) 12/19/23 15:07 RDW 16.1 % (12.1-15.1) H 12/19/23 15:07 Plt Count 383 10^3/cmm (157-399) 12/19/23 15:07 MPV 9.0 fL (7.4-10.4) 12/19/23 15:07 Neut % (Auto) 57.5 % 12/19/23 15:07 Lymph % (Auto) 29.5 % 12/19/23 15:07 [place] % (Auto) 10.8 % 12/19/23 15:07 Eos % (Auto) 1.0 % 12/19/23 15:07 Baso % (Auto) 0.6 % 12/19/23 15:07 Neut # (Auto) 3.93 10^3/uL (1.8-7.7) 12/19/23 15:07 Lymph # (Auto) 2.0 10^3/uL (0.8-4.8) 12/19/23 15:07 [place] # (Auto) 0.7 10^3/uL (0.2-0.9) 12/19/23 15:07 Eos # (Auto) 0.1 10^3/uL (0.0-0.8) 12/19/23 15:07 Baso # (Auto) 0.0 10^3/uL (0.0-0.1) 12/19/23 15:07 Nucleated RBC % (auto) 0 % 12/19/23 15:07 Nucleated RBCs # 0.0 /100WBC 12/19/23 15:07 PT 12.70 SECONDS (12.1-14.9) 12/19/23 15:07 INR 0.92 (0.8-1.2) 12/19/23 15:07 APTT 27.4 SECONDS (23.9-36.7) 12/19/23 15:07 Sodium 131 mmol/L (136-145) L 12/19/23 15:07 Potassium 3.0 mmol/L (3.5-5.1) L 12/19/23 15:07 Chloride 92 mmol/L (98-107) L 12/19/23 15:07 Carbon Dioxide 28 mmol/L (22-29) 12/19/23 15:07 Anion Gap 14.0 (5-19) 12/19/23 15:07 BUN 7 mg/dL (8-23) L 12/19/23 15:07 Creatinine 0.3 mg/dL (0.5-0.9) L 12/19/23 15:07 GFR Calculation 224.0 mL/min (90-130) H 12/19/23 15:07 Glucose 110 mg/dL (65-115) 12/19/23 15:07 Calculated Osmolality 271 mOsm/kg (285-295) L 12/19/23 15:07 Calcium 8.2 mg/dL (8.5-10.5) L 12/19/23 15:07 Total Bilirubin 0.2 mg/dL (0.15-1.2) 12/19/23 15:07 AST 30 U/L (0-32) 12/19/23 15:07 ALT 28 U/L (0-33) 12/19/23 15:07 Alkaline Phosphatase 209 U/L (35-105) H 12/19/23 15:07 Troponin T Baseline 15 ng/L (0-10) H 12/19/23 15:07 Troponin T 120 Minute 13.53 ng/L (0-10) H 12/19/23 17:57 Delta Troponin T -1.47 ABS# (0-10) L 12/19/23 17:57 NT-Pro-B Natriuret Pep 633 pg/mL (0-125) H 12/19/23 15:07 Total Protein 6.3 g/dL (6.6-8.7) L 12/19/23 15:07 Albumin 2.8 g/dL (3.5-5.2) L 12/19/23 15:07 Globulin 3.5 g/dL (1.3-4.6) 12/19/23 15:07 Urine Color Yellow (Yellow) 12/19/23 17:40 Urine Appearance Cloudy (CLEAR) A 12/19/23 17:40 Urine pH 7 (5-7) 12/19/23 17:40 Ur Specific [place] 1.005 (1.005-1.030) 12/19/23 17:40 Urine Protein Neg (Negative) 12/19/23 17:40 Urine Glucose (UA) Norm (Normal) 12/19/23 17:40 Urine Ketones Negative (Negative) 12/19/23 17:40 Urine Blood 2+ (Negative) H 12/19/23 17:40 Urine Nitrate Positive (Negative) H 12/19/23 17:40 Urine Bilirubin Neg (Negative) 12/19/23 17:40 Urine Urobilinogen Norm mg/dL (Negative) 12/19/23 17:40 Ur Leukocyte Esterase 2+ (Negative) H 12/19/23 17:40 Urine RBC 0-4 /hpf (0-2) H 12/19/23 17:40 Urine WBC 40-55 /hpf (0-5) H 12/19/23 17:40 Ur Squamous Epith Cells 10-15 /hpf (0-5) H 12/19/23 17:40 Ur Transition Epith Cell 0-4 /hpf 12/19/23 17:40 Amorphous Sediment 2+ /hpf 12/19/23 17:40 Urine Bacteria 2+ /hpf (NONE) H 12/19/23 17:40 Urine Mucus 1+ /hpf 12/19/23 17:40 Ur Oval Fat Bodies 1+ /hpf 12/19/23 17:40 Ethyl Alcohol < 10 mg/dL (0-10) 12/19/23 15:07 Discharge Plan Discharge Patient Disposition: Home Clinical Impression: Acute hypokalemia, Acute lower urinary tract infection Edema Qualifiers: Edema type: unspecified Qualified Code(s): R60.9 - Edema, unspecified Condition: Stable Prescriptions: New ciprofloxacin HCl 500 mg tablet 500 mg PO Q12H Qty: 20 0RF potassium chloride 20 mEq tablet extended release 20 meq PO BID Qty: 10 0RF Lasix 40 mg tablet 40 mg PO DAILY Qty: 5 0RF No Action cetirizine [Zyrtec] 10 mg tablet 10 mg PO DAILY PRN (Reason: Allergy Symptoms) Advanced Eye Relief 1-0.3 % drops 1 drp ophthalmic (eye) DAILY PRN (Reason: unknown) acetaminophen [Tylenol Arthritis Pain] 650 mg tablet extended release 1,300 mg PO .UP TO TWICE A DAY diphenhydramine HCl [Benadryl] 25 mg Capsule 25 mg PO BID PRN (Reason: Allergy Symptoms) atorvastatin 80 mg Tablet 80 mg PO DAILY@1800 amlodipine 5 mg Tablet 5 mg PO BID@0600,1800 aspirin 81 mg Tablet,Chewable 81 mg PO DAILY@0600 labetalol 100 mg Tablet 100 mg PO BID@0600,1800 albuterol sulfate 90 mcg/actuation Hfa Aerosol Inhaler 2 puff inhalation Q6H PRN (Reason: Shortness Of Breath) Combivent Respimat 20-100 mcg/actuation Mist 1 puff INHALATION Q6H albuterol sulfate 2.5 mg /3 mL (0.083 %) Solution For Nebulization 2.5 mg INHALATION Q4H PRN (Reason: Shortness Of Breath) clobetasol 0.05 % Cream 1 applic TOPICAL BID PRN (Reason: unknown) fluticasone propion-salmeterol [Advair Diskus] 500-50 mcg/dose blister with device 1 inh inhalation Q12H Qty: 60 0RF Discharge Orders: Discharge ED (Routine); Ordered 12/19/23 Ordered By: Gerry Loo Referrals: Sid Harris MD [Primary Care Provider] - 1 week Patient Instructions: Hypokalemia, Urinary Tract Infection in Women (ED), Edema (ED) Activity Restrictions/Additional Instructions: Please take all your medicine as directed. Please follow-up with your family practice physician within the next 7 to 10 days for further evaluation and treatment as needed. If your symptoms worsen please feel free to return to the ER. Coding Level of Care Code ED Railroad Construction Director for Chg Fwd Documented by User: Gerry Loo DO 12/19/23 22:51 HPI - Weakness General: Chief complaint: Weakness Stated complaint: WEAKNESS Time Seen by Provider: 12/19/23 15:22 PFSH ED PFSH: Medical History Hyperlipidemia Vitamin B12 deficiency Hypothyroid E-coli UTI Intertrochanteric fracture of right hip Fall Nicotine addiction LGSIL Pap smear of vagina Chronic hyponatremia Alcohol use Chronic pancreatitis Osteoporosis Hypertension COPD (chronic obstructive pulmonary disease) Acute cystitis with hematuria Surgical History Status post open reduction with internal fixation of fracture H/O: hysterectomy Family History Mother Anesthesia complication CAD (coronary artery disease) Diabetes Hyperlipidemia Hypertension Family history of thyroid problem Grandfather Cancer maternal-lung cancer Sister Diabetes Hypertension Son Diabetes Grandmother Diabetes paternal Denies family history of Ovarian cyst Clotting disorder Chronic kidney disease (CKD) Bleeding disorder Social History Smoking and tobacco/nicotine status: current every day tobacco/nicotine user cigarettes Packs smoked per day: 1 Years cigarettes smoked: 40 Alcohol intake: current Alcohol intake frequency: few times a week Substance/Drug Use: never Lives independently: Yes Household members: family Marital status: Single Current occupational status: employed Current occupation: [employer] Current occupational exposures/hazards: Yes Do you think of yourself as: Straight/Heterosexual Current gender identity: Female Course Vital Signs: Vital signs: Vital Signs Temperature 98.0 F 12/19/23 15:21 Pulse Rate 88 12/19/23 23:40 Respiratory Rate 16 12/19/23 23:40 Blood Pressure 130/71 12/19/23 23:40 Pulse Oximetry 97 12/19/23 23:40 Oxygen Delivery Me thod Room Air 12/19/23 19:05 MDM - Weakness Medical Decision Making Lab work revealed patient's hypokalemic at 3.0, BNP is elevated at 633, baseline troponin was fifteen 2-hour troponin was 13.53 for insignificant delta urinary testing showed you urinary tract infection with 2+ blood and 2+ leukocyte Estrace. Patient will be given 40 of IV Lasix here, Cipro 500 mg, 40 mEq of oral potassium, patient be discharged home for an additional 5 days of Lasix, 5 days of potassium, and 10 days of ciprofloxacin, patient should follow-up with her PCP within the next 7 to 10 days for further evaluation and treatment., Lab Data 12/19/23 15:07 12/19/23 15:07 Radiology Impressions Chest X-Ray 12/19/23 15: IMPRESSION: 1. No acute cardiopulmonary abnormality. Laboratory Results WBC 6.84 10^3/uL (3.29-11.43) 12/19/23 15:07 RBC 3.66 10^6/uL (3.85-5.65) L 12/19/23 15:07 Hgb 10.70 g/dL (11.27-16.99) L 12/19/23 15:07 Hct 31.8 % (36-47) L 12/19/23 15:07 MCV 86.9 fl (85-98) 12/19/23 15:07 MCH 29.2 pg (27-33) 12/19/23 15:07 MCHC 33.6 g/dL (30-55) 12/19/23 15:07 RDW 16.1 % (12.1-15.1) H 12/19/23 15:07 Plt Count 383 10^3/cmm (157-399) 12/19/23 15:07 MPV 9.0 fL (7.4-10.4) 12/19/23 15:07 Neut % (Auto) 57.5 % 12/19/23 15:07 Lymph % (Auto) 29.5 % 12/19/23 15:07 [place] % (Auto) 10.8 % 12/19/23 15:07 Eos % (Auto) 1.0 % 12/19/23 15:07 Baso % (Auto) 0.6 % 12/19/23 15:07 Neut # (Auto) 3.93 10^3/uL (1.8-7.7) 12/19/23 15:07 Lymph # (Auto) 2.0 10^3/uL (0.8-4.8) 12/19/23 15:07 [place] # (Auto) 0.7 10^3/uL (0.2-0.9) 12/19/23 15:07 Eos # (Auto) 0.1 10^3/uL (0.0-0.8) 12/19/23 15:07 Baso # (Auto) 0.0 10^3/uL (0.0-0.1) 12/19/23 15:07 Nucleated RBC % (auto) 0 % 12/19/23 15:07 Nucleated RBCs # 0.0 /100WBC 12/19/23 15:07 PT 12.70 SECONDS (12.1-14.9) 12/19/23 15:07 INR 0.92 (0.8-1.2) 12/19/23 15:07 APTT 27.4 SECONDS (23.9-36.7) 12/19/23 15:07 Sodium 131 mmol/L (136-145) L 12/19/23 15:07 Potassium 3.0 mmol/L (3.5-5.1) L 12/19/23 15:07 Chloride 92 mmol/L (98-107) L 12/19/23 15:07 Carbon Dioxide 28 mmol/L (22-29) 12/19/23 15:07 Anion Gap 14.0 (5-19) 12/19/23 15:07 BUN 7 mg/dL (8-23) L 12/19/23 15:07 Creatinine 0.3 mg/dL (0.5-0.9) L 12/19/23 15:07 GFR Calculation 224.0 mL/min (90-130) H 12/19/23 15:07 Glucose 110 mg/dL (65-115) 12/19/23 15:07 Calculated Osmolality 271 mOsm/kg (285-295) L 12/19/23 15:07 Calcium 8.2 mg/dL (8.5-10.5) L 12/19/23 15:07 Total Bilirubin 0.2 mg/dL (0.15-1.2) 12/19/23 15:07 AST 30 U/L (0-32) 12/19/23 15:07 ALT 28 U/L (0-33) 12/19/23 15:07 Alkaline Phosphatase 209 U/L (35-105) H 12/19/23 15:07 Troponin T Baseline 15 ng/L (0-10) H 12/19/23 15:07 Troponin T 120 Minute 13.53 ng/L (0-10) H 12/19/23 17:57 Delta Troponin T -1.47 ABS# (0-10) L 12/19/23 17:57 NT-Pro-B Natriuret Pep 633 pg/mL (0-125) H 12/19/23 15:07 Total Protein 6.3 g/dL (6.6-8.7) L 12/19/23 15:07 Albumin 2.8 g/dL (3.5-5.2) L 12/19/23 15:07 Globulin 3.5 g/dL (1.3-4.6) 12/19/23 15:07 Urine Color Yellow (Yellow) 12/19/23 17:40 Urine Appearance Cloudy (CLEAR) A 12/19/23 17:40 Urine pH 7 (5-7) 12/19/23 17:40 Ur Specific [place] 1.005 (1.005-1.030) 12/19/23 17:40 Urine Protein Neg (Negative) 12/19/23 17:40 Urine Glucose (UA) Norm (Normal) 12/19/23 17:40 Urine Ketones Negative (Negative) 12/19/23 17:40 Urine Blood 2+ (Negative) H 12/19/23 17:40 Urine Nitrate Positive (Negative) H 12/19/23 17:40 Urine Bilirubin Neg (Negative) 12/19/23 17:40 Urine Urobilinogen Norm mg/dL (Negative) 12/19/23 17:40 Ur Leukocyte Esterase 2+ (Negative) H 12/19/23 17:40 Urine RBC 0-4 /hpf (0-2) H 12/19/23 17:40 Urine WBC 40-55 /hpf (0-5) H 12/19/23 17:40 Ur Squamous Epith Cells 10-15 /hpf (0-5) H 12/19/23 17:40 Ur Transition Epith Cell 0-4 /hpf 12/19/23 17:40 Amorphous Sediment 2+ /hpf 12/19/23 17:40 Urine Bacteria 2+ /hpf (NONE) H 12/19/23 17:40 Urine Mucus 1+ /hpf 12/19/23 17:40 Ur Oval Fat Bodies 1+ /hpf 12/19/23 17:40 Ethyl Alcohol < 10 mg/dL (0-10) 12/19/23 15:07 XR interpretation done by ED provider, pending radiology final review EKG Data EKG 1: I personally reviewed and interpreted this EKG as follows: EKG interpretation date: 12/19/23 EKG interpretation time: 16:13 Prior EKG tracings: not available for review Interpretation: EKG showed ventricular rate 69 beats minute, SC interval 83, QRS duration 80, QTc of 414, junctional rhythm occasional PVC, EKG 2: I personally reviewed and interpreted this EKG as follows: EKG interpretation date: 12/19/23 EKG interpretation time: 18:15 Prior EKG tracings: available for review Interpretation: EKG shows ventricular rate 73 beats minute, QRS duration 80, QTc of 413, atrial fibrillation, moderate ST depression Discharge Plan Discharge Patient Disposition: Home Clinical Impression: Acute hypokalemia, Acute lower urinary tract infection Edema Qualifiers: Edema type: unspecified Qualified Code(s): R60.9 - Edema, unspecified Condition: Stable Prescriptions: New ciprofloxacin HCl 500 mg tablet 500 mg PO Q12H Qty: 20 0RF potassium chloride 20 mEq tablet extended release 20 meq PO BID Qty: 10 0RF Lasix 40 mg tablet 40 mg PO DAILY Qty: 5 0RF No Action cetirizine [Zyrtec] 10 mg tablet 10 mg PO DAILY PRN (Reason: Allergy Symptoms) Advanced Eye Relief 1-0.3 % drops 1 drp ophthalmic (eye) DAILY PRN (Reason: unknown) acetaminophen [Tylenol Arthritis Pain] 650 mg tablet extended release 1,300 mg PO .UP TO TWICE A DAY diphenhydramine HCl [Benadryl] 25 mg Capsule 25 mg PO BID PRN (Reason: Allergy Symptoms) atorvastatin 80 mg Tablet 80 mg PO DAILY@1800 amlodipine 5 mg Tablet 5 mg PO BID@0600,1800 aspirin 81 mg Tablet,Chewable 81 mg PO DAILY@0600 labetalol 100 mg Tablet 100 mg PO BID@0600,1800 albuterol sulfate 90 mcg/actuation Hfa Aerosol Inhaler 2 puff inhalation Q6H PRN (Reason: Shortness Of Breath) Combivent Respimat 20-100 mcg/actuation Mist 1 puff INHALATION Q6H albuterol sulfate 2.5 mg /3 mL (0.083 %) Solution For Nebulization 2.5 mg INHALATION Q4H PRN (Reason: Shortness Of Breath) clobetasol 0.05 % Cream 1 applic TOPICAL BID PRN (Reason: unknown) fluticasone propion-salmeterol [Advair Diskus] 500-50 mcg/dose blister with device 1 inh inhalation Q12H Qty: 60 0RF Discharge Orders: Discharge ED (Routine); Ordered 12/19/23 Ordered By: Gerry Loo Referrals: Sid Harris MD [Primary Care Provider] - 1 week Patient Instructions: Hypokalemia, Urinary Tract Infection in Women (ED), Edema (ED) Activity Restrictions/Additional Instructions: Please take all your medicine as directed. Please follow-up with your family practice physician within the next 7 to 10 days for further evaluation and treatment as needed. If your symptoms worsen please feel free to return to the ER. Coding Level of Care Code ED Railroad Construction Director for Sergio Chow
--- NOTE | 2023-12-19 15:45 | ECG_ITS ---
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 Measurements Intervals [place] Rate: 69 P: 258 ME: 83 QRS: 179 QRSD: 80 T: 146 QT: 385 QTc: 414 Interpretive Statements JUNCTIONAL RHYTHM WITH OCCASIONAL SUPRAVENTRICULAR PREMATURE COMPLEXES POSSIBLE RIGHT VENTRICULAR HYPERTROPHY [SOME/ALL OF: PROMINENT R IN V1, LATE TRANSITION, RAD, NAT, SSS] LATERAL MYOCARDIAL INFARCTION , OF INDETERMINATE AGE [40+ ms Q WAVE AND/OR ST/T ABNORMALITY IN I/aVL/V5/V6] Compared to ECG 04/15/2023 10:43:30 Junctional rhythm now present Myocardial infarct finding now present Atrial fibrillation no longer present T-wave abnormality no longer present Electronically Signed On 12-19-2023 19:55:25 RECREATION PROGRAM SPECIALIST by Jorje Zendejas M.D. [id number]
[2023-12-19 15:54] LABS: Alanine Aminotransferase 28 U/L (0-33); Albumin Level 2.8 g/dL (3.5-5.2); Alkaline Phosphatase 209 U/L (35-105); Aspartate Amino Transferase 30 U/L (0-32); Blood Urea Nitrogen 7 mg/dL (8-23); Calcium 8.2 mg/dL (8.5-10.5); Carbon Dioxide 28 mmol/L (22-29); Chloride 92 mmol/L (98-107); Globulin 3.5 g/dL (1.3-4.6); Glucose 110 mg/dL (65-115); Osmolality Calculated 271 mOsm/kg (285-295); Sodium 131 mmol/L (136-145); Total Bilirubin 0.2 mg/dL (0.15-1.2); Total Protein 6.3 g/dL (6.6-8.7)
[2023-12-19 16:13] LABS: INR 0.92 (0.8-1.2)
[2023-12-19 16:14] LABS: Partial Thromboplastin Time 27.4 SECONDS (23.9-36.7)
[2023-12-19 16:17] LABS: Alcohol Level < 10 mg/dL (0-10); Troponin(5th) Baseline 15 ng/L (0-10)
[2023-12-19 16:44] LABS: NT Pro B Type Natriuretic Pept 633 pg/mL (0-125)
[2023-12-19 16:57] VITALS: BP 129/68
[2023-12-19] MEDS: FUROsemide 10 mg/mL SDV 4mL 40 MG IVP (17:04)
--- NOTE | 2023-12-19 17:45 | ECG_ITS ---
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 Measurements Intervals [place] Rate: 73 P: 0 [place]: 0 QRS: 49 QRSD: 80 T: 76 QT: 388 QTc: 428 Interpretive Statements Multifocal atrial rhythm with PVCs MODERATE ST DEPRESSION [0.05+ mV ST DEPRESSION] Compared to ECG 12/19/2023 16:13:03 ST (T wave) deviation now present Junctional rhythm no longer present Myocardial infarct finding no longer present Electronically Signed On 12-19-2023 20:18:40 INSPECTOR CLIP ON SUNGLASSES by Jorje Zendejas M.D. [id number]
[2023-12-19 18:09] VITALS: RESP 18; O2SAT 99
[2023-12-19 18:37] LABS: Troponin 5 2HR 13.53 ng/L (0-10)
[2023-12-19 18:37] LABS: Add Urine Microscopic? YES; Bilirubin Urine Neg (Negative); Blood Urine 2+ (Negative); Glucose Urine UA Norm (Normal); Ketones Urine Negative (Negative); Leukocyte Esterase Urine 2+ (Negative); Nitrate Urine Positive (Negative); Protein Urine Neg (Negative); Specific Gravity, Urine 1.005 (1.005-1.030); Urine Appearance Cloudy (CLEAR); Urine Color Yellow (Yellow); Urobilinogen Urine Norm (Negative); pH Urine 7 (5-7)
[2023-12-19 18:40] LABS: Troponin 5 2HR Delta -1.47 ABS# (0-10)
[2023-12-19 18:52] LABS: Add Urine Culture? Yes; Amorphous Sediment Urine 2+ /hpf; Bacteria Urine 2+ /hpf; Mucus Urine 1+ /hpf; Oval Fat Bodies Urine 1+ /hpf; RBC Urine 0-4 /hpf (0-2); Transitional Epi Cells Urine 0-4 /hpf; WBC Urine 40-55 /hpf (0-5)
[2023-12-19] MEDS: ciprofloxacin 500 mg Tablet PO (18:58)
[2023-12-19] MEDS: potassium chloride ER 20 mEq Tablet 40 MEQ PO (18:58)
[2023-12-19 19:05] VITALS: BP 105/77; PULSE 78; RESP 16; O2SAT 98
[2023-12-19 23:40] VITALS: BP 130/71; PULSE 88; RESP 16; O2SAT 97
== END 2023-12-19 23:41 | disposition home or self-care (01) ==
PROVIDERS: Emergency Provider Family Medicine; PCP Family Medicine
DX: E87.6 Hypokalemia (principal); N39.0 Urinary tract infection, site not specified; Z79.82 Long term (current) use of aspirin; F17.210 Nicotine dependence, cigarettes, uncomplicated; E78.5 Hyperlipidemia, unspecified; I10 Essential (primary) hypertension; J44.9 Chronic obstructive pulmonary disease, unspecified; Z87.440 Personal history of urinary (tract) infections
CPT/HCPCS: 36415; 71045; 80053; 80307; 81001; 83880; 84484; 85025; 85610; 85730; 87077; 87086; 87186; 93005; 96374; 99285; J1940

== ENCOUNTER 2024-07-26 16:11 | Inpatient (IN) | payer MEDICARE, MEDICAID, SELFPAY ==
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
[2024-07-26 16:20] VITALS: BP 143/72; PULSE 101; RESP 16; TEMP 36.7; O2SAT 97; BMI 18.8
--- NOTE | 2024-07-26 16:33 | W.ED.EXTPRO ---
HPI - Extremity Problem General: Chief complaint: Extremity Problem,Nontraumatic Stated complaint: rt ankle, left shoulder pain Time Seen by Provider: 07/26/24 16:30 Source: patient Mode of arrival: wheelchair Limitations: no limitations History of Present Illness: Patient is a 64-year-old female who presents to ED today for evaluation of a right ankle and left shoulder injury that she sustained just prior to arrival after she was trying to get into the elevated seat of a truck. Patient states she was being discharged from the longterm and her son was picking her up. She states he drives a large truck so she was stepping onto the step rail and had her hand on the handlebar when she slipped backwards and landed hard onto the right ankle. She complains of pain to the right ankle and left shoulder. Reports previous right femoral surgery two months at [place]. Was at [facility] for rehab. States the right lower extremity is always more swollen following to the surgery. Patient lives alone at [facility]. MD Complaint: joint swelling (R ankle) and joint pain (R ankle, L shoulder) Onset (ago): hour(s) Pain Consistency: constant Location: left, right, upper extremity and lower extremity Radiation: none Relieving factors: immobilization Exacerbating factors: range of motion, weight bearing and walking Associated symptoms: Reports no associated symptoms; Deny chest pain Related Data Home Medications Medication Instructions Recorded Confirmed amlodipine 5 mg tablet 5 mg PO BID@0600,1800 05/28/20 12/19/23 aspirin 81 mg chewable tablet 81 mg PO DAILY@0600 05/28/20 12/19/23 atorvastatin 80 mg tablet 80 mg PO DAILY@1800 05/28/20 12/19/23 labetalol 100 mg tablet 100 mg PO BID@0600,1800 05/28/20 12/19/23 albuterol sulfate 90 mcg/actuation 2 puff inhalation Q6H PRN 10/28/20 12/19/23 aerosol inhaler Shortness Of Breath acetaminophen 650 mg 1,300 mg PO .UP TO TWICE A DAY 05/25/21 12/19/23 tablet,extended release (Tylenol Arthritis Pain) cetirizine 10 mg tablet (Zyrtec) 10 mg PO DAILY PRN Allergy Symptoms 05/25/21 12/19/23 propylene glycol 1 %-glycerin 0.3 1 drp ophthalmic (eye) DAILY PRN 05/25/21 12/19/23 % eye drops (Advanced Eye Relief) unknown diphenhydramine HCl 25 mg capsule 25 mg PO BID PRN Allergy Symptoms 07/27/21 12/19/23 (Benadryl) albuterol sulfate 2.5 mg/3 mL 2.5 mg inhalation Q4H PRN 09/27/22 12/19/23 (0.083 %) solution for nebulization Shortness Of Breath clobetasol 0.05 % topical cream 1 applic topical BID PRN unknown 09/27/22 12/19/23 ipratropium 20 mcg-albuterol 100 1 puff inhalation Q6H 12/19/23 12/19/23 mcg/actuation mist for inhalation (Combivent Respimat) Previous Rx's Medication Instructions Recorded fluticasone 500 mcg-salmeterol 50 1 inh inhalation Q12H #60 ea 09/30/22 mcg/dose blistr powdr for inhalation (Advair Diskus) ciprofloxacin HCl 500 mg tablet 500 mg PO Q12H #20 tabs 12/19/23 furosemide 40 mg tablet (Lasix) 40 mg PO DAILY #5 tabs 12/19/23 potassium chloride 20 mEq 20 meq PO BID #10 tabs 12/19/23 tablet,extended release Allergies Allergy/AdvReac Type Severity Reaction Status Date / Time hydrochlorothiazide Allergy unknown Verified 12/19/23 15:25 Latex, Natural Rubber Allergy ALGY-Hives Verified 12/19/23 15:25 nitrofurantoin Allergy Unknown Verified 12/19/23 15:25 [From Macrobid] microbid Allergy ADR-Nausea Uncoded 12/19/23 15:25 Review of Systems Card: Denies: chest pain Resp: Denies: dyspnea Musc: Reports: joint pain (L shoulder, R ankle) and joint swelling (R ankle although R LE is normally swollen since surgery so this may be norm); Denies: neck pain or back pain Neuro: Denies: numbness in extremities, weakness in extremities or sensory changes PFSH ED PFSH: Medical History Hyperlipidemia Vitamin B12 deficiency Hypothyroid E-coli UTI Intertrochanteric fracture of right hip Fall Nicotine addiction LGSIL Pap smear of vagina Chronic hyponatremia Alcohol use Chronic pancreatitis Osteoporosis Hypertension COPD (chronic obstructive pulmonary disease) Acute cystitis with hematuria Surgical History Status post open reduction with internal fixation of fracture H/O: hysterectomy Family History Mother Anesthesia complication CAD (coronary artery disease) Diabetes Hyperlipidemia Hypertension Family history of thyroid problem Grandfather Cancer maternal-lung cancer Sister Diabetes Hypertension Son Diabetes Grandmother Diabetes paternal Denies family history of Ovarian cyst Clotting disorder Chronic kidney disease (CKD) Bleeding disorder Social History Smoking and tobacco/nicotine status: current every day tobacco/nicotine user cigarettes Packs smoked per day: 1 Years cigarettes smoked: 40 Alcohol intake: current Alcohol intake frequency: few times a week Substance/Drug Use: never Lives independently: Yes Household members: family Marital status: Single Current occupational status: employed Current occupation: [employer] Current occupational exposures/hazards: Yes Do you think of yourself as: Straight/Heterosexual Current gender identity: Female Physical Exam Const: COMMON NORMALS: no acute distress, patient oriented x3, no limitations, alert and well nourished GENERAL APPEARANCE: cooperative NUTRITIONAL APPEARANCE: thin ORIENTATION/CONSCIOUSNESS: Yes awake, Yes oriented to person, Yes oriented to place and Yes oriented to time HENMT: COMMON NORMALS: normocephalic and atraumatic HEAD & SCALP: normal to inspection, normocephalic and atraumatic Back/Pelvis: COMMON NORMALS: thoracic and lumbar spine normal to inspection Extremity: COMMON NORMALS: capillary refill normal and no calf tenderness NARRATIVE EXTREMITY EXAM: R LE swelling that she states is chronic GENERAL: Yes normal exam except as noted LEFT UPPER EXTREMITY: Yes shoulder joint (TTP proximal humerus) Left shoulder joint: Yes ROM (limited secondary to pain) and Yes neurovascular exam (normal) RIGHT LOWER EXTREMITY: Yes foot & digits (TTP medial R ankle) Right ankle: Yes ROM (limited secondary to pain) and Yes neurovascular exam (normal) Neuro: COMMON NORMALS: patient oriented x3, moves all extremities, no focal motor deficits and no sensory deficits noted SENSORIUM/ORIENTATION: Yes alert, Yes oriented to person, Yes oriented to place and Yes oriented to time Course Vital Signs: Vital signs: Vital Signs Temperature 98.1 F 08/30/24 16:20 Pulse Rate 101 H 07/26/24 16:20 Respiratory Rate 16 07/26/24 16:20 Blood Pressure 143/72 07/26/24 16:20 Pulse Oximetry 97 07/26/24 16:20 Oxygen Delivery Me thod Room Air 07/26/24 16:20 MDM - Extremity (Nontraumatic) Medical Decision Making Patient cannot walk on her right ankle injury. She has a fracture to the left shoulder requiring immobilization. She lives alone and states she has nobody to take care of her. States her apartment is not wheel chair accessible. She cannot use crutches/walker secondary to her injuries. She will have to be admitted to the hospital with plan back to a fci facility. Will CT ankle. She will be admitted to Dr. Stevens. Lab Data Radiology Impressions Ankle X-Ray 07/26/24 16:15 IMPRESSION: No acute findings. Shoulder X-Ray 07/26/24 16:15 IMPRESSION: Fracture of the lateral humeral head. All radiology interpretation(s) finalized by discharge Discharge Plan Discharge Patient Disposition: Admitted As Inpatient Clinical Impression: Closed fracture of greater tuberosity of left humerus Qualifiers: Encounter type: initial encounter Fracture alignment: nondisplaced Qualified Code(s): S42.255A - Nondisplaced fracture of greater tuberosity of left humerus, initial encounter for closed fracture Injury of right ankle Qualifiers: Encounter type: initial encounter Qualified Code(s): S99.911A - Unspecified injury of right ankle, initial encounter Condition: Stable Coding Level of Care Code ED Chiller Tender for Sergio Chow
--- NOTE | 2024-07-26 17:23 | CTR_ITS ---
PROCEDURE INFORMATION: Exam: CT Right Lower Extremity, Ankle Exam date and time: 07/26/2024 6:15 PM Age: 64 years old Clinical indication: Pain and injury or trauma; Fall; Blunt trauma; Right; Patient HX: Patient C/O severe RT ankle pain after slipping and landing hard on RT foot trying to get into lifted truck. ; Additional info: Pain/injury TECHNIQUE: Imaging protocol: CT of the right lower extremity without contrast was performed. Exam focused on the ankle. Radiation optimization: All CT scans at this facility use at least one of these dose optimization techniques: automated exposure control; mA and/or kV adjustment per patient size (includes targeted exams where dose is matched to clinical indication); or iterative reconstruction. COMPARISON: CR (LOW EXM, ) 07/26/2024 4:33 PM RADIATION DOSE METRICS: Total DLP (mGy-cm): 213.72 FINDINGS: Bones/joints: Bony demineralization compatible with osteopenia or osteoporosis. Acute minimally displaced insufficiency fracture of the distal tibia, most conspicuous along the medial aspect of the tibial metaphysis near the base of the medial malleolus where there is 1.5 mm maximal cortical step-off. There is involvement of the posterior malleolus. No significant articular step-off of the tibial plafond. There is associated tibiotalar hemarthrosis. Hemarthrosis is also noted in the posterior subtalar joint without CT evidence of fracture. Lateral malleolus is intact. Remote avulsive injury of the inferior tip of the lateral malleolus is noted with a subcentimeter ossicle. Hindfoot is intact. Soft tissues: Soft tissue edema without evidence of fluid collection or hematoma. Tendons are grossly intact. CT/CT ankle RT wo con* [id number] IMPRESSION: 1. Acute minimally displaced insufficiency fracture of the distal tibia. Orthopedic evaluation is recommended. 2. Subtalar hemarthrosis without CT evidence of fracture. Consider follow-up MRI to evaluate for an occult insufficiency fracture of the talus or calcaneus.
--- NOTE | 2024-07-26 19:04 | XRR_ITS ---
PROCEDURE INFORMATION: Exam: XR Chest Exam date and time: 07/26/2024 8:27 PM Age: 64 years old Clinical indication: Pre-operative exam; Respiratory screening exam; Patient HX: Cough; Pre op high risk procedure; Smoker x 50+ yrs TECHNIQUE: Imaging protocol: Radiologic exam of the chest. Views: 1 view. COMPARISON: CR XR chest 1V portable [id number] 12/19/2023 3:30 PM FINDINGS: Lungs: No focal consolidation. Emphysematous changes. Pleural spaces: No evidence of pneumothorax. No evidence of pleural effusion. Heart/Mediastinum: Cardiomediastinal silhouette is within normal limits. Bones/joints: No evidence of acute osseous abnormality. Multiple old left-sided rib fractures. XR/XR chest 1V portable [id number] IMPRESSION: 1. No acute cardiopulmonary abnormality. 2. Emphysematous changes.
--- NOTE | 2024-07-26 19:09 | P.HP_ITS ---
Providers/Chief Complaint 2 Admitting Physician: Sharon Stevens MD Primary Care Provider: Sid Harris MD Chief Complaint: rt ankle, left shoulder pain History of Present Illness Serene Alcaraz is a 64 year old female Past medical history of hyperlipidemia, vitamin B12 deficiency, hypothyroidism, right hip fracture recently surgically repaired at [place], COPD, hypertension, chronic hyponatremia presented to the hospital today after being sent home after graduating rehab however for which she was there after a hip fracture repair at [place] was trying to get on her son's truck which was quite high and fell backwards after tripping. She fell on her left shoulder and twisted her right ankle. She lives alone at home and has no one to take care of her. She lives in [place] apartments which do not have wheelchair access. She is unable to put any weight on her right foot at this time. In ER 143/72, 16, 101, temperature 98.1, saturating 97% on room air. Shoulder x-ray shows fracture of the lateral humeral head, ankle x-ray showed no acute findings. CT right foot was ordered and is pending at this time. Medications/Allergies Home Medications Medication Instructions Recorded Confirmed Last Taken Type amlodipine 5 mg tablet 5 mg PO BID@0600,1800 05/28/20 07/26/24 12/19/23 History aspirin 81 mg chewable tablet 81 mg PO DAILY@0600 05/28/20 07/26/24 12/19/23 History atorvastatin 80 mg tablet 80 mg PO DAILY@1800 05/28/20 07/26/24 12/18/23 History labetalol 100 mg tablet 100 mg PO BID@0600,1800 05/28/20 07/26/24 12/19/23 History albuterol sulfate 90 mcg/actuation 2 puff inhalation Q6H PRN 10/28/20 07/26/24 01/18/21 History aerosol inhaler Shortness Of Breath acetaminophen 650 mg 1,300 mg PO .UP TO TWICE A DAY 05/25/21 07/26/24 12/19/23 History tablet,extended release (Tylenol Arthritis Pain) cetirizine 10 mg tablet (Zyrtec) 10 mg PO DAILY PRN Allergy Symptoms 05/25/21 07/26/24 07/26/21 History propylene glycol 1 %-glycerin 0.3 1 drp ophthalmic (eye) DAILY PRN 05/25/21 07/26/24 07/27/21 History % eye drops (Advanced Eye Relief) unknown albuterol sulfate 2.5 mg/3 mL 2.5 mg inhalation Q4H PRN 09/27/22 07/26/24 Unknown History (0.083 %) solution for nebulization Shortness Of Breath clobetasol 0.05 % topical cream 1 applic topical BID PRN unknown 09/27/22 07/26/24 Unknown History ipratropium 20 mcg-albuterol 100 1 puff inhalation Q6H 12/19/23 07/26/24 12/19/23 History mcg/actuation mist for inhalation (Combivent Respimat) Allergies Allergy/AdvReac Type Severity Reaction Status Date / Time hydrochlorothiazide Allergy unknown Verified 12/19/23 15:25 Latex, Natural Rubber Allergy ALGY-Hives Verified 12/19/23 15:25 nitrofurantoin Allergy Unknown Verified 12/19/23 15:25 [From Macrobid] microbid Allergy ADR-Nausea Uncoded 12/19/23 15:25 PFSH Acute 2 PFSH: Medical History (Updated 07/27/24 @ 13:43 by Sharon Stevens MD) Hyperlipidemia Vitamin B12 deficiency Hypothyroid E-coli UTI Intertrochanteric fracture of right hip Fall Nicotine addiction LGSIL Pap smear of vagina Chronic hyponatremia Alcohol use Chronic pancreatitis Osteoporosis Hypertension COPD (chronic obstructive pulmonary disease) Acute cystitis with hematuria Surgical History Status post open reduction with internal fixation of fracture H/O: hysterectomy Family History Mother Anesthesia complication CAD (coronary artery disease) Diabetes Hyperlipidemia Hypertension Family history of thyroid problem Grandfather Cancer maternal-lung cancer Sister Diabetes Hypertension Son Diabetes Grandmother Diabetes paternal Denies family history of Ovarian cyst Clotting disorder Chronic kidney disease (CKD) Bleeding disorder Social History Smoking and tobacco/nicotine status: current every day tobacco/nicotine user cigarettes Packs smoked per day: 1 Years cigarettes smoked: 40 Alcohol intake: current Alcohol intake frequency: few times a week Substance/Drug Use: never Lives independently: Yes Household members: family Marital status: Single Current occupational status: employed Current occupation: [employer] Current occupational exposures/hazards: Yes Do you think of yourself as: Straight/Heterosexual Current gender identity: Female Vitals/I&O/Wt Last Vital Signs Temp 98.1 F 07/26/24 16:20 Pulse 101 H 07/26/24 16:20 Resp 16 07/26/24 16:20 BP 143/72 07/26/24 16:20 Pulse Ox 97 07/26/24 16:20 O2 Del Method Room Air 07/26/24 16:20 Weight last 48 hrs Weight 42.184 kg Physical Exam 2 Narrative: General: Alert oriented x3, patient seen laying in bed appearing comfortable at this time on room air. HEENT: Normocephalic, atraumatic, EOMI, Cardio: Regular rate rhythm, normal S1-S2, Respiratory: Good bilateral air entry, no wheezes no rhonchi appreciated GI: Abdomen soft, nontender, nondistended, bowel sounds + Behavior: Appropriate and cooperative Extremities: Right foot swollen at the ankle. Left shoulder in a sling. Data 07/27/24 04:15 07/27/24 04:15 A&P Assessment and plan (1) Insufficiency fracture of right tibia: (2) Pain in right ankle: (3) Injury of right ankle: Qualifiers: Encounter type: initial encounter Qualified Code(s): S99.911A - Unspecified injury of right ankle, initial encounter (4) Hypertension: (5) Hypothyroid: (6) COPD (chronic obstructive pulmonary disease): (7) Fall: Plan #Right distal tibial fracture #Left shoulder fracture #Mechanical fall #Recently repaired right hip fracture #COPD #Hypertension #Hypothyroidism #Hyperlipidemia ? CT right lower extremity/ankle shows: 1. Acute minimally displaced insufficiency fracture of the distal tibia. Orthopedic evaluation is recommended. 2. Subtalar hemarthrosis without CT evidence of fracture. Consider follow-up MRI to evaluate for an occult insufficiency fracture of the talus or calcaneus. ?Shoulder x-ray shows fracture of the lateral humeral head ? Consult podiatry. ? MRI ankle ordered and pending ? No workup was done in the ER therefore I will order basic chest x-ray, labs: CBC CMP, magnesium, PT/INR at this time. ? Check base EKG ? Left shoulder has been placed in sling at this time. ? Continue patient's home medications amlodipine, aspirin, atorvastatin, labetalol - Consult case management Full code DVT prophylaxis: Heparin subcu twice daily. Attestations 2 Medical Necessity Statement*: > 2 midnight stay for mgmt of above Diagnoses Insufficiency fracture of right tibia M84.461A Pain in right ankle M25.571 Injury of right ankle S99.911A Encounter type: initial encounter Hypertension I10 Hypothyroid E03.9 COPD (chronic obstructive pulmonary disease) J44.9 Fall W19.XXXA
[2024-07-26 19:58] LABS: Basophils % 0.2 %; Eosinophils % 0.1 %; Hematocrit 27.4 % (36-47); Lymphocytes # 1.2 10^3/uL (0.8-4.8); Lymphocytes % 12.3 %; Mean Corpuscular HGB Conc 32.1 g/dL (30-55); Mean Corpuscular Hemoglobin 25.2 pg (27-33); Mean Corpuscular Volume 78.5 fl (85-98); Mean Platelet Volume 8.3 fL (7.4-10.4); Monocytes # 0.6 10^3/uL (0.2-0.9); Neutrophils # 8.07 10^3/uL (1.8-7.7); Neutrophils % 80.9 %; Nucleated Red Blood Cells % 0 %; Platelet Count 339 10^3/cmm (157-399); Red Blood Count 3.49 10^6/uL (3.85-5.65); White Blood Count 9.98 10^3/uL (3.29-11.43)
[2024-07-26 20:00] VITALS: BP 143/75; PULSE 84; RESP 17; TEMP 36.6; O2SAT 96
[2024-07-26 20:13] VITALS: RESP 16
[2024-07-26] MEDS: morphine 4 mg/mL SDV 1 mL 2 MG IVP (20:13)
[2024-07-26] MEDS: sodium chloride 0.9% 1,000 ML 75 ML IV (20:13)
[2024-07-26] MEDS: heparin 5,000 unit/mL INJ 1 mL 5000 UNIT SUBCUT (20:14)
[2024-07-26 20:17] LABS: INR 1.03 (0.8-1.2)
[2024-07-26 20:21] LABS: Alanine Aminotransferase 22 U/L (0-33); Albumin Level 4.4 g/dL (3.5-5.2); Alkaline Phosphatase 124 U/L (35-105); Anion Gap 16.7 (5-19); Aspartate Amino Transferase 20 U/L (0-32); Blood Urea Nitrogen 11 mg/dL (8-23); Calcium 9.4 mg/dL (8.5-10.5); Carbon Dioxide 24 mmol/L (22-29); Chloride 88 mmol/L (98-107); Creatinine Clr Calc Pharmacy 49.2613; Globulin 2.8 g/dL (1.3-4.6); Glomerular Filtration Rate 160.2 mL/min (90-130); Glucose 103 mg/dL (65-115); Magnesium 1.6 mg/dL (1.7-2.3); Osmolality Calculated 260 mOsm/kg (285-295); Potassium 3.7 mmol/L (3.5-5.1); Sodium 125 mmol/L (136-145); Total Bilirubin 0.3 mg/dL (0.15-1.2); Total Protein 7.2 g/dL (6.6-8.7)
[2024-07-26 20:31] VITALS: PULSE 80; RESP 17; O2SAT 95
[2024-07-26 23:59] VITALS: BP 120/60; PULSE 80; RESP 18; TEMP 36.8; O2SAT 97
[2024-07-27] VITALS (12 sets, daily range): BP systolic 108–137; BP diastolic 55–67; PULSE 71–84; RESP 15–18; TEMP 36.7–36.9; O2SAT 93–99
[2024-07-27] MEDS: morphine 4 mg/mL SDV 1 mL 2 MG IVP ×5 (00:14→22:44)
[2024-07-27 04:42] LABS: Basophils % 0.3 %; Eosinophils # 0.1 10^3/uL (0.0-0.8); Eosinophils % 0.9 %; Hematocrit 23.2 % (36-47); Lymphocytes # 1.5 10^3/uL (0.8-4.8); Lymphocytes % 24.1 %; Mean Corpuscular HGB Conc 31.5 g/dL (30-55); Mean Corpuscular Hemoglobin 25.3 pg (27-33); Mean Corpuscular Volume 80.3 fl (85-98); Mean Platelet Volume 9.1 fL (7.4-10.4); Monocytes # 0.6 10^3/uL (0.2-0.9); Monocytes % 8.9 %; Neutrophils # 4.18 10^3/uL (1.8-7.7); Neutrophils % 65.6 %; Nucleated Red Blood Cells % 0 %; Platelet Count 319 10^3/cmm (157-399); Red Blood Count 2.89 10^6/uL (3.85-5.65); Red Cell Distribution Width 15.1 % (12.1-15.1); White Blood Count 6.38 10^3/uL (3.29-11.43)
[2024-07-27 04:54] LABS: INR 1.08 (0.8-1.2)
[2024-07-27 05:04] LABS: Alanine Aminotransferase 16 U/L (0-33); Albumin Level 3.5 g/dL (3.5-5.2); Alkaline Phosphatase 98 U/L (35-105); Anion Gap 17.1 (5-19); Aspartate Amino Transferase 16 U/L (0-32); Blood Urea Nitrogen 13 mg/dL (8-23); Calcium 8.5 mg/dL (8.5-10.5); Carbon Dioxide 22 mmol/L (22-29); Chloride 97 mmol/L (98-107); Creatinine Clr Calc Pharmacy 50.8052; Globulin 2.4 g/dL (1.3-4.6); Glomerular Filtration Rate 160.2 mL/min (90-130); Glucose 95 mg/dL (65-115); Osmolality Calculated 274 mOsm/kg (285-295); Potassium 4.1 mmol/L (3.5-5.1); Sodium 132 mmol/L (136-145); Total Bilirubin 0.3 mg/dL (0.15-1.2); Total Protein 5.9 g/dL (6.6-8.7)
[2024-07-27] MEDS: aspirin 81 mg Chew Tablet PO (06:27)
[2024-07-27] MEDS: heparin 5,000 unit/mL INJ 1 mL 5000 UNIT SUBCUT ×2 (06:27→17:42)
[2024-07-27] MEDS: labetalol 200 mg Tablet 100 MG PO ×2 (06:27→17:40)
[2024-07-27] MEDS: amlodipine 5 mg Tablet PO ×2 (06:27→17:40)
--- NOTE | 2024-07-27 07:35 | PC.NURSE ---
Pt has a hgb of 7.3 and Na of 132. This nurse notified Dr. Stevens via Voalte at 7:27am.
[2024-07-27] MEDS: budesonide 0.5 mg/2 mL Neb INHALATION ×2 (07:39→20:29)
[2024-07-27] MEDS: sodium chloride 0.9% 1,000 ML 75 ML IV ×2 (07:44→23:19)
--- NOTE | 2024-07-27 08:00 | P.CONIM_ITS ---
Providers/Reason For Consult 2 Consulting Physician/Specialty*: Carolyn Gutierrez.P.M./podiatry Reason for Consult*: Right distal tibial fracture Attending Physician: Sharon Stevens MD Primary Care Provider: Sid Harris MD History of Present Illness History of Present Illness Serene Alcaraz is a 64 year old female who is currently admitted to [facility] after sustaining a right ankle and left shoulder injury yesterday 07/26/2024. Yesterday patient was being discharged from [facility] rehab after undergoing repair for right femur fracture approximately 8 weeks ago at [place]. Patient states that her son was picking her up and that he drives a large truck. As she was stepping up into it she fell and landed on her right ankle. She also noticed pain in her left shoulder. She was brought to the emergency department where she was noted to have right ankle fracture. Podiatry was consulted to evaluate and provide further recommendations. Patient lives at home alone at [facility]. She does not have wheelchair accessibility in her apartment. Review of Systems 2 General: Reports: 10 or more systems reviewed and unremarkable except in HPI and below Const: Denies: fever(s), chills or fatigue Eyes: Denies: change in vision ENMT: Denies: sinus pain Card: Denies: chest pain, palpitations or lightheadedness Resp: Denies: dyspnea GI: Denies: abdominal pain, nausea or vomiting Musc: Reports: extremity pain, extremity swelling and limited range of motion; Denies: neck pain or back pain Skin/Breast: Reports: skin swelling Neuro: Denies: numbness in extremities Medications/Allergies Home Medications Medication Instructions Recorded Confirmed Last Taken Type amlodipine 5 mg tablet 5 mg PO BID@0600,1800 05/28/20 07/26/24 12/19/23 History aspirin 81 mg chewable tablet 81 mg PO DAILY@0600 05/28/20 07/26/24 12/19/23 History atorvastatin 80 mg tablet 80 mg PO DAILY@1800 05/28/20 07/26/24 12/18/23 History labetalol 100 mg tablet 100 mg PO BID@0600,1800 05/28/20 07/26/24 12/19/23 History albuterol sulfate 90 mcg/actuation 2 puff inhalation Q6H PRN 10/28/20 07/26/24 01/18/21 History aerosol inhaler Shortness Of Breath acetaminophen 650 mg 1,300 mg PO .UP TO TWICE A DAY 05/25/21 07/26/24 12/19/23 History tablet,extended release (Tylenol Arthritis Pain) cetirizine 10 mg tablet (Zyrtec) 10 mg PO DAILY PRN Allergy Symptoms 05/25/21 07/26/24 07/26/21 History propylene glycol 1 %-glycerin 0.3 1 drp ophthalmic (eye) DAILY PRN 05/25/21 07/26/24 07/27/21 History % eye drops (Advanced Eye Relief) unknown albuterol sulfate 2.5 mg/3 mL 2.5 mg inhalation Q4H PRN 09/27/22 07/26/24 Unknown History (0.083 %) solution for nebulization Shortness Of Breath clobetasol 0.05 % topical cream 1 applic topical BID PRN unknown 09/27/22 07/26/24 Unknown History ipratropium 20 mcg-albuterol 100 1 puff inhalation Q6H 12/19/23 07/26/24 12/19/23 History mcg/actuation mist for inhalation (Combivent Respimat) Allergies Allergy/AdvReac Type Severity Reaction Status Date / Time hydrochlorothiazide Allergy unknown Verified 12/19/23 15:25 Latex, Natural Rubber Allergy ALGY-Hives Verified 12/19/23 15:25 nitrofurantoin Allergy Unknown Verified 12/19/23 15:25 [From Macrobid] microbid Allergy ADR-Nausea Uncoded 12/19/23 15:25 Current Medications Generic Name Dose Route Start Last Admin Trade Name Freq PRN Reason Stop Dose Admin Amlodipine Besylate 5 mg 07/27/24 06:00 07/27/24 06:27 Amlodipine 5 Mg Tablet PO 5 mg BID@0600,1800 JANUARY Administration Aspirin 81 mg 07/27/24 06:00 07/27/24 06:27 Aspirin 81 Mg Chew Tablet PO 81 mg DAILY@0600 JANUARY Administration Budesonide 0.5 mg 07/26/24 20:00 07/27/24 07:39 Budesonide 0.5 Mg/2 Ml Neb INHALATION 0.5 mg BID.RESPIRATORY JANUARY Administration Heparin Sodium (Porcine) 5,000 unit 07/26/24 19:15 07/27/24 06:27 Heparin 5,000 Unit/Ml Inj 1 Ml SUBCUT 5,000 unit Q12H JANUARY Administration Sodium Chloride 1,000 mls @ 75 mls/hr 07/26/24 19:15 07/27/24 07:44 Sodium Chloride 0.9% IV 75 mls/hr .[id number] JANUARY Administration Labetalol HCl 100 mg 07/27/24 06:00 07/27/24 06:27 Labetalol 200 Mg Tablet PO 100 mg BID@0600,1800 JANUARY Administration Morphine Sulfate 2 mg 07/26/24 19:07 07/27/24 04:13 Morphine 4 Mg/Ml Sdv 1 Ml IVP 2 mg Q4H PRN Administration SEVERE PAIN PFSH Acute 2 PFSH: Medical History Hyperlipidemia Vitamin B12 deficiency Hypothyroid E-coli UTI Intertrochanteric fracture of right hip Fall Nicotine addiction LGSIL Pap smear of vagina Chronic hyponatremia Alcohol use Chronic pancreatitis Osteoporosis Hypertension COPD (chronic obstructive pulmonary disease) Acute cystitis with hematuria Surgical History Status post open reduction with internal fixation of fracture H/O: hysterectomy Family History Mother Anesthesia complication CAD (coronary artery disease) Diabetes Hyperlipidemia Hypertension Family history of thyroid problem Grandfather Cancer maternal-lung cancer Sister Diabetes Hypertension Son Diabetes Grandmother Diabetes paternal Denies family history of Ovarian cyst Clotting disorder Chronic kidney disease (CKD) Bleeding disorder Social History Smoking and tobacco/nicotine status: current every day tobacco/nicotine user cigarettes Packs smoked per day: 1 Years cigarettes smoked: 40 Alcohol intake: current Alcohol intake frequency: few times a week Substance/Drug Use: never Lives independently: Yes Household members: family Marital status: Single Current occupational status: employed Current occupation: [employer] (acquired by [employer] in 2014) Independent Living Current occupational exposures/hazards: Yes Do you think of yourself as: Straight/Heterosexual Current gender identity: Female Vitals/I&O/Wt Last Vital Signs Temp 98.2 F 07/27/24 07:11 Pulse 84 07/27/24 07:42 Resp 18 07/27/24 07:42 BP 108/63 07/27/24 07:11 Pulse Ox 95 07/27/24 07:42 O2 Del Method Nasal Cannula 07/27/24 07:42 O2 Flow Rate 2 07/27/24 07:42 07/26/24 07/27/24 07/27/24 22:59 06:59 14:59 Intake Total 240 / 240 863.75 / 863.75 Balance 240 / 240 863.75 / 863.75 Weight last 48 hrs Weight 101 lb 3.2 oz Weight 98 lb 2 oz Weight 93 lb Physical Exam 2 Narrative: BELOW IS A FOCUSED LOWER EXTREMITY EXAM GENERAL: A&O x 3 VASCULAR: DP/PT pulses palpable 2/4 with CFT intact, <3seconds to distal digits. Swelling right ankle consistent with posttraumatic state. DERMATOLOGICAL: Skin turgor and temperature is within normal limits. No interdigital maceration noted. Ecchymoses to right ankle consistent with posttraumatic state. MUSCULOSKELETAL: Pain with palpation of right ankle. Full musculoskeletal exam deferred secondary to posttraumatic state. NEUROLOGICAL: Neurological sensation to the affected foot and ankle is present through L4-S1 dermatomes with no hyper/hypoesthesias, negative Tinel or Valleix's sign IMAGING: Three-view x-rays of right ankle show radiolucency and displacement of medial malleolus visualized on AP and mortise projection. This is minimal displacement. No other fractures or dislocations noted. CT scan reveals acute minimally displaced insufficiency fracture of the distal tibia with subtalar hemarthrosis. No other fractures visualized MRI: MRI of right ankle shows fracture distal tibial metaphysis extending to the medial malleolus nondisplaced, noted is an oblique fracture through the distal fibula as well as a small avulsion fracture off of the distal aspect of the fibula. Bone marrow edema noted within the talar dome anteriorly with associated ankle joint effusion. Marrow edema to anterior and posterior calcaneus Data 07/27/24 04:15 07/27/24 04:15 A&P Assessment and plan (1) Insufficiency fracture of right tibia: (2) Pain in right ankle: (3) Closed right fibular fracture: (4) Contusion of bone: Plan -Right distal tibial insufficiency fracture minimally displaced -Labs and vitals reviewed -VSS -Imaging: X-rays and CT scan right ankle reviewed. MRI revealed fracture of distal tibia, fibula metaphysis and reactive marrow edema to talus and calcaneus -Diet: Okay for diet from podiatry standpoint -Patient has a non-displaced distal tibial insufficiency fracture in the right ankle. MRI revealed additional nondisplaced fracture of fibula with bone contusion of talus and calcaneus. Given the nature of the fractures and the nondisplacement, treatment will be non-operative, involving immobilization for six weeks. Patient was placed in a well-padded below-knee posterior splint to the right lower extremity. Patient is to remain nonweightbearing over the course of the next 6 weeks. Patient verbalized understanding to this. -Pain Mgmt: Per admitting team -Weight bearing: Strict nonweightbearing to right lower extremity -Dressings: Corey compression wrap -Discharge plan: Plan will be to go back to custodial facility as she lives alone and has nobody to take care of her and her apartment is not wheelchair accessible and she cannot use crutches due to her secondary injuries. Splint applied to right lower extremity is to remain clean, dry, intact until follow-up in the outpatient setting. Patient is to follow-up with Dr. Dawson 2 weeks after discharge. Patient is to remain nonweightbearing for 6 weeks. Patient is okay to discharge from podiatry standpoint once arrangements are made for custodial facility Coding Level of Care Code Acute Code for g Fwd Diagnoses Insufficiency fracture of right tibia M84.461A Pain in right ankle M25.571 Closed right fibular fracture S82.401A Contusion of bone T14.8XXA
--- NOTE | 2024-07-27 09:30 | P.PN_ITS ---
Subjective 2 Subjective: Seen this morning. No acute events overnight. Hemoglobin 7.3 this morning. Patient states she had some blood in urine few weeks ago. She is following up with urology. Vitals/I&O/Wt Last Vital Signs Temp 98.3 F 07/28/24 12:13 Pulse 83 07/28/24 12:13 Resp 16 07/28/24 12:13 BP 106/56 07/28/24 12:13 Pulse Ox 98 07/28/24 12:13 O2 Del Method Nasal Cannula 07/28/24 12:03 O2 Flow Rate 2 07/28/24 08:40 07/27/24 07/28/24 07/28/24 22:59 06:59 14:59 Intake Total 1240 / 2343.75 600 / 600 Balance 1240 / 2343.75 600 / 600 Weight last 48 hrs Weight 45.767 kg Weight 45.904 kg Weight 44.509 kg Weight 42.184 kg Physical Exam 2 Narrative: General: Alert oriented x3, patient seen laying in bed appearing comfortable at this time on room air. HEENT: Normocephalic, atraumatic, EOMI, Cardio: Regular rate rhythm, normal S1-S2, Respiratory: Good bilateral air entry, no wheezes no rhonchi appreciated GI: Abdomen soft, nontender, nondistended, bowel sounds + Behavior: Appropriate and cooperative Extremities: Left shoulder in sling, right foot with compression wrap.. Data 07/28/24 02:46 07/28/24 02:46 A&P Assessment and plan (1) Insufficiency fracture of right tibia: (2) Pain in right ankle: (3) Injury of right ankle: Qualifiers: Encounter type: initial encounter Qualified Code(s): S99.911A - Unspecified injury of right ankle, initial encounter (4) Hypertension: (5) Hypothyroid: (6) COPD (chronic obstructive pulmonary disease): (7) Fall: Plan #Right distal tibial fracture #Left shoulder fracture #Mechanical fall #Recently repaired right hip fracture #COPD #Hypertension #Hypothyroidism #Hyperlipidemia #Anemia, possibly secondary to blood loss ? CT right lower extremity/ankle shows: 1. Acute minimally displaced insufficiency fracture of the distal tibia. Orthopedic evaluation is recommended. 2. Subtalar hemarthrosis without CT evidence of fracture. Consider follow-up MRI to evaluate for an occult insufficiency fracture of the talus or calcaneus. ?Shoulder x-ray shows fracture of the lateral humeral head ? Consult podiatry. ? MRI ankle ordered and pending ? No workup was done in the ER therefore I will order basic chest x-ray, labs: CBC CMP, magnesium, PT/INR at this time. ? Check base EKG ? Left shoulder has been placed in sling at this time. ? Continue patient's home medications amlodipine, aspirin, atorvastatin, labetalol - Consult case management ? Patient reports hematuria few weeks ago. Will continue to monitor hemoglobin. Will obtain urinalysis. Full code DVT prophylaxis: Heparin subcu twice daily. Disposition: [facility] placement, she is nonweightbearing x 6 weeks. Attestations 2 Medical Necessity Statement*: Patient will need placement at this point. Cannot go back to apartment is not wheelchair accessible. Patient is to be nonweightbearing for 6 weeks. Diagnoses Insufficiency fracture of right tibia M84.461A Pain in right ankle M25.571 Injury of right ankle S99.911A Encounter type: initial encounter Hypertension I10 Hypothyroid E03.9 COPD (chronic obstructive pulmonary disease) J44.9 Fall W19.XXXA
--- NOTE | 2024-07-27 09:30 | MRR_ITS ---
PROCEDURE INFORMATION: Exam: MR Right Lower Extremity Joint Without Contrast; Ankle Exam date and time: 07/27/2024 9:04 AM Age: 64 years old Clinical indication: Injury or trauma; Fall; Fracture, traumatic; Closed fracture; Ankle; Right; Malleolus, medial TECHNIQUE: Imaging protocol: Magnetic resonance imaging of the right lower extremity without contrast. Exam focused on the ankle. COMPARISON: CT ankle RT wo con* [id number] 07/26/2024 6:15 PM FINDINGS: Bones/joints: Prominent motion degradation. Transverse fracture of the distal tibia metaphysis and fracture extending through the medial malleolar margin without significant distraction or angulation. There is prominent elongated distal central tibia marrow diaphysis and metaphysis signal lesion with peripheral diminished T1 and increased T2 signal consistent with bone infarction. Tibiotalar ankle joint effusion. Minor areas of reactive marrow signal of the most anterior superior talus and near the anterior talar dome. Suspect oblique fracture of the distal fibula metaphysis without angulation or distraction. There is additional minor serpiginous mixed signal area of nonspecific bone heterogeneity in the distal fibula diaphysis. Remote avulsion injury of the distal fibula margin with avulsion fracture. Minor area of reactive marrow signal or contusion of the superior calcaneus posterior to the posterior talocalcaneal articulation and most anterior dorsal calcaneus. LIGAMENTS: Distal tibiofibular syndesmosis: Unremarkable. No tear. Anterior talofibular ligament: Unremarkable. No tear. Posterior talofibular ligament: Unremarkable. No tear. Calcaneofibular ligament: Unremarkable. No tear. Deltoid ligament complex: Unremarkable. No tear. TENDONS: Flexor tendons of foot: Fluid within flexor hallucis longus tendon sheath. Fluid within flexor digitorum longus tendon sheath. Tibialis posterior tendon: Fluid within posterior tibial tendon sheath. Peroneal tendons: Minor fluid within peroneal longus and brevis tendon sheaths. Extensor tendons of foot: Unremarkable as visualized. Tibialis anterior tendon: Unremarkable as visualized. Achilles tendon: Unremarkable as visualized. Tarsal canal (Sinus tarsi): Unremarkable. Normal signal of the fat. Tarsal tunnel: Unremarkable. Soft tissues: Diffuse soft tissue edema. Plantar fascia: Plantar fascia is unremarkable. MR/MR ankle RT wo con* [id number] IMPRESSION: 1. Transverse fracture of the distal tibia metaphysis with extension to involve the nondisplaced non distracted fracture of the medial malleolus. 2. Oblique fracture of the distal fibular metaphysis. 3. Chronic avulsion fracture distal margin of the fibula. 4. Minor area of reactive marrow signal or bone contusion anterior superior talus near the anterior talar dome. 5. Ankle joint effusion. 6. Elongated signal abnormality of the medullary space of the distal tibia diametaphysis in likely within the distal fibula diametaphysis suggestive of bone infarct. 7. Reactive marrow signal and suspected bone contusion of the superior anterior and posterior calcaneus.
[2024-07-27] MEDS: acetaminophen 325 mg Tablet 650 MG PO ×2 (11:25→17:40)
[2024-07-27] MEDS: atorvastatin 40 mg Tablet PO (17:40)
[2024-07-27] MEDS: oxybutynin 5 mg Tablet PO (23:18)
[2024-07-28] VITALS (19 sets, daily range): BP systolic 106–148; BP diastolic 55–73; PULSE 60–83; RESP 16–19; TEMP 36.4–37.1; O2SAT 91–99
[2024-07-28 03:33] LABS: Basophils % 0.3 %; Eosinophils # 0.2 10^3/uL (0.0-0.8); Eosinophils % 2.6 %; Hematocrit 23.4 % (36-47); Lymphocytes # 1.5 10^3/uL (0.8-4.8); Lymphocytes % 24.6 %; Mean Corpuscular HGB Conc 29.9 g/dL (30-55); Mean Corpuscular Hemoglobin 24.5 pg (27-33); Mean Corpuscular Volume 81.8 fl (85-98); Mean Platelet Volume 9.6 fL (7.4-10.4); Monocytes # 0.7 10^3/uL (0.2-0.9); Monocytes % 11.4 %; Neutrophils # 3.69 10^3/uL (1.8-7.7); Neutrophils % 60.9 %; Nucleated Red Blood Cells % 0 %; Platelet Count 287 10^3/cmm (157-399); Red Blood Count 2.86 10^6/uL (3.85-5.65); Red Cell Distribution Width 15.5 % (12.1-15.1); White Blood Count 6.06 10^3/uL (3.29-11.43)
[2024-07-28] MEDS: morphine 4 mg/mL SDV 1 mL 2 MG IVP ×4 (03:36→20:11)
[2024-07-28 03:56] LABS: Anion Gap 16.1 (5-19); Blood Urea Nitrogen 10 mg/dL (8-23); Calcium 8.6 mg/dL (8.5-10.5); Carbon Dioxide 22 mmol/L (22-29); Chloride 98 mmol/L (98-107); Creatinine Clr Calc Pharmacy 50.8052; Glomerular Filtration Rate 223.3 mL/min (90-130); Glucose 105 mg/dL (65-115); Magnesium 1.8 mg/dL (1.7-2.3); Osmolality Calculated 273 mOsm/kg (285-295); Potassium 4.1 mmol/L (3.5-5.1); Sodium 132 mmol/L (136-145)
[2024-07-28] MEDS: amlodipine 5 mg Tablet PO ×2 (06:29→17:09)
[2024-07-28] MEDS: heparin 5,000 unit/mL INJ 1 mL 5000 UNIT SUBCUT ×2 (06:29→18:15)
[2024-07-28] MEDS: aspirin 81 mg Chew Tablet PO (06:29)
[2024-07-28] MEDS: labetalol 200 mg Tablet 100 MG PO ×2 (06:29→17:08)
[2024-07-28] MEDS: ondansetron 2 mg/ML SDV 2 mL 4 MG IVP (08:01)
--- NOTE | 2024-07-28 12:38 | P.PN_ITS ---
Subjective 2 Subjective: Seen this morning. Hemoglobin 7.0. Have ordered 1 unit of packed RBC. Urinalysis pending. Vitals/I&O/Wt Last Vital Signs Temp 98.3 F 07/28/24 12:13 Pulse 83 07/28/24 12:13 Resp 16 07/28/24 12:13 BP 106/56 07/28/24 12:13 Pulse Ox 98 07/28/24 12:13 O2 Del Method Nasal Cannula 07/28/24 12:03 O2 Flow Rate 2 07/28/24 08:40 07/27/24 07/28/24 07/28/24 22:59 06:59 14:59 Intake Total 1240 / 2343.75 600 / 600 Balance 1240 / 2343.75 600 / 600 Weight last 48 hrs Weight 45.767 kg Weight 45.904 kg Weight 44.509 kg Weight 42.184 kg Physical Exam 2 Narrative: General: Alert oriented x3, patient seen laying in bed appearing comfortable at this time on room air. HEENT: Normocephalic, atraumatic, EOMI, Cardio: Regular rate rhythm, normal S1-S2, Respiratory: Good bilateral air entry, no wheezes no rhonchi appreciated GI: Abdomen soft, nontender, nondistended, bowel sounds + Behavior: Appropriate and cooperative Extremities: Left shoulder in sling, right foot with compression wrap.. Data 07/28/24 02:46 07/28/24 02:46 A&P Assessment and plan (1) Insufficiency fracture of right tibia: (2) Pain in right ankle: (3) Injury of right ankle: Qualifiers: Encounter type: initial encounter Qualified Code(s): S99.911A - Unspecified injury of right ankle, initial encounter (4) Hypertension: (5) Hypothyroid: (6) COPD (chronic obstructive pulmonary disease): (7) Fall: Plan #Right distal tibial fracture #Left shoulder fracture #Mechanical fall #Recently repaired right hip fracture #COPD #Hypertension #Hypothyroidism #Hyperlipidemia #Anemia, possibly secondary to blood loss ? CT right lower extremity/ankle shows: 1. Acute minimally displaced insufficiency fracture of the distal tibia. Orthopedic evaluation is recommended. 2. Subtalar hemarthrosis without CT evidence of fracture. Consider follow-up MRI to evaluate for an occult insufficiency fracture of the talus or calcaneus. ?Shoulder x-ray shows fracture of the lateral humeral head ? Consult podiatry. ? MRI ankle completed. See results. ? No workup was done in the ER therefore I will order basic chest x-ray, labs: CBC CMP, magnesium, PT/INR at this time. ? Left shoulder has been placed in sling at this time. ? Continue patient's home medications amlodipine, aspirin, atorvastatin, labetalol - Consult case management ? Patient reports hematuria few weeks ago. Will continue to monitor hemoglobin. Will obtain urinalysis. ? Urinalysis pending at this time. Order 1 unit packed RBC ? Check ferritin, iron, percent saturation, TIBC workup for iron deficiency anemia. MCV 81.8, RDW 15.5. - Check Hemoccult ? Consult case management for halfway facility placement. Full code DVT prophylaxis: Heparin subcu twice daily. [facility]position: [facility], she is nonweightbearing x 6 weeks. Attestations 2 Medical Necessity Statement*: Patient will need placement at this point. Cannot go back to apartment is not wheelchair accessible. Patient is to be nonweightbearing for 6 weeks. Diagnoses Insufficiency fracture of right tibia M84.461A Pain in right ankle M25.571 Injury of right ankle S99.911A Encounter type: initial encounter Hypertension I10 Hypothyroid E03.9 COPD (chronic obstructive pulmonary disease) J44.9 Fall W19.XXXA
[2024-07-28 13:05] LABS: Ferritin 31 ng/mL (15-150); Iron 10 ug/dL (37-145); Percent Saturation 3.4 % (20-50); Total Iron Binding Capacity 288 mcg/dl; Unsaturated Iron Binding 278 ug/dL (112-347)
[2024-07-28 14:59] LABS: Charge for UA Resulting for Rev
[2024-07-28 15:02] LABS: Bilirubin Urine Negative (Negative); Blood Urine Trace (Negative); Glucose Urine UA Negative (Normal); Ketones Urine Negative (Negative); Leukocyte Esterase Urine 2+ (Negative); Nitrate Urine Negative (Negative); Protein Urine Negative (Negative); Specific Gravity, Urine 1.009 (1.005-1.030); Urine Appearance Clear (CLEAR); Urine Color Yellow (Yellow); Urobilinogen Urine 0.2 mg/dL (Negative); pH Urine 7.5 (5-7)
[2024-07-28 15:07] LABS: Bacteria Urine None Seen /hpf; Hyaline Casts Urine 0-4 /lpf; RBC Urine 0-2 /hpf (0-2); Squamous Epithelial Cell Urine 0-5 /hpf (0-5)
[2024-07-28 15:20] LABS: UA Slide Review UA Slide Review Perf
[2024-07-28 15:21] LABS: Add Urine Culture? Yes
--- NOTE | 2024-07-28 16:12 | PC.NURSE ---
Activity Patient refuses to sit in chair. Dr Stevens encouraged patient to try and get out of bed today.Patient had totally soaked the bed, when asked if she knew she needed to urinate she said only when she starts to go. Patient was helped to bsc but refused to get in chair.
[2024-07-28] MEDS: atorvastatin 40 mg Tablet PO (17:08)
[2024-07-29] VITALS (14 sets, daily range): BP systolic 110–158; BP diastolic 56–69; PULSE 67–76; RESP 16–19; TEMP 36.4–36.8; O2SAT 90–98
[2024-07-29] MEDS: ondansetron 2 mg/ML SDV 2 mL 4 MG IVP ×2 (03:37→22:09)
[2024-07-29] MEDS: morphine 4 mg/mL SDV 1 mL 2 MG IVP ×5 (03:40→22:09)
[2024-07-29 05:59] LABS: Basophils % 0.3 %; Eosinophils # 0.1 10^3/uL (0.0-0.8); Hematocrit 27.8 % (36-47); Lymphocytes # 1.3 10^3/uL (0.8-4.8); Lymphocytes % 19.9 %; Mean Corpuscular HGB Conc 31.7 g/dL (30-55); Mean Corpuscular Hemoglobin 25.6 pg (27-33); Mean Corpuscular Volume 80.8 fl (85-98); Mean Platelet Volume 9.9 fL (7.4-10.4); Monocytes # 0.9 10^3/uL (0.2-0.9); Monocytes % 14.1 %; Neutrophils # 4.18 10^3/uL (1.8-7.7); Neutrophils % 63.4 %; Nucleated Red Blood Cells % 0 %; Platelet Count 254 10^3/cmm (157-399); Red Blood Count 3.44 10^6/uL (3.85-5.65); Red Cell Distribution Width 15.2 % (12.1-15.1); White Blood Count 6.59 10^3/uL (3.29-11.43)
[2024-07-29] MEDS: labetalol 200 mg Tablet 100 MG PO ×2 (06:03→18:11)
[2024-07-29] MEDS: amlodipine 5 mg Tablet PO ×2 (06:04→18:11)
[2024-07-29] MEDS: heparin 5,000 unit/mL INJ 1 mL 5000 UNIT SUBCUT ×2 (06:05→18:15)
[2024-07-29] MEDS: aspirin 81 mg Chew Tablet PO (06:05)
[2024-07-29 06:31] LABS: Blood Urea Nitrogen 9 mg/dL (8-23); Calcium 8.6 mg/dL (8.5-10.5); Carbon Dioxide 24 mmol/L (22-29); Chloride 96 mmol/L (98-107); Creatinine Clr Calc Pharmacy 52.0094; Glomerular Filtration Rate 223.3 mL/min (90-130); Glucose 112 mg/dL (65-115); Magnesium 1.8 mg/dL (1.7-2.3); Osmolality Calculated 271 mOsm/kg (285-295); Sodium 131 mmol/L (136-145)
--- NOTE | 2024-07-29 07:55 | DCPLANNER ---
messaged ortho for er f/u
[2024-07-29] MEDS: ipratropium-albuterol 3 mL Neb INHALATION (08:15)
[2024-07-29] MEDS: budesonide 0.5 mg/2 mL Neb INHALATION ×2 (08:16→20:34)
--- NOTE | 2024-07-29 08:44 | P.PN_ITS ---
Subjective 2 Subjective: Seen this morning. Iron panel reviewed. Patient states she is doing well. She is trying to figure out how to maneuver with her sling and huge bandage on her right foot. She would like to go back to [facility] and would like to speak to social studies department chair. Vitals/I&O/Wt Last Vital Signs Temp 97.8 F 07/29/24 07:20 Pulse 70 07/29/24 08:16 Resp 18 07/29/24 08:16 BP 133/64 07/29/24 07:20 Pulse Ox 96 07/29/24 08:16 O2 Del Method Nasal Cannula 07/29/24 08:16 O2 Flow Rate 2 07/29/24 08:16 07/28/24 07/29/24 07/29/24 22:59 06:59 14:59 Intake Total 610 / 2110 Output Total 1000 / 1000 750 / 1750 Balance -390 / 1110 -750 / 360 Weight last 48 hrs Weight 46.992 kg Weight 45.767 kg Physical Exam 2 Narrative: General: Alert oriented x3, patient seen laying in bed appearing comfortable at this time on room air. HEENT: Normocephalic, atraumatic, EOMI, Cardio: Regular rate rhythm, normal S1-S2, Respiratory: Good bilateral air entry, no wheezes no rhonchi appreciated GI: Abdomen soft, nontender, nondistended, bowel sounds + Behavior: Appropriate and cooperative Extremities: Left shoulder in sling, right foot with compression wrap.. Right forearm laceration present with Steri-Strips in place. Data 07/29/24 05:25 07/29/24 05:25 A&P Assessment and plan (1) Insufficiency fracture of right tibia: (2) Pain in right ankle: (3) Injury of right ankle: Qualifiers: Encounter type: initial encounter Qualified Code(s): S99.911A - Unspecified injury of right ankle, initial encounter (4) Hypertension: (5) Hypothyroid: (6) COPD (chronic obstructive pulmonary disease): (7) Fall: Plan #Right distal tibial fracture #Left shoulder fracture #Mechanical fall #Recently repaired right hip fracture #COPD #Hypertension #Hypothyroidism #Hyperlipidemia #Anemia, possibly secondary to blood loss ? CT right lower extremity/ankle shows: 1. Acute minimally displaced insufficiency fracture of the distal tibia. Orthopedic evaluation is recommended. 2. Subtalar hemarthrosis without CT evidence of fracture. Consider follow-up MRI to evaluate for an occult insufficiency fracture of the talus or calcaneus. ?Shoulder x-ray shows fracture of the lateral humeral head ? Consult podiatry. ? MRI ankle completed. See results. ? No workup was done in the ER therefore I will order basic chest x-ray, labs: CBC CMP, magnesium, PT/INR at this time. ? Left shoulder has been placed in sling at this time. ? Continue patient's home medications amlodipine, aspirin, atorvastatin, labetalol 07/28 - Consult case management ? Patient reports hematuria few weeks ago. Will continue to monitor hemoglobin. Will obtain urinalysis. ? Urinalysis pending at this time. Order 1 unit packed RBC ? Check ferritin, iron, percent saturation, TIBC workup for iron deficiency anemia. MCV 81.8, RDW 15.5. - Check Hemoccult ? Consult case management for longterm facility placement. 07/29 ? Hemoccult pending Iron panel consistent with iron deficiency anemia Order Venofer 200 IV infusion daily x 3 doses total for 3 days. Will switch to oral iron at time of discharge. Patient is status post 1 unit packed RBC hemoglobin 8.8 this morning. Continue to work with physical therapy. Urinalysis negative for RBCs Patient to follow-up with urology outpatient for her previously scheduled cystoscopy Patient medically ready for discharge. Pending placement to [facility]. Case management notified. Full code DVT prophylaxis: Heparin subcu twice daily. Disposition: [facility] placement, she is nonweightbearing x 6 weeks. Attestations 2 Medical Necessity Statement*: Pending placement in [facility]. Diagnoses Insufficiency fracture of right tibia M84.461A Pain in right ankle M25.571 Injury of right ankle S99.911A Encounter type: initial encounter Hypertension I10 Hypothyroid E03.9 COPD (chronic obstructive pulmonary disease) J44.9 Fall W19.XXXA
[2024-07-29] MEDS: iron sucrose 200 MG in sodium chloride 0.9% (100 ml) 100 ML 220 MG IV (09:21)
--- NOTE | 2024-07-29 12:23 | PC.SOCIAL ---
IMM update Pg. 2 of IMM updated and reviewed with patient, who verbalized understanding. Copy provided.
[2024-07-29] MEDS: atorvastatin 40 mg Tablet PO (18:12)
[2024-07-30] VITALS (12 sets, daily range): BP systolic 113–145; BP diastolic 59–74; PULSE 60–76; RESP 14–18; TEMP 36.6–36.8; O2SAT 91–98
[2024-07-30 04:55] LABS: Basophils % 0.5 %; Eosinophils # 0.2 10^3/uL (0.0-0.8); Eosinophils % 3.6 %; Hematocrit 28.8 % (36-47); Lymphocytes # 1.5 10^3/uL (0.8-4.8); Lymphocytes % 24.7 %; Mean Corpuscular HGB Conc 30.2 g/dL (30-55); Mean Corpuscular Hemoglobin 24.9 pg (27-33); Mean Corpuscular Volume 82.3 fl (85-98); Mean Platelet Volume 9.9 fL (7.4-10.4); Neutrophils # 3.41 10^3/uL (1.8-7.7); Nucleated Red Blood Cells % 0 %; Platelet Count 313 10^3/cmm (157-399); Red Cell Distribution Width 15.6 % (12.1-15.1); White Blood Count 6.19 10^3/uL (3.29-11.43)
[2024-07-30] MEDS: aspirin 81 mg Chew Tablet PO (05:01)
[2024-07-30] MEDS: labetalol 200 mg Tablet 100 MG PO ×2 (05:01→17:37)
[2024-07-30] MEDS: amlodipine 5 mg Tablet PO ×2 (05:01→17:37)
[2024-07-30 05:24] LABS: Anion Gap 15.1 (5-19); Blood Urea Nitrogen 11 mg/dL (8-23); Calcium 8.6 mg/dL (8.5-10.5); Carbon Dioxide 23 mmol/L (22-29); Chloride 95 mmol/L (98-107); Creatinine Clr Calc Pharmacy 48.6957; Glomerular Filtration Rate 160.2 mL/min (90-130); Glucose 104 mg/dL (65-115); Osmolality Calculated 268 mOsm/kg (285-295); Potassium 4.1 mmol/L (3.5-5.1); Sodium 129 mmol/L (136-145)
[2024-07-30] MEDS: morphine 4 mg/mL SDV 1 mL 2 MG IVP ×4 (06:50→21:01)
[2024-07-30] MEDS: budesonide 0.5 mg/2 mL Neb INHALATION ×2 (08:08→22:16)
[2024-07-30] MEDS: heparin 5,000 unit/mL INJ 1 mL 5000 UNIT SUBCUT ×2 (09:13→19:43)
[2024-07-30] MEDS: iron sucrose 200 MG in sodium chloride 0.9% (100 ml) 100 ML 220 MG IV (09:43)
--- NOTE | 2024-07-30 11:05 | PM.PN ---
Subjective Subjective: seen today iv iron infusing awaiting NH placement Vitals/I&O/Wt Last Vital Signs Temp 97.9 F 07/30/24 07:49 Pulse 70 07/30/24 08:26 Resp 16 07/30/24 08:26 BP 113/59 07/30/24 07:49 Pulse Ox 98 07/30/24 08:26 O2 Del Method Nasal Cannula 07/30/24 08:26 O2 Flow Rate 2 07/30/24 08:26 07/29/24 07/30/24 07/30/24 22:59 06:59 14:59 Intake Total 360 / 1070 470 / 470 Output Total 600 / 900 Balance -240 / 170 470 / 470 Weight last 48 hrs Weight 43.998 kg Weight 46.992 kg Physical Exam Narrative: General: Alert oriented x3, patient seen laying in bed appearing comfortable at this time on room air. HEENT: Normocephalic, atraumatic, EOMI, Cardio: Regular rate rhythm, normal S1-S2, Respiratory: Good bilateral air entry, no wheezes no rhonchi appreciated GI: Abdomen soft, nontender, nondistended, bowel sounds + Behavior: Appropriate and cooperative Extremities: Left shoulder in sling, right foot with compression wrap.. Right forearm laceration present with Steri-Strips in place. Data 07/30/24 04:30 07/30/24 04:30 A&P Assessment and plan (1) Insufficiency fracture of right tibia: (2) Pain in right ankle: (3) Injury of right ankle: Qualifiers: Encounter type: initial encounter Qualified Code(s): S99.911A - Unspecified injury of right ankle, initial encounter (4) Hypertension: (5) Hypothyroid: (6) COPD (chronic obstructive pulmonary disease): (7) Fall: Plan #Right distal tibial fracture #Left shoulder fracture #Mechanical fall #Recently repaired right hip fracture #COPD #Hypertension #Hypothyroidism #Hyperlipidemia #Anemia, possibly secondary to blood loss ? CT right lower extremity/ankle shows: 1. Acute minimally displaced insufficiency fracture of the distal tibia. Orthopedic evaluation is recommended. 2. Subtalar hemarthrosis without CT evidence of fracture. Consider follow-up MRI to evaluate for an occult insufficiency fracture of the talus or calcaneus. ?Shoulder x-ray shows fracture of the lateral humeral head ? Consult podiatry. ? MRI ankle completed. See results. ? No workup was done in the ER therefore I will order basic chest x-ray, labs: CBC CMP, magnesium, PT/INR at this time. ? Left shoulder has been placed in sling at this time. ? Continue patient's home medications amlodipine, aspirin, atorvastatin, labetalol 07/28 - Consult case management ? Patient reports hematuria few weeks ago. Will continue to monitor hemoglobin. Will obtain urinalysis. ? Urinalysis pending at this time. Order 1 unit packed RBC ? Check ferritin, iron, percent saturation, TIBC workup for iron deficiency anemia. MCV 81.8, RDW 15.5. - Check Hemoccult ? Consult case management for detention facility placement. 07/29 ? Hemoccult pending Iron panel consistent with iron deficiency anemia Order Venofer 200 IV infusion daily x 3 doses total for 3 days. Will switch to oral iron at time of discharge. Patient is status post 1 unit packed RBC hemoglobin 8.8 this morning. Continue to work with physical therapy. Urinalysis negative for RBCs Patient to follow-up with urology outpatient for her previously scheduled cystoscopy Patient medically ready for discharge. Pending placement to [facility]. Case management notified. 07/30 - pending NH home placement - hb is stable - continue IV iron x 3 days total - Continue to work with physical therapy. - Urinalysis negative for RBCs - Patient to follow-up with urology outpatient for her previously scheduled cystoscopy - Patient medically ready for discharge. Pending placement to [facility]. Case management notified. Full code DVT prophylaxis: Heparin subcu twice daily. Disposition: intermediate placement, she is nonweightbearing x 6 weeks. Attestations Medical Necessity Statement*: Pending placement in [facility]. Diagnoses Insufficiency fracture of right tibia M84.461A Pain in right ankle M25.571 Injury of right ankle S99.911A Encounter type: initial encounter Hypertension I10 Hypothyroid E03.9 COPD (chronic obstructive pulmonary disease) J44.9 Fall W19.XXXA
[2024-07-30] MEDS: ondansetron 2 mg/ML SDV 2 mL 4 MG IVP (14:30)
[2024-07-30] MEDS: atorvastatin 40 mg Tablet PO (17:37)
[2024-07-30] MEDS: cyclobenzaprine 10 mg Tablet 5 MG PO (21:01)
[2024-07-31] VITALS (8 sets, daily range): BP systolic 120–152; BP diastolic 64–74; PULSE 58–73; RESP 16–20; TEMP 36.5–37.2; O2SAT 94–99
[2024-07-31] MEDS: morphine 4 mg/mL SDV 1 mL 2 MG IVP ×2 (03:17→11:35)
[2024-07-31] MEDS: aspirin 81 mg Chew Tablet PO (05:05)
[2024-07-31] MEDS: cyclobenzaprine 10 mg Tablet 5 MG PO ×2 (05:05→14:50)
[2024-07-31 05:10] LABS: Basophils % 0.4 %; Eosinophils # 0.2 10^3/uL (0.0-0.8); Eosinophils % 3.4 %; Lymphocytes # 1.7 10^3/uL (0.8-4.8); Lymphocytes % 24.9 %; Mean Corpuscular HGB Conc 30.7 g/dL (30-55); Mean Corpuscular Hemoglobin 25.3 pg (27-33); Mean Corpuscular Volume 82.4 fl (85-98); Mean Platelet Volume 9.6 fL (7.4-10.4); Monocytes # 0.8 10^3/uL (0.2-0.9); Monocytes % 11.9 %; Neutrophils # 3.99 10^3/uL (1.8-7.7); Nucleated Red Blood Cells % 0 %; Platelet Count 364 10^3/cmm (157-399); Red Blood Count 3.64 10^6/uL (3.85-5.65); Red Cell Distribution Width 15.9 % (12.1-15.1); White Blood Count 6.78 10^3/uL (3.29-11.43)
[2024-07-31] MEDS: amlodipine 5 mg Tablet PO (06:29)
[2024-07-31] MEDS: labetalol 200 mg Tablet 100 MG PO (06:29)
[2024-07-31] MEDS: heparin 5,000 unit/mL INJ 1 mL 5000 UNIT SUBCUT (06:30)
[2024-07-31 07:50] LABS: Anion Gap 16.2 (5-19); Blood Urea Nitrogen 11 mg/dL (8-23); Calcium 9.1 mg/dL (8.5-10.5); Carbon Dioxide 24 mmol/L (22-29); Chloride 94 mmol/L (98-107); Creatinine Clr Calc Pharmacy 48.6957; Glomerular Filtration Rate 160.2 mL/min (90-130); Glucose 113 mg/dL (65-115); Osmolality Calculated 270 mOsm/kg (285-295); Potassium 4.2 mmol/L (3.5-5.1); Sodium 130 mmol/L (136-145)
[2024-07-31] MEDS: ipratropium-albuterol 3 mL Neb INHALATION (08:35)
[2024-07-31] MEDS: budesonide 0.5 mg/2 mL Neb INHALATION (08:35)
[2024-07-31] MEDS: iron sucrose 200 MG in sodium chloride 0.9% (100 ml) 100 ML 220 MG IV (10:25)
--- NOTE | 2024-07-31 11:34 | PM.DCS ---
Discharge Providers Date of Admission: 07/26/24 18:36 Date of Discharge: July 31, 2024 Attending Provider at Admission: Sharon Stevens MD Attending Provider at Discharge: Yobany Patel MD Primary Care Provider: Sid Harris MD Diagnoses at Discharge Discharge Diagnosis (1) Insufficiency fracture of right tibia: Status: Acute (2) Pain in right ankle: Status: Acute (3) Injury of right ankle: Status: Acute Qualifiers: Encounter type: initial encounter Qualified Code(s): S99.911A - Unspecified injury of right ankle, initial encounter (4) Hypertension: Status: Acute (5) Hypothyroid: Status: Acute (6) COPD (chronic obstructive pulmonary disease): Status: Acute (7) Fall: Status: Acute Reason for Visit Reason for Visit: rt ankle, left shoulder pain Hospital Course Hospital Course Serene presented to the hospital on July 26, with a fall. She had a previous right hip fracture repair, and has known hyperlipidemia hypothyroidism B12 deficiency and COPD. During the fall, prior to our hospitalization she had sustained a fracture to the right tibia, a left humeral head fracture. Podiatry was consulted, and placed splint. They recommended nursing facility placement, nonweightbearing right lower extremity, follow-up in 2 weeks. Patient did have some anemia while in the hospital, and received 1 unit of packed red blood cells. She also received an iron transfusion x 3. It was thought she was anemic secondary to recent hip fracture surgery, and possibly chronic iron deficiency. With the unit of blood her hemoglobin stabilized. She was also followed for hyponatremia which was stable. Secondary to her COPD she got breathing treatments, and oxygen 2 L nasal cannula. By time of discharge pain was under fair control. Respiratory status was stable. Sodium was stable, and hemoglobin improved at 9.2, from its lowest point of 7.0. It was thought she could be discharged to the nursing facility for close monitoring, follow-up with podiatry. She should follow-up with her primary care provider 3 to 5 days, have a CBC and BMP in a week, and take all medicine as prescribed. She will also need follow-up with orthopedics for her left humerus head fracture which will be arranged. She was able to ask questions and agreed with the plan. Physical Exam Narrative: General Exam no distress Neck is supple Cardiovascular regular rate and rhythm Lungs clear but diminished breath sounds bilaterally Abdomen is soft Extremities, splint noted right lower extremity, sling noted left upper extremity Discharge Data Studies Completed and Pending Completed Studies During Hospitalization Category Date Time Status CT ankle RT wo con* [id number] Stat Cat Scan 07/26/24 17:23 Completed XR ankle RT min 3V* [id number] Stat Exams 07/26/24 16:15 Completed XR chest 1V portable [id number] Routine Exams 07/26/24 19:04 Completed XR shoulder LT min 2V* [id number] Stat Exams 07/26/24 16:15 Completed MR ankle RT wo con* [id number] Urgent MRI 07/27/24 09:30 Completed Pending at discharge Category Date Time Status Fecal Occult Blood [Immunochemical Fecal OCB] Stat Lab 07/28/24 08:58 Uncollected Radiology Impressions Ankle X-Ray 07/26/24 16:15 IMPRESSION: No acute findings. Shoulder X-Ray 07/26/24 16:15 IMPRESSION: Fracture of the lateral humeral head. Ankle CT 07/26/24 17:23 IMPRESSION: 1. Acute minimally displaced insufficiency fracture of the distal tibia. Orthopedic evaluation is recommended. 2. Subtalar hemarthrosis without CT evidence of fracture. Consider follow-up MRI to evaluate for an occult insufficiency fracture of the talus or calcaneus. Chest X-Ray 07/26/24 19:04 IMPRESSION: 1. No acute cardiopulmonary abnormality. 2. Emphysematous changes. ADDENDUM: 07/26/242040 IMPRESSION #4: Multiple old left-sided rib fractures. If there is clinical concern for an acute left-sided rib fracture, consider correlation with CT. Ankle MRI 07/27/24 09:30 IMPRESSION: 1. Transverse fracture of the distal tibia metaphysis with extension to involve the nondisplaced non distracted fracture of the medial malleolus. 2. Oblique fracture of the distal fibular metaphysis. 3. Chronic avulsion fracture distal margin of the fibula. 4. Minor area of reactive marrow signal or bone contusion anterior superior talus near the anterior talar dome. 5. Ankle joint effusion. 6. Elongated signal abnormality of the medullary space of the distal tibia diametaphysis in likely within the distal fibula diametaphysis suggestive of bone infarct. 7. Reactive marrow signal and suspected bone contusion of the superior anterior and posterior calcaneus. Laboratory Results WBC 6.78 10^3/uL (3.29-11.43) 09/04/24 04:52 RBC 3.64 10^6/uL (3.85-5.65) L 07/31/24 04:52 Hgb 9.20 g/dL (11.27-16.99) L 07/31/24 04:52 Hct 30.0 % (36-47) L 07/31/24 04:52 MCV 82.4 fl (85-98) L 07/31/24 04:52 MCH 25.3 pg (27-33) L 07/31/24 04:52 MCHC 30.7 g/dL (30-55) 07/31/24 04:52 RDW 15.9 % (12.1-15.1) H 07/31/24 04:52 Plt Count 364 10^3/cmm (157-399) 07/31/24 04:52 MPV 9.6 fL (7.4-10.4) 07/31/24 04:52 Neut % (Auto) 59.0 % 07/31/24 04:52 Lymph % (Auto) 24.9 % 07/31/24 04:52 [place] % (Auto) 11.9 % 07/31/24 04:52 Eos % (Auto) 3.4 % 07/31/24 04:52 Baso % (Auto) 0.4 % 07/31/24 04:52 Neut # (Auto) 3.99 10^3/uL (1.8-7.7) 07/31/24 04:52 Lymph # (Auto) 1.7 10^3/uL (0.8-4.8) 07/31/24 04:52 [place] # (Auto) 0.8 10^3/uL (0.2-0.9) 07/31/24 04:52 Eos # (Auto) 0.2 10^3/uL (0.0-0.8) 07/31/24 04:52 Baso # (Auto) 0.0 10^3/uL (0.0-0.1) 07/31/24 04:52 Nucleated RBC % (auto) 0 % 07/31/24 04:52 Nucleated RBCs # 0.0 /100WBC 07/31/24 04:52 PT 14.30 SECONDS (12.1-14.9) 07/27/24 04:15 INR 1.08 (0.8-1.2) 07/27/24 04:15 Sodium 130 mmol/L (136-145) L 07/31/24 04:32 Potassium 4.2 mmol/L (3.5-5.1) 07/31/24 04:32 Chloride 94 mmol/L (98-107) L 07/31/24 04:32 Carbon Dioxide 24 mmol/L (22-29) 07/31/24 04:32 Anion Gap 16.2 (5-19) 07/31/24 04:32 BUN 11 mg/dL (8-23) 07/31/24 04:32 Creatinine 0.4 mg/dL (0.5-0.9) L 07/31/24 04:32 GFR Calculation 160.2 mL/min (90-130) H 07/31/24 04:32 Glucose 113 mg/dL (65-115) 07/31/24 04:32 Calculated Osmolality 270 mOsm/kg (285-295) L 07/31/24 04:32 Calcium 9.1 mg/dL (8.5-10.5) 07/31/24 04:32 Magnesium 1.8 mg/dL (1.7-2.3) 07/29/24 05:25 Iron 10 ug/dL (37-145) L 07/28/24 02:46 TIBC 288 mcg/dl 07/28/24 02:46 % Saturation 3.4 % (20-50) L 07/28/24 02:46 Unsat Iron Binding 278 ug/dL (112-347) 07/28/24 02:46 Ferritin 31 ng/mL (15-150) 07/28/24 02:46 Total Bilirubin 0.3 mg/dL (0.15-1.2) 07/27/24 04:15 AST 16 U/L (0-32) 07/27/24 04:15 ALT 16 U/L (0-33) 07/27/24 04:15 Alkaline Phosphatase 98 U/L (35-105) 07/27/24 04:15 Total Protein 5.9 g/dL (6.6-8.7) L 07/27/24 04:15 Albumin 3.5 g/dL (3.5-5.2) 07/27/24 04:15 Globulin 2.4 g/dL (1.3-4.6) 07/27/24 04:15 Urine Color Yellow (Yellow) 07/28/24 14:52 Urine Appearance Clear (CLEAR) 07/28/24 14:52 Urine pH 7.5 (5-7) 07/28/24 14:52 Ur Specific [place] 1.009 (1.005-1.030) 07/28/24 14:52 Urine Protein Negative (Negative) 07/28/24 14:52 Urine Glucose (UA) Negative (Normal) 07/28/24 14:52 Urine Ketones Negative (Negative) 07/28/24 14:52 Urine Blood Trace (Negative) A 07/28/24 14:52 Urine Nitrate Negative (Negative) 07/28/24 14:52 Urine Bilirubin Negative (Negative) 07/28/24 14:52 Urine Urobilinogen 0.2 mg/dL (Negative) 07/28/24 14:52 Ur Leukocyte Esterase 2+ (Negative) A 07/28/24 14:52 Urine RBC 0-2 /hpf (0-2) 07/28/24 14:52 Urine WBC 11-20 /hpf (0-5) H 07/28/24 14:52 Ur Squamous Epith Cells 0-5 /hpf (0-5) 07/28/24 14:52 Amorphous Sediment Not Reportable 07/28/24 14:52 Urine Bacteria None seen /hpf (NONE) 07/28/24 14:52 Hyaline Casts 0-4 /lpf H 07/28/24 14:52 Blood Type A Positive 07/28/24 09:58 Rho(D) Type Rh positive 07/28/24 09:58 Antibody Screen Negative 07/28/24 09:58 Crossmatch See Detail 07/28/24 09:58 Vitals Last Vital Signs Temp 97.7 F 07/31/24 07:40 Pulse 67 07/31/24 08:37 Resp 20 H 07/31/24 08:37 BP 136/71 07/31/24 07:40 Pulse Ox 98 07/31/24 08:37 O2 Del Method Nasal Cannula 07/31/24 08:37 O2 Flow Rate 1 07/31/24 08:37 Discharge Plan Discharge Patient Disposition: Xfer SNF Condition: Stable Prescriptions: New hydrocodone-acetaminophen 5-325 mg tablet 1 tab PO Q6H PRN (Reason: pain) Qty: 20 0RF ipratropium-albuterol 0.5 mg-3 mg(2.5 mg base)/3 mL Solution For Nebulization 3 ml inhalation Q6H PRN (Reason: Shortness Of Breath) Qty: 240 0RF budesonide 0.5 mg/2 mL Suspension For Nebulization 0.5 mg inhalation BID.RESPIRATORY Qty: 60 0RF cyclobenzaprine 10 mg Tablet 5 mg PO TID PRN (Reason: Muscle Spasms) Qty: 20 0RF Continued cetirizine [Zyrtec] 10 mg tablet 10 mg PO DAILY PRN (Reason: Allergy Symptoms) Advanced Eye Relief 1-0.3 % drops 1 drp ophthalmic (eye) DAILY PRN (Reason: unknown) atorvastatin 80 mg Tablet 80 mg PO DAILY@1800 amlodipine 5 mg Tablet 5 mg PO BID@0600,1800 aspirin 81 mg Tablet,Chewable 81 mg PO DAILY@0600 labetalol 100 mg Tablet 100 mg PO BID@0600,1800 albuterol sulfate 90 mcg/actuation Hfa Aerosol Inhaler 2 puff inhalation Q6H PRN (Reason: Shortness Of Breath) clobetasol 0.05 % Cream 1 applic TOPICAL BID PRN (Reason: unknown) Discontinued acetaminophen [Tylenol Arthritis Pain] 650 mg tablet extended release 1,300 mg PO .UP TO TWICE A DAY Combivent Respimat 20-100 mcg/actuation Mist 1 puff INHALATION Q6H albuterol sulfate 2.5 mg /3 mL (0.083 %) Solution For Nebulization 2.5 mg INHALATION Q4H PRN (Reason: Shortness Of Breath) Discharge Orders: Discharge Order (Routine); Ordered 07/31/24 Ordered By: Yobany Patel Referrals: [facility] [Outside] Jeff Dawson DPM [Physician] - 2 weeks Sid Harris MD [Primary Care Provider] - 4-7 days Discharge Diet: Cardiac Discharge Activity: Wheelchair as instructed and As per PT/OT instructions Patient Instructions: Opioid Safety, Pain Management Activity Restrictions/Additional Instructions: Oxygen 2 L per nasal cannula. May titrate off for sat greater than or equal to 92% Follow-up with primary care provider 3 to 5 days at nursing facility [facility] in 1 week Return for any concerns Take all medicine as prescribed Nonweightbearing right lower extremity Splint instructions per Dr. Dawson Please arrange orthopedic follow-up for left shoulder fracture and orthopedic clinic within 2 weeks. Keep sling on Discharge Attestations Time Spent in Discharge Care*: greater than 30 min Status at Discharge: Cognitive status at discharge: cognitively intact, Behavioral status at discharge: [facility], Quality Metrics Clinical Quality Measures [ No reported AMI, CVA or VTE this stay] Coding Level of Care Code 36351 Total time (in minutes) for Discharge: 39 Diagnoses Insufficiency fracture of right tibia M84.461A Pain in right ankle M25.571 Injury of right ankle S99.911A Encounter type: initial encounter Hypertension I10 Hypothyroid E03.9 COPD (chronic obstructive pulmonary disease) J44.9 Fall W19.XXXA
--- NOTE | 2024-07-31 12:05 | PC.SOCIAL ---
IMM Updated Updated pt on IMM. No questions voiced. Provided pt a copy. Initialed, dated, & timed copy in chart.
--- NOTE | 2024-07-31 14:02 | PC.NURSE ---
called [facility]. they said they have not received paperworks and can't accept my report yet. notified Sandy of case mgt and she said she will refaxed it.
[2024-07-31 14:37] LABS: SARS Covid-2 Antigen negative (Negative)
[2024-07-31] MEDS: acetaminophen 325 mg Tablet 650 MG PO (14:50)
--- NOTE | 2024-07-31 15:10 | PC.NURSE ---
called report to [facility] 3x and went to voicemail. spoke to [employer] operator 3x when no one answers at the nurses station there.
--- NOTE | 2024-07-31 15:34 | PC.NURSE ---
report called to [facility] talked to matt stanley in regards to discharge instructionsand left lower ext splint instructions and sling.
[2024-07-31] MEDS: HYDROcodone-acetaminophen 5-325 mg Tablet 1 TAB PO (16:35)
== END 2024-07-31 16:51 | disposition skilled nursing facility (03) | DRG 563 ==
LOC: ER 17:18 → MEDSURG 18:41
PROVIDERS: Admitting Provider Internal Medicine; Emergency Provider Physician Assistant; PCP Family Medicine; Visit Provider Internal Medicine
DX: S82.301A Unspecified fracture of lower end of right tibia, initial encounter for closed fracture (principal); S42.202A Unspecified fracture of upper end of left humerus, initial encounter for closed fracture; E87.1 Hypo-osmolality and hyponatremia; D62 Acute posthemorrhagic anemia; S82.831A Other fracture of upper and lower end of right fibula, initial encounter for closed fracture; W18.30XA Fall on same level, unspecified, initial encounter; S72.101D Unspecified trochanteric fracture of right femur, subsequent encounter for closed fracture with routine healing; W18.30XD Fall on same level, unspecified, subsequent encounter; Z11.52 Encounter for screening for COVID-19; E78.5 Hyperlipidemia, unspecified; E53.8 Deficiency of other specified B group vitamins; E03.9 Hypothyroidism, unspecified; J44.9 Chronic obstructive pulmonary disease, unspecified; I10 Essential (primary) hypertension; Z79.82 Long term (current) use of aspirin; Z79.51 Long term (current) use of inhaled steroids; M81.0 Age-related osteoporosis without current pathological fracture; F17.210 Nicotine dependence, cigarettes, uncomplicated; E61.1 Iron deficiency; Z75.1 Person awaiting admission to adequate facility elsewhere
CPT/HCPCS: 36415; 36430; 71045; 73030; 73610; 73700; 73721; 80048; 80053; 81003; 81015; 82728; 83540; 83550; 83735; 85025; 85610; 86850; 86900; 86920; 87426; 94640; 96372; 97161; 99285; J1644; J1756; J2270; J2405; J7030; J7626; L4361; P9040

== ENCOUNTER → 2024-08-09 11:38 | Outpatient (BNVA) | payer MEDICARE, MEDICAID, SELFPAY | PROVIDERS: PCP Family Medicine; Visit Provider Podiatrist Foot & Ankle Surgery | DX: S82.391A Other fracture of lower end of right tibia, initial encounter for closed fracture; S82.401A Unspecified fracture of shaft of right fibula, initial encounter for closed fracture; W19.XXXA Unspecified fall, initial encounter | CPT/HCPCS: 73600; 99213 ==

== ENCOUNTER 2024-08-12 14:48 | Outpatient (CLI) | payer MEDICARE, MEDICAID, SELFPAY ==
--- NOTE | 2024-08-12 14:51 | XR_ITS ---
WS: [id number] SCREENING DEXA SCAN [employer] CLINICAL INFORMATION: DISPLACED COMMINUTED FX SHAFT OF R FEMUR COMPARISON: 2019 FINDINGS: The L1-L4 bone mineral density measures 0.560 g/cm2. This corresponds to a T score score of -5.2 and Z score of -2.8. Left femoral neck bone mineral density measures 0.611 (g/cm2). This corresponds to a T score of -3.1 (no units) and Z score of -1.4 (no units). RIGHT forearm bone mineral density measures 0.179. This corresponds to a T score of -8.0 and Z score of -6.6. XR/XR DEXA axial skeleton* [id number] IMPRESSION: Osteoporosis lumbar spine. Osteoporosis LEFT femoral neck. Osteoporosis RIGHT f orearm. Patient's FRAX calculated 10 year probability for major osteoporotic fracture i s 31.8% and osteoporotic hip fracture is 19.7%. Bone mineral density lumbar spine decreased -14.5% Density LEFT femoral neck increased 9.1%
== END 2024-08-12 14:49 | disposition home or self-care (01) ==
LOC: RAD 14:48
PROVIDERS: PCP Family Medicine; Visit Provider Physician Assistant
DX: S72.13 Apophyseal fracture of femur (principal); M81.0 Age-related osteoporosis without current pathological fracture; X58.XXXA Exposure to other specified factors, initial encounter
CPT/HCPCS: 77080

== ENCOUNTER → 2024-08-21 11:05 | Outpatient (BNVA) | payer MEDICARE, MEDICAID, SELFPAY | PROVIDERS: PCP Family Medicine; Referring Provider Physician Assistant; Visit Provider Nurse Practitioner | DX: S42.255A Nondisplaced fracture of greater tuberosity of left humerus, initial encounter for closed fracture (principal); S82.401A Unspecified fracture of shaft of right fibula, initial encounter for closed fracture; X58.XXXA Exposure to other specified factors, initial encounter | CPT/HCPCS: 23620; 73060; 73552; 99204 ==

== ENCOUNTER → 2024-08-29 08:38 | Outpatient (BNVA) | payer MEDICARE, MEDICAID, SELFPAY | PROVIDERS: PCP Family Medicine; Visit Provider Podiatrist Foot & Ankle Surgery | DX: M84.461A Pathological fracture, right tibia, initial encounter for fracture (principal); W19.XXXA Unspecified fall, initial encounter | CPT/HCPCS: 73610; 99213 ==

== ENCOUNTER → 2024-09-23 15:29 | Outpatient (BNVA) | payer MEDICARE, MEDICAID, SELFPAY | PROVIDERS: PCP Family Medicine; Visit Provider Podiatrist Foot & Ankle Surgery | DX: M84.461D Pathological fracture, right tibia, subsequent encounter for fracture with routine healing (principal); X58.XXXD Exposure to other specified factors, subsequent encounter | CPT/HCPCS: 73610; 99213 ==

== ENCOUNTER 2025-04-03 15:28 | Inpatient (IN) | payer OTHER, MEDICAID, SELFPAY ==
[2025-04-03 15:35] VITALS: BP 113/72; PULSE 100; RESP 16; TEMP 36.8; O2SAT 95; BMI 18.1
--- NOTE | 2025-04-03 16:28 | XRR_ITS ---
PROCEDURE INFORMATION: Exam: XR Chest Exam date and time: 04/03/2025 4:28 PM Age: 64 years old Clinical indication: Pain; Chest pressure; Additional info: Chest pain TECHNIQUE: Imaging protocol: Radiologic exam of the chest. Views: 1 view. COMPARISON: CR XR chest 1V portable [id number] 07/26/2024 8:27 PM FINDINGS: Lungs: Lungs are free of acute disease. Minor chronic granulomatous changes. Pleural spaces: Unremarkable. No pleural effusion. No pneumothorax. Heart/Mediastinum: Unremarkable. No cardiomegaly. Bones/joints: No acute findings. XR/XR chest 1V portable [id number] IMPRESSION: No acute findings.
--- NOTE | 2025-04-03 16:41 | ED_ITS ---
HPI - Female Genitourinary General: Chief complaint: Upper Respiratory Infection Stated complaint: fall x 3 weeks Time Seen by Provider: 04/03/25 15:53 Source: patient Mode of arrival: wheelchair Limitations: no limitations History of Present Illness: Patient is a 64-year-old female presenting to the emergency department with several months of urinary symptoms, including dysuria, frequency, urgency, and suprapubic pain. She states that she was recently hospitalized for similar symptoms and put on antibiotics, which she claims she has completed. She reports a subjective fever for 4 days. She also reports 2 months of nausea, vomiting, and diarrhea. Nothing has helped improve symptoms. MD elicited complaint: UTI Pertinent past history: recurrent UTIs Onset (ago): day(s) Severity: moderate Quality of pain: burning Urinary symptoms: Dysuria, Foul Smelling Urine, Frequency and Urgency Associated symptoms: Reports abdominal pain (epigastric), fevers/chills, headache(s) and nausea Related Data Home Medications ?Medication ?Instructions ?Recorded ?Confirmed amlodipine 5 mg tablet 5 mg PO BID@0600,1800 09/23/24 aspirin 81 mg chewable tablet 81 mg PO DAILY@0600 07/0 01/1609/23/24 atorvastatin 80 mg tablet 80 mg PO DAILY@1800 05/28/20 09/23/24 labetalol 100 mg tablet 100 mg PO BID@0600,1800 07/0 01/1609/23/24 albuterol sulfate 90 mcg/actuation 2 puff inhalation Q 6H PRN 10/28/20 09/23/24 aerosol inhaler Shortness Of Breath cetirizine 10 mg tablet (Zyrtec) 10 mg PO DAILY PRN Al lergy Symptoms 05/25/21 09/23/24 propylene glycol 1 %-glycerin 0.3 1 drp ophthalmic (ey e) DAILY PRN 05/25/21 09/23/24 % eye drops (Advanced Eye Relief) unknown clobetasol 0.05 % topical cream 1 applic topical BID P RN unknown 09/27/22 09/23/24 Previous Rx's ?Medication ?Instructions ?Recorded budesonide 0.5 mg/2 mL suspension 0.5 mg (2 mL) inhala tion 07/31/24 for nebulization BID.RESPIRATORY #60 mL cyclobenzaprine 10 mg tablet 5 mg (1/2 x 10 mg) PO TID PRN 07/31/24 Muscle Spasms #20 tabs hydrocodone 5 mg-acetaminophen 325 1 tab PO Q6H PRN pa in #20 tabs 07/31/24 mg tablet ipratropium 0.5 mg-albuterol 3 mg 3 ml inhalation Q6H PRN Shortness 07/31/24 (2.5 mg base)/3 mL nebulization Of Breath #240 mL soln Allergies Allergy/AdvReac Type Severity Reaction Status Date / Time hydrochlorothiazide Allergy unknown Verified 09/23/24 15:44 Latex, Natural Rubber Allergy ALGY-Hives Verified 09/23/24 15:44 nitrofurantoin (From Allergy ADR-Nausea Verified 09/24/24 12:01 Macrobid) Review of Systems Const: Reports: fever(s), chills and fatigue; Denies: body aches Card: Denies: chest pain or palpitations Resp: Denies: dyspnea GI: Reports: abdominal pain (epigastric), nausea, vomiting and diarrhea : Reports: difficulty voiding, dysuria, urinary frequency, urinary urgency and vaginal odor; Denies: flank pain, urinary hesitancy or dribbling Neuro: Reports: headache(s) PFSH ED PFSH: Medical History Hyperlipidemia Vitamin B12 deficiency Hypothyroid E-coli UTI Intertrochanteric fracture of right hip Fall Nicotine addiction LGSIL Pap smear of vagina Chronic hyponatremia Alcohol use Chronic pancreatitis Osteoporosis Hypertension COPD (chronic obstructive pulmonary disease) Acute cystitis with hematuria Surgical History Status post open reduction with internal fixation of fracture H/O: hysterectomy Family History Mother Anesthesia complication CAD (coronary artery disease) Diabetes Hyperlipidemia Hypertension Family history of thyroid problem Grandfather Cancer maternal-lung cancer Sister Diabetes Hypertension Son Diabetes Grandmother Diabetes paternal Denies family history of Ovarian cyst Clotting disorder Chronic kidney disease (CKD) Bleeding disorder Social History Smoking and tobacco/nicotine status: unknown if used tobacco/nicotine Alcohol intake: current Alcohol intake frequency: few times a week Substance/Drug Use: never Lives independently: Yes Household members: family Marital status: Single Current occupational status: employed Current occupation: [employer] Current occupational exposures/hazards: Yes Do you think of yourself as: Straight/Heterosexual Current gender identity: Female Physical Exam Const: COMMON NORMALS: no acute distress, patient oriented x3, no limitations and alert GENERAL APPEARANCE: disheveled NUTRITIONAL APPEARANCE: underweight HENMT: COMMON NORMALS: normocephalic and atraumatic HEAD & SCALP: normocephalic and atraumatic Eye: COMMON NORMALS: Equal, round and reactive pupils present, EOMs intact bilaterally and conjunctivae normal CONJUNCTIVA: Yes conjunctivae normal PUPIL: Yes Equal, round and reactive pupils present Neck/C-Spine: COMMON NORMALS: full ROM, no lymphadenopathy, supple and no JVD Chest: COMMONS NORMALS: normal inspection of the chest and normal palpation of entire chest wall Resp: COMMON NORMALS: normal respiratory effort, No retractions, No use of accessory muscles and clear to auscultation bilaterally AUSCULTATION: clear to auscultation bilaterally Cardio: COMMON NORMALS: no JVD, regular rate, regular rhythm, S1 normal heart sound present and S2 normal heart sound present RATE: regular rate RHYTHM: regular rhythm HEART SOUNDS: S1 normal heart sound present and S2 normal heart sound present GI: COMMON NORMALS: Normal to inspection, nondistended, normoactive bowel sounds present and Soft to palpation PALPATION: Yes Soft to palpation Neuro: COMMON NORMALS: patient oriented x3 SENSORIUM/ORIENTATION: Yes alert Course Vital Signs: Vital signs: Vital Signs Temperature 98.2 F 04/03/25 15:35 Pulse Rate 100 04/03/25 15:35 Respiratory Rate 16 04/03/25 15:35 Blood Pressure 113/72 04/03/25 15:35 Pulse Oximetry 95 04/03/25 15:35 Oxygen Delivery Me thod Room Air 04/03/25 15:35 Discharge Plan Discharge Condition: Stable Prescriptions: No Action cetirizine [Zyrtec] 10 mg tablet 10 mg PO DAILY PRN (Reason: Allergy Symptoms) Advanced Eye Relief 1-0.3 % drops 1 drp ophthalmic (eye) DAILY PRN (Reason: unknown) atorvastatin 80 mg Tablet 80 mg PO DAILY@1800 amlodipine 5 mg Tablet 5 mg PO BID@0600,1800 aspirin 81 mg Tablet,Chewable 81 mg PO DAILY@0600 labetalol 100 mg Tablet 100 mg PO BID@0600,1800 albuterol sulfate 90 mcg/actuation Hfa Aerosol Inhaler 2 puff inhalation Q6H PRN (Reason: Shortness Of Breath) cyclobenzaprine 10 mg Tablet 5 mg PO TID PRN (Reason: Muscle Spasms) Qty: 20 0RF ipratropium-albuterol 0.5 mg-3 mg(2.5 mg base)/3 mL Solution For Nebulization 3 ml inhalation Q6H PRN (Reason: Shortness Of Breath) Qty: 240 0RF budesonide 0.5 mg/2 mL Suspension For Nebulization 0.5 mg inhalation BID.RESPIRATORY Qty: 60 0RF hydrocodone-acetaminophen 5-325 mg tablet 1 tab PO Q6H PRN (Reason: pain) Qty: 20 0RF clobetasol 0.05 % Cream 1 applic TOPICAL BID PRN (Reason: unknown) Referrals: Sid Harris MD [Primary Care Provider, Family Practice] Print Language: Sammarinese Coding Level of Care Code ED Developmental Education Instructor for Sergio Chow
--- NOTE | 2025-04-03 16:49 | CTR_ITS ---
PROCEDURE INFORMATION: Exam: CT Head Without Contrast Exam date and time: 04/03/2025 4:53 PM Age: 64 years old Clinical indication: Altered mental status/memory loss; Confusion or disorientation; Additional info: AMS TECHNIQUE: Imaging protocol: Computed tomography of the head without contrast. Radiation optimization: All CT scans at this facility use at least one of these dose optimization techniques: automated exposure control; mA and/or kV adjustment per patient size (includes targeted exams where dose is matched to clinical indication); or iterative reconstruction. COMPARISON: CT head wo con* [id number] 01/22/2022 5:29 PM RADIATION DOSE METRICS: Total DLP (mGy-cm): 898.37 FINDINGS: Brain: No hemorrhage. No edema. Moderate diffuse cerebral atrophy and sequela of chronic small vessel ischemic disease. No mass effect. Cerebral ventricles: No ventriculomegaly. Paranasal sinuses: Visualized sinuses are unremarkable. No fluid levels. Mastoid air cells: Right mastoidectomy changes. Bones: Unremarkable. No acute fracture. Soft tissues: Unremarkable. CT/CT head wo con* [id number] IMPRESSION: No acute intracranial abnormality.
--- NOTE | 2025-04-03 16:49 | W.ED.AMS ---
Documented by User: KAUR Jean 04/03/25 17:11 HPI - Altered Mental Status General: Chief Complaint: Upper Respiratory Infection Stated Complaint: fall x 3 weeks Time Seen by Provider: 04/03/25 15:53 Source: patient Mode of arrival: EMS Limitations: altered mental status History of Present Illness: Patient is a 64-year-old female here via EMS dating that I am sick . She tells me that she was just released from the hospital where she was admitted for some type of fracture repair. Looking at previous documentation, she has not been hospitalized since July 2024. She initially tells me that she called EMS but then later tells me that her director of home care hospice called EMS but is not sure why. She tells me her legs hurt. She has not had any injury or trauma. Patient is extremely foul-smelling and disheveled upon arrival. She urinated in the floor while in vertical flow. She tells me she is having nausea, vomiting, diarrhea for months . States she has never followed up with her primary care provider for any of her issues stating they are not in office very often. She does report her primary care doctor is Dr. Harris. She is reporting fevers of up to 102. She told PA student she was having dysuria, frequency, and urgency. Afebrile upon arrival here. Looking at previous documentation PMH is significant for COPD, chronic alcohol dependence, pancreatitis, hyperlipidemia, vitamin B12 deficiency, hypothyroidism, right hip fracture, hypertension, chronic hyponatremia. MD complaint: altered mental status and confusion Onset (ago): unknown Associated symptoms: Reports no associated symptoms Related Data Home Medications ?Medication ?Instructions ?Recorded ?Confirmed amlodipine 5 mg tablet 5 mg PO BID@0600,1800 05/28/20 04/04/25 atorvastatin 80 mg tablet 80 mg PO DAILY@1800 05/28/20 04/04/25 labetalol 100 mg tablet 100 mg PO BID@0600,1800 05/28/20 04/04/25 Previous Rx's ?Medication ?Instructions ?Recorded ciprofloxacin HCl 500 mg tablet 500 mg PO BID #14 tabs 04/03/25 (Cipro) Allergies Allergy/AdvReac Type Severity Reaction Status Date / Time hydrochlorothiazide Allergy unknown Verified 09/23/24 15:44 Latex, Natural Rubber Allergy ALGY-Hives Verified 09/23/24 15:44 nitrofurantoin (From Allergy ADR-Nausea Verified 09/24/24 12:01 Macrobid) Review of Systems Const: Reports: fever(s); Denies: chills or body aches Eyes: Denies: change in vision ENMT: Denies: nasal discharge, nasal congestion or sinus pain Card: Denies: chest pain Resp: Denies: dyspnea GI: Reports: nausea, vomiting and diarrhea; Denies: abdominal pain : Reports: dysuria, urinary frequency and urinary urgency; Denies: flank pain Musc: Reports: extremity pain; Denies: neck pain, back pain, extremity swelling, joint pain or joint swelling Skin/Breast: Denies: rash Neuro: Reports: difficulty walking; Denies: headache(s) or dizziness PFSH ED PFSH: Medical History Hyperlipidemia Vitamin B12 deficiency Hypothyroid E-coli UTI Intertrochanteric fracture of right hip Fall Nicotine addiction LGSIL Pap smear of vagina Chronic hyponatremia Alcohol use Chronic pancreatitis Osteoporosis Hypertension COPD (chronic obstructive pulmonary disease) Acute cystitis with hematuria Surgical History Status post open reduction with internal fixation of fracture H/O: hysterectomy Family History Mother Anesthesia complication CAD (coronary artery disease) Diabetes Hyperlipidemia Hypertension Family history of thyroid problem Grandfather Cancer maternal-lung cancer Sister Diabetes Hypertension Son Diabetes Grandmother Diabetes paternal Denies family history of Ovarian cyst Clotting disorder Chronic kidney disease (CKD) Bleeding disorder Social History Smoking and tobacco/nicotine status: unknown if used tobacco/nicotine Alcohol intake: current Alcohol intake frequency: few times a week Substance/Drug Use: never Lives independently: Yes Household members: family Marital status: Single Current occupational status: employed Current occupation: [employer] Current occupational exposures/hazards: Yes Do you think of yourself as: Straight/Heterosexual Current gender identity: Female Physical Exam Const: COMMON NORMALS: alert EXAM LIMITATIONS: altered mental status GENERAL APPEARANCE: cooperative, disheveled and frail appearing NUTRITIONAL APPEARANCE: underweight ORIENTATION/CONSCIOUSNESS: Yes awake, Yes oriented to person and Yes oriented to place HENMT: COMMON NORMALS: normocephalic and atraumatic HEAD & SCALP: normal to inspection, normocephalic and atraumatic FACE & SINUS: normal facial exam Eye: GENERAL EYE: appearance normal, both eyes and all related structures Neck/C-Spine: COMMON NORMALS: no lymphadenopathy and no meningeal signs GENERAL: Yes normal visual inspection, No anterior neck swelling and No submandibular swelling Resp: COMMON NORMALS: normal respiratory effort and clear to auscultation bilaterally AUSCULTATION: clear to auscultation bilaterally Cardio: COMMON NORMALS: regular rate and regular rhythm RATE: regular rate RHYTHM: regular rhythm GI: COMMON NORMALS: Normal to inspection, nondistended, normoactive bowel sounds present, Soft to palpation, non-tender and no masses PALPATION: Yes Soft to palpation : COMMON NORMALS: Yes no CVA tenderness BLADDER/KIDNEY EXAM: Yes no CVA tenderness Back/Pelvis: COMMON NORMALS: no CVA tenderness, thoracic and lumbar spine normal to inspection and no thoracic nor lumbar tenderness Extremity: NARRATIVE EXTREMITY EXAM: bilateral LEs are cool to the touch-states her feet are always cold; faint pulses felt bilaterally; sensation appears intact GENERAL: Yes normal exam except as noted Neuro: ODESSA COMA SCALE: document GCS findings [place] coma scale eye opening: Spontaneous [place] coma scale verbal response: Orientated [place] coma scale motor response: Obey commands [place] coma scale total score: 15 SENSORIUM/ORIENTATION: Yes alert, Yes oriented to person and Yes oriented to place MENINGEAL SIGNS: Yes no meningeal signs Skin: COMMON NORMALS: no rashes or lesions noted GENERAL SKIN EXAM: no rashes or lesions noted Course ED course: Care transferred to Dr. Stone as my shift is ending. Vital Signs: Vital signs: Vital Signs Temperature 98.0 F 04/07/25 04:00 Pulse Rate 67 04/07/25 05:02 Respiratory Rate 17 04/07/25 04:00 Blood Pressure 110/73 04/07/25 04:00 Pulse Oximetry 97 04/07/25 04:00 Oxygen Delivery Me thod Room Air 04/07/25 04:00 MDM - Altered Mental Status Lab Data 04/07/25 03:23 04/07/25 03:23 Radiology Impressions Chest X-Ray 04/03/25 16:28 IMPRESSION: No acute findings. Head CT 04/03/25 16:49 IMPRESSION: No acute intracranial abnormality. Chest/Abdomen/Pelvis CT 04/04/25 10:36 IMPRESSION: 1. No acute chest findings 2. Pancreatic calcifications with ductal dilatation compatible with chronic pancreatitis similar to previous. 3. No hydronephrosis in either kidney. 4. Chronic T12 compression fracture. 5. Distended stomach with air-fluid levels extending into the proximal duodenum. 6. Diffuse bladder wall thickening likely due to chronic cystitis. 7. Sacral decubitus ulcer the distal sacrum with soft tissue induration. This extends to the midline gluteal cleft. No drainable abscess or fluid collection visualized. There appears to be a small fistulous connection extending to the rectum best seen on the sagittal imaging image 29 series 16. 8. No other acute findings. Lumbar Spine CT 04/04/25 10:36 IMPRESSION: 1. Advanced osteopenia. No visualized acute compression fractures. 2. Mild central canal stenosis L3-L4 and L4-L5 described above. 3. Pancreatic calcifications with ductal dilatation partially visualized likely due to chronic pancreatitis. Laboratory Results WBC 6.34 10^3/uL (3.29-11.43) 04/04/25 04:23 RBC 4.50 10^6/uL (3.85-5.65) 04/04/25 04:23 Hgb 12.40 g/dL (11.27-16.99) 04/04/25 04:23 Hct 36.4 % (36-47) 04/04/25 04:23 MCV 80.9 fl (85-98) L 04/04/25 04:23 MCH 27.6 pg (27-33) 04/04/25 04:23 MCHC 34.1 g/dL (30-55) 04/04/25 04:23 RDW 13.2 % (12.1-15.1) 04/04/25 04:23 Plt Count 311 10^3/cmm (157-399) 04/04/25 04:23 MPV 8.7 fL (7.4-10.4) 04/04/25 04:23 Neut % (Auto) 76.0 % 04/04/25 04:23 Lymph % (Auto) 11.7 % 04/04/25 04:23 [place] % (Auto) 9.0 % 04/04/25 04:23 Eos % (Auto) 2.4 % 04/04/25 04:23 Baso % (Auto) 0.3 % 04/04/25 04:23 Neut # (Auto) 4.82 10^3/uL (1.8-7.7) 04/04/25 04:23 Lymph # (Auto) 0.7 10^3/uL (0.8-4.8) L 04/04/25 04:23 [place] # (Auto) 0.6 10^3/uL (0.2-0.9) 04/04/25 04:23 Eos # (Auto) 0.2 10^3/uL (0.0-0.8) 04/04/25 04:23 Baso # (Auto) 0.0 10^3/uL (0.0-0.1) 04/04/25 04:23 Nucleated RBC % (auto) 0 % 04/04/25 04:23 Nucleated RBCs # 0.0 /100WBC 04/04/25 04:23 ESR 5 mm/hr (0-15) 04/04/25 04:23 Sodium 125 mmol/L (136-145) L 04/04/25 04:23 Potassium 3.7 mmol/L (3.5-5.1) 04/04/25 04:23 Chloride 90 mmol/L (98-107) L 04/04/25 04:23 Carbon Dioxide 23 mmol/L (22-29) 04/04/25 04:23 Anion Gap 15.7 (5-19) 04/04/25 04:23 BUN 72 mg/dL (8-23) H 04/04/25 04:23 Creatinine 1.0 mg/dL (0.5-0.9) H 04/04/25 04:23 GFR Calculation 55.6 mL/min (90-130) L 04/04/25 04:23 Glucose 207 mg/dL (65-115) H 04/04/25 04:23 Calculated Osmolality 287 mOsm/kg (285-295) 04/04/25 04:23 Lactic Acid 1.1 mmol/L (0.5-2.2) 04/03/25 16:49 Calcium 8.4 mg/dL (8.5-10.5) L 04/04/25 04:23 Phosphorus 2.3 mg/dL (2.5-4.5) L 04/04/25 04:23 Magnesium 2.6 mg/dL (1.7-2.3) H 04/04/25 04:23 Total Bilirubin 0.3 mg/dL (0.15-1.2) 04/03/25 16:49 AST 24 U/L (0-32) 04/03/25 16:49 ALT 11 U/L (0-33) 04/03/25 16:49 Alkaline Phosphatase 105 U/L (35-105) 04/03/25 16:49 Total Protein 7.3 g/dL (6.6-8.7) 04/03/25 16:49 Albumin 4.3 g/dL (3.5-5.2) 04/03/25 16:49 Globulin 3.0 g/dL (1.3-4.6) 04/03/25 16:49 Lipase 7 U/L (13-60) L 04/03/25 16:49 Vitamin B12 445 pg/mL (232-1245) 04/03/25 16:49 Procalcitonin 0.17 ng/mL (0-0.5) 04/03/25 16:49 TSH 5.50 uIU/mL (0.27-4.20) H 04/03/25 16:49 Urine Color Yellow (Yellow) 04/03/25 18:17 Urine Appearance Turbid (CLEAR) A 04/03/25 18:17 Urine pH 7.0 (5-7) 04/03/25 18:17 Ur Specific [place] 1.014 (1.005-1.030) 04/03/25 18:17 Urine Protein 2+ (Negative) A 04/03/25 18:17 Urine Glucose (UA) Negative (Normal) 04/03/25 18:17 Urine Ketones Trace (Negative) 04/03/25 18:17 Urine Blood 2+ (Negative) A 04/03/25 18:17 Urine Nitrate Negative (Negative) 04/03/25 18:17 Urine Bilirubin Negative (Negative) 04/03/25 18:17 Urine Urobilinogen 1.0 mg/dL (Negative) 04/03/25 18:17 Ur Leukocyte Esterase 3+ (Negative) A 04/03/25 18:17 Urine RBC 11-20 /hpf (0-2) H 04/03/25 18:17 Urine WBC >100 /hpf (0-5) H 04/03/25 18:17 Ur Squamous Epith Cells 0-5 /hpf (0-5) 04/03/25 18:17 Amorphous Sediment Not Reportable 04/03/25 18:17 Urine Bacteria Exceeds /hpf (NONE) 04/03/25 18:17 Hyaline Casts 7.42 /lpf 04/03/25 18:17 Urine Opiates Screen Negative ng/mL (Negative) 04/03/25 18:17 Ur Barbiturates Screen Negative ng/mL (Negative) 04/03/25 18:17 Ur Phencyclidine Scrn Negative ng/mL (Negative) 04/03/25 18:17 Ur Amphetamines Screen Negative ng/mL (Negative) 04/03/25 18:17 U Benzodiazepines Scrn Negative ng/mL (Negative) 04/03/25 18:17 Urine Cocaine Screen Negative ng/mL (Negative) 04/03/25 18:17 U Marijuana (THC) Screen Positive ng/mL (Negative) H 04/03/25 18:17 Ethyl Alcohol < 10 mg/dL (0-10) 04/03/25 16:49 Discharge Plan Discharge Patient Disposition: Placed in Observation Admit Provider: Rosalino Santiago Clinical Impression: Acute UTI, Acute hyponatremia Discharge Diet: Usual diet Discharge Activity: Resume usual activity Coding Level of Care Code ED Spanish Interpreter/Translator for Chg Fwd Documented by User: Abdoul Rose MD 04/03/25 21:56 HPI - Altered Mental Status General: Chief Complaint: Upper Respiratory Infection Stated Complaint: fall x 3 weeks Time Seen by Provider: 04/03/25 15:53 Related Data Home Medications ?Medication ?Instructions ?Recorded ?Confirmed amlodipine 5 mg tablet 5 mg PO BID@0600,1800 05/28/20 04/04/25 atorvastatin 80 mg tablet 80 mg PO DAILY@1800 05/28/20 04/04/25 labetalol 100 mg tablet 100 mg PO BID@0600,1800 05/28/20 04/04/25 Previous Rx's ?Medication ?Instructions ?Recorded ciprofloxacin HCl 500 mg tablet 500 mg PO BID #14 tabs 04/03/25 (Cipro) Allergies Allergy/AdvReac Type Severity Reaction Status Date / Time hydrochlorothiazide Allergy unknown Verified 09/23/24 15:44 Latex, Natural Rubber Allergy ALGY-Hives Verified 09/23/24 15:44 nitrofurantoin (From Allergy ADR-Nausea Verified 09/24/24 12:01 Macrobid) PFSH ED PFSH: Medical History Hyperlipidemia Vitamin B12 deficiency Hypothyroid E-coli UTI Intertrochanteric fracture of right hip Fall Nicotine addiction LGSIL Pap smear of vagina Chronic hyponatremia Alcohol use Chronic pancreatitis Osteoporosis Hypertension COPD (chronic obstructive pulmonary disease) Acute cystitis with hematuria Surgical History Status post open reduction with internal fixation of fracture H/O: hysterectomy Family History Mother Anesthesia complication CAD (coronary artery disease) Diabetes Hyperlipidemia Hypertension Family history of thyroid problem Grandfather Cancer maternal-lung cancer Sister Diabetes Hypertension Son Diabetes Grandmother Diabetes paternal Denies family history of Ovarian cyst Clotting disorder Chronic kidney disease (CKD) Bleeding disorder Social History Smoking and tobacco/nicotine status: unknown if used tobacco/nicotine Alcohol intake: current Alcohol intake frequency: few times a week Substance/Drug Use: never Lives independently: Yes Household members: family Marital status: Single Current occupational status: employed Current occupation: [employer] Current occupational exposures/hazards: Yes Do you think of yourself as: Straight/Heterosexual Current gender identity: Female Physical Exam Neuro: ODESSA COMA SCALE: document GCS findings [place] coma scale total score: 15 Course Vital Signs: Vital signs: Vital Signs Temperature 98.0 F 04/07/25 04:00 Pulse Rate 67 04/07/25 05:02 Respiratory Rate 17 04/07/25 04:00 Blood Pressure 110/73 04/07/25 04:00 Pulse Oximetry 97 04/07/25 04:00 Oxygen Delivery Me thod Room Air 04/07/25 04:00 MDM - Altered Mental Status Medical Decision Making Patient with generalized weakness and some confusion. She just complains of just feeling very weak and nauseated. She does appear to have a urinary tract infection. Given IV Rocephin here. She does not appear to be septic. She has got no fever or leukocytosis. She has no abdominal pain to palpation. However patient confused with hyponatremia. Is observed to be somewhat dehydrated. As she lives at home by herself I do not think she is going to do well. I do not think she is going to be able to take care of herself at this time with this mental state. Will do patient with Dr. Santiago for further evaluation and treatment. Lab Data 04/07/25 03:23 04/07/25 03:23 Radiology Impressions Chest X-Ray 04/03/25 16:28 IMPRESSION: No acute findings. Head CT 04/03/25 16:49 IMPRESSION: No acute intracranial abnormality. Chest/Abdomen/Pelvis CT 04/04/25 10:36 IMPRESSION: 1. No acute chest findings 2. Pancreatic calcifications with ductal dilatation compatible with chronic pancreatitis similar to previous. 3. No hydronephrosis in either kidney. 4. Chronic T12 compression fracture. 5. Distended stomach with air-fluid levels extending into the proximal duodenum. 6. Diffuse bladder wall thickening likely due to chronic cystitis. 7. Sacral decubitus ulcer the distal sacrum with soft tissue induration. This extends to the midline gluteal cleft. No drainable abscess or fluid collection visualized. There appears to be a small fistulous connection extending to the rectum best seen on the sagittal imaging image 29 series 16. 8. No other acute findings. Lumbar Spine CT 04/04/25 10:36 IMPRESSION: 1. Advanced osteopenia. No visualized acute compression fractures. 2. Mild central canal stenosis L3-L4 and L4-L5 described above. 3. Pancreatic calcifications with ductal dilatation partially visualized likely due to chronic pancreatitis. Laboratory Results WBC 6.34 10^3/uL (3.29-11.43) 04/04/25 04:23 RBC 4.50 10^6/uL (3.85-5.65) 04/04/25 04:23 Hgb 12.40 g/dL (11.27-16.99) 04/04/25 04:23 Hct 36.4 % (36-47) 04/04/25 04:23 MCV 80.9 fl (85-98) L 04/04/25 04:23 MCH 27.6 pg (27-33) 04/04/25 04:23 MCHC 34.1 g/dL (30-55) 04/04/25 04:23 RDW 13.2 % (12.1-15.1) 04/04/25 04:23 Plt Count 311 10^3/cmm (157-399) 04/04/25 04:23 MPV 8.7 fL (7.4-10.4) 04/04/25 04:23 Neut % (Auto) 76.0 % 04/04/25 04:23 Lymph % (Auto) 11.7 % 04/04/25 04:23 [place] % (Auto) 9.0 % 04/04/25 04:23 Eos % (Auto) 2.4 % 04/04/25 04:23 Baso % (Auto) 0.3 % 04/04/25 04:23 Neut # (Auto) 4.82 10^3/uL (1.8-7.7) 04/04/25 04:23 Lymph # (Auto) 0.7 10^3/uL (0.8-4.8) L 04/04/25 04:23 [place] # (Auto) 0.6 10^3/uL (0.2-0.9) 04/04/25 04:23 Eos # (Auto) 0.2 10^3/uL (0.0-0.8) 04/04/25 04:23 Baso # (Auto) 0.0 10^3/uL (0.0-0.1) 04/04/25 04:23 Nucleated RBC % (auto) 0 % 04/04/25 04:23 Nucleated RBCs # 0.0 /100WBC 04/04/25 04:23 ESR 5 mm/hr (0-15) 04/04/25 04:23 Sodium 125 mmol/L (136-145) L 04/04/25 04:23 Potassium 3.7 mmol/L (3.5-5.1) 04/04/25 04:23 Chloride 90 mmol/L (98-107) L 04/04/25 04:23 Carbon Dioxide 23 mmol/L (22-29) 04/04/25 04:23 Anion Gap 15.7 (5-19) 04/04/25 04:23 BUN 72 mg/dL (8-23) H 04/04/25 04:23 Creatinine 1.0 mg/dL (0.5-0.9) H 04/04/25 04:23 GFR Calculation 55.6 mL/min (90-130) L 04/04/25 04:23 Glucose 207 mg/dL (65-115) H 04/04/25 04:23 Calculated Osmolality 287 mOsm/kg (285-295) 04/04/25 04:23 Lactic Acid 1.1 mmol/L (0.5-2.2) 04/03/25 16:49 Calcium 8.4 mg/dL (8.5-10.5) L 04/04/25 04:23 Phosphorus 2.3 mg/dL (2.5-4.5) L 04/04/25 04:23 Magnesium 2.6 mg/dL (1.7-2.3) H 04/04/25 04:23 Total Bilirubin 0.3 mg/dL (0.15-1.2) 04/03/25 16:49 AST 24 U/L (0-32) 04/03/25 16:49 ALT 11 U/L (0-33) 04/03/25 16:49 Alkaline Phosphatase 105 U/L (35-105) 04/03/25 16:49 Total Protein 7.3 g/dL (6.6-8.7) 04/03/25 16:49 Albumin 4.3 g/dL (3.5-5.2) 04/03/25 16:49 Globulin 3.0 g/dL (1.3-4.6) 04/03/25 16:49 Lipase 7 U/L (13-60) L 04/03/25 16:49 Vitamin B12 445 pg/mL (232-1245) 04/03/25 16:49 Procalcitonin 0.17 ng/mL (0-0.5) 04/03/25 16:49 TSH 5.50 uIU/mL (0.27-4.20) H 04/03/25 16:49 Urine Color Yellow (Yellow) 04/03/25 18:17 Urine Appearance Turbid (CLEAR) A 04/03/25 18:17 Urine pH 7.0 (5-7) 04/03/25 18:17 Ur Specific [place] 1.014 (1.005-1.030) 04/03/25 18:17 Urine Protein 2+ (Negative) A 04/03/25 18:17 Urine Glucose (UA) Negative (Normal) 04/03/25 18:17 Urine Ketones Trace (Negative) 04/03/25 18:17 Urine Blood 2+ (Negative) A 04/03/25 18:17 Urine Nitrate Negative (Negative) 04/03/25 18:17 Urine Bilirubin Negative (Negative) 04/03/25 18:17 Urine Urobilinogen 1.0 mg/dL (Negative) 04/03/25 18:17 Ur Leukocyte Esterase 3+ (Negative) A 04/03/25 18:17 Urine RBC 11-20 /hpf (0-2) H 04/03/25 18:17 Urine WBC >100 /hpf (0-5) H 04/03/25 18:17 Ur Squamous Epith Cells 0-5 /hpf (0-5) 04/03/25 18:17 Amorphous Sediment Not Reportable 04/03/25 18:17 Urine Bacteria Exceeds /hpf (NONE) 04/03/25 18:17 Hyaline Casts 7.42 /lpf 04/03/25 18:17 Urine Opiates Screen Negative ng/mL (Negative) 04/03/25 18:17 Ur Barbiturates Screen Negative ng/mL (Negative) 04/03/25 18:17 Ur Phencyclidine Scrn Negative ng/mL (Negative) 04/03/25 18:17 Ur Amphetamines Screen Negative ng/mL (Negative) 04/03/25 18:17 U Benzodiazepines Scrn Negative ng/mL (Negative) 04/03/25 18:17 Urine Cocaine Screen Negative ng/mL (Negative) 04/03/25 18:17 U Marijuana (THC) Screen Positive ng/mL (Negative) H 04/03/25 18:17 Ethyl Alcohol < 10 mg/dL (0-10) 04/03/25 16:49 All radiology interpretation(s) finalized by discharge Discharge Plan Discharge Patient Disposition: Placed in Observation Admit Provider: Rosalino Santiago Clinical Impression: Acute UTI, Acute hyponatremia Discharge Diet: Usual diet Discharge Activity: Resume usual activity Coding Level of Care Code ED Spanish Interpreter/Translator for Chg Fwd Documented by User: Riley Stone DO 04/07/25 06:21 HPI - Altered Mental Status General: Chief Complaint: Upper Respiratory Infection Stated Complaint: fall x 3 weeks Time Seen by Provider: 04/03/25 15:53 Related Data Home Medications ?Medication ?Instructions ?Recorded ?Confirmed amlodipine 5 mg tablet 5 mg PO BID@0600,1800 05/28/20 04/04/25 atorvastatin 80 mg tablet 80 mg PO DAILY@1800 05/28/20 04/04/25 labetalol 100 mg tablet 100 mg PO BID@0600,1800 05/28/20 04/04/25 Previous Rx's ?Medication ?Instructions ?Recorded ciprofloxacin HCl 500 mg tablet 500 mg PO BID #14 tabs 04/03/25 (Cipro) Allergies Allergy/AdvReac Type Severity Reaction Status Date / Time hydrochlorothiazide Allergy unknown Verified 09/23/24 15:44 Latex, Natural Rubber Allergy ALGY-Hives Verified 09/23/24 15:44 nitrofurantoin (From Allergy ADR-Nausea Verified 09/24/24 12:01 Macrobid) PFSH ED PFSH: Medical History Hyperlipidemia Vitamin B12 deficiency Hypothyroid E-coli UTI Intertrochanteric fracture of right hip Fall Nicotine addiction LGSIL Pap smear of vagina Chronic hyponatremia Alcohol use Chronic pancreatitis Osteoporosis Hypertension COPD (chronic obstructive pulmonary disease) Acute cystitis with hematuria Surgical History Status post open reduction with internal fixation of fracture H/O: hysterectomy Family History Mother Anesthesia complication CAD (coronary artery disease) Diabetes Hyperlipidemia Hypertension Family history of thyroid problem Grandfather Cancer maternal-lung cancer Sister Diabetes Hypertension Son Diabetes Grandmother Diabetes paternal Denies family history of Ovarian cyst Clotting disorder Chronic kidney disease (CKD) Bleeding disorder Social History Smoking and tobacco/nicotine status: unknown if used tobacco/nicotine Alcohol intake: current Alcohol intake frequency: few times a week Substance/Drug Use: never Lives independently: Yes Household members: family Marital status: Single Current occupational status: employed Current occupation: [employer] Current occupational exposures/hazards: Yes Do you think of yourself as: Straight/Heterosexual Current gender identity: Female Physical Exam Neuro: O[place] COMA SCALE: document GCS findings [place] coma scale total score: 15 Course Vital Signs: Vital signs: Vital Signs Temperature 98.0 F 04/07/25 04:00 Pulse Rate 67 04/07/25 05:02 Respiratory Rate 17 04/07/25 04:00 Blood Pressure 110/73 04/07/25 04:00 Pulse Oximetry 97 04/07/25 04:00 Oxygen Delivery Me thod Room Air 04/07/25 04:00 MDM - Altered Mental Status Medical Decision Making Patient with generalized weakness and some confusion. She just complains of just feeling very weak and nauseated. She does appear to have a urinary tract infection. Given IV Rocephin here. She does not appear to be septic. She has got no fever or leukocytosis. She has no abdominal pain to palpation. However patient confused with hyponatremia. Is observed to be somewhat dehydrated. As she lives at home by herself I do not think she is going to do well. I do not think she is going to be able to take care of herself at this time with this mental state. Will do patient with Dr. Santiago for further evaluation and treatment. Chart reviewed and patient discussed with midlevel. Agree with assessment and plan. Lab Data 04/07/25 03:23 04/07/25 03:23 Radiology Impressions Chest X-Ray 04/03/25 16:28 IMPRESSION: No acute findings. Head CT 04/03/25 16:49 IMPRESSION: No acute intracranial abnormality. Chest/Abdomen/Pelvis CT 04/04/25 10:36 IMPRESSION: 1. No acute chest findings 2. Pancreatic calcifications with ductal dilatation compatible with chronic pancreatitis similar to previous. 3. No hydronephrosis in either kidney. 4. Chronic T12 compression fracture. 5. Distended stomach with air-fluid levels extending into the proximal duodenum. 6. Diffuse bladder wall thickening likely due to chronic cystitis. 7. Sacral decubitus ulcer the distal sacrum with soft tissue induration. This extends to the midline gluteal cleft. No drainable abscess or fluid collection visualized. There appears to be a small fistulous connection extending to the rectum best seen on the sagittal imaging image 29 series 16. 8. No other acute findings. Lumbar Spine CT 04/04/25 10:36 IMPRESSION: 1. Advanced osteopenia. No visualized acute compression fractures. 2. Mild central canal stenosis L3-L4 and L4-L5 described above. 3. Pancreatic calcifications with ductal dilatation partially visualized likely due to chronic pancreatitis. Laboratory Results WBC 6.34 10^3/uL (3.29-11.43) 04/04/25 04:23 RBC 4.50 10^6/uL (3.85-5.65) 04/04/25 04:23 Hgb 12.40 g/dL (11.27-16.99) 04/04/25 04:23 Hct 36.4 % (36-47) 04/04/25 04:23 MCV 80.9 fl (85-98) L 04/04/25 04:23 MCH 27.6 pg (27-33) 04/04/25 04:23 MCHC 34.1 g/dL (30-55) 04/04/25 04:23 RDW 13.2 % (12.1-15.1) 04/04/25 04:23 Plt Count 311 10^3/cmm (157-399) 04/04/25 04:23 MPV 8.7 fL (7.4-10.4) 04/04/25 04:23 Neut % (Auto) 76.0 % 04/04/25 04:23 Lymph % (Auto) 11.7 % 04/04/25 04:23 [place] % (Auto) 9.0 % 04/04/25 04:23 Eos % (Auto) 2.4 % 04/04/25 04:23 Baso % (Auto) 0.3 % 04/04/25 04:23 Neut # (Auto) 4.82 10^3/uL (1.8-7.7) 04/04/25 04:23 Lymph # (Auto) 0.7 10^3/uL (0.8-4.8) L 04/04/25 04:23 [place] # (Auto) 0.6 10^3/uL (0.2-0.9) 04/04/25 04:23 Eos # (Auto) 0.2 10^3/uL (0.0-0.8) 04/04/25 04:23 Baso # (Auto) 0.0 10^3/uL (0.0-0.1) 04/04/25 04:23 Nucleated RBC % (auto) 0 % 04/04/25 04:23 Nucleated RBCs # 0.0 /100WBC 04/04/25 04:23 ESR 5 mm/hr (0-15) 04/04/25 04:23 Sodium 125 mmol/L (136-145) L 04/04/25 04:23 Potassium 3.7 mmol/L (3.5-5.1) 04/04/25 04:23 Chloride 90 mmol/L (98-107) L 04/04/25 04:23 Carbon Dioxide 23 mmol/L (22-29) 04/04/25 04:23 Anion Gap 15.7 (5-19) 04/04/25 04:23 BUN 72 mg/dL (8-23) H 04/04/25 04:23 Creatinine 1.0 mg/dL (0.5-0.9) H 04/04/25 04:23 GFR Calculation 55.6 mL/min (90-130) L 04/04/25 04:23 Glucose 207 mg/dL (65-115) H 04/04/25 04:23 Calculated Osmolality 287 mOsm/kg (285-295) 04/04/25 04:23 Lactic Acid 1.1 mmol/L (0.5-2.2) 04/03/25 16:49 Calcium 8.4 mg/dL (8.5-10.5) L 04/04/25 04:23 Phosphorus 2.3 mg/dL (2.5-4.5) L 04/04/25 04:23 Magnesium 2.6 mg/dL (1.7-2.3) H 04/04/25 04:23 Total Bilirubin 0.3 mg/dL (0.15-1.2) 04/03/25 16:49 AST 24 U/L (0-32) 04/03/25 16:49 ALT 11 U/L (0-33) 04/03/25 16:49 Alkaline Phosphatase 105 U/L (35-105) 04/03/25 16:49 Total Protein 7.3 g/dL (6.6-8.7) 04/03/25 16:49 Albumin 4.3 g/dL (3.5-5.2) 04/03/25 16:49 Globulin 3.0 g/dL (1.3-4.6) 04/03/25 16:49 Lipase 7 U/L (13-60) L 04/03/25 16:49 Vitamin B12 445 pg/mL (232-1245) 04/03/25 16:49 Procalcitonin 0.17 ng/mL (0-0.5) 04/03/25 16:49 TSH 5.50 uIU/mL (0.27-4.20) H 04/03/25 16:49 Urine Color Yellow (Yellow) 04/03/25 18:17 Urine Appearance Turbid (CLEAR) A 04/03/25 18:17 Urine pH 7.0 (5-7) 04/03/25 18:17 Ur Specific [place] 1.014 (1.005-1.030) 04/03/25 18:17 Urine Protein 2+ (Negative) A 04/03/25 18:17 Urine Glucose (UA) Negative (Normal) 04/03/25 18:17 Urine Ketones Trace (Negative) 04/03/25 18:17 Urine Blood 2+ (Negative) A 04/03/25 18:17 Urine Nitrate Negative (Negative) 04/03/25 18:17 Urine Bilirubin Negative (Negative) 04/03/25 18:17 Urine Urobilinogen 1.0 mg/dL (Negative) 04/03/25 18:17 Ur Leukocyte Esterase 3+ (Negative) A 04/03/25 18:17 Urine RBC 11-20 /hpf (0-2) H 04/03/25 18:17 Urine WBC >100 /hpf (0-5) H 04/03/25 18:17 Ur Squamous Epith Cells 0-5 /hpf (0-5) 04/03/25 18:17 Amorphous Sediment Not Reportable 04/03/25 18:17 Urine Bacteria Exceeds /hpf (NONE) 04/03/25 18:17 Hyaline Casts 7.42 /lpf 04/03/25 18:17 Urine Opiates Screen Negative ng/mL (Negative) 04/03/25 18:17 Ur Barbiturates Screen Negative ng/mL (Negative) 04/03/25 18:17 Ur Phencyclidine Scrn Negative ng/mL (Negative) 04/03/25 18:17 Ur Amphetamines Screen Negative ng/mL (Negative) 04/03/25 18:17 U Benzodiazepines Scrn Negative ng/mL (Negative) 04/03/25 18:17 Urine Cocaine Screen Negative ng/mL (Negative) 04/03/25 18:17 U Marijuana (THC) Screen Positive ng/mL (Negative) H 04/03/25 18:17 Ethyl Alcohol < 10 mg/dL (0-10) 04/03/25 16:49 Discharge Plan Discharge Patient Disposition: Placed in Observation Admit Provider: Rosalino Santiago Clinical Impression: Acute UTI, Acute hyponatremia Discharge Diet: Usual diet Discharge Activity: Resume usual activity Coding Level of Care Code ED Spanish Interpreter/Translator for Sergio Chow
[2025-04-03 16:55] LABS: Basophils % 0.3 %; Eosinophils # 0.1 10^3/uL (0.0-0.8); Eosinophils % 1.4 %; Hematocrit 40.9 % (36-47); Lymphocytes # 1.3 10^3/uL (0.8-4.8); Lymphocytes % 16.8 %; Mean Corpuscular HGB Conc 34.7 g/dL (30-55); Mean Corpuscular Hemoglobin 27.7 pg (27-33); Mean Corpuscular Volume 79.7 fl (85-98); Mean Platelet Volume 8.5 fL (7.4-10.4); Monocytes # 0.6 10^3/uL (0.2-0.9); Monocytes % 8.2 %; Neutrophils # 5.58 10^3/uL (1.8-7.7); Neutrophils % 72.9 %; Nucleated Red Blood Cells % 0 %; Platelet Count 351 10^3/cmm (157-399); Red Blood Count 5.13 10^6/uL (3.85-5.65); Red Cell Distribution Width 13.1 % (12.1-15.1); White Blood Count 7.66 10^3/uL (3.29-11.43)
[2025-04-03 17:18] LABS: Lactic Sepsis W/Reflex 1.1 mmol/L (0.5-2.2)
[2025-04-03 17:20] LABS: Alanine Aminotransferase 11 U/L (0-33); Albumin Level 4.3 g/dL (3.5-5.2); Alkaline Phosphatase 105 U/L (35-105); Anion Gap 22.4 (5-19); Aspartate Amino Transferase 24 U/L (0-32); Calcium 9.4 mg/dL (8.5-10.5); Carbon Dioxide 22 mmol/L (22-29); Chloride 82 mmol/L (98-107); Creatinine Clr Calc Pharmacy 25.8181; Glomerular Filtration Rate 37.7 mL/min (90-130); Glucose 120 mg/dL (65-115); Lipase 7 U/L (13-60); Magnesium 2.8 mg/dL (1.7-2.3); Osmolality Calculated 280 mOsm/kg (285-295); Potassium 4.4 mmol/L (3.5-5.1); Sodium 122 mmol/L (136-145); Total Bilirubin 0.3 mg/dL (0.15-1.2); Total Protein 7.3 g/dL (6.6-8.7)
[2025-04-03 17:22] LABS: Alcohol Level < 10 mg/dL (0-10)
[2025-04-03 17:23] LABS: Blood Urea Nitrogen 82 mg/dL (8-23)
[2025-04-03 18:39] LABS: Bilirubin Urine Negative (Negative); Blood Urine 2+ (Negative); Glucose Urine UA Negative (Normal); Ketones Urine Trace (Negative); Leukocyte Esterase Urine 3+ (Negative); Nitrate Urine Negative (Negative); Protein Urine 2+ (Negative); Specific Gravity, Urine 1.014 (1.005-1.030); Urine Appearance Turbid (CLEAR); Urine Color Yellow (Yellow)
[2025-04-03 18:44] LABS: Add Urine Microscopic? YES; Bacteria Urine EXCEEDS /hpf; Hyaline Casts Urine 7.42 /lpf; Squamous Epithelial Cell Urine 0-5 /hpf (0-5); WBC Urine >100 /hpf (0-5)
[2025-04-03 18:47] LABS: Amphetamines Screen Urine Negative (Negative); Barbiturates Screen Urine Negative (Negative); Benzodiazepines Screen Urine Negative (Negative); Cocaine Screen Urine Negative (Negative); Opiate Screen Urine Negative (Negative); PCP Screen Urine Negative (Negative); THC Screen Urine Positive (Negative)
[2025-04-03 18:54] VITALS: BP 108/63; PULSE 78; O2SAT 95
[2025-04-03 19:06] LABS: Add Urine Culture? Yes; UA Slide Review UA Slide Review Perf
[2025-04-03 21:17] VITALS: BP 131/85; PULSE 76; O2SAT 99
[2025-04-03] MEDS: cefTRIAXone 1,000 mg SDV 1000 MG IVP (21:23)
[2025-04-03] MEDS: sodium chloride 0.9% 1,000 ML 999 ML IV (21:55)
--- NOTE | 2025-04-03 22:03 | P.HP_ITS ---
Providers/Chief Complaint 2 Primary Care Provider: Sid Harris MD Chief Complaint: fall x 3 weeks History of Present Illness Serene Alcaraz is a 64 year old female with a past medical history significant for hyperlipidemia, hypothyroidism, B12 deficiency, chronic hyponatremia, chronic pancreatitis, hypertension, COPD, urinary tract infections, and multiple other comorbidities who presents to the emergency department with generalized weakness. Patient seen evaluated emergency department room 7. She is noted to be slightly confused and a poor historian. Collateral information from the ED provider/staff for patient lives alone and has shown signs of confusion while being in the emergency department. Patient states that symptoms have been present for several months. She endorses nausea, vomiting, loose stools, weakness, malaise, and fevers for the past several months. Denies alleviating or aggravating factors. In the emergency department, vitals were largely unremarkable. Labs showed hyponatremia to 122, hypochloremia, azotemia to 82, elevated creatinine, and urinalysis was abnormal consistent with infection. Urinary drug screen was positive for marijuana. Review of Systems 2 Narrative: A complete review of systems was obtained and is negative except as stated in HPI. Medications/Allergies Home Medications ?Medication ?Instructions ?Recorded ?Confirmed ?Last Taken ?Type amlodipine 5 mg tablet 5 mg PO BID@0600,1800 09/23/24 12/19/23 History aspirin 81 mg chewable tablet 81 mg PO DAILY@0600 07/0 01/1609/23/24 12/19/23 History atorvastatin 80 mg tablet 80 mg PO DAILY@1800 05/28/20 09/23/24 12/18/23 History labetalol 100 mg tablet 100 mg PO BID@0600,1800 07/0 01/1609/23/24 12/19/23 History albuterol sulfate 90 mcg/actuation 2 puff inhalation Q 6H PRN 10/28/20 09/23/24 01/18/21 History aerosol inhaler Shortness Of Breath cetirizine 10 mg tablet (Zyrtec) 10 mg PO DAILY PRN Al lergy Symptoms 05/25/21 09/23/24 07/26/21 History propylene glycol 1 %-glycerin 0.3 1 drp ophthalmic (ey e) DAILY PRN 05/25/21 09/23/24 07/27/21 History % eye drops ([facility]) unknown clobetasol 0.05 % topical cream 1 applic topical BID P RN unknown 09/27/22 09/23/24 Unknown History budesonide 0.5 mg/2 mL suspension 0.5 mg (2 mL) inhala tion 07/31/24 09/23/24 Unknown Rx for nebulization BID.RESPIRATORY #60 mL cyclobenzaprine 10 mg tablet 5 mg (1/2 x 10 mg) PO TID PRN 07/31/24 09/23/24 Unknown Rx Muscle Spasms #20 tabs hydrocodone 5 mg-acetaminophen 325 1 tab PO Q6H PRN pa in #20 tabs 07/31/24 09/23/24 Unknown Rx mg tablet ipratropium 0.5 mg-albuterol 3 mg 3 ml inhalation Q6H PRN Shortness 07/31/24 09/23/24 Unknown Rx (2.5 mg base)/3 mL nebulization Of Breath #240 mL soln ciprofloxacin HCl 500 mg tablet 500 mg PO BID #14 tabs 04/03/25 Unknown Rx (Cipro) Allergies Allergy/AdvReac Type Severity Reaction Status Date / Time hydrochlorothiazide Allergy unknown Verified 09/23/24 15:44 Latex, Natural Rubber Allergy ALGY-Hives Verified 09/23/24 15:44 nitrofurantoin (From Allergy ADR-Nausea Verified 09/24/24 12:01 Macrobid) PFSH Acute 2 PFSH: Medical History Hyperlipidemia Vitamin B12 deficiency Hypothyroid E-coli UTI Intertrochanteric fracture of right hip Fall Nicotine addiction LGSIL Pap smear of vagina Chronic hyponatremia Alcohol use Chronic pancreatitis Osteoporosis Hypertension COPD (chronic obstructive pulmonary disease) Acute cystitis with hematuria Surgical History Status post open reduction with internal fixation of fracture H/O: hysterectomy Family History Mother Anesthesia complication CAD (coronary artery disease) Diabetes Hyperlipidemia Hypertension Family history of thyroid problem Grandfather Cancer maternal-lung cancer Sister Diabetes Hypertension Son Diabetes Grandmother Diabetes paternal Denies family history of Ovarian cyst Clotting disorder Chronic kidney disease (CKD) Bleeding disorder Social History Smoking and tobacco/nicotine status: unknown if used tobacco/nicotine Alcohol intake: current Alcohol intake frequency: few times a week Substance/Drug Use: never Lives independently: Yes Household members: family Marital status: Single Current occupational status: employed Current occupation: [employer] Current occupational exposures/hazards: Yes Do you think of yourself as: Straight/Heterosexual Current gender identity: Female Vitals/I&O/Wt Last Vital Signs Temp 98.2 F 04/03/25 15:35 Pulse 76 04/03/25 21:17 Resp 16 04/03/25 15:35 BP 131/85 04/03/25 21:17 Pulse Ox 99 04/03/25 21:17 O2 Del Method Room Air 04/03/25 21:17 Weight last 48 hrs Weight 40.823 kg Physical Exam 2 Narrative: General: Patient is awake. Chronically ill-appearing. Frail. Head: Slight temporal wasting. EOM intact. Dry mucous membranes. Neck: No JVD. Cardiovascular: RRR. No gallops. No murmurs. Lungs: Clear to auscultation, no use of accessory muscles, no crackles or wheezes. Skin: No jaundice. No rashes. Abdomen: Normal bowel sounds, abdomen soft and nontender. Genito Urinary: Genital exam not performed since complaints not related. Rectal: Rectal exam not performed since no symptoms indicated blood loss. Extremities: No cyanosis or clubbing. Musculoskeletal: No swollen or erythematous joints. Neurological: Moves all 4 extremities. No myoclonus. Data 04/03/25 16:49 04/03/25 16:49 A&P Assessment and plan (1) Acute metabolic encephalopathy: (2) Hypertension: (3) Hypothyroid: (4) Hyponatremia: (5) Acute UTI: (6) COPD (chronic obstructive pulmonary disease): (7) Tobacco dependence: Plan Acute metabolic encephalopathy - Treat underlying infection - Treat underlying hyponatremia - Check TSH and B12 level - Avoid sedating medications Acute complicated urinary tract infection - Start ceftriaxone Acute on chronic hyponatremia - Check thyroid function - Check urine electrolytes - Start NS - Trend sodium levels Azotemia Elevated creatinine to 1.4, previously 0.4 - Starting NS - Renally dose meds - Repeat labs in a.m. Debility and physical deconditioning Failure to thrive in adulthood - Consider therapy evaluation - CM consult History of B12 deficiency - Checking level Hypertension - Monitor blood pressures closely Hyperlipidemia - Continue statin COPD without exacerbation - DuoNebs as needed Prophylaxis: Heparin CODE STATUS: Assume full PDMP PDMP Reviewed: Not Reviewed Attestations 2 Medical Necessity Statement*: Patient presents with weakness, found to have acute complicated urinary tract infection, acute metabolic encephalopathy, and electrolyte disturbances with expected hospitalization not to cross 2 midnights for IV fluids, IV antibiotics and supportive care. Coding Level of Care Code Acute Code for Chg Fwd Diagnoses Acute metabolic encephalopathy G93.41 Hypertension I10 Hypothyroid E03.9 Hyponatremia E87.1 Acute UTI N39.0 COPD (chronic obstructive pulmonary disease) J44.9 Tobacco dependence F17.200
[2025-04-03 22:58] VITALS: BP 99/66; PULSE 71; O2SAT 98
[2025-04-03 23:21] VITALS: BMI 14.7
[2025-04-04] VITALS (10 sets, daily range): BP systolic 90–135; BP diastolic 50–88; PULSE 61–84; RESP 15–18; TEMP 36.4–37.1; O2SAT 94–98
[2025-04-04 00:04] LABS: Procalcitonin 0.17 ng/mL (0-0.5)
[2025-04-04] MEDS: sodium chloride 0.9% 1,000 ML 65 ML IV (00:11)
[2025-04-04 00:19] LABS: Vitamin B12 445 pg/mL (232-1245)
[2025-04-04 04:52] LABS: Basophils % 0.3 %; Eosinophils # 0.2 10^3/uL (0.0-0.8); Eosinophils % 2.4 %; Hematocrit 36.4 % (36-47); Lymphocytes # 0.7 10^3/uL (0.8-4.8); Lymphocytes % 11.7 %; Mean Corpuscular HGB Conc 34.1 g/dL (30-55); Mean Corpuscular Hemoglobin 27.6 pg (27-33); Mean Corpuscular Volume 80.9 fl (85-98); Mean Platelet Volume 8.7 fL (7.4-10.4); Monocytes # 0.6 10^3/uL (0.2-0.9); Neutrophils # 4.82 10^3/uL (1.8-7.7); Nucleated Red Blood Cells % 0 %; Platelet Count 311 10^3/cmm (157-399); Red Cell Distribution Width 13.2 % (12.1-15.1); White Blood Count 6.34 10^3/uL (3.29-11.43)
[2025-04-04 05:22] LABS: Anion Gap 15.7 (5-19); Blood Urea Nitrogen 72 mg/dL (8-23); Calcium 8.4 mg/dL (8.5-10.5); Carbon Dioxide 23 mmol/L (22-29); Chloride 90 mmol/L (98-107); Creatinine Clr Calc Pharmacy 28.3944; Glomerular Filtration Rate 55.6 mL/min (90-130); Glucose 207 mg/dL (65-115); Magnesium 2.6 mg/dL (1.7-2.3); Osmolality Calculated 287 mOsm/kg (285-295); Phosphorus 2.3 mg/dL (2.5-4.5); Potassium 3.7 mmol/L (3.5-5.1); Sodium 125 mmol/L (136-145)
--- NOTE | 2025-04-04 10:36 | CT_ITS ---
WS: [id number] CT CHEST, ABDOMEN, AND PELVIS TECHNIQUE: Noncontrast CT of the chest, abdomen, and pelvis with coronal and sagittal reformatted images. CLINICAL INFORMATION: weight loss, sacral ulcer COMPARISON: None. DLP: 551.[address] scans at [facility] use at least one of these dose optimization techniques: automated exposure control; mA and/or kV adjustment per patient size (includes targeted exams where dose is matched to clinical indication); or iterative reconstruction. CT CHEST: 4 mm noncalcified nodule RIGHT upper lobe. Advanced chronic emphysematous changes. Calcified granuloma RIGHT middle lobe. Calcified granuloma LEFT upper lobe. Calcified granuloma LEFT lung base. Aortic calcification. Coronary calcification. Thoracic kyphosis. Numerous chronic appearing compression fractures in the thoracic spine. CT ABDOMEN AND PELVIS: Mild hepatomegaly. Lobular dilatation of the pancreatic duct with pancreatic calcifications likely due to chronic pancreatitis. This is unchanged. Dense vascular calcification. Normal caliber abdominal aorta. Postoperative changes RIGHT hip. Chronic appearing compression fracture T12 unchanged. Sigmoid diverticulosis. No hydronephrosis in either kidney. Small bladder cystocele. Adrenal glands are normal. Food products in a distended stomach with air-fluid levels extending into the proximal duodenum. Diffuse bladder wall thickening likely due to chronic cystitis. Sacral decubitus ulcer with small suspected fistulous connection to the rectum described below CT/[place] [id number] IMPRESSION: 1. No acute chest findings 2. Pancreatic calcifications with ductal dilatation compatible with chronic pa ncreatitis similar to previous. 3. No hydronephrosis in either kidney. 4. Chronic T12 compression fracture. 5. Distended stomach with air-fluid levels extending into the proximal duodenu m. 6. Diffuse bladder wall thickening likely due to chronic cystitis. 7. Sacral decubitus ulcer the distal sacrum with soft tissue induration. This extends to the midline gluteal cleft. No drainable abscess or fluid collection visualized. There appears to be a small fistulous connection extending to the r ectum best seen on the sagittal imaging image 29 series 16. 8. No other acute findings.
--- NOTE | 2025-04-04 10:36 | CT_ITS ---
WS: [id number] CT LUMBAR SPINE TECHNIQUE: Noncontrast CT of the lumbar spine with coronal and sagittal reformatted images. CLINICAL INFORMATION: back pain COMPARISON: None. DLP: 551.[address] scans at [facility] use at least one of these dose optimization techniques: automated exposure control; mA and/or kV adjustment per patient size (includes targeted exams where dose is matched to clinical indication); or iterative reconstruction. FINDINGS: Osteopenia. Mild lumbar curve. No acute appearing compression fractures. No high-grade central canal stenosis. L1-L2: Normal. L2-L3: Slight anterolisthesis. Narrowing of the subarticular recess bilaterally. Mild facet arthropathy. L3-L4: Mild annular bulging. Mild central canal stenosis. Moderate facet arthropathy. Mild LEFT foraminal narrowing. L4-L5: Mild disc bulging. Narrowing LEFT subarticular recess. Mild central canal stenosis. Moderate facet arthropathy. Mild RIGHT foraminal narrowing. L5-S1: Mild annular bulging. Moderate facet arthropathy. Spinal canal and foramen are patent. Vascular calcification. Pancreatic calcifications. Partially visualized chronic appearing pancreatic ductal dilatation CT/CT lumbar spine wo con* [id number] IMPRESSION: 1. Advanced osteopenia. No visualized acute compression fractures. 2. Mild central canal stenosis L3-L4 and L4-L5 described above. 3. Pancreatic calcifications with ductal dilatation partially visualized likel y due to chronic pancreatitis.
[2025-04-04 10:46] LABS: Erythrocyte Sedimentation Rate 5 mm/hr (0-15)
[2025-04-04] MEDS: heparin 5,000 unit/mL INJ 1 mL 5000 UNIT SUBCUT (10:54)
[2025-04-04] MEDS: sodium chloride 0.9% 1,000 ML 50 ML IV (10:55)
--- NOTE | 2025-04-04 11:08 | PHA.VACGOAL ---
Vancomycin Goal - Goal Vancomycin Goal:: 10-15 mg/L Vancomycin Indication:: Other - Therapy Current therapy:: Other Antibiotic (CEFTRIAXONE) Day of therpy:: Day []of [] . Actual body weight (kg): 70 lb 11.2 oz - Data Labs: WBC 6.34 10^3/uL (3.29-11.43) 04/04/25 04:23 RBC 4.50 10^6/uL (3.85-5.65) 04/04/25 04:23 Hgb 12.40 g/dL (11.27-16.99) 04/04/25 04:23 Hct 36.4 % (36-47) 04/04/25 04:23 MCV 80.9 fl (85-98) L 04/04/25 04:23 MCH 27.6 pg (27-33) 04/04/25 04:23 MCHC 34.1 g/dL (30-55) 04/04/25 04:23 RDW 13.2 % (12.1-15.1) 04/04/25 04:23 Sodium 125 mmol/L (136-145) L 04/04/25 04:23 Potassium 3.7 mmol/L (3.5-5.1) 04/04/25 04:23 Chloride 90 mmol/L (98-107) L 04/04/25 04:23 Carbon Dioxide 23 mmol/L (22-29) 04/04/25 04:23 Anion Gap 15.7 (5-19) 04/04/25 04:23 BUN 72 mg/dL (8-23) H 04/04/25 04:23 Creatinine 1.0 mg/dL (0.5-0.9) H 04/04/25 04:23 GFR Calculation 55.6 mL/min (90-130) L 04/04/25 04:23 Last dialysis session:: N/A Treatment plan:: new consult Regimen:: STARTING ON A MAINTENANCE DOSE OF 500 MG Q24H PER DOSING PROTOCOL Follow up:: WILL CONTINUE TO MONITOR AND FOLLOW DAILY
[2025-04-04] MEDS: vancomycin 500 MG in sodium chloride 0.9% (plus) 100 ML 200 MG IV (11:47)
[2025-04-04 13:00] LABS: Sodium 125 mmol/L (136-145)
--- NOTE | 2025-04-04 15:44 | P.PN_ITS ---
Subjective 2 Subjective: - Patient was seen this morning - She tells me that she lives at home by herself - She has a caregiver - She tells me that she started to devel op a ulcer over her back that currently is painful - On examination she has a sacral decubi tus ulcer, stage I-2, with surrounding erythema, tenderness, warmth - She tells me that she has had it for a while - She tells me that her caregiver helps take care of her, she does not drive, she does not walk she spends most of the time in bed or in a chair - She denies any falls - She tells me she is lost a significant amount of weight in the last year - Currently her BMI is 14.3, she does re port a smoking history - Does report diffuse musculoskeletal ac hes and pain - Denies any recent falls Vitals/I&O/Wt Last Vital Signs Temp 97.9 F 04/04/25 15:16 Pulse 64 04/04/25 15:16 Resp 15 04/04/25 15:16 BP 98/62 04/04/25 15:16 Pulse Ox 94 04/04/25 15:16 O2 Del Method Room Air 04/04/25 15:16 04/04/25 04/04/25 04/04/25 06:59 14:59 22:59 Intake Total 450 / 1450 1035.166 / 1035.166 Balance 450 / 1450 1035.166 / 1035.166 Weight last 48 hrs Weight 32.069 kg Weight 33.112 kg Weight 40.823 kg Physical Exam 2 Const: COMMON NORMALS: no acute distress and patient oriented x3 Eye: COMMON NORMALS: Equal, round and reactive pupils present and EOMs intact bilaterally PUPIL: Yes Equal, round and reactive pupils present Chest: OTHER: Evidence of severe protein calorie malnutrition, physical deconditioning, muscle loss, cachexia, fat pad thinning under bilateral clavicles, ribs, bilateral thighs, arms, temporal muscle wasting Resp: COMMON NORMALS: normal respiratory effort, No retractions, No use of accessory muscles and clear to auscultation bilaterally AUSCULTATION: clear to auscultation bilaterally Cardio: COMMON NORMALS: regular rate, regular rhythm, S1 normal heart sound present and S2 normal heart sound present RATE: regular rate RHYTHM: r egular rhythm HEART SOUNDS: S1 normal heart sound present and S2 normal heart sound present GI: COMMON NORMALS: Normal to inspection, nondistended, normoactive bowel sounds present and non-tender : COMMON NORMALS: Yes no CVA tenderness BLADDER/KIDNEY EXAM: Yes no CVA tenderness Back/Pelvis: COMMON NORMALS: no CVA tenderness OTHER: Area over the sacrum, measuring 2 x 2 cm, sacral decubitus ulcer Extremity: COMMON NORMALS: no pedal edema Neuro: COMMON NORMALS: patient oriented x3, CN's II-XII intact bilaterally and moves all extremities Psych: COMMON NORMALS: mental status grossly normal Data 04/04/25 04:23 04/04/25 12:36 A&P Assessment and plan (1) Acute metabolic encephalopathy: (2) Hypertension: (3) Hypothyroid: (4) Hyponatremia: (5) Acute UTI: (6) COPD (chronic obstructive pulmonary disease): (7) Tobacco dependence: (8) Severe protein-calorie malnutrition: (9) Physical deconditioning: (10) Cachexia: (11) Weight loss: (12) Sacral decubitus ulcer, stage II: Plan Acute metabolic encephalopathy - Alert to person, to place, not to time - Monitor clinically - Treat underlying hyponatremia - Avoid sedating medications Sacral decubitus ulcer, with concern for surrounding cellulitis - CT lumbar spine, CT abdomen pelvis - Vancomycin, Rocephin Acute complicated urinary tract infection - Continue Rocephin Acute on chronic hyponatremia -Likely hypovolemic hyponatremia - Monitor serum sodium every 6 hours - Continue normal saline -Will order cosyntropin stimulation test Weight loss, BMI 14.3, severe protein calorie malnutrition, cachexia, physical deconditioning - PT OT - Dietary eval - Regular diet, protein shakes - HIV, cosyntropin stimulation test - CT chest abdomen pelvis - Is bedbound at baseline according to patient, Azotemia Elevated creatinine to 1.4, previously 0.4 - Continue normal saline - Renally dose meds - Repeat labs in a.m. History of B12 deficiency - Within normal limits Hypertension - Monitor blood pressures closely Hyperlipidemia - Continue statin COPD without exacerbation - DuoNebs as needed Prophylaxis: Heparin CODE STATUS: Full code Plan for today monitor serum sodium, CT chest abdomen pelvis CT lumbar spine add vancomycin for cellulitis, CT scan abdomen shows possible fistula spoke to Dr. Lopez about results, will consult, consult dietary, cosyntropin stimulation test, HIV, acute,, sed rate PDMP PDMP Reviewed: Not Reviewed Attestations 2 Medical Necessity Statement*: Patient requires hospitalization for cachexia, weight loss, fatigue, BMI 14, UTI, fistula to the rectum, sacral decubitus ulcer with cellulitis, ANALILIA, requiring inpatient admission, greater than 2 midnights Diagnoses Acute metabolic encephalopathy G93.41 Hypertension I10 Hypothyroid E03.9 Hyponatremia E87.1 Acute UTI N39.0 COPD (chronic obstructive pulmonary disease) J44.9 Tobacco dependence F17.200 Severe protein-calorie malnutrition E43 Physical deconditioning R53.81 Cachexia R64 Weight loss R63.4 Sacral decubitus ulcer, stage II L89.152
[2025-04-04 18:22] LABS: Sodium 126 mmol/L (136-145)
[2025-04-04 18:30] LABS: HIV 1 & 2 Antibody Non-Reactive (Non-Reactiv); HIV 1 & 2 Antigen Non-Reactive (Non-Reactiv)
[2025-04-04] MEDS: cefTRIAXone 1,000 mg SDV 1000 MG IV (20:17)
[2025-04-04 21:04] LABS: Hepatitis A Antibody IgM Non-Reactive (Nonreactive); Hepatitis B Core IgM Non-Reactive (Nonreactive); Hepatitis B Surface Antigen Non-Reactive (Nonreactive); Hepatitis C Virus Antibody Non-Reactive (Nonreactive)
[2025-04-04 21:25] LABS: Cortisol Random 12.66 ug/dL (2.47-19.5)
[2025-04-05] VITALS (10 sets, daily range): BP systolic 101–117; BP diastolic 58–69; PULSE 67–92; RESP 16–19; TEMP 36.4–37.1; O2SAT 95–98
[2025-04-05 00:52] LABS: Sodium 127 mmol/L (136-145)
[2025-04-05 04:01] LABS: Basophils % 0.4 %; Eosinophils # 0.2 10^3/uL (0.0-0.8); Eosinophils % 2.8 %; Hematocrit 29.1 % (36-47); Lymphocytes # 1.2 10^3/uL (0.8-4.8); Lymphocytes % 21.3 %; Mean Corpuscular HGB Conc 33.3 g/dL (30-55); Mean Corpuscular Hemoglobin 28.2 pg (27-33); Mean Corpuscular Volume 84.6 fl (85-98); Mean Platelet Volume 8.9 fL (7.4-10.4); Monocytes # 0.5 10^3/uL (0.2-0.9); Monocytes % 8.6 %; Neutrophils # 3.77 10^3/uL (1.8-7.7); Neutrophils % 66.4 %; Nucleated Red Blood Cells % 0 %; Platelet Count 239 10^3/cmm (157-399); Red Blood Count 3.44 10^6/uL (3.85-5.65); Red Cell Distribution Width 13.4 % (12.1-15.1); White Blood Count 5.68 10^3/uL (3.29-11.43)
[2025-04-05 04:15] LABS: Alanine Aminotransferase 11 U/L (0-33); Alkaline Phosphatase 73 U/L (35-105); Anion Gap 12.9 (5-19); Aspartate Amino Transferase 26 U/L (0-32); Blood Urea Nitrogen 38 mg/dL (8-23); Carbon Dioxide 23 mmol/L (22-29); Chloride 97 mmol/L (98-107); Glomerular Filtration Rate 100.3 mL/min (90-130); Glucose 130 mg/dL (65-115); Osmolality Calculated 279 mOsm/kg (285-295); Phosphorus 1.8 mg/dL (2.5-4.5); Potassium 3.9 mmol/L (3.5-5.1); Sodium 129 mmol/L (136-145); Total Bilirubin 0.2 mg/dL (0.15-1.2)
[2025-04-05 05:51] LABS: Sodium 127 mmol/L (136-145)
[2025-04-05] MEDS: ondansetron 2 mg/ML SDV 2 mL 4 MG IVP (08:05)
[2025-04-05] MEDS: cosyntropin 0.25 mg SDV IVP (08:06)
[2025-04-05] MEDS: phosphorus 250 mg Tablet PO ×2 (08:06→18:15)
--- NOTE | 2025-04-05 09:08 | P.CONIM_ITS ---
Providers/Reason For Consult 2 Consulting Physician/Specialty*: General Surgery Reason for Consult*: Evaluation for possible rectal fistula. Attending Physician: Ernst Thompson MD Primary Care Provider: Sid Harris MD History of Present Illness History of Present Illness Serene Alcaraz is a 64 year old female With multiple medical comorbidities who has a stage II sacral decubitus ulcer and a CT scan abdomen pelvis showing evidence of a possible fistulous connection with the distal rectum. She denies significant pain, no drainage from the ulcer itself she does have loose bowel movements and incontinence. Review of Systems 2 General: Reports: 10 or more systems reviewed and unremarkable except in HPI and below Medications/Allergies Home Medications ?Medication ?Instructions ?Recorded ?Confirmed ?Last Taken ?Type amlodipine 5 mg tablet 5 mg PO BID@0600,1800 04/04/25 04/03/25 History atorvastatin 80 mg tablet 80 mg PO DAILY@1800 05/28/20 04/04/25 04/03/25 History labetalol 100 mg tablet 100 mg PO BID@0600,1800 07/01/1604/04/25 12/19/23 History ciprofloxacin HCl 500 mg tablet 500 mg PO BID #14 tabs 04/03/25 Unknown Rx (Cipro) Allergies Allergy/AdvReac Type Severity Reaction Status Date / Time hydrochlorothiazide Allergy unknown Verified 09/23/24 15:44 Latex, Natural Rubber Allergy ALGY-Hives Verified 09/23/24 15:44 nitrofurantoin (From Allergy ADR-Nausea Verified 09/24/24 12:01 Macrobid) Current Medications Generic Name Dose Route Start Last Admin Trade Name Freq PRN Reason Stop Dose Admin Ceftriaxone Sodium 1,000 mg 04/04/25 21:00 04/04/25 20:17 Ceftriaxone 1,000 Mg Sdv IV 1,000 mg BEDTIME JANUARY Administration Protocol Heparin Sodium (Porcine) 5,000 unit 04/03/25 23:20 04/04/25 23:05 Heparin 5,000 Unit/Ml Inj 1 Ml SUBCUT Not Given Q12H JANUARY Sodium Chloride 1,000 mls @ 50 mls/hr 04/03/25 23:20 04/05/25 04:50 Sodium Chloride 0.9% IV 50 mls/hr .Q20H JANUARY Infusion Vancomycin HCl 500 mg/ Sodium 100 mls @ 200 mls/hr 04/04/25 12:00 04/04/25 13:03 Chloride IV Infused Q24H JANUARY Infusion Ondansetron HCl 4 mg 04/03/25 23:20 04/05/25 08:05 Ondansetron 2 Mg/Ml Sdv 2 Ml IVP 4 mg Q8H PRN Administration vomiting, or N/V if npo Potassium Phosphate 250 mg 04/05/25 09:00 04/05/25 08:06 Phosphorus 250 Mg Tablet PO 250 mg BID JANUARY Administration PFSH Acute 2 PFSH: Medical History Hyperlipidemia Vitamin B12 deficiency Hypothyroid E-coli UTI Intertrochanteric fracture of right hip Fall Nicotine addiction LGSIL Pap smear of vagina Chronic hyponatremia Alcohol use Chronic pancreatitis Osteoporosis Hypertension COPD (chronic obstructive pulmonary disease) Acute cystitis with hematuria Surgical History Status post open reduction with internal fixation of fracture H/O: hysterectomy Family History Mother Anesthesia complication CAD (coronary artery disease) Diabetes Hyperlipidemia Hypertension Family history of thyroid problem Grandfather Cancer maternal-lung cancer Sister Diabetes Hypertension Son Diabetes Grandmother Diabetes paternal Denies family history of Ovarian cyst Clotting disorder Chronic kidney disease (CKD) Bleeding disorder Social History Smoking and tobacco/nicotine status: unknown if used tobacco/nicotine Alcohol intake: current Alcohol intake frequency: few times a week Substance/Drug Use: never Lives independently: Yes Household members: family Marital status: Single Current occupational status: employed Current occupation: [employer] Current occupational exposures/hazards: Yes Do you think of yourself as: Straight/Heterosexual Current gender identity: Female Vitals/I&O/Wt Last Vital Signs Temp 97.7 F 04/05/25 08:00 Pulse 71 04/05/25 08:00 Resp 17 04/05/25 08:00 BP 112/68 04/05/25 08:00 Pulse Ox 98 04/05/25 08:00 O2 Del Method Room Air 04/05/25 08:00 04/04/25 04/05/25 04/05/25 22:59 06:59 14:59 Intake Total 413.333 / 1448.499 336.667 / 1785.166 Balance 413.333 / 1448.499 336.667 / 1785.166 Weight last 48 hrs Weight 76 lb 9.6 oz Weight 70 lb 11.2 oz Weight 73 lb Weight 90 lb Physical Exam 2 GI: OTHER: Abdomen Examination is benign. Rectal examination shows no evidence of fistulous connection on your examination and digital rectal exam. There is tenderness in the area of the wound but that is from a superficial ulceration of the skin. Data 04/05/25 03:21 04/05/25 05:06 A&P Assessment and plan (1) Acute on chronic pancreatitis: (2) Sacral decubitus ulcer, stage II: Plan After a complete history, physical examination and review of all available clinical data the following is my assessment. This a 64-year-old female with multiple medical comorbidities who had a stage II sacral decubitus ulcer. While in imaging there is a concern for a possible fistulous connection with the distal rectum. Clinical examination is negative for this finding. I recommend the patient continues daily wound care of her ulcer and offloading. She should get a follow-up with the wound care clinic to establish a wound care plan and in the outpatient setting. If there is persistent concern as outpatient we may offer the patient an exam under anesthesia to further evaluate the rectum although at this point I think the possibility of a fistula is unlikely. All other management per primary team PDMP PDMP Reviewed: Not Reviewed Coding Level of Care Code Acute Code for Chg Fwd Diagnoses Acute on chronic pancreatitis K85.90; K86.1 Sacral decubitus ulcer, stage II L89.152
[2025-04-05 10:00] LABS: Cosyntropin Baseline 35.66 mcg/dL
[2025-04-05] MEDS: sodium chloride 0.9% 1,000 ML 50 ML IV (10:23)
[2025-04-05 10:27] LABS: Cosyntropin 30 Minute 55.03 mcg/dL
[2025-04-05] MEDS: heparin 5,000 unit/mL INJ 1 mL 5000 UNIT SUBCUT (10:35)
[2025-04-05] MEDS: acetaminophen 325 mg Tablet 650 MG PO ×2 (10:35→20:29)
[2025-04-05 11:02] LABS: Cosyntropin 1 Hour 61.85 mcg/dL
[2025-04-05] MEDS: vancomycin 500 MG in sodium chloride 0.9% (plus) 100 ML 200 MG IV (12:02)
[2025-04-05 13:11] LABS: Sodium 126 mmol/L (136-145)
--- NOTE | 2025-04-05 13:33 | P.PN_ITS ---
Subjective 2 Subjective: Patient was seen this morning, currently alert oriented x 2, following all commands, denies any fevers, no chills, no cough, no abdominal pain, Vitals/I&O/Wt Last Vital Signs Temp 97.6 F 04/05/25 12:01 Pulse 72 04/05/25 12:01 Resp 17 04/05/25 12:01 BP 101/63 04/05/25 12:01 Pulse Ox 95 04/05/25 12:01 O2 Del Method Room Air 04/05/25 12:01 04/04/25 04/05/25 04/05/25 22:59 06:59 14:59 Intake Total 413.333 / 1448.499 336.667 / 1653.557 9202 / 1070 Balance 413.333 / 1448.499 336.667 / 7303.480 5815 / 1070 Weight last 48 hrs Weight 34.745 kg Weight 32.069 kg Weight 33.112 kg Weight 40.823 kg Physical Exam 2 Const: COMMON NORMALS: no acute distress and patient oriented x3 HENMT: COMMON NORMALS: normocephalic HEAD & SCALP: normocephalic Resp: COMMON NORMALS: normal respiratory effort, No retractions, No use of accessory muscles and clear to auscultation bilaterally AUSCULTATION: clear to auscultation bilaterally Cardio: COMMON NORMALS: regular rate, regular rhythm, S1 normal heart sound present and S2 normal heart sound present RATE: regular rate RHYTHM: r egular rhythm HEART SOUNDS: S1 normal heart sound present and S2 normal heart sound present GI: COMMON NORMALS: Normal to inspection, nondistended, normoactive bowel sounds present and non-tender Extremity: COMMON NORMALS: no pedal edema Neuro: COMMON NORMALS: patient oriented x3 Psych: COMMON NORMALS: mental status grossly normal Data 04/05/25 03:21 04/05/25 12:35 Micro: Microbiology 04/03/25 18:17 Urine Culture - Preliminary Urine,Clean Catch A&P Assessment and plan (1) Acute metabolic encephalopathy: (2) Hypertension: (3) Hypothyroid: (4) Hyponatremia: (5) Acute UTI: (6) COPD (chronic obstructive pulmonary disease): (7) Tobacco dependence: (8) Severe protein-calorie malnutrition: (9) Physical deconditioning: (10) Cachexia: (11) Weight loss: (12) Sacral decubitus ulcer, stage II: Plan Acute metabolic encephalopathy, overall improving - Alert to person, to place, not to time - Monitor clinically - Treat underlying hyponatremia - Avoid sedating medications Sacral decubitus ulcer, with concern for surrounding cellulitis - 7. Sacral decubitus ulcer the distal sacrum with soft tissue induration. This extends to the midline gluteal cleft. No drainable abscess or fluid collection visualized. There appears to be a small fistulous connection extending to the rectum best seen on the sagittal imaging image 29 series 16. - Vancomycin, Rocephin Concerns for fistulous connection extending to the rectum - General Surgery consulted Acute complicated urinary tract infection - Continue Rocephin Acute on chronic hyponatremia -Likely hypovolemic hyponatremia - Monitor serum sodium every 6 hours - Continue normal saline -Will order cosyntropin stimulation test Weight loss, BMI 14.3, severe protein calorie malnutrition, cachexia, physical deconditioning -Etiology unclear? Potentially amnio trophic lateral sclerosis due to complaints of progressive generalized weakness - PT OT - Dietary eval - Regular diet, protein shakes - HIV, cosyntropin stimulation test within normal limits - CT chest abdomen pelvis CT/[place] [id number] IMPRESSION: 1. No acute chest findings 2. Pancreatic calcifications with ductal dilatation compatible with chronic pancreatitis similar to previous. 3. No hydronephrosis in either kidney. 4. Chronic T12 compression fracture. 5. Distended stomach with air-fluid levels extending into the proximal duodenum. 6. Diffuse bladder wall thickening likely due to chronic cystitis. 7. Sacral decubitus ulcer the distal sacrum with soft tissue induration. This extends to the midline gluteal cleft. No drainable abscess or fluid collection visualized. There appears to be a small fistulous connection extending to the rectum best seen on the sagittal imaging image 29 series 16. 8. No other acute findings. - Is bedbound at baseline according to patient, Azotemia Elevated creatinine to 1.4, previously 0.4 - Continue normal saline - Renally dose meds - Repeat labs in a.m. History of B12 deficiency - Within normal limits Hypertension - Monitor blood pressures closely Hyperlipidemia - Continue statin COPD without exacerbation - DuoNebs as needed Prophylaxis: Heparin CODE STATUS: Full code Plan for today PT OT, continue IV fluids, encourage p.o. intake, continue IV antibiotics PDMP PDMP Reviewed: Not Reviewed Attestations 2 Medical Necessity Statement*: Patient requires hospitalization for sacral decubitus ulcer, hyponatremia Diagnoses Acute metabolic encephalopathy G93.41 Hypertension I10 Hypothyroid E03.9 Hyponatremia E87.1 Acute UTI N39.0 COPD (chronic obstructive pulmonary disease) J44.9 Tobacco dependence F17.200 Severe protein-calorie malnutrition E43 Physical deconditioning R53.81 Cachexia R64 Weight loss R63.4 Sacral decubitus ulcer, stage II L89.152
[2025-04-05 19:24] LABS: Sodium 131 mmol/L (136-145)
[2025-04-05] MEDS: cefTRIAXone 1,000 mg SDV 1000 MG IV (20:23)
[2025-04-06] VITALS (8 sets, daily range): BP systolic 96–141; BP diastolic 58–71; PULSE 66–82; RESP 15–18; TEMP 36.6–36.8; O2SAT 95–97
[2025-04-06 01:33] LABS: Sodium 129 mmol/L (136-145)
[2025-04-06 03:26] LABS: Basophils % 0.4 %; Eosinophils # 0.1 10^3/uL (0.0-0.8); Eosinophils % 1.9 %; Lymphocytes # 1.4 10^3/uL (0.8-4.8); Lymphocytes % 27.6 %; Mean Corpuscular HGB Conc 33.3 g/dL (30-55); Mean Corpuscular Hemoglobin 27.9 pg (27-33); Mean Corpuscular Volume 83.6 fl (85-98); Mean Platelet Volume 8.8 fL (7.4-10.4); Monocytes # 0.4 10^3/uL (0.2-0.9); Monocytes % 8.3 %; Neutrophils # 3.17 10^3/uL (1.8-7.7); Neutrophils % 61.2 %; Nucleated Red Blood Cells % 0 %; Platelet Count 291 10^3/cmm (157-399); Red Blood Count 3.59 10^6/uL (3.85-5.65); Red Cell Distribution Width 13.4 % (12.1-15.1); White Blood Count 5.18 10^3/uL (3.29-11.43)
[2025-04-06 03:47] LABS: Alanine Aminotransferase 15 U/L (0-33); Albumin Level 3.3 g/dL (3.5-5.2); Alkaline Phosphatase 68 U/L (35-105); Anion Gap 14.7 (5-19); Aspartate Amino Transferase 24 U/L (0-32); Blood Urea Nitrogen 16 mg/dL (8-23); Calcium 7.8 mg/dL (8.5-10.5); Carbon Dioxide 24 mmol/L (22-29); Chloride 96 mmol/L (98-107); Creatinine Clr Calc Pharmacy 38.4548; Globulin 1.8 g/dL (1.3-4.6); Glomerular Filtration Rate 223.3 mL/min (90-130); Glucose 98 mg/dL (65-115); Magnesium 1.4 mg/dL (1.7-2.3); Osmolality Calculated 273 mOsm/kg (285-295); Phosphorus 1.8 mg/dL (2.5-4.5); Potassium 3.7 mmol/L (3.5-5.1); Sodium 131 mmol/L (136-145); Total Bilirubin 0.2 mg/dL (0.15-1.2); Total Protein 5.1 g/dL (6.6-8.7)
[2025-04-06] MEDS: sodium chloride 0.9% 1,000 ML 50 ML IV ×2 (04:15→21:42)
[2025-04-06 06:00] LABS: Sodium 128 mmol/L (136-145)
--- NOTE | 2025-04-06 09:24 | P.PN_ITS ---
Subjective 2 Subjective: Patient was seen this morning, she is quite teary, she tells me that her boyfriend has broken up with her, denies any fevers, denies any cough, no fevers, no chills Vitals/I&O/Wt Last Vital Signs Temp 97.8 F 04/06/25 07:27 Pulse 71 04/06/25 07:27 Resp 16 04/06/25 07:27 BP 141/69 04/06/25 07:27 Pulse Ox 97 04/06/25 07:27 O2 Del Method Room Air 04/06/25 07:27 04/05/25 04/06/25 04/06/25 22:59 06:59 14:59 Intake Total 240 / 1310 852.5 / 2162.5 120 / 120 Balance 240 / 1310 852.5 / 2162.5 120 / 120 Weight last 48 hrs Weight 35.426 kg Weight 34.745 kg Physical Exam 2 Const: COMMON NORMALS: no acute distress and patient oriented x3 Resp: COMMON NORMALS: normal respiratory effort, No retractions, No use of accessory muscles and clear to auscultation bilaterally AUSCULTATION: clear to auscultation bilaterally Cardio: COMMON NORMALS: regular rate, regular rhythm, S1 normal heart sound present and S2 normal heart sound present RATE: regular rate RHYTHM: r egular rhythm HEART SOUNDS: S1 normal heart sound present and S2 normal heart sound present GI: COMMON NORMALS: Normal to inspection, nondistended, normoactive bowel sounds present and non-tender Extremity: COMMON NORMALS: no pedal edema Neuro: COMMON NORMALS: patient oriented x3 Psych: COMMON NORMALS: mental status grossly normal Data 04/06/25 02:38 04/06/25 05:38 Micro: Microbiology 04/03/25 18:17 Urine Culture - Preliminary Urine,Clean Catch A&P Assessment and plan (1) Acute metabolic encephalopathy: (2) Hypertension: (3) Hypothyroid: (4) Hyponatremia: (5) Acute UTI: (6) COPD (chronic obstructive pulmonary disease): (7) Tobacco dependence: (8) Severe protein-calorie malnutrition: (9) Physical deconditioning: (10) Cachexia: (11) Weight loss: (12) Sacral decubitus ulcer, stage II: Plan Acute metabolic encephalopathy, overall improving - Alert to person, to place, not to time - Monitor clinically - Treat underlying hyponatremia - Avoid sedating medications Sacral decubitus ulcer, with concern for surrounding cellulitis - 7. Sacral decubitus ulcer the distal sacrum with soft tissue induration. This extends to the midline gluteal cleft. No drainable abscess or fluid collection visualized. There appears to be a small fistulous connection extending to the rectum best seen on the sagittal imaging image 29 series 16. - Vancomycin, Rocephin Concerns for fistulous connection extending to the rectum - General Surgery consulted - Plan on medical management Acute complicated urinary tract infection, history of Proteus, E. coli - Continue Rocephin Acute on chronic hyponatremia, resolving -Likely hypovolemic hyponatremia - Monitor serum sodium every 6 hours - Continue normal saline -r cosyntropin stimulation test, within normal limits Weight loss, BMI 14.3, severe protein calorie malnutrition, cachexia, physical deconditioning -Etiology unclear? Potentially amnio trophic lateral sclerosis due to complaints of progressive generalized weakness - PT OT - Dietary eval - Regular diet, protein shakes - HIV, cosyntropin stimulation test within normal limits - CT chest abdomen pelvis [place] [id number] IMPRESSION: 1. No acute chest findings 2. Pancreatic calcifications with ductal dilatation compatible with chronic pancreatitis similar to previous. 3. No hydronephrosis in either kidney. 4. Chronic T12 compression fracture. 5. Distended stomach with air-fluid levels extending into the proximal duodenum. 6. Diffuse bladder wall thickening likely due to chronic cystitis. 7. Sacral decubitus ulcer the distal sacrum with soft tissue induration. This extends to the midline gluteal cleft. No drainable abscess or fluid collection visualized. There appears to be a small fistulous connection extending to the rectum best seen on the sagittal imaging image 29 series 16. 8. No other acute findings. - Is bedbound at baseline according to patient, Azotemia Elevated creatinine to 0.3 - Continue normal saline - Renally dose meds History of B12 deficiency - Within normal limits Hypertension - Monitor blood pressures closely Hyperlipidemia - Continue statin COPD without exacerbation - DuoNebs as needed Developing hypokalemia, hypophosphatemia, hypomagnesemia - Potentially some component of refeeding syndrome, monitor Prophylaxis: Heparin CODE STATUS: Full code Plan for today PT OT, continue fluids, PT OT, IV antibiotics PDMP PDMP Reviewed: Not Reviewed Attestations 2 Medical Necessity Statement*: Patient requires hospitalization for refeeding syndrome, sacral decubitus ulcer, hyponatremia Diagnoses Acute metabolic encephalopathy G93.41 Hypertension I10 Hypothyroid E03.9 Hyponatremia E87.1 Acute UTI N39.0 COPD (chronic obstructive pulmonary disease) J44.9 Tobacco dependence F17.200 Severe protein-calorie malnutrition E43 Physical deconditioning R53.81 Cachexia R64 Weight loss R63.4 Sacral decubitus ulcer, stage II L89.152
[2025-04-06] MEDS: magnesium lactate 84 mg Tablet PO ×2 (09:48→19:02)
[2025-04-06] MEDS: phosphorus 250 mg Tablet PO ×2 (09:48→19:02)
[2025-04-06] MEDS: ipratropium-albuterol 3 mL Neb INHALATION (10:40)
[2025-04-06] MEDS: heparin 5,000 unit/mL INJ 1 mL 5000 UNIT SUBCUT (12:29)
[2025-04-06] MEDS: vancomycin 500 MG in sodium chloride 0.9% (plus) 100 ML 200 MG IV (12:29)
[2025-04-06] MEDS: cefTRIAXone 1,000 mg SDV 1000 MG IV (20:11)
[2025-04-07] VITALS (8 sets, daily range): BP systolic 110–136; BP diastolic 66–81; PULSE 67–94; RESP 16–18; TEMP 36.7–36.9; O2SAT 94–97
[2025-04-07 04:05] LABS: Basophils # 0.1 10^3/uL (0.0-0.1); Basophils % 0.7 %; Eosinophils # 0.3 10^3/uL (0.0-0.8); Eosinophils % 4.9 %; Hematocrit 30.6 % (36-47); Lymphocytes # 1.7 10^3/uL (0.8-4.8); Lymphocytes % 25.7 %; Mean Corpuscular HGB Conc 31.7 g/dL (30-55); Mean Corpuscular Hemoglobin 28.2 pg (27-33); Mean Platelet Volume 8.9 fL (7.4-10.4); Monocytes # 0.4 10^3/uL (0.2-0.9); Monocytes % 6.4 %; Neutrophils # 4.17 10^3/uL (1.8-7.7); Neutrophils % 61.9 %; Nucleated Red Blood Cells % 0 %; Platelet Count 296 10^3/cmm (157-399); Red Blood Count 3.44 10^6/uL (3.85-5.65); Red Cell Distribution Width 13.8 % (12.1-15.1); White Blood Count 6.74 10^3/uL (3.29-11.43)
[2025-04-07 04:29] LABS: Alanine Aminotransferase 19 U/L (0-33); Albumin Level 2.9 g/dL (3.5-5.2); Alkaline Phosphatase 62 U/L (35-105); Aspartate Amino Transferase 25 U/L (0-32); Blood Urea Nitrogen 14 mg/dL (8-23); Calcium 7.9 mg/dL (8.5-10.5); Carbon Dioxide 19 mmol/L (22-29); Chloride 100 mmol/L (98-107); Creatinine Clr Calc Pharmacy 42.9737; Globulin 1.9 g/dL (1.3-4.6); Glomerular Filtration Rate 160.2 mL/min (90-130); Glucose 108 mg/dL (65-115); Magnesium 1.3 mg/dL (1.7-2.3); Osmolality Calculated 275 mOsm/kg (285-295); Phosphorus 2.5 mg/dL (2.5-4.5); Sodium 132 mmol/L (136-145); Total Bilirubin 0.2 mg/dL (0.15-1.2); Total Protein 4.8 g/dL (6.6-8.7)
[2025-04-07] MEDS: magnesium lactate 84 mg Tablet PO ×2 (08:07→17:24)
[2025-04-07] MEDS: phosphorus 250 mg Tablet PO ×2 (08:07→17:24)
[2025-04-07 09:43] LABS: Estmated Average Glucose 148; Hemoglobin A1C 6.8 % (4.0-6.0)
[2025-04-07 10:01] LABS: Procalcitonin 0.05 ng/mL (0-0.5); Vitamin B12 247 pg/mL (232-1245)
[2025-04-07 10:13] LABS: Iron 56 ug/dL (37-145); Percent Saturation 25.6 % (20-50); Total Iron Binding Capacity 218 mcg/dl; Unsaturated Iron Binding 162 ug/dL (112-347)
[2025-04-07 10:58] LABS: MRSA PCR OZH (swab) NOT DETECTED (Not Detecte)
[2025-04-07] MEDS: heparin 5,000 unit/mL INJ 1 mL 5000 UNIT SUBCUT ×2 (11:24→21:23)
[2025-04-07] MEDS: vancomycin 500 MG in sodium chloride 0.9% (plus) 100 ML 200 MG IV (11:29)
--- NOTE | 2025-04-07 14:24 | PC.SOCIAL ---
IMM Update pg 2 of IMM Updated and reviewed w/ patient. Copy provided and copy dated, initialed and placed in chart.
--- NOTE | 2025-04-07 16:22 | P.PN_ITS ---
Subjective 2 Subjective: Hospital course appreciated. Seen sitting up in bed. Denies any nausea, vomiting, headache. Hemodynamically stable. Vitals/I&O/Wt Last Vital Signs Temp 98.4 F 04/07/25 15:54 Pulse 94 04/07/25 15:54 Resp 18 04/07/25 15:54 BP 133/81 04/07/25 15:54 Pulse Ox 95 04/07/25 15:54 O2 Del Method Room Air 04/07/25 15:54 04/07/25 04/07/25 04/07/25 06:59 14:59 22:59 Intake Total 0 / 1672.5 1048.333 / 1048.333 Balance 0 / 1672.5 1048.333 / 1048.333 Weight last 48 hrs Weight 38.828 kg Weight 35.426 kg Physical Exam 2 Const: COMMON NORMALS: no acute distress and patient oriented x3 HENMT: COMMON NORMALS: normocephalic HEAD & SCALP: normocephalic Eye: COMMON NORMALS: Equal, round and reactive pupils present and EOMs intact bilaterally PUPIL: Yes Equal, round and reactive pupils present Chest: OTHER: Evidence of severe protein calorie malnutrition, physical deconditioning, muscle loss, cachexia, fat pad thinning under bilateral clavicles, ribs, bilateral thighs, arms, temporal muscle wasting Resp: COMMON NORMALS: normal respiratory effort, No retractions, No use of accessory muscles and clear to auscultation bilaterally AUSCULTATION: clear to auscultation bilaterally Cardio: COMMON NORMALS: regular rate, regular rhythm, S1 normal heart sound present and S2 normal heart sound present RATE: regular rate RHYTHM: r egular rhythm HEART SOUNDS: S1 normal heart sound present and S2 normal heart sound present GI: COMMON NORMALS: Normal to inspection, nondistended, normoactive bowel sounds present and non-tender : COMMON NORMALS: Yes no CVA tenderness BLADDER/KIDNEY EXAM: Yes no CVA tenderness Back/Pelvis: COMMON NORMALS: no CVA tenderness OTHER: Area over the sacrum, measuring 2 x 2 cm, sacral decubitus ulcer Extremity: COMMON NORMALS: no pedal edema Neuro: COMMON NORMALS: patient oriented x3, CN's II-XII intact bilaterally and moves all extremities Psych: COMMON NORMALS: mental status grossly normal Data 04/07/25 03:23 04/07/25 03:23 Micro: Microbiology 04/03/25 18:17 Urine Culture - Final Urine,Clean Catch A&P Assessment and plan (1) Sacral decubitus ulcer, stage II: (2) Acute metabolic encephalopathy: (3) Hypertension: (4) Hypothyroid: (5) Hyponatremia: (6) Acute UTI: (7) COPD (chronic obstructive pulmonary disease): (8) Tobacco dependence: (9) Severe protein-calorie malnutrition: (10) Physical deconditioning: (11) Cachexia: (12) Weight loss: Plan Acute metabolic encephalopathy, overall improving - Alert to person, to place, not to time - Monitor clinically - Treat underlying hyponatremia - Avoid sedating medications Sacral decubitus ulcer, with concern for surrounding cellulitis - 7. Sacral decubitus ulcer the distal sacrum with soft tissue induration. This extends to the midline gluteal cleft. No drainable abscess or fluid collection visualized. There appears to be a small fistulous connection extending to the rectum best seen on the sagittal imaging image 29 series 16. - Vancomycin, Rocephin Concerns for fistulous connection extending to the rectum - General Surgery consulted - Plan on medical management Acute complicated urinary tract infection, history of Proteus, E. coli - Continue Rocephin Acute on chronic hyponatremia, resolving -Likely hypovolemic hyponatremia - Monitor serum sodium every 6 hours - Continue normal saline -r cosyntropin stimulation test, within normal limits Weight loss, BMI 14.3, severe protein calorie malnutrition, cachexia, physical deconditioning -Etiology unclear? Potentially amnio trophic lateral sclerosis due to complaints of progressive generalized weakness - PT OT - Dietary eval - Regular diet, protein shakes - HIV, cosyntropin stimulation test within normal limits - CT chest abdomen pelvis - Is bedbound at baseline according to patient, Azotemia Elevated creatinine to 0.3 - Continue normal saline - Renally dose meds History of B12 deficiency - Within normal limits Hypertension - Monitor blood pressures closely Hyperlipidemia - Continue statin COPD without exacerbation - DuoNebs as needed Developing hypokalemia, hypophosphatemia, hypomagnesemia - Potentially some component of refeeding syndrome, monitor Prophylaxis: Heparin CODE STATUS: Full code Plan for today: Out of bed to chair. Physical therapy evaluation. Wound care nurse consult to determine the wound care orders as an outpatient. Check MRSA swab. For now continue with IV ceftriaxone and vancomycin. If MRSA swab negative will discontinue vancomycin. Appreciate electrolytes. Monitor magnesium and phosphorus levels. Watch for refeeding syndrome. Protein shakes with each meal. Discharge plan: Discharge to home with home health versus SNF. Patient requires extensive decub sacral ulcer wound care. She lives by herself. Patient would benefit from transition to SNF at least for a short while for better wound healing. PDMP PDMP Reviewed: Not Reviewed Attestations 2 Medical Necessity Statement*: Course of the hospitalization for management of physical deconditioning, failure to thrive with decreased pulse provide wound care and outpatient safe discharge planning is sought Diagnoses Sacral decubitus ulcer, stage II L89.152 Acute metabolic encephalopathy G93.41 Hypertension I10 Hypothyroid E03.9 Hyponatremia E87.1 Acute UTI N39.0 COPD (chronic obstructive pulmonary disease) J44.9 Tobacco dependence F17.200 Severe protein-calorie malnutrition E43 Physical deconditioning R53.81 Cachexia R64 Weight loss R63.4
[2025-04-07] MEDS: acetaminophen 325 mg Tablet 650 MG PO (21:22)
[2025-04-07] MEDS: cefTRIAXone 1,000 mg SDV 1000 MG IV (21:23)
[2025-04-08] VITALS: BP 146/81; PULSE 75; RESP 16; TEMP 36.6; O2SAT 95
[2025-04-08 04:00] VITALS: BP 158/91; PULSE 80; RESP 16; TEMP 36.8; O2SAT 96
[2025-04-08 05:49] LABS: Basophils # 0.1 10^3/uL (0.0-0.1); Basophils % 0.7 %; Eosinophils # 0.3 10^3/uL (0.0-0.8); Eosinophils % 4.6 %; Hematocrit 31.2 % (36-47); Lymphocytes # 1.8 10^3/uL (0.8-4.8); Lymphocytes % 27.2 %; Mean Corpuscular Hemoglobin 27.8 pg (27-33); Mean Corpuscular Volume 84.1 fl (85-98); Mean Platelet Volume 8.5 fL (7.4-10.4); Monocytes # 0.5 10^3/uL (0.2-0.9); Neutrophils % 59.2 %; Nucleated Red Blood Cells % 0 %; Platelet Count 305 10^3/cmm (157-399); Red Blood Count 3.71 10^6/uL (3.85-5.65); White Blood Count 6.76 10^3/uL (3.29-11.43)
[2025-04-08 06:10] LABS: Chol HDL Ratio 2.42 mg/dL (0.0-4.40); Cholesterol 157 mg/dL (0-200); HDL Cholesterol 65 mg/dL (60-100); LDL Cholesterol Calculated 72 mg/dL (50-129); Magnesium 1.3 mg/dL (1.7-2.3); Phosphorus 2.6 mg/dL (2.5-4.5); Triglycerides 100 mg/dL (0-150); VLDL Cholestrol Calculation 20 mg/dL (0-30)
[2025-04-08 06:13] LABS: Alanine Aminotransferase 23 U/L (0-33); Alkaline Phosphatase 68 U/L (35-105); Anion Gap 13.7 (5-19); Aspartate Amino Transferase 25 U/L (0-32); Blood Urea Nitrogen 9 mg/dL (8-23); Calcium 8.2 mg/dL (8.5-10.5); Carbon Dioxide 25 mmol/L (22-29); Chloride 95 mmol/L (98-107); Creatinine Clr Calc Pharmacy 44.1779; Globulin 2.3 g/dL (1.3-4.6); Glomerular Filtration Rate 223.3 mL/min (90-130); Glucose 104 mg/dL (65-115); Osmolality Calculated 269 mOsm/kg (285-295); Potassium 3.7 mmol/L (3.5-5.1); Sodium 130 mmol/L (136-145); Total Bilirubin 0.2 mg/dL (0.15-1.2); Total Protein 5.3 g/dL (6.6-8.7)
[2025-04-08 07:58] VITALS: BP 135/80; PULSE 64; RESP 15; TEMP 37; O2SAT 97
--- NOTE | 2025-04-08 08:11 | PM.CONSULT ---
Providers/Reason For Consult Consulting Physician/Specialty*: Wound Care Reason for Consult*: Open wound to buttocks Requesting Physician: Dr. Mcguire Attending Physician: Maksim Mcguire MD Primary Care Provider: Sid Harris MD History of Present Illness History of Present Illness Serene Alcaraz is a 64 year old female with multiple comorbidities including COPD, B12 deficiency, hypertension, hypothyroid, and pancreatitis. She was found to have a sacral decubitus ulcer with concerns for possible surrounding cellulitis upon admission to the hospital on April [address] Lopez, general surgeon was consulted due to possible fistula connection with the distal rectum from the sacral decub. He evaluated her and ruled this out clinically. He recommended her to follow-up outpatient at wound care. Dr. Mcguire consulted wound care for dressing recommendations for discharge. According to nursing staff, they have been applying an Optifoam to the wound. She lives alone. During her hospital admission she has been receiving IV vancomycin and cefepime. Review of Systems General: Reports: 10 or more systems reviewed and unremarkable except in HPI and below Const: Reports: change in weight; Denies: fever(s) or chills Card: Denies: chest pain or palpitations Resp: Denies: dyspnea Skin/Breast: Reports: sores Neuro: Reports: numbness in extremities Medications/Allergies Home Medications ?Medication ?Instructions ?Recorded ?Confirmed ?Last Taken ?Type amlodipine 5 mg tablet 5 mg PO BID@0600,1800 05/28/20 04/04/25 04/03/25 History atorvastatin 80 mg tablet 80 mg PO DAILY@1800 05/28/20 04/04/25 04/03/25 History amoxicillin 875 mg-potassium 1 tab PO BID 4 days #8 tabs 04/08/25 Unknown Rx clavulanate 125 mg tablet levofloxacin 750 mg tablet 750 mg PO Q24H 4 days #4 tabs 04/08/25 Unknown Rx magnesium L-lactate 84 mg 84 mg PO BID #60 tabs 04/08/25 Unknown Rx tablet,extended release (Magtab) sodium chloride 1,000 mg soluble 1,000 mg PO BID #60 tabs 04/08/25 Unknown Rx tablet sodium di- and 1 tab PO BID #60 tabs 04/08/25 Unknown Rx monophosphate-potassium phos monobasic 250 mg tablet (Phospha Neutral) Allergies Allergy/AdvReac Type Severity Reaction Status Date / Time hydrochlorothiazide Allergy unknown Verified 09/23/24 15:44 Latex, Natural Rubber Allergy ALGY-Hives Verified 09/23/24 15:44 nitrofurantoin (From Allergy ADR-Nausea Verified 09/24/24 12:01 Macrobid) Current Medications Generic Name Dose Route Start Last Admin Trade Name Freq PRN Reason Stop Dose Admin Acetaminophen 650 mg 04/03/25 23:20 04/07/25 21:22 Acetaminophen 325 Mg Tablet PO 650 mg Q6H PRN Administration Mild/Mod Pain Or Temp >/= 101 Albuterol/Ipratropium 3 ml 04/03/25 23:20 04/06/25 10:40 Ipratropium-Albuterol 3 Ml Neb INHALATION 3 ml Q6H PRN Administration SHORTNESS OF BREATH Ceftriaxone Sodium 1,000 mg 04/04/25 21:00 04/07/25 21:23 Ceftriaxone 1,000 Mg Sdv IV 1,000 mg BEDTIME JANUARY Administration Protocol Heparin Sodium (Porcine) 5,000 unit 04/03/25 23:20 04/07/25 21:23 Heparin 5,000 Unit/Ml Inj 1 Ml SUBCUT 5,000 unit Q12H JANUARY Administration Hydrocortisone 1 applic 04/06/25 13:11 04/06/25 13:36 Hydrocortisone 0.5% Cream 28 Gm TOPICAL 1 applic QID PRN Administration RASH Vancomycin HCl 500 mg/ Sodium 100 mls @ 200 mls/hr 04/04/25 12:00 04/07/25 12:09 Chloride IV Infused Q24H JANUARY Infusion Magnesium Lactate 84 mg 04/06/25 09:00 04/07/25 17:24 Magnesium Lactate 84 Mg Tablet PO 84 mg BID JANUARY Administration Ondansetron HCl 4 mg 04/03/25 23:20 04/05/25 08:05 Ondansetron 2 Mg/Ml Sdv 2 Ml IVP 4 mg Q8H PRN Administration vomiting, or N/V if npo Potassium Phosphate 250 mg 04/05/25 09:00 04/07/25 17:24 Phosphorus 250 Mg Tablet PO 250 mg BID JANUARY Administration PFSH Acute PFSH: Medical History Hyperlipidemia Vitamin B12 deficiency Hypothyroid E-coli UTI Intertrochanteric fracture of right hip Fall Nicotine addiction LGSIL Pap smear of vagina Chronic hyponatremia Alcohol use Chronic pancreatitis Osteoporosis Hypertension COPD (chronic obstructive pulmonary disease) Acute cystitis with hematuria Surgical History Status post open reduction with internal fixation of fracture H/O: hysterectomy Family History Mother Anesthesia complication CAD (coronary artery disease) Diabetes Hyperlipidemia Hypertension Family history of thyroid problem Grandfather Cancer maternal-lung cancer Sister Diabetes Hypertension Son Diabetes Grandmother Diabetes paternal Denies family history of Ovarian cyst Clotting disorder Chronic kidney disease (CKD) Bleeding disorder Social History Smoking and tobacco/nicotine status: unknown if used tobacco/nicotine Alcohol intake: current Alcohol intake frequency: few times a week Substance/Drug Use: never Lives independently: Yes Household members: family Marital status: Single Current occupational status: employed Current occupation: [employer] Current occupational exposures/hazards: Yes Do you think of yourself as: Straight/Heterosexual Current gender identity: Female Vitals/I&O/Wt Last Vital Signs Temp 98.6 F 04/08/25 07:58 Pulse 64 04/08/25 07:58 Resp 15 04/08/25 07:58 BP 135/80 04/08/25 07:58 Pulse Ox 97 04/08/25 07:58 O2 Del Method Room Air 04/08/25 07:58 04/07/25 04/08/25 04/08/25 22:59 06:59 14:59 Intake Total 480 / 1528.333 360 / 1888.333 Balance 480 / 1528.333 360 / 1888.333 Weight last 48 hrs Weight 39.916 kg Weight 38.828 kg Physical Exam Const: COMMON NORMALS: no acute distress, patient oriented x3 and alert EXAM LIMITATIONS: physical limitations GENERAL APPEARANCE: cooperative, comfortable, well kempt and frail appearing NUTRITIONAL APPEARANCE: underweight ORIENTATION/CONSCIOUSNESS: Yes awake, Yes oriented to person, Yes oriented to place and Yes oriented to time HENMT: COMMON NORMALS: Normal external nose present HEAD & SCALP: normal to inspection NOSE: Normal external nose present Eye: GENERAL EYE: appearance normal, both eyes and all related structures Neck/C-Spine: GENERAL: Yes trachea midline Chest: CHEST: Yes Symmetrical chest wall rise Resp: COMMON NORMALS: normal respiratory effort and No use of accessory muscles EFFORT & INSPECTION: Yes able to speak in complete sentences and Yes symmetric chest movement Cardio: COMMON NORMALS: regular rate RATE: regular rate Back/Pelvis: SACRUM: no ecchymosis, no erythema, no swelling, No sacral edema and other (multiple palpable bony prominences ) COCCYX: no swelling Neuro: COMMON NORMALS: patient oriented x3 SENSORIUM/ORIENTATION: Yes alert, Yes oriented to person, Yes oriented to place and Yes oriented to time Psych: COMMON NORMALS: mental status grossly normal, cooperative and normal affect APPEARANCE: Yes well kempt ATTITUDE: Yes calm ACTIVITY/MOTOR BEHAVIOR: Yes appropriate eye contact Skin: WOUNDS: Yes wounds noted (see wound assessment) Data 04/08/25 05:38 04/08/25 05:38 A&P Assessment and plan (1) Pressure ulcer of right buttock, stage 2: Plan The wound is small and superficial without slough or granulation tissue and does not extend beyond the dermal layer indicating it is a stage II pressure ulcer. The ulcer is without signs or symptoms of active infection. There is small healed areas to the left gluteus and mid-sacral region. Both areas have evidence of intact skin and are without drainage. Lengthy discussion was had regarding the need to frequently change positions and offload the area as well as the wound care that will be required. She was also encouraged to continue nutritional shakes with each meal to optimize her nutrition. An order will be placed for home health by hospitalist service to assist her with her wound dressing a few days a week. She also has a helper coming Monday-Monday who she thinks will be able to help her. She does not have any family to help. She navigates in a wheelchair around her home and transfers to other chairs and her bed independently. Although the wound is small and superficial, given the location and her current home situation she is at risk for further wound decline including infection. I recommend her following up weekly at wound care and a referral will be placed upon discharge. PDMP PDMP Reviewed: Not Reviewed Consult Attestations Time Spent in Patient Care: 16 - 35 minutes Coding Level of Care Code Acute Code for [facility] Fwd Diagnoses Pressure ulcer of right buttock, stage 2 L89.312 Wound Assessment Wound Assessment Wound Number 1 Gluteus: Cluster Wound: No Descriptor: Right Primary Etiology:: Pressure Ulcer Length: (cm): 0.5 cm Width: (cm): 0.5 cm Depth: (cm): 0.1 cm Epithelialization:: Small (1-33%) Tunneling:: No Undermining:: No Classification: Stage 2 Limited to Skin Breakdown: No Exudate Amount:: Small Drainage Type: Serosanguineous Slough/Fibrin?: No Granulation Amount: None Necrotic Amount:: None Wound Orders Wound Number 1: right gluteus Dressing change frequency: Daily Wound Cleansing: Saline Primary Wound Care Dressing: hydrofera blue ready Secondary Wound Care Dressing: silicone bordered dressing Off-Loading: Turn and reposition every 2 hours and Donut Cushion
[2025-04-08 08:30] VITALS: PULSE 66; RESP 16; O2SAT 98
--- NOTE | 2025-04-08 08:58 | PM.DCS ---
Discharge Providers Date of Admission: 04/04/25 10:35 Date of Discharge: April 08, 2025 Attending Provider at Admission: Rosalino Santiago MD Attending Provider at Discharge: Maksim Mcguire MD Consults: Wound care nurse Primary Care Provider: Sid Harris MD Diagnoses at Discharge Discharge Diagnosis (1) Sacral decubitus ulcer, stage II: Status: Acute (2) Acute metabolic encephalopathy: Status: Acute (3) Hypertension: Status: Acute (4) Hypothyroid: Status: Acute (5) Hyponatremia: Status: Acute (6) Acute UTI: Status: Acute (7) COPD (chronic obstructive pulmonary disease): Status: Acute (8) Tobacco dependence: Status: Acute (9) Severe protein-calorie malnutrition: Status: Acute (10) Physical deconditioning: Status: Acute (11) Cachexia: Status: Acute (12) Weight loss: Status: Acute Reason for Visit Reason for Visit: fall x 3 weeks Brief History: History as per HPI: Serene Alcaraz is a 64 year old female with a past medical history significant for hyperlipidemia, hypothyroidism, B12 deficiency, chronic hyponatremia, chronic pancreatitis, hypertension, COPD, urinary tract infections, and multiple other comorbidities who presents to the emergency department with generalized weakness. Patient seen evaluated emergency department room 7. She is noted to be slightly confused and a poor historian. Collateral information from the ED provider/staff for patient lives alone and has shown signs of confusion while being in the emergency department. Patient states that symptoms have been present for several months. She endorses nausea, vomiting, loose stools, weakness, malaise, and fevers for the past several months. Denies alleviating or aggravating factors. In the emergency department, vitals were largely unremarkable. Labs showed hyponatremia to 122, hypochloremia, azotemia to 82, elevated creatinine, and urinalysis was abnormal consistent with infection. Urinary drug screen was positive for marijuana Hospital Course Hospital Course Patient was admitted to the hospital further evaluation and management with concerns for acute metabolic encephalopathy in setting of hyponatremia, failure to thrive, acute kidney injury, physical deconditioning along with significant sacral decubitus ulcer. On CT on pelvis there was a concern for possible fistula which was ruled out clinically by surgical consultation and examination who recommended f continuing medical management. She was continued on IV antibiotics. Wound care consultation was achieved. Patient was started on IV fluids given concerns for cachexia and malnutrition. She was encouraged to increase her oral intake. Patient's oral intake has been increasing but she is developing refeeding syndrome. Electrolytes were managed by starting oral replacement therapy. Multiple safe discharge planning and discussions were done with the patient. Patient was advised for transition to SNF given concerns for physical deconditioning, severe malnourishment and need for extensive wound care for better healing. Patient verbalized understanding but wanted to be discharged home with home health which is being arranged. She has been discharged in stable condition advised to continue with wound care, follow-up with wound care as an outpatient, continuing her protein shakes as an outpatient along with recheck of BMP in 1 week to monitor electrolytes. Physical Exam Const: COMMON NORMALS: no acute distress and patient oriented x3 HENMT: COMMON NORMALS: normocephalic HEAD & SCALP: normocephalic Eye: COMMON NORMALS: Equal, round and reactive pupils present and EOMs intact bilaterally PUPIL: Yes Equal, round and reactive pupils present Chest: OTHER: Evidence of severe protein calorie malnutrition, physical deconditioning, muscle loss, cachexia, fat pad thinning under bilateral clavicles, ribs, bilateral thighs, arms, temporal muscle wasting Resp: COMMON NORMALS: normal respiratory effort, No retractions, No use of accessory muscles and clear to auscultation bilaterally AUSCULTATION: clear to auscultation bilaterally Cardio: COMMON NORMALS: regular rate, regular rhythm, S1 normal heart sound present and S2 normal heart sound present RATE: regular rate RHYTHM: regular rhythm HEART SOUNDS: S1 normal heart sound present and S2 normal heart sound present GI: COMMON NORMALS: Normal to inspection, nondistended, normoactive bowel sounds present and non-tender : COMMON NORMALS: Yes no CVA tenderness BLADDER/KIDNEY EXAM: Yes no CVA tenderness Back/Pelvis: COMMON NORMALS: no CVA tenderness OTHER: Area over the sacrum, measuring 2 x 2 cm, sacral decubitus ulcer Extremity: COMMON NORMALS: no pedal edema Neuro: COMMON NORMALS: patient oriented x3, CN's II-XII intact bilaterally and moves all extremities Psych: COMMON NORMALS: mental status grossly normal Discharge Data Studies Completed and Pending Completed Studies During Hospitalization Category Date Time Status CT chest abdomen pelvis [[place] [id number] Cat Scan 04/04/25 10:36 Completed ] Routine CT head wo con* [id number] Urgent Cat Scan 04/03/25 16:[address] lumbar spine wo con* [id number] Routine Cat Scan 04/04/25 10:36 Completed XR chest 1V portable [id number] Urgent Exams 04/03/25 16:28 Completed Pending at discharge Category Date Time Status MAG [Magnesium] AM LABS Lab 04/09/25 04:00 Ordered MAG [Magnesium] AM LABS Lab 04/10/25 04:00 Ordered Phosphorus AM LABS Lab 04/09/25 04:00 Ordered Phosphorus AM LABS Lab 04/10/25 04:00 Ordered Urine Lytes [Urine Random Lytes] Stat Lab 04/03/25 22:17 Uncollected Vancomycin Trough Timed Lab 04/08/25 11:00 Ordered Radiology Impressions Chest X-Ray 04/03/25 16:28 IMPRESSION: No acute findings. Head CT 04/03/25 16:49 IMPRESSION: No acute intracranial abnormality. Chest/Abdomen/Pelvis CT 04/04/25 10:36 IMPRESSION: 1. No acute chest findings 2. Pancreatic calcifications with ductal dilatation compatible with chronic pancreatitis similar to previous. 3. No hydronephrosis in either kidney. 4. Chronic T12 compression fracture. 5. Distended stomach with air-fluid levels extending into the proximal duodenum. 6. Diffuse bladder wall thickening likely due to chronic cystitis. 7. Sacral decubitus ulcer the distal sacrum with soft tissue induration. This extends to the midline gluteal cleft. No drainable abscess or fluid collection visualized. There appears to be a small fistulous connection extending to the rectum best seen on the sagittal imaging image 29 series 16. 8. No other acute findings. Lumbar Spine CT 04/04/25 10:36 IMPRESSION: 1. Advanced osteopenia. No visualized acute compression fractures. 2. Mild central canal stenosis L3-L4 and L4-L5 described above. 3. Pancreatic calcifications with ductal dilatation partially visualized likely due to chronic pancreatitis. Microbiology 04/03/25 18:17 Urine,Clean Catch Urine Culture - Final Laboratory Results WBC 6.76 10^3/uL (3.29-11.43) 04/08/25 05:38 RBC 3.71 10^6/uL (3.85-5.65) L 04/08/25 05:38 Hgb 10.30 g/dL (11.27-16.99) L 04/08/25 05:38 Hct 31.2 % (36-47) L 04/08/25 05:38 MCV 84.1 fl (85-98) L 04/08/25 05:38 MCH 27.8 pg (27-33) 04/08/25 05:38 MCHC 33.0 g/dL (30-55) 04/08/25 05:38 RDW 14.0 % (12.1-15.1) 04/08/25 05:38 Plt Count 305 10^3/cmm (157-399) 04/08/25 05:38 MPV 8.5 fL (7.4-10.4) 04/08/25 05:38 Neut % (Auto) 59.2 % 04/08/25 05:38 Lymph % (Auto) 27.2 % 04/08/25 05:38 [place] % (Auto) 8.0 % 04/08/25 05:38 Eos % (Auto) 4.6 % 04/08/25 05:38 Baso % (Auto) 0.7 % 04/08/25 05:38 Neut # (Auto) 4.00 10^3/uL (1.8-7.7) 04/08/25 05:38 Lymph # (Auto) 1.8 10^3/uL (0.8-4.8) 04/08/25 05:38 [place] # (Auto) 0.5 10^3/uL (0.2-0.9) 04/08/25 05:38 Eos # (Auto) 0.3 10^3/uL (0.0-0.8) 04/08/25 05:38 Baso # (Auto) 0.1 10^3/uL (0.0-0.1) 04/08/25 05:38 Nucleated RBC % (auto) 0 % 04/08/25 05:38 Nucleated RBCs # 0.0 /100WBC 04/08/25 05:38 ESR 5 mm/hr (0-15) 04/04/25 04:23 Sodium 130 mmol/L (136-145) L 04/08/25 05:38 Potassium 3.7 mmol/L (3.5-5.1) 04/08/25 05:38 Chloride 95 mmol/L (98-107) L 04/08/25 05:38 Carbon Dioxide 25 mmol/L (22-29) 04/08/25 05:38 Anion Gap 13.7 (5-19) 04/08/25 05:38 BUN 9 mg/dL (8-23) 04/08/25 05:38 Creatinine 0.3 mg/dL (0.5-0.9) L 04/08/25 05:38 GFR Calculation 223.3 mL/min (90-130) H 04/08/25 05:38 Glucose 104 mg/dL (65-115) 04/08/25 05:38 Estimat Average Glucose 148 04/07/25 03:23 Hemoglobin A1c 6.8 % (4.0-6.0) H 04/07/25 03:23 Calculated Osmolality 269 mOsm/kg (285-295) L 04/08/25 05:38 Lactic Acid 1.1 mmol/L (0.5-2.2) 04/03/25 16:49 Calcium 8.2 mg/dL (8.5-10.5) L 04/08/25 05:38 Phosphorus 2.6 mg/dL (2.5-4.5) 04/08/25 05:38 Magnesium 1.3 mg/dL (1.7-2.3) L 04/08/25 05:38 Iron 56 ug/dL (37-145) 04/07/25 03:23 TIBC 218 mcg/dl 04/07/25 03:23 % Saturation 25.6 % (20-50) 04/07/25 03:23 Unsat Iron Binding 162 ug/dL (112-347) 04/07/25 03:23 Total Bilirubin 0.2 mg/dL (0.15-1.2) 04/08/25 05:38 AST 25 U/L (0-32) 04/08/25 05:38 ALT 23 U/L (0-33) 04/08/25 05:38 Alkaline Phosphatase 68 U/L (35-105) 04/08/25 05:38 Total Protein 5.3 g/dL (6.6-8.7) L 04/08/25 05:38 Albumin 3.0 g/dL (3.5-5.2) L 04/08/25 05:38 Globulin 2.3 g/dL (1.3-4.6) 04/08/25 05:38 Triglycerides 100 mg/dL (0-150) 04/08/25 05:38 Cholesterol 157 mg/dL (0-200) 04/08/25 05:38 LDL Cholesterol, Calc 72 mg/dL (50-129) 04/08/25 05:38 Total VLDL Cholesterol 20 mg/dL (0-30) 04/08/25 05:38 HDL Cholesterol 65 mg/dL (60-100) 04/08/25 05:38 Cholesterol/HDL Ratio 2.42 mg/dL (0.0-4.40) 04/08/25 05:38 Lipase 7 U/L (13-60) L 04/03/25 16:49 Vitamin B12 247 pg/mL (232-1245) 04/07/25 03:23 Folate 9.0 ng/mL (4.8-37.3) 04/08/25 05:38 Procalcitonin 0.05 ng/mL (0-0.5) 04/07/25 03:23 TSH 5.50 uIU/mL (0.27-4.20) H 04/03/25 16:49 Random Cortisol 12.66 ug/dL (2.47-19.5) 04/04/25 17:59 Cortisol Response 04/05/25 08:59 Urine Color Yellow (Yellow) 04/03/25 18:17 Urine Appearance Turbid (CLEAR) A 04/03/25 18:17 Urine pH 7.0 (5-7) 04/03/25 18:17 Ur Specific [place] 1.014 (1.005-1.030) 04/03/25 18:17 Urine Protein 2+ (Negative) A 04/03/25 18:17 Urine Glucose (UA) Negative (Normal) 04/03/25 18:17 Urine Ketones Trace (Negative) 04/03/25 18:17 Urine Blood 2+ (Negative) A 04/03/25 18:17 Urine Nitrate Negative (Negative) 04/03/25 18:17 Urine Bilirubin Negative (Negative) 04/03/25 18:17 Urine Urobilinogen 1.0 mg/dL (Negative) 04/03/25 18:17 Ur Leukocyte Esterase 3+ (Negative) A 04/03/25 18:17 Urine RBC 11-20 /hpf (0-2) H 04/03/25 18:17 Urine WBC >100 /hpf (0-5) H 04/03/25 18:17 Ur Squamous Epith Cells 0-5 /hpf (0-5) 04/03/25 18:17 Amorphous Sediment Not Reportable 04/03/25 18:17 Urine Bacteria Exceeds /hpf (NONE) 04/03/25 18:17 Hyaline Casts 7.42 /lpf 04/03/25 18:17 Nasal MRSA (PCR) Not detected (Not Detecte) 04/07/25 09:30 Urine Opiates Screen Negative ng/mL (Negative) 04/03/25 18:17 Ur Barbiturates Screen Negative ng/mL (Negative) 04/03/25 18:17 Ur Phencyclidine Scrn Negative ng/mL (Negative) 04/03/25 18:17 Ur Amphetamines Screen Negative ng/mL (Negative) 04/03/25 18:17 U Benzodiazepines Scrn Negative ng/mL (Negative) 04/03/25 18:17 Urine Cocaine Screen Negative ng/mL (Negative) 04/03/25 18:17 U Marijuana (THC) Screen Positive ng/mL (Negative) H 04/03/25 18:17 Ethyl Alcohol < 10 mg/dL (0-10) 04/03/25 16:49 Hepatitis A IgM Ab Non-reactive (Nonreactive) 04/04/25 17:59 Hep Bs Antigen Non-reactive (Nonreactive) 04/04/25 17:59 Hep B Core IgM Ab Non-reactive (Nonreactive) 04/04/25 17:59 Hepatitis C Antibody Non-reactive (Nonreactive) 04/04/25 17:59 HIV 1&2 Ab & HIV 1 Ag Non-reactive (Non-Reactiv) 04/04/25 17:59 HIV 1&2 Antibody Non-reactive (Non-Reactiv) 04/04/25 17:59 Vitals Last Vital Signs Temp 98.6 F 04/08/25 07:58 Pulse 66 04/08/25 08:30 Resp 16 04/08/25 08:30 BP 135/80 04/08/25 07:58 Pulse Ox 98 04/08/25 08:30 O2 Del Method Room Air 04/08/25 08:30 Discharge Plan Discharge Patient Disposition: Home Health Service Condition: Stable Prescriptions: New magnesium L-lactate [Magtab] 84 mg Tablet Extended Release 84 mg PO BID Qty: 60 0RF Phospha 250 Neutral 250 mg Tablet 1 tab PO BID Qty: 60 0RF sodium chloride 1,000 mg Tablet,Soluble 1,000 mg PO BID Qty: 60 0RF levofloxacin 750 mg tablet 750 mg PO Q24H 4 Days Qty: 4 0RF amoxicillin-pot clavulanate 875-125 mg tablet 1 tab PO BID 4 Days Qty: 8 0RF Continued atorvastatin 80 mg Tablet 80 mg PO DAILY@1800 Qty: 30 0RF amlodipine 5 mg Tablet 5 mg PO BID@0600,1800 Qty: 30 0RF Discontinued labetalol 100 mg Tablet 100 mg PO BID@0600,1800 Discharge Orders: Discharge Order (Routine); Ordered 04/08/25 Ordered By: Maksim Mcguire Referrals: [facility] [Outside] Ernesto Amador FNP [Nurse Practitioner, Wound Care] - 04/10/25 9:00 am Referral Note: Sid Harris MD [Primary Care Provider, [facility]] - 04/14/25 8:30 am Discharge Diet: Usual diet Discharge Activity: Resume usual activity Patient Instructions: Amoxicillin/Clavulanate Potassium (By mouth), Levofloxacin (By mouth) (Levaquin, Levaquin Leva-betina), Opioid Safety, Pain Management Activity Restrictions/Additional Instructions: Please recheck your BMP, magnesium and phosphorus level in 1 week. You should have wound dressed as directed every day. Please continue follow-up with wound care clinic as directed. Wound Orders Wound Number 1: right gluteus Dressing change frequency: Daily Wound Cleansing: Saline Primary Wound Care Dressing: hydrofera blue ready Secondary Wound Care Dressing: silicone bordered dressing Off-Loading: Turn and reposition every 2 hours and Donut Cushion Discharge Attestations Time Spent in Discharge Care*: greater than 30 min Specific Discharge Activities: educating patient, discussing with pcp/other providers, discussing with manager of case/social workers/dc planners, documenting/other paperwork and evaluating patient/reviewing data Status at Discharge: Cognitive status at discharge: cognitively intact, Behavioral status at discharge: cooperative, Functional status at discharge: bed bound, Overall status at discharge: patient is back to baseline Quality Metrics Clinical Quality Measures [ No reported AMI, CVA or VTE this stay] Coding Level of Care Code 03609 Total time (in minutes) for Discharge: 60 Diagnoses Sacral decubitus ulcer, stage II L89.152 Acute metabolic encephalopathy G93.41 Hypertension I10 Hypothyroid E03.9 Hyponatremia E87.1 Acute UTI N39.0 COPD (chronic obstructive pulmonary disease) J44.9 Tobacco dependence F17.200 Severe protein-calorie malnutrition E43 Physical deconditioning R53.81 Cachexia R64 Weight loss R63.4
[2025-04-08] MEDS: sodium chloride 1 gm Tablet PO (09:05)
[2025-04-08] MEDS: magnesium sulfate premix 2 GM/50 ML PIGGYBACK IV (09:05)
[2025-04-08] MEDS: magnesium lactate 84 mg Tablet PO (09:05)
[2025-04-08] MEDS: phosphorus 250 mg Tablet PO (09:05)
--- NOTE | 2025-04-08 11:49 | PC.CHAP ---
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 visit [] Patient/Family/Request visit [] Outpatient visit [] Follow-up visit [] Physician referral [] Code/Alert [x] Routine visit [] Staff referral [] Actively dying [] Patient sleeping [] Family support [] [] Out of room [] Palliative care [] [] Receiving care in room [] Pre-surgical visit [] Trauma [] Long length of stay [] ICU visit [] Other: Relational/Emotional Strength [x] Patient feels connected with others/family/visitors/staff [] Distress [] Loneliness/isolation [] Abandonment Spirituality of Patient [x] Person of [place] [] Attends Jew of their [place] [x] Believes in Prayer [] Reads Bible or Baptism materials [] There are Spiritual issues to be addressed Elevator Constructor Helper Interventions [x] Prayer [x] Active listening [x] Non-anxious presence [x] Spiritual/emotional support [] Crisis/trauma care [] Spiritual counseling [] Bereavement support [] Provided bereavement packet [] Provided Bible/devotional materials [] Provided toy/stuffed animal, coloring book to patient or family member [] Provided Communion [] Anointing/Kouts [] Salvation [x] Completed spiritual assessment [] Other: Impact on Illness or Injury [] Angry [] Fearful [] Anxious [] Often cries [] Exhaustion [] Unable to work [] Unable to attend druze [] Unable to walk/stand [] Unable to read [] Unable to drive [] Unable to eat/drink [] Unable to sleep [] Unable to be with family [] Patient intubated [] Other: Summary Time spent with patient 5 min
[2025-04-08] MEDS: heparin 5,000 unit/mL INJ 1 mL 5000 UNIT SUBCUT (11:59)
[2025-04-08 12:00] VITALS: BP 130/67; PULSE 90; RESP 15; TEMP 37; O2SAT 95
[2025-04-08 14:03] VITALS: BP 130/67; PULSE 90; RESP 16; TEMP 37; O2SAT 95
== END 2025-04-08 14:00 | disposition home health service (06) | DRG 689 ==
LOC: ER 22:04 → MEDSURG 22:44
PROVIDERS: Family Medicine; Physician Assistant; Admitting Provider Internal Medicine; Emergency Provider Emergency Medicine; PCP Family Medicine; Visit Provider Student in an Organized Health Care Education/Training Program
DX: N39.0 Urinary tract infection, site not specified (principal); E43 Unspecified severe protein-calorie malnutrition; G93.41 Metabolic encephalopathy; E87.1 Hypo-osmolality and hyponatremia; Z68.1 Body mass index [BMI] 19.9 or less, adult; N17.9 Acute kidney failure, unspecified; L89.151 Pressure ulcer of sacral region, stage 1; L89.152 Pressure ulcer of sacral region, stage 2; I10 Essential (primary) hypertension; E03.9 Hypothyroidism, unspecified; J44.9 Chronic obstructive pulmonary disease, unspecified; R63.4 Abnormal weight loss; E78.5 Hyperlipidemia, unspecified; E87.8 Other disorders of electrolyte and fluid balance, not elsewhere classified; Z87.891 Personal history of nicotine dependence; Z79.82 Long term (current) use of aspirin
CPT/HCPCS: 36415; 70450; 71045; 71250; 72131; 74176; 80048; 80053; 80061; 80074; 80306; 80307; 81001; 82533; 82607; 82746; 83036; 83540; 83550; 83605; 83690; 83735; 84100; 84145; 84295; 84443; 85025; 85651; 87086; 87806; 94640; 96372; 96374; 97161; 97166; 97530; 99285; G0378; J0696; J0834; J1644; J2405; J3370; J3475; J7030; J9999

== ENCOUNTER 2025-04-10 12:07 | Emergency (ER) | payer OTHER, MEDICAID, SELFPAY ==
--- NOTE | 2025-04-10 12:11 | XRR_ITS ---
PROCEDURE INFORMATION: Exam: XR Chest Exam date and time: 04/10/2025 12:31 PM Age: 64 years old Clinical indication: Dyspnea TECHNIQUE: Imaging protocol: Radiologic exam of the chest. Views: 1 view. COMPARISON: CT chest abdpel [id number] 04/04/2025 12:49 PM FINDINGS: Lungs: No consolidation. Pleural spaces: No sizable pleural effusion or pneumothorax. Heart/Mediastinum: No cardiomegaly. Bones/joints: Diffuse osteopenia limits evaluation for nondisplaced fractures. XR/XR chest 1V portable [id number] IMPRESSION: No acute intrathoracic findings.
[2025-04-10 12:28] VITALS: BP 135/70; PULSE 101; RESP 17; TEMP 36.9; O2SAT 95; BMI 14.1
[2025-04-10 12:59] LABS: Basophils % 0.5 %; Eosinophils # 0.1 10^3/uL (0.0-0.8); Eosinophils % 1.8 %; Hematocrit 30.9 % (36-47); Lymphocytes # 1.7 10^3/uL (0.8-4.8); Lymphocytes % 22.9 %; Mean Corpuscular HGB Conc 32.4 g/dL (30-55); Mean Corpuscular Hemoglobin 27.5 pg (27-33); Mean Corpuscular Volume 85.1 fl (85-98); Mean Platelet Volume 8.3 fL (7.4-10.4); Monocytes # 0.7 10^3/uL (0.2-0.9); Monocytes % 9.8 %; Neutrophils # 4.77 10^3/uL (1.8-7.7); Neutrophils % 64.7 %; Nucleated Red Blood Cells % 0 %; Platelet Count 307 10^3/cmm (157-399); Red Blood Count 3.63 10^6/uL (3.85-5.65); Red Cell Distribution Width 14.6 % (12.1-15.1); White Blood Count 7.37 10^3/uL (3.29-11.43)
[2025-04-10 13:22] LABS: Alanine Aminotransferase 23 U/L (0-33); Albumin Level 3.3 g/dL (3.5-5.2); Alkaline Phosphatase 64 U/L (35-105); Aspartate Amino Transferase 26 U/L (0-32); Blood Urea Nitrogen 9 mg/dL (8-23); Calcium 8.6 mg/dL (8.5-10.5); Carbon Dioxide 26 mmol/L (22-29); Chloride 94 mmol/L (98-107); Creatinine Clr Calc Pharmacy 35.1411; Globulin 2.5 g/dL (1.3-4.6); Glomerular Filtration Rate 223.3 mL/min (90-130); Glucose 84 mg/dL (65-115); Osmolality Calculated 266 mOsm/kg (285-295); Sodium 129 mmol/L (136-145); Total Bilirubin 0.2 mg/dL (0.15-1.2); Total Protein 5.8 g/dL (6.6-8.7)
--- NOTE | 2025-04-10 15:09 | PC.NURSE ---
pt's family, Ariadna Graves, requesting case management assistance/follow up with NH placement or assistance obtaining guardianship d/t pt not being able to take care of self . pt lives at home. pt in [place] during phone call, ED physician has not been assigned to pt at this time.
[2025-04-10 16:29] VITALS: BP 135/72; PULSE 94; RESP 16; O2SAT 96
[2025-04-10 17:36] LABS: NT Pro B Type Natriuretic Pept 1210 pg/mL (0-125)
[2025-04-10 18:00] VITALS: PULSE 80; RESP 16; O2SAT 95
--- NOTE | 2025-04-10 18:13 | ED_ITS ---
HPI - Extremity Problem 2 General: Chief complaint: Extremity Problem,Nontraumatic Stated complaint: swelling in both feet Time Seen by Provider: 04/10/25 16:30 Source: patient Mode of arrival: ambulatory Limitations: no limitations History of Present Illness: Patient reports her leg swelling for the past 2448 hrs. She is on amlodipine at baseline but that is not a new med. She was started on Augmentin recently for UTI. Her BNP is up compared to previous. She is no longer on any fluid pill she has been on Lasix in the past but is not on it currently. Reportedly per nursing staff family was looking for long-term placement, but patient does not meet any criteria for placement from the ER. Nor is that really a thing in general. Related Data Previous Rx's ?Medication ?Instructions ?Recorded amlodipine 5 mg tablet 5 mg PO BID@0600,1800 #30 ta 04/08/25 amoxicillin 875 mg-potassium 1 tab PO BID 4 days #8 ta 04/08/25 clavulanate 125 mg tablet atorvastatin 80 mg tablet 80 mg PO DAILY@1800 #30 tabs 04/08/25 levofloxacin 750 mg tablet 750 mg PO Q24H 4 days #4 ta bs 04/08/25 magnesium L-lactate 84 mg 84 mg PO BID #60 tabs tablet,extended release (Magtab) sodium chloride 1,000 mg soluble 1,000 mg PO BID #60 t abs 04/08/25 tablet sodium di- and 1 tab PO BID #60 tabs monophosphate-potassium phos monobasic 250 mg tablet (Phospha Neutral) furosemide 20 mg tablet 20 mg PO QAM 5 days #5 tabs 04/10/25 Allergies Allergy/AdvReac Type Severity Reaction Status Date / Time hydrochlorothiazide Allergy unknown Verified 09/23/24 15:44 Latex, Natural Rubber Allergy ALGY-Hives Verified 09/23/24 15:44 nitrofurantoin (From Allergy ADR-Nausea Verified 09/24/24 12:01 Macrobid) Review of Systems 2 General: Reports: 10 or more systems reviewed and unremarkable except in HPI and below PFSH ED 2 PFSH: Medical History Hyperlipidemia Vitamin B12 deficiency Hypothyroid E-coli UTI Intertrochanteric fracture of right hip Fall Nicotine addiction LGSIL Pap smear of vagina Chronic hyponatremia Alcohol use Chronic pancreatitis Osteoporosis Hypertension COPD (chronic obstructive pulmonary disease) Acute cystitis with hematuria Surgical History Status post open reduction with internal fixation of fracture H/O: hysterectomy Family History Mother Anesthesia complication CAD (coronary artery disease) Diabetes Hyperlipidemia Hypertension Family history of thyroid problem Grandfather Cancer maternal-lung cancer Sister Diabetes Hypertension Son Diabetes Grandmother Diabetes paternal Denies family history of Ovarian cyst Clotting disorder Chronic kidney disease (CKD) Bleeding disorder Social History Smoking and tobacco/nicotine status: unknown if used tobacco/nicotine Alcohol intake: current Alcohol intake frequency: few times a week Substance/Drug Use: never Lives independently: Yes Household members: family Marital status: Single Current occupational status: employed Current occupation: [employer] Current occupational exposures/hazards: Yes Do you think of yourself as: Straight/Heterosexual Current gender identity: Female Physical Exam 2 Const: COMMON NORMALS: no acute distress, patient oriented x3, healthy appearing, alert and well nourished GENERAL APPEARANCE: well kempt and well developed OTHER: Frail appearing elderly female HENMT: COMMON NORMALS: normocephalic, atraumatic, external ears normal and moist oral mucous membranes HEAD & SCALP: normocephalic and atraumatic E XTERNAL EAR: Yes external ears normal Eye: COMMON NORMALS: Equal, round and reactive pupils present, EOMs intact bilaterally and conjunctivae normal CONJUNCTIVA: Yes conjunctivae normal P UPIL: Yes Equal, round and reactive pupils present Neck/C-Spine: COMMON NORMALS: full ROM, no lymphadenopathy and supple Chest: CHEST: Yes Symmetrical chest wall rise and No Surgical scars present (Chest) Resp: COMMON NORMALS: normal respiratory effort, No retractions, No use of accessory muscles and clear to auscultation bilaterally AUSCULTATION: clear to auscultation bilaterally Cardio: COMMON NORMALS: regular rate, regular rhythm, S1 normal heart sound present, S2 normal heart sound present, No gallops present (Cardio), No clicks present (Cardio), No murmurs present (Cardio) and No rub (Cardio) RATE: r egular rate RHYTHM: regular rhythm HEART SOUNDS: S1 normal heart sound present, S2 normal heart sound present and no murmurs PERIPHERAL PULSES: o ther (Radial pulses 2+ and symmetric) GI: COMMON NORMALS: Soft to palpation, non-tender and no masses INSPECTION: No abdominal distension PALPATION: Yes Soft to palpation, No Guarding due to palpation present (GI) and No Rebound tenderness present : COMMON NORMALS: Yes no CVA tenderness BLADDER/KIDNEY EXAM: Yes no CVA tenderness Back/Pelvis: COMMON NORMALS: no CVA tenderness Extremity: COMMON NORMALS: normal to inspection, full ROM and capillary refill normal NARRATIVE EXTREMITY EXAM: No clubbing or cyanosis. There is 2+ bilateral lower extremity edema to the knee. Which patient reports is new. Neuro: COMMON NORMALS: patient oriented x3 SENSORIUM/ORIENTATION: Yes alert Psych: APPEARANCE: Yes well kempt Skin: COMMON NORMALS: no rashes or lesions noted, no wounds, turgor normal and no jaundice GENERAL SKIN EXAM: no rashes or lesions noted and turgor normal Course 2 Vital Signs: Vital signs: Vital Signs Temperature 98.5 F 04/10/25 12:28 Pulse Rate 94 04/10/25 16:29 Respiratory Rate 16 04/10/25 16:29 Blood Pressure 135/72 04/10/25 16:29 Pulse Oximetry 96 04/10/25 16:29 Oxygen Delivery Me thod Room Air 04/10/25 12:28 MDM - Extremity (Nontraumatic) Medical Decision Making Patient's BNP is elevated showing she is volume overloaded. She has compression stockings and a light dose of Lasix for a few days. Her creatinine is baseline. Her sodium is 129 and baseline. Her chloride is low and that is baseline for her as well. Will advise her to see primary care as well as the family to discuss with primary care and patient about long-term placement. No indications for acute care hospital stay at this time. Differential Diagnosis Likely lower extremity edema Medical Records I reviewed the patient's medical records. Lab Data I reviewed the patient's lab results. 04/10/25 12:51 04/10/25 12:51 Radiology Impressions Chest X-Ray 04/10/25 12:11 IMPRESSION: No acute intrathoracic findings. Laboratory Results WBC 7.37 10^3/uL (3.29-11.43) 04/10/25 12:51 RBC 3.63 10^6/uL (3.85-5.65) L 04/10/25 12:51 Hgb 10.00 g/dL (11.27-16.99) L 04/10/25 12:51 Hct 30.9 % (36-47) L 04/10/25 12:51 MCV 85.1 fl (85-98) 04/10/25 12:51 MCH 27.5 pg (27-33) 04/10/25 12:51 MCHC 32.4 g/dL (30-55) 04/10/25 12:51 RDW 14.6 % (12.1-15.1) 04/10/25 12:51 Plt Count 307 10^3/cmm (157-399) 04/10/25 12:51 MPV 8.3 fL (7.4-10.4) 04/10/25 12:51 Neut % (Auto) 64.7 % 04/10/25 12:51 Lymph % (Auto) 22.9 % 04/10/25 12:51 [place] % (Auto) 9.8 % 04/10/25 12:51 Eos % (Auto) 1.8 % 04/10/25 12:51 Baso % (Auto) 0.5 % 04/10/25 12:51 Neut # (Auto) 4.77 10^3/uL (1.8-7.7) 04/10/25 12:51 Lymph # (Auto) 1.7 10^3/uL (0.8-4.8) 04/10/25 12:51 [place] # (Auto) 0.7 10^3/uL (0.2-0.9) 04/10/25 12:51 Eos # (Auto) 0.1 10^3/uL (0.0-0.8) 04/10/25 12:51 Baso # (Auto) 0.0 10^3/uL (0.0-0.1) 04/10/25 12:51 Nucleated RBC % (auto) 0 % 04/10/25 12:51 Nucleated RBCs # 0.0 /100WBC 04/10/25 12:51 Sodium 129 mmol/L (136-145) L 04/10/25 12:51 Potassium 4.0 mmol/L (3.5-5.1) 04/10/25 12:51 Chloride 94 mmol/L (98-107) L 04/10/25 12:51 Carbon Dioxide 26 mmol/L (22-29) 04/10/25 12:51 Anion Gap 13.0 (5-19) 04/10/25 12:51 BUN 9 mg/dL (8-23) 04/10/25 12:51 Creatinine 0.3 mg/dL (0.5-0.9) L 04/10/25 12:51 GFR Calculation 223.3 mL/min (90-130) H 04/10/25 12:51 Glucose 84 mg/dL (65-115) 04/10/25 12:51 Calculated Osmolality 266 mOsm/kg (285-295) L 04/10/25 12:51 Calcium 8.6 mg/dL (8.5-10.5) 04/10/25 12:51 Total Bilirubin 0.2 mg/dL (0.15-1.2) 04/10/25 12:51 AST 26 U/L (0-32) 04/10/25 12:51 ALT 23 U/L (0-33) 04/10/25 12:51 Alkaline Phosphatase 64 U/L (35-105) 04/10/25 12:51 NT-Pro-B Natriuret Pep 1210 pg/mL (0-125) H 04/10/25 12:51 Total Protein 5.8 g/dL (6.6-8.7) L 04/10/25 12:51 Albumin 3.3 g/dL (3.5-5.2) L 04/10/25 12:51 Globulin 2.5 g/dL (1.3-4.6) 04/10/25 12:51 All radiology interpretation(s) finalized by discharge ED provider radiology interpretation(s): Unremarkable chest x-ray. Discharge Plan Discharge Patient Disposition: Home Clinical Impression: Bilateral edema of lower extremity, At risk for fluid volume overload Condition: Stable Prescriptions: New furosemide 20 mg tablet 20 mg PO QAM 5 Days Qty: 5 0RF No Action magnesium L-lactate [Magtab] 84 mg Tablet Extended Release 84 mg PO BID Qty: 60 0RF Phospha 250 Neutral 250 mg Tablet 1 tab PO BID Qty: 60 0RF sodium chloride 1,000 mg Tablet,Soluble 1,000 mg PO BID Qty: 60 0RF levofloxacin 750 mg tablet 750 mg PO Q24H 4 Days Qty: 4 0RF amoxicillin-pot clavulanate 875-125 mg tablet 1 tab PO BID 4 Days Qty: 8 0RF atorvastatin 80 mg Tablet 80 mg PO DAILY@1800 Qty: 30 0RF amlodipine 5 mg Tablet 5 mg PO BID@0600,1800 Qty: 30 0RF Discharge Orders: Discharge ED (Routine); Ordered 04/10/25 Ordered By: Reinaldo Adler Referrals: Sid Harris MD [Primary Care Provider, Family Practice] Discharge Diet: Usual diet and Low Salt Discharge Activity: Resume usual activity Patient Instructions: Dependent Edema Activity Restrictions/Additional Instructions: Wear stockings while legs are swollen. Keep track of them afterwards as if the leg starts swelling again please start wearing them. We should depend on compression stockings before we try, or get bad enough for fluid pills. For this episode we will prescribe you a few days of fluid pills. I prescribed you up to 5 more days past the dose here in the ER. Only take them if you still have leg swelling. Print Language: Hungarian Coding Level of Care Code ED Television News Producer for Sergio Chow
[2025-04-10] MEDS: FUROsemide 40 mg Tablet PO (18:40)
== END 2025-04-10 18:53 | disposition home or self-care (01) ==
PROVIDERS: Family Medicine; Emergency Provider Emergency Medicine; PCP Family Medicine
DX: R60.0 Localized edema (principal); J44.9 Chronic obstructive pulmonary disease, unspecified; I10 Essential (primary) hypertension; E78.5 Hyperlipidemia, unspecified
CPT/HCPCS: 36415; 71045; 80053; 83880; 85025; 99284; J9999

== ENCOUNTER 2025-06-30 08:45 | Outpatient (CLI) | payer OTHER, MEDICAID, SELFPAY ==
--- NOTE | 2025-06-30 08:58 | CT_ITS ---
WS: [id number] LDCT LUNG CANCER SCREENING TECHNIQUE: Noncontrast CT of the chest with coronal and sagittal reformatted images. CLINICAL INFORMATION: NICOTINE DEPENDENCE,CIGARETTES COMPARISON: CT lung screening 05/20/[address] 04/04/2025 DLP: 37.00 mGy.cm DIvol: Mean CTDIvol: 0.60 (mGy) All CT scans at [facility] use at least one of these dose optimization techniques: automated exposure control; mA and/or kV adjustment per patient size (includes targeted exams where dose is matched to clinical indication); or iterative reconstruction. FINDINGS: Chronic emphysematous changes. Hyperinflation. No mediastinal or hilar lymphadenopathy. Stable 5 mm nodule in the posterior RIGHT upper lobe. This is unchanged since 05/20/2021. Calcified granulomas. Tree-in-bud nodularity in the upper lobes. No new suspicious pulmonary parenchymal abnormalities. Aortic calcification. Aberrant RIGHT subclavian artery. Pancreatic calcifications. Chronic compression fractures in the mid and lower thoracic spine. Mild retropulsion at T12 unchanged. Osteopenia. Compression fractures appears stable since 04/04/2025 CT. Thoracic kyphosis in the upper thoracic spine. CT/CT lung screening [id number] IMPRESSION: LUNG-RADS: 2-Benign Appearance or Behavior FOLLOW UP: 12 Month: Continue annual screening with LDCT
== END 2025-06-30 08:46 | disposition home or self-care (01) ==
PROVIDERS: PCP Family Medicine; Visit Provider Family Medicine
DX: Z12.2 Encounter for screening for malignant neoplasm of respiratory organs (principal); F17.210 Nicotine dependence, cigarettes, uncomplicated; J43.9 Emphysema, unspecified; J98.4 Other disorders of lung; R91.1 Solitary pulmonary nodule; J84.10 Pulmonary fibrosis, unspecified; I35.8 Other nonrheumatic aortic valve disorders; M40.294 Other kyphosis, thoracic region; Q25.48 Anomalous origin of subclavian artery; K86.89 Other specified diseases of pancreas; M48.54XS Collapsed vertebra, not elsewhere classified, thoracic region, sequela of fracture; X58.XXXS Exposure to other specified factors, sequela; M43.14 Spondylolisthesis, thoracic region; M85.88 Other specified disorders of bone density and structure, other site
CPT/HCPCS: 71271